=== PATIENT | male | born 1945 | race Caucasian/White ===

== ENCOUNTER 2017-08-07 14:43 | Inpatient (IN) | payer MEDICARE ==
[2017-08-07] MEDS ORDERED: MORPHINE SULFATE 2 MG/ML SYRINGE IVP STA (14:54)
[2017-08-07] MEDS ORDERED: IBUPROFEN 600 MG TAB PO STA (14:54)
[2017-08-07] MEDS ORDERED: ACETAMINOPHEN TAB 500 MG TAB PO STA (14:54)
[2017-08-07] MEDS ORDERED: IPRATROPIUM-ALBUTEROL 3 ML NEB INHALATION STA (14:54)
--- NOTE | 2017-08-07 14:57 | ED ---
General Adult HPI - General Stated complaint: Altered LOC Time Seen by Provider: 08/07/17 14:45 Source: RN notes reviewed - History of Present Illness Initial comments: This is a 72-year-old male who presents emergency Department with a recent stroke was just discharged home to the detention from [facility]. Patient was in the detention and was altered mentally also had a fever and was without his pain medication because the CLAU number was missing on the prescription. Patient was then sent to our facility per family request. It was no indication of shortness of breath or cough the patient denied any chest pain or abdominal pain patient denies any recent nausea or vomiting. There was noted indication the patient was having any nausea vomiting per EMS. There was no indication of any trauma injury. No family is currently here to give any further history. - Related Data Home Medications Medication Instructions Recorded Confirmed Acetaminophen Tab [Tylenol Tab] 650 mg PO Q6H PRN 08/07/17 08/07/17 Apixaban [Eliquis] 2.5 mg PO BID 08/07/17 08/07/17 Carvedilol [Coreg] 12.5 mg PO BID@0700,1600 08/07/17 08/07/17 Digoxin [Lanoxin] 125 mcg PO DAILY 08/07/17 08/07/17 Famotidine [Pepcid] 20 mg PO DAILY@0700 08/07/17 08/07/17 Gabapentin [Neurontin] 100 mg PO TID@0700,1300,1900 08/07/17 08/07/17 HYDROcodone/APAP 7.5-325MG [[place] 1 tab PO Q4H PRN 08/07/17 08/07/17 7.5-325] Insulin Aspart [NovoLOG See Protocol SQ ACHS 08/07/17 08/07/17 (formulary)] Simvastatin [Zocor] 40 mg PO HS 08/07/17 08/07/17 Torsemide [Demadex] 20 mg PO DAILY@0600 08/07/17 08/07/17 Allergies Allergy/AdvReac Type Severity Reaction Status Date / Time No Known Allergies Allergy Verified 08/07/17 15:40 Review of Systems ROS Statement: Those systems with pertinent positive or pertinent negative responses have been documented in the HPI. ROS Other: All systems not noted in ROS Statement are negative. General Exam - General Exam Comments Initial Comments: GENERAL: Patient is well-developed and well-nourished. Patient is nontoxic and well- hydrated and is in mild distress. ENT: Neck is soft and supple. No significant lymphadenopathy is noted. Oropharynx is clear. Moist mucous membranes. Neck has full range of motion without eliciting any pain. EYES: The sclera were anicteric and conjunctiva were pink and moist. Extraocular movements were intact and pupils were equal round and reactive to light. Eyelids were unremarkable. PULMONARY: Patient has crackles in the left base CARDIOVASCULAR: There is a regular rate and rhythm without any murmurs gallops or rubs. ABDOMEN: Soft and nontender with normal bowel sounds. No palpable organomegaly was noted. There is no palpable pulsatile mass. SKIN: Skin is clear with no lesions or rashes and otherwise unremarkable. NEUROLOGIC: Patient is alert and oriented 2. Cranial nerves II through XII are grossly intact. Motor and sensory are also intact. Normal speech, volume and content. Symmetrical smile. MUSCULOSKELETAL: Normal extremities with adequate strength and full range of motion. No lower extremity swelling or edema. No calf tenderness. LYMPHATICS: No significant lymphadenopathy is noted PSYCHIATRIC: Normal psychiatric evaluation. Normal interpersonal interactions appears functionally intact in deals appropriately with others. No signs of depression. No signs of anxiety. Course Vital Signs 08/07/17 08/07/17 08/07/17 14:45 14:50 15:33 Temperature 101.3 F H Pulse Rate 70 70 Respiratory 18 Rate Blood Pressure 101/52 O2 Sat by Pulse 88 L 94 L Oximetry 08/07/17 08/07/17 15:39 16:00 Temperature Pulse Rate 72 70 Respiratory 18 Rate Blood Pressure 101/50 O2 Sat by Pulse 92 L Oximetry Medical Decision Making - Medical Decision Making EKG is a ventricular paced rhythm at 72 bpm QRS is 150 QT interval 4:30 QTC is 470. Chest x-ray shows a left lower lobe pneumonia. I spoke with Dr. Chaudhary he agreed to admit the patient admitted the patient I started antibiotics in the emergency department and continue the antibiotics on the floor. I wrote admitting orders. - Lab Data Result diagrams: 08/07/17 15:25 08/07/17 15:00 Lab Results 08/07/17 08/07/17 08/07/17 Range/Units 15:00 15:00 15:00 WBC (3.8-10.6) k/uL RBC (4.30-5.90) m/uL Hgb (13.0-17.5) gm/dL Hct (39.0-53.0) % MCV (80.0-100.0) fL MCH (25.0-35.0) pg MCHC (31.0-37.0) g/dL RDW (11.5-15.5) % Plt Count (150-450) k/uL Neutrophils % % Lymphocytes % % Monocytes % % Eosinophils % % Basophils % % Neutrophils # (1.3-7.7) k/uL Lymphocytes # (1.0-4.8) k/uL Monocytes # (0-1.0) k/uL Eosinophils # (0-0.7) k/uL Basophils # (0-0.2) k/uL PT 12.3 H (9.0-12.0) sec INR 1.3 H (<1.2) APTT 29.6 (22.0-30.0) sec Sodium 139 (137-145) mmol/L Potassium 4.9 (3.5-5.1) mmol/L Chloride 96 L (98-107) mmol/L Carbon Dioxide 30 (22-30) mmol/L Anion Gap 13 mmol/L BUN 57 H (9-20) mg/dL Creatinine 1.90 H (0.66-1.25) mg/dL Est GFR (CKD-EPI)AfAm 39 (>60 ml/min/1.73 sqM) Est GFR (CKD-EPI)NonAf 34 (>60 ml/min/1.73 sqM) Glucose 201 H (74-99) mg/dL Plasma Lactic Acid Oscar 1.5 (0.7-2.0) mmol/L Calcium 8.5 (8.4-10.2) mg/dL Total Bilirubin 1.9 H (0.2-1.3) mg/dL AST 33 (17-59) U/L ALT 32 (21-72) U/L Alkaline Phosphatase 70 (38-126) U/L Troponin I (0.000-0.034) ng/mL Total Protein 5.9 L (6.3-8.2) g/dL Albumin 3.0 L (3.5-5.0) g/dL Urine Color Urine Appearance (Clear) Urine pH (5.0-8.0) Ur Specific [place] (1.001-1.035) Urine Protein (Negative) Urine Glucose (UA) (Negative) Urine Ketones (Negative) Urine Blood (Negative) Urine Nitrite (Negative) Urine Bilirubin (Negative) Urine Urobilinogen (<2.0) mg/dL Ur Leukocyte Esterase (Negative) Urine RBC (0-5) /hpf Urine WBC (0-5) /hpf Ur Squamous Epith Cells (0-4) /hpf Urine Bacteria (None) /hpf Hyaline Casts (0-2) /lpf Granular Casts (0) /lpf Urine Mucus (None) /hpf 08/07/17 08/07/17 08/07/17 Range/Units 15:00 15:00 15:25 WBC 14.3 H (3.8-10.6) k/uL RBC 3.57 L (4.30-5.90) m/uL Hgb 10.6 L (13.0-17.5) gm/dL Hct 32.4 L (39.0-53.0) % MCV 90.8 (80.0-100.0) fL MCH 29.8 (25.0-35.0) pg MCHC 32.8 (31.0-37.0) g/dL RDW 13.5 (11.5-15.5) % Plt Count 187 (150-450) k/uL Neutrophils % 86 % Lymphocytes % 6 % Monocytes % 6 % Eosinophils % 1 % Basophils % 0 % Neutrophils # 12.2 H (1.3-7.7) k/uL Lymphocytes # 0.8 L (1.0-4.8) k/uL Monocytes # 0.8 (0-1.0) k/uL Eosinophils # 0.1 (0-0.7) k/uL Basophils # 0.0 (0-0.2) k/uL PT (9.0-12.0) sec INR (<1.2) APTT (22.0-30.0) sec Sodium (137-145) mmol/L Potassium (3.5-5.1) mmol/L Chloride (98-107) mmol/L Carbon Dioxide (22-30) mmol/L Anion Gap mmol/L BUN (9-20) mg/dL Creatinine (0.66-1.25) mg/dL Est GFR (CKD-EPI)AfAm (>60 ml/min/1.73 sqM) Est GFR (CKD-EPI)NonAf (>60 ml/min/1.73 sqM) Glucose (74-99) mg/dL Plasma Lactic Acid Oscar (0.7-2.0) mmol/L Calcium (8.4-10.2) mg/dL Total Bilirubin (0.2-1.3) mg/dL AST (17-59) U/L ALT (21-72) U/L Alkaline Phosphatase (38-126) U/L Troponin I 0.053 H* (0.000-0.034) ng/mL Total Protein (6.3-8.2) g/dL Albumin (3.5-5.0) g/dL Urine Color Yellow Urine Appearance Cloudy (Clear) Urine pH 5.5 (5.0-8.0) Ur Specific [place] 1.018 (1.001-1.035) Urine Protein 1+ H (Negative) Urine Glucose (UA) Negative (Negative) Urine Ketones Negative (Negative) Urine Blood Small H (Negative) Urine Nitrite Negative (Negative) Urine Bilirubin Negative (Negative) Urine Urobilinogen 4.0 (<2.0) mg/dL Ur Leukocyte Esterase Negative (Negative) Urine RBC 4 (0-5) /hpf Urine WBC 1 (0-5) /hpf Ur Squamous Epith Cells <1 (0-4) /hpf Urine Bacteria Few H (None) /hpf Hyaline Casts 18 H (0-2) /lpf Granular Casts 13 (0) /lpf Urine Mucus Rare H (None) /hpf Disposition Clinical Impression: Renal insufficiency, Pneumonia Disposition: ADMITTED IP TO THIS HOSP Referrals: Chet Espinoza MD [Primary Care Provider] - 1-2 days Time of Disposition: 16:18
[2017-08-07] MEDS: SODIUM CHLORIDE 0.9% 500 ML IV SCH ×2 (15:16→15:17)
[2017-08-07 15:22] LABS: INR 1.3 (<1.2); Partial Thromboplastin Time 29.6 sec (22.0-30.0); Prothrombin Time 12.3 sec (9.0-12.0)
[2017-08-07 15:25] LABS: Calcium 8.5 mg/dL (8.4-10.2); Potassium 4.9 mmol/L (3.5-5.1); Total Bilirubin 1.9 mg/dL (0.2-1.3); Total Protein 5.9 g/dL (6.3-8.2)
[2017-08-07 15:29] LABS: Appearance,Urine Cloudy (Clear); Bacteria,Urine Few /hpf; Bilirubin,Urine Negative (Negative); Blood,Urine Small (Negative); Color,Urine Yellow; Glucose,Urine (UA) Negative (Negative); Granular Casts,Urine 13 /lpf (0); Hyaline Casts,Urine 18 /lpf (0-2); Ketones,Urine Negative (Negative); Leukocyte Esterase,Urine Negative (Negative); Mucus,Urine Rare /hpf; Nitrite,Urine Negative (Negative); PH, Urine 5.5 (5.0-8.0); Protein,Urine 1+ (Negative); RBC,Urine 4 /hpf (0-5); Specific Gravity,Urine 1.018 (1.001-1.035); Squamous Epithelial Cell,Urine <1 /hpf (0-4); WBC,Urine 1 /hpf (0-5)
[2017-08-07 15:35] LABS: Basophils % (A) 0 %; Eosinophils # (A) 0.1 k/uL (0-0.7); Eosinophils % (A) 1 %; HCT 32.4 % (39.0-53.0); HGB 10.6 gm/dL (13.0-17.5); Lymphocytes # (A) 0.8 k/uL (1.0-4.8); Lymphocytes % (A) 6 %; MCH 29.8 pg (25.0-35.0); MCHC 32.8 g/dL (31.0-37.0); MCV 90.8 fL (80.0-100.0); Mean Platelet Volume 9.2; Monocytes # (A) 0.8 k/uL (0-1.0); Monocytes % (A) 6 %; Neutrophils # (A) 12.2 k/uL (1.3-7.7); Neutrophils % (A) 86 %; Platelet Count 187 k/uL (150-450); RBC 3.57 m/uL (4.30-5.90); RDW 13.5 % (11.5-15.5); WBC 14.3 k/uL (3.8-10.6)
[2017-08-07] MEDS ORDERED: PIPERACILLIN-TAZOBACTAM 3.375 GM in DEXTROSE/WATER 1 50ML.BAG IVPB STA (16:12)
--- NOTE | 2017-08-07 16:13 | XR ---
EXAMINATION TYPE: XR chest 2V DATE OF EXAM: 08/07/2017 COMPARISON: NONE HISTORY: Fever and altered mental status. TECHNIQUE: Frontal and lateral views of the chest are obtained. FINDINGS: Loss of volume left hemithorax. There is a pacemaker partially obscuring the lateral portio n of the left lung. Pacer wires in satisfactory position. Increased density at the left lung consiste nt with infiltrate and atelectatic changes. Minimal blunting of the posterior costophrenic angles as visualized on the lateral projection suggestive of very small pleural effusions or reactions. IMPRESSION: Loss of volume in the left hemithorax with infiltrate density in the left lung. Small ple ural effusion with blunting of both posterior costophrenic angles. Borderline sized heart with a pace maker having a pacer wire is in satisfactory position.
[2017-08-07] MEDS ORDERED: LEVOFLOXACIN 750MG-D5W PMX 750 MG in DEXTROSE/WATER 1 150ML.BAG IVPB STA (16:18)
[2017-08-07] MEDS ORDERED: PNEUMONIA PROTOCOL UTILIZED 1 EACH MISC PO PRN (16:18)
[2017-08-07] MEDS ORDERED: HALOPERIDOL 1 MG TAB PO STA (18:19)
[2017-08-07] MEDS ORDERED: HALOPERIDOL 1 MG TAB PO PRN (18:23)
[2017-08-07] MEDS ORDERED: HALOPERIDOL LACTATE 5 MG/ML 1 ML VIAL IM STA (18:34)
--- NOTE | 2017-08-07 18:43 | P.HPIM ---
History of Present Illness 68-year-old was sent in from rehabilitation with complaints of fever. Patient was able to provide some of the history to me after which patient started getting agitated midway to physical exam and the patient is not cooperate to when I started during your exam. Past for the patient the patient was treated for gangrene of the right third toe patient did have an amputation that site looks clean patient denied any dysuria the one abnormality we can find his left lower lobe infiltrate but healthcare associated pneumonia patient is not comparing of any shortness of breath or cough and dysuria denied any nausea vomiting patient doesn't know why he was sent from [facility] to here. Patient had high-grade fever at the facility surgical site area where he had the amputation does not appear to be infected blood cultures were obtained patient was started on Zosyn and levofloxacin levofloxacin will be discontinued because of his agitation confusional episodes. Patient will be started on as needed Haldol for agitation. Patient tripped his IV out when I was there doesn't want to stay in the hospital. But did give me some history before all these events happened that he has heart failure patient has an AICD. I do not have an echo cardiac exam available patient's creatinine is 1.9 his creatinine about any ago is 1.2 patient is on half a dose of Eliquis because of which I believe patient does have some renal dysfunction. And still in the process of obtaining medical records from [facility] and appears to have history of atrial fibrillation on digoxin Review of Systems Except for those mentioned above rest of the review of systems unable to obtain due to his clinical condition Past Medical History Past Medical History: Heart Failure, COPD, Diabetes Mellitus, Hypertension, Renal Disease Additional Past Medical History / Comment(s): cellulitis, anemia, obesity, alcohol abusue, cardiomyopathy, generalized weakness History of Any Multi-Drug Resistant Organisms: Unobtainable Past Surgical History: Unable to Obtain Past Psychological History: No Psychological Hx Reported Smoking Status: Unknown if ever smoked Past Alcohol Use History: None Reported Past Drug Use History: None Reported Medications and Allergies Home Medications Medication Instructions Recorded Confirmed Type Acetaminophen Tab [Tylenol Tab] 650 mg PO Q6H PRN 08/07/17 08/07/17 History Apixaban [Eliquis] 2.5 mg PO BID 08/07/17 08/07/17 History Carvedilol [Coreg] 12.5 mg PO BID@0700,1600 08/07/17 08/07/17 History Digoxin [Lanoxin] 125 mcg PO DAILY 08/07/17 08/07/17 History Famotidine [Pepcid] 20 mg PO DAILY@0700 08/07/17 08/07/17 History Gabapentin [Neurontin] 100 mg PO TID@0700,1300,1900 08/07/17 08/07/17 History HYDROcodone/APAP 7.5-325MG [[place] 1 tab PO Q4H PRN 08/07/17 08/07/17 History 7.5-325] Insulin Aspart [NovoLOG See Protocol SQ ACHS 08/07/17 08/07/17 History (formulary)] Simvastatin [Zocor] 40 mg PO HS 08/07/17 08/07/17 History Torsemide [Demadex] 20 mg PO DAILY@0600 08/07/17 08/07/17 History Allergies Allergy/AdvReac Type Severity Reaction Status Date / Time No Known Allergies Allergy Verified 08/07/17 15:40 Physical Exam Vitals: Vital Signs Temp Pulse Resp BP Pulse Ox 08/07/17 17:29 70 18 108/49 95 08/07/17 16:40 97.2 F L 70 18 100/52 94 L 08/07/17 16:00 70 18 101/50 92 L 08/07/17 15:39 72 08/07/17 15:33 70 08/07/17 14:50 94 L 08/07/17 14:45 101.3 F H 70 18 101/52 88 L Intake and Output 08/07/17 08/07/17 08/07/17 06:59 14:59 22:59 Other: Voiding Method Indwelling Catheter Weight 81.647 kg PHYSICAL EXAMINATION: GENERAL: The patient is alert and oriented x2-3 initially and then he started getting agitated, not in any acute distress. Well developed, well nourished. HEENT: Pupils are round and equally reacting to light. EOMI. No scleral icterus. No conjunctival pallor. Normocephalic, atraumatic. No pharyngeal erythema. No thyromegaly. CARDIOVASCULAR: S1 and S2 present. No murmurs, rubs, or gallops. PULMONARY: Chest is clear to auscultation, no wheezing or crackles. ABDOMEN: Soft, nontender, nondistended, normoactive bowel sounds. No palpable organomegaly. MUSCULOSKELETAL: No joint swelling or deformity. EXTREMITIES: No cyanosis, clubbing, or pedal edema. NEUROLOGICAL: Unable to perform due to his clinical condition SKIN: No rashes. Results CBC & Chem 7: 08/07/17 15:25 08/07/17 15:00 Labs: Abnormal Lab Results - Last 24 Hours (Table) 08/07/17 08/07/17 08/07/17 Range/Units 15:00 15:00 15:00 WBC (3.8-10.6) k/uL RBC (4.30-5.90) m/uL Hgb (13.0-17.5) gm/dL Hct (39.0-53.0) % Neutrophils # (1.3-7.7) k/uL Lymphocytes # (1.0-4.8) k/uL PT 12.3 H (9.0-12.0) sec INR 1.3 H (<1.2) Chloride 96 L (98-107) mmol/L BUN 57 H (9-20) mg/dL Creatinine 1.90 H (0.66-1.25) mg/dL Glucose 201 H (74-99) mg/dL Total Bilirubin 1.9 H (0.2-1.3) mg/dL Troponin I 0.053 H* (0.000-0.034) ng/mL Total Protein 5.9 L (6.3-8.2) g/dL Albumin 3.0 L (3.5-5.0) g/dL Urine Protein (Negative) Urine Blood (Negative) Urine Bacteria (None) /hpf Hyaline Casts (0-2) /lpf Urine Mucus (None) /hpf 08/07/17 08/07/17 Range/Units 15:00 15:25 WBC 14.3 H (3.8-10.6) k/uL RBC 3.57 L (4.30-5.90) m/uL Hgb 10.6 L (13.0-17.5) gm/dL Hct 32.4 L (39.0-53.0) % Neutrophils # 12.2 H (1.3-7.7) k/uL Lymphocytes # 0.8 L (1.0-4.8) k/uL PT (9.0-12.0) sec INR (<1.2) Chloride (98-107) mmol/L BUN (9-20) mg/dL Creatinine (0.66-1.25) mg/dL Glucose (74-99) mg/dL Total Bilirubin (0.2-1.3) mg/dL Troponin I (0.000-0.034) ng/mL Total Protein (6.3-8.2) g/dL Albumin (3.5-5.0) g/dL Urine Protein 1+ H (Negative) Urine Blood Small H (Negative) Urine Bacteria Few H (None) /hpf Hyaline Casts 18 H (0-2) /lpf Urine Mucus Rare H (None) /hpf Assessment and Plan Plan: -Sepsis: Probably secondary to healthcare associated pneumonia patient was started on Zosyn which will be continued will not start him on any IV fluids lactic acid is 1.5 patient does have history of congestive heart failure patient does has an AICD a do not have an ejection fraction available patient is not in heart failure exacerbation at this time -Atrial fibrillation presently rate controlled patient will be resumed on beta brenna and digoxin dig levels will be obtained anticoagulation will be resumed -Possible chronic kidney disease and cannot do the staging as patient baseline creatinine is elevated unavailable -Possibility of acute renal failure will hold off on Demadex see if that improves his kidney function with close monitoring of his vitals and the cardiac status and heart failure status -Possible gastroesophageal reflux disease -Peripheral vascular disease with recent amputation the surgical site area appears to be clean -Type 2 diabetes mellitus hold off on oral hypoglycemic agents and patient will be started on sliding scale insulin -COPD with minimal exacerbation and wheezing patient was started on inhaled steroid and breathing treatments -Toxic encephalopathy from infection and can be from medications hold off on levofloxacin hold off on any benzo as well as barbiturates and anticholinergic medications.
[2017-08-07] MEDS: ALBUTEROL NEBULIZED 2.5 MG/3 ML INHALATION SCH (18:52)
[2017-08-07] MEDS: APIXABAN 2.5 MG TABLET PO SCH (22:09)
[2017-08-07] MEDS: GABAPENTIN 100 MG CAP PO SCH (22:09)
[2017-08-07] MEDS: ATORVASTATIN 20 MG TAB PO SCH (22:09)
[2017-08-08] MEDS: INSULIN ASPART 100 UNIT/ML 1 ML 10 ML VIAL SQ SCH ×5 (01:17→21:14)
[2017-08-08] MEDS: PIPERACILLIN-TAZOBACTAM 3.375 GM in DEXTROSE/WATER 1 50ML.BAG IVPB SCH ×3 (01:17→15:44)
[2017-08-08] MEDS: ACETAMINOPHEN TAB 325 MG TAB PO PRN ×2 (03:34→09:18)
[2017-08-08 06:02] LABS: Glucose,Whole Blood 126 mg/dL (75-99)
[2017-08-08] MEDS: CARVEDILOL 12.5 MG TAB PO SCH ×2 (06:47→15:43)
[2017-08-08] MEDS: FAMOTIDINE 20 MG TAB PO SCH (06:47)
[2017-08-08] MEDS: GABAPENTIN 100 MG CAP PO SCH ×3 (06:47→18:13)
[2017-08-08 07:23] LABS: HCT 32.5 % (39.0-53.0); HGB 10.6 gm/dL (13.0-17.5); MCH 29.9 pg (25.0-35.0); MCHC 32.6 g/dL (31.0-37.0); MCV 91.8 fL (80.0-100.0); Mean Platelet Volume 8.8; Platelet Count 188 k/uL (150-450); RBC 3.54 m/uL (4.30-5.90); RDW 13.8 % (11.5-15.5); WBC 12.6 k/uL (3.8-10.6)
[2017-08-08 07:46] LABS: Calcium 8.3 mg/dL (8.4-10.2); Potassium 4.3 mmol/L (3.5-5.1)
[2017-08-08] MEDS: ALBUTEROL NEBULIZED 2.5 MG/3 ML INHALATION SCH ×4 (08:19→20:54)
[2017-08-08] MEDS ORDERED: DIGOXIN 125 MCG TAB PO SCH (09:00)
[2017-08-08] MEDS: APIXABAN 2.5 MG TABLET PO SCH ×2 (09:15→20:33)
[2017-08-08 10:12] VITALS: BMI 33.0
[2017-08-08 11:59] LABS: Glucose,Whole Blood 154 mg/dL (75-99)
[2017-08-08] MEDS: HYDROcodone/APAP 5-325MG 1 EACH TAB PO PRN ×2 (12:25→20:34)
--- NOTE | 2017-08-08 12:56 | P.PN ---
Subjective 68-year-old admitted with fever and has glasses that pneumonia involving the left lower lobe of the lung. Patient is on Zosyn with significant improvement in his the respiratory status and mental status. Patient is almost alert oriented 2-3 not agitated today patient will be continued on Zosyn cultures are pending. Patient's creatinine improved to 1.5. 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 Patient is not in CHF exacerbation. Patient did levels are elevated digoxin will be discontinued. Patient's Selleck was dose may need to be changed depending on discharge GFR will decide on that. And has AICD in place. 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 Objective - Vital Signs Vital signs: Vital Signs Temp 98 F 08/08/17 08:00 Pulse 74 08/08/17 11:42 Resp 16 08/08/17 11:42 BP 140/66 08/08/17 08:00 Pulse Ox 97 08/08/17 08:20 Intake & Output 08/07/17 08/08/17 08/08/17 18:59 06:59 18:59 Intake Total 480 118 Output Total 700 Balance -220 118 Weight 111 kg 110.5 kg 110.5 kg Intake: Oral 480 118 Output: Urine 700 Other: Voiding Method Indwelling Catheter Indwelling Catheter Indwelling Catheter # Voids 2 - Exam PHYSICAL EXAMINATION: GENERAL: The patient is alert and oriented x3, not in any acute distress. Well developed, well nourished. HEENT: Pupils are round and equally reacting to light. EOMI. No scleral icterus. No conjunctival pallor. Normocephalic, atraumatic. No pharyngeal erythema. No thyromegaly. CARDIOVASCULAR: S1 and S2 present. No murmurs, rubs, or gallops. PULMONARY: Chest is clear to auscultation, no wheezing or crackles. ABDOMEN: Soft, nontender, nondistended, normoactive bowel sounds. No palpable organomegaly. MUSCULOSKELETAL: No joint swelling or deformity. EXTREMITIES: No cyanosis, clubbing, or pedal edema. He does have rheumatoid deformities doesn't have any swelling anywhere in both hands NEUROLOGICAL: Gross neurological examination did not reveal any focal deficits. SKIN: No rashes. - Labs CBC & Chem 7: 08/08/17 06:54 08/08/17 06:54 Labs: Abnormal Lab Results - Last 24 Hours (Table) 08/07/17 08/07/17 08/07/17 Range/Units 15:00 15:00 15:00 WBC (3.8-10.6) k/uL RBC (4.30-5.90) m/uL Hgb (13.0-17.5) gm/dL Hct (39.0-53.0) % Neutrophils # (1.3-7.7) k/uL Lymphocytes # (1.0-4.8) k/uL PT 12.3 H (9.0-12.0) sec INR 1.3 H (<1.2) Chloride 96 L (98-107) mmol/L BUN 57 H (9-20) mg/dL Creatinine 1.90 H (0.66-1.25) mg/dL Glucose 201 H (74-99) mg/dL POC Glucose (mg/dL) (75-99) mg/dL Calcium (8.4-10.2) mg/dL Total Bilirubin 1.9 H (0.2-1.3) mg/dL Troponin I 0.053 H* (0.000-0.034) ng/mL Total Protein 5.9 L (6.3-8.2) g/dL Albumin 3.0 L (3.5-5.0) g/dL Urine Protein (Negative) Urine Blood (Negative) Urine Bacteria (None) /hpf Hyaline Casts (0-2) /lpf Urine Mucus (None) /hpf 08/07/17 08/07/17 08/08/17 Range/Units 15:00 15:25 01:19 WBC 14.3 H (3.8-10.6) k/uL RBC 3.57 L (4.30-5.90) m/uL Hgb 10.6 L (13.0-17.5) gm/dL Hct 32.4 L (39.0-53.0) % Neutrophils # 12.2 H (1.3-7.7) k/uL Lymphocytes # 0.8 L (1.0-4.8) k/uL PT (9.0-12.0) sec INR (<1.2) Chloride (98-107) mmol/L BUN (9-20) mg/dL Creatinine (0.66-1.25) mg/dL Glucose (74-99) mg/dL POC Glucose (mg/dL) (75-99) mg/dL Calcium (8.4-10.2) mg/dL Total Bilirubin (0.2-1.3) mg/dL Troponin I 0.046 H* (0.000-0.034) ng/mL Total Protein (6.3-8.2) g/dL Albumin (3.5-5.0) g/dL Urine Protein 1+ H (Negative) Urine Blood Small H (Negative) Urine Bacteria Few H (None) /hpf Hyaline Casts 18 H (0-2) /lpf Urine Mucus Rare H (None) /hpf 08/08/17 08/08/17 08/08/17 Range/Units 05:58 06:54 06:54 WBC 12.6 H (3.8-10.6) k/uL RBC 3.54 L (4.30-5.90) m/uL Hgb 10.6 L (13.0-17.5) gm/dL Hct 32.5 L (39.0-53.0) % Neutrophils # (1.3-7.7) k/uL Lymphocytes # (1.0-4.8) k/uL PT (9.0-12.0) sec INR (<1.2) Chloride (98-107) mmol/L BUN 51 H (9-20) mg/dL Creatinine 1.56 H (0.66-1.25) mg/dL Glucose 129 H (74-99) mg/dL POC Glucose (mg/dL) 126 H (75-99) mg/dL Calcium 8.3 L (8.4-10.2) mg/dL Total Bilirubin (0.2-1.3) mg/dL Troponin I (0.000-0.034) ng/mL Total Protein (6.3-8.2) g/dL Albumin (3.5-5.0) g/dL Urine Protein (Negative) Urine Blood (Negative) Urine Bacteria (None) /hpf Hyaline Casts (0-2) /lpf Urine Mucus (None) /hpf 08/08/17 08/08/17 Range/Units 06:54 11:52 WBC (3.8-10.6) k/uL RBC (4.30-5.90) m/uL Hgb (13.0-17.5) gm/dL Hct (39.0-53.0) % Neutrophils # (1.3-7.7) k/uL Lymphocytes # (1.0-4.8) k/uL PT (9.0-12.0) sec INR (<1.2) Chloride (98-107) mmol/L BUN (9-20) mg/dL Creatinine (0.66-1.25) mg/dL Glucose (74-99) mg/dL POC Glucose (mg/dL) 154 H (75-99) mg/dL Calcium (8.4-10.2) mg/dL Total Bilirubin (0.2-1.3) mg/dL Troponin I 0.039 H* (0.000-0.034) ng/mL Total Protein (6.3-8.2) g/dL Albumin (3.5-5.0) g/dL Urine Protein (Negative) Urine Blood (Negative) Urine Bacteria (None) /hpf Hyaline Casts (0-2) /lpf Urine Mucus (None) /hpf Microbiology - Last 24 Hours (Table) 08/07/17 15:00 Urine Culture - Preliminary Urine,Voided Assessment and Plan Plan: -Sepsis: Probably secondary to healthcare associated pneumonia patient is on Zosyn which will be continued awaiting cultures. Patient's creatinine improved patient's creatinine improved. Patient is not in heart failure exacerbation we' ll obtain a BNP clinically does not have any JVD or S3. Patient will remain off diuretic therapy -Atrial fibrillation presently rate controlled patient will be resumed on beta brenna and digoxin is held because of the toxic levels -Possible chronic kidney disease and cannot do the staging as patient baseline creatinine is elevated unavailable. And patient was discharged from her prehospital his creatinine was around 2.2 but now it's actually better after holding off on the diuretic therapy, we'll can you to hold her diuretic therapy closely monitored for any heart failure -Possibility of acute renal failure will hold off on Demadex kidney function did improve. -Cardiomyopathy most probably ischemic patient has an AICD ejection fraction is not known patient is hypovolemic at this time patient is not in CHF exacerbation -Possible gastroesophageal reflux disease -Peripheral vascular disease with recent amputation the surgical site area appears to be clean -Type 2 diabetes mellitus hold off on oral hypoglycemic agents and patient will be started on sliding scale insulin -COPD with minimal exacerbation and wheezing patient was started on inhaled steroid and breathing treatments -Toxic encephalopathy improved now probably from pneumonia along with levofloxacin
--- NOTE | 2017-08-08 15:04 | XR ---
EXAMINATION TYPE: XR chest 2V DATE OF EXAM: 08/08/2017 COMPARISON: 08/07/2017 TECHNIQUE: PA and lateral views submitted. HISTORY: Pneumonia FINDINGS: The heart is enlarged and there is a cardiac device with evidence of previous rib fracture. No pneumo thorax. No obvious pleural effusion. Atherosclerotic change aorta. Pulmonary arteries prominent which could be associated with pulmonary arterial hypertension. Correlate clinically. A persistent left pe rihilar ill-defined density and there is a suspicion for an 8 mm left upper lobe pulmonary nodule. IMPRESSION: 1. Persistent left perihilar patchy infiltrate. However, there now appears to be an 8 mm left upper l obe pulmonary nodule which was partially obscured by the pacemaker on the previous exam. Recommend CT scan of the chest.
[2017-08-08 16:51] LABS: Glucose,Whole Blood 164 mg/dL (75-99)
[2017-08-08] MEDS: TAMSULOSIN 0.4 MG CAP.ER.24H PO SCH (18:12)
[2017-08-08] MEDS ORDERED: VANCOMYCIN IV PER PHARMACY 1 EACH MISC MISCELLANE PRN (18:59)
[2017-08-08] MEDS ORDERED: VANCOMYCIN 2,000 MG in SODIUM CHLORIDE 0.9% 500 ML IVPB ONE (19:30)
[2017-08-08] MEDS: ATORVASTATIN 20 MG TAB PO SCH (20:33)
[2017-08-08 20:45] LABS: Glucose,Whole Blood 148 mg/dL (75-99)
[2017-08-09] MEDS: PIPERACILLIN-TAZOBACTAM 3.375 GM in DEXTROSE/WATER 1 50ML.BAG IVPB SCH ×4 (02:53→22:58)
[2017-08-09] MEDS: HYDROcodone/APAP 5-325MG 1 EACH TAB PO PRN ×3 (02:58→22:15)
[2017-08-09 06:13] LABS: Glucose,Whole Blood 152 mg/dL (75-99)
[2017-08-09] MEDS: INSULIN ASPART 100 UNIT/ML 1 ML 10 ML VIAL SQ SCH ×4 (06:48→22:11)
[2017-08-09] MEDS: CARVEDILOL 12.5 MG TAB PO SCH ×2 (06:49→17:45)
[2017-08-09] MEDS: FAMOTIDINE 20 MG TAB PO SCH (06:50)
[2017-08-09] MEDS: GABAPENTIN 100 MG CAP PO SCH ×3 (06:50→18:08)
[2017-08-09 06:52] LABS: HCT 32.9 % (39.0-53.0); HGB 10.7 gm/dL (13.0-17.5); MCHC 32.6 g/dL (31.0-37.0); MCV 91.9 fL (80.0-100.0); Mean Platelet Volume 8.2; Platelet Count 209 k/uL (150-450); RBC 3.58 m/uL (4.30-5.90); RDW 13.6 % (11.5-15.5); WBC 12.4 k/uL (3.8-10.6)
[2017-08-09 07:04] LABS: Calcium 8.7 mg/dL (8.4-10.2); Potassium 4.7 mmol/L (3.5-5.1)
[2017-08-09] MEDS: TAMSULOSIN 0.4 MG CAP.ER.24H PO SCH (08:21)
[2017-08-09] MEDS: APIXABAN 2.5 MG TABLET PO SCH ×2 (08:21→20:14)
[2017-08-09] MEDS: ALBUTEROL NEBULIZED 2.5 MG/3 ML INHALATION SCH ×5 (08:24→19:30)
[2017-08-09 11:38] LABS: Glucose,Whole Blood 173 mg/dL (75-99)
[2017-08-09] MEDS ORDERED: VANCOMYCIN 1,750 MG in SODIUM CHLORIDE 0.9% 500 ML IVPB SCH (12:00)
[2017-08-09] MEDS: traMADol 50 MG TAB PO PRN ×2 (13:53→20:14)
--- NOTE | 2017-08-09 15:34 | XR ---
Bilateral knees HISTORY: Pain 3 views of each knee submitted on a total of 6 images Joint space loss is present in the medial compartments. Suspect there is chondrocalcinosis present. V ascular calcifications are also present. Alignment is maintained. Some hypertrophic changes present a t the medial compartments. Suprapatellar joint effusions present bilaterally. 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
[2017-08-09] MEDS ORDERED: LEVOFLOXACIN 750MG-D5W PMX 750 MG in DEXTROSE/WATER 1 150ML.BAG IVPB SCH (17:00)
[2017-08-09 17:19] LABS: Glucose,Whole Blood 199 mg/dL (75-99)
--- NOTE | 2017-08-09 17:41 | P.PN ---
Subjective 68-year-old admitted with fever and has glasses that pneumonia involving the left lower lobe of the lung. Patient is on Zosyn with significant improvement in his the respiratory status and mental status. Patient is almost alert oriented 2-3 not agitated today patient will be continued on Zosyn cultures are pending. Patient's creatinine improved to 1.5. 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 Patient is not in CHF exacerbation. Patient did levels are elevated digoxin will be discontinued. Patient's Selleck was dose may need to be changed depending on discharge GFR will decide on that. And has AICD in place. 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 August 09, 2017 Patient remains on Zosyn no more fevers. Patient's creatinine improved will continue to hold up diuretic therapy. We'll obtain a repeat echocardiogram to assist is a ejection fraction will continue to hold digoxin. Patient is complaining of bilateral knee pain secondary to osteoarthritis because of concerns by the family and patient regarding consult orthopedic surgery will obtain bilateral knee x-ray. We will use anti-inflammatory medication like tramadol as we cannot use other nonsteroidal anti-inflammatory medications for his arthritis. Patient is still confused although significant improvement in his confusion and agitation since admission. Objective - Vital Signs Vital signs: Vital Signs Temp 97.8 F 08/09/17 08:00 Pulse 72 08/09/17 11:52 Resp 18 08/09/17 11:14 BP 164/71 08/09/17 11:14 Pulse Ox 94 L 08/09/17 11:14 Intake & Output 08/08/17 08/09/17 08/09/17 18:59 06:59 18:59 Intake Total 608 300 Output Total 500 180 Balance 608 -200 -180 Weight 110.5 kg 111 kg Intake: Oral 608 300 Output: Urine 500 180 Other: Voiding Method Indwelling Catheter Indwelling Catheter Urinal # Voids 3 - Exam PHYSICAL EXAMINATION: GENERAL: The patient is alert and oriented x2-3, not in any acute distress. Well developed, well nourished. Not agitated today HEENT: Pupils are round and equally reacting to light. EOMI. No scleral icterus. No conjunctival pallor. Normocephalic, atraumatic. No pharyngeal erythema. No thyromegaly. CARDIOVASCULAR: S1 and S2 present. No murmurs, rubs, or gallops. PULMONARY: Chest is clear to auscultation, no wheezing or crackles. ABDOMEN: Soft, nontender, nondistended, normoactive bowel sounds. No palpable organomegaly. MUSCULOSKELETAL: Patient does have some swelling in bilateral knee EXTREMITIES: No cyanosis, clubbing, or pedal edema. He does have rheumatoid deformities doesn't have any swelling anywhere in both hands NEUROLOGICAL: Gross neurological examination did not reveal any focal deficits. SKIN: No rashes. - Labs CBC & Chem 7: 08/09/17 06:13 08/09/17 06:13 Labs: Abnormal Lab Results - Last 24 Hours (Table) 08/08/17 08/09/17 08/09/17 Range/Units 20:44 06:05 06:13 WBC 12.4 H (3.8-10.6) k/uL RBC 3.58 L (4.30-5.90) m/uL Hgb 10.7 L (13.0-17.5) gm/dL Hct 32.9 L (39.0-53.0) % BUN (9-20) mg/dL Glucose (74-99) mg/dL POC Glucose (mg/dL) 148 H 152 H (75-99) mg/dL 08/09/17 08/09/17 08/09/17 Range/Units 06:13 11:24 16:35 WBC (3.8-10.6) k/uL RBC (4.30-5.90) m/uL Hgb (13.0-17.5) gm/dL Hct (39.0-53.0) % BUN 32 H (9-20) mg/dL Glucose 151 H (74-99) mg/dL POC Glucose (mg/dL) 173 H 199 H (75-99) mg/dL Microbiology - Last 24 Hours (Table) 08/07/17 15:00 Blood Culture Gram Stain - Preliminary Blood Blood Culture - Preliminary Coagulase Negative Staph 08/07/17 15:00 Urine Culture - Final Urine,Voided 08/07/17 15:00 Blood Culture - Final Blood Assessment and Plan Plan: -Sepsis: Probably secondary to healthcare associated pneumonia patient is on Zosyn which will be continued blood cultures were positive with a coagulase- negative staph which is a contamination vancomycin was discontinued. Patient's creatinine improved patient's creatinine improved. Patient is not in heart failure exacerbation clinically does not have any JVD or S3. Patient will remain off diuretic therapy -Atrial fibrillation presently rate controlled patient will be resumed on beta brenna and digoxin is held because of the toxic levels -Possible chronic kidney disease patient mostly has acute renal failure secondary to diuretic therapy which is being held with improvement in creatinine -Possibility of acute renal failure will hold off on Demadex kidney function did improve. -Cardiomyopathy most probably ischemic patient has an AICD ejection fraction is not known patient is hypovolemic at this time patient is not in CHF exacerbation -Possible gastroesophageal reflux disease -Peripheral vascular disease with recent amputation the surgical site area appears to be clean -Type 2 diabetes mellitus, patient is on sliding scale insulin -COPD with minimal exacerbation and wheezing patient was started on inhaled steroid and breathing treatments -Toxic encephalopathy improved now probably from pneumonia along with levofloxacin
[2017-08-09] MEDS: ATORVASTATIN 20 MG TAB PO SCH (20:14)
[2017-08-09 21:08] LABS: Glucose,Whole Blood 197 mg/dL (75-99)
[2017-08-10] MEDS: traMADol 50 MG TAB PO PRN ×2 (02:55→12:41)
[2017-08-10 03:43] VITALS: RESP 19
[2017-08-10 06:01] LABS: Glucose,Whole Blood 164 mg/dL (75-99)
[2017-08-10 06:24] LABS: HGB 10.9 gm/dL (13.0-17.5); Hypochromasia Slight; MCH 29.6 pg (25.0-35.0); MCV 92.6 fL (80.0-100.0); Mean Platelet Volume 7.9; Platelet Count 250 k/uL (150-450); RBC 3.67 m/uL (4.30-5.90); RDW 13.6 % (11.5-15.5); WBC 12.3 k/uL (3.8-10.6)
[2017-08-10 06:36] LABS: Calcium 8.9 mg/dL (8.4-10.2); Potassium 4.7 mmol/L (3.5-5.1)
[2017-08-10] MEDS: HYDROcodone/APAP 5-325MG 1 EACH TAB PO PRN (06:43)
[2017-08-10] MEDS: INSULIN ASPART 100 UNIT/ML 1 ML 10 ML VIAL SQ SCH ×2 (06:43→12:23)
[2017-08-10] MEDS: GABAPENTIN 100 MG CAP PO SCH ×2 (06:43→12:41)
[2017-08-10] MEDS: FAMOTIDINE 20 MG TAB PO SCH (06:43)
[2017-08-10] MEDS: CARVEDILOL 12.5 MG TAB PO SCH (06:43)
--- NOTE | 2017-08-10 08:09 | XR ---
EXAMINATION TYPE: XR chest 1V LIMITED PORTABLE DATE OF EXAM: 08/10/2017 COMPARISON: Prior chest x-ray dated 08/08/2017. HISTORY: Congestive heart failure TECHNIQUE: Single frontal view of the chest is obtained. FINDINGS: There is a persistent patchy density along left mid lung field. Stable position of the pace maker and pacer wires as compared with the prior study. No evidence of pneumothorax. IMPRESSION: Stable findings are compatible with the prior study with persistent patchy density over t he right mid lung field. Stable position of the pacemaker and pacing wires.
[2017-08-10] MEDS: PIPERACILLIN-TAZOBACTAM 3.375 GM in DEXTROSE/WATER 1 50ML.BAG IVPB SCH (08:18)
[2017-08-10] MEDS: TAMSULOSIN 0.4 MG CAP.ER.24H PO SCH (08:19)
[2017-08-10] MEDS: APIXABAN 2.5 MG TABLET PO SCH (08:19)
[2017-08-10] MEDS: ALBUTEROL NEBULIZED 2.5 MG/3 ML INHALATION SCH ×2 (08:38→11:37)
--- NOTE | 2017-08-10 09:31 | P.CNOR ---
History of Present Illness - HPI Consult date: 08/10/17 History of present illness: This is a 72-year-old male who is admitted for pneumonia and renal insufficiency. Orthopedics is consulted due to bilateral knee pain. Patient states that both of his knees have hurt for a long time. Patient denies any injury or new symptoms. Patient denies any fever/chills, numbness, weakness, tingling, abdominal pain, or chest pain. Review of Systems See HPI. Past Medical History Past Medical History: Heart Failure, COPD, Diabetes Mellitus, Hypertension, Renal Disease Additional Past Medical History / Comment(s): cellulitis, anemia, obesity, alcohol abusue, cardiomyopathy, generalized weakness. bilateral carpal tunnel, gout History of Any Multi-Drug Resistant Organisms: Unobtainable Past Surgical History: Unable to Obtain Past Psychological History: No Psychological Hx Reported Smoking Status: Unknown if ever smoked Past Alcohol Use History: None Reported Past Drug Use History: None Reported - Past Family History Father History Unknown: Yes Family Medical History: Unable to Obtain Mother History Unknown: Yes Family Medical History: Unable to Obtain Medications and Allergies Home Medications Medication Instructions Recorded Confirmed Type Acetaminophen Tab [Tylenol Tab] 650 mg PO Q6H PRN 08/07/17 08/07/17 History Apixaban [Eliquis] 2.5 mg PO BID 08/07/17 08/07/17 History Carvedilol [Coreg] 12.5 mg PO BID@0700,1600 08/07/17 08/07/17 History Digoxin [Lanoxin] 125 mcg PO DAILY 08/07/17 08/07/17 History Famotidine [Pepcid] 20 mg PO DAILY@0700 08/07/17 08/07/17 History Gabapentin [Neurontin] 100 mg PO TID@0700,1300,1900 08/07/17 08/07/17 History HYDROcodone/APAP 7.5-325MG [[place] 1 tab PO Q4H PRN 08/07/17 08/07/17 History 7.5-325] Insulin Aspart [NovoLOG See Protocol SQ ACHS 08/07/17 08/07/17 History (formulary)] Simvastatin [Zocor] 40 mg PO HS 08/07/17 08/07/17 History Torsemide [Demadex] 20 mg PO DAILY@0600 08/07/17 08/07/17 History Allergies Allergy/AdvReac Type Severity Reaction Status Date / Time No Known Allergies Allergy Verified 08/07/17 15:40 Physical Examination On exam patient is alert and oriented 3 and lying in bed in no acute distress. There is tenderness to palpation over bilateral knees. There is no erythema, effusion or ecchymosis. Skin is intact. There is pain with range of motion of bilateral knees. Calves are soft and nontender bilaterally. Sensation intact bilaterally. Neurovascular status and circulatory status are intact bilaterally. Results X-rays of bilateral knees show moderate arthritic changes. No fracture or dislocation. - Labs Labs: Abnormal Lab Results - Last 24 Hours (Table) 08/09/17 08/09/17 08/09/17 Range/Units 11:24 16:35 21:07 WBC (3.8-10.6) k/uL RBC (4.30-5.90) m/uL Hgb (13.0-17.5) gm/dL Hct (39.0-53.0) % BUN (9-20) mg/dL Glucose (74-99) mg/dL POC Glucose (mg/dL) 173 H 199 H 197 H (75-99) mg/dL 08/10/17 08/10/17 08/10/17 Range/Units 05:36 05:36 05:59 WBC 12.3 H (3.8-10.6) k/uL RBC 3.67 L (4.30-5.90) m/uL Hgb 10.9 L (13.0-17.5) gm/dL Hct 34.0 L (39.0-53.0) % BUN 23 H (9-20) mg/dL Glucose 158 H (74-99) mg/dL POC Glucose (mg/dL) 164 H (75-99) mg/dL Microbiology - Last 24 Hours (Table) 08/07/17 15:00 Blood Culture Gram Stain - Final Blood Blood Culture - Final Coagulase Negative Staph H & H 08/07/17 08/08/17 08/09/17 Range/Units 15:25 06:54 06:13 Hgb 10.6 L 10.6 L 10.7 L (13.0-17.5) gm/dL Hct 32.4 L 32.5 L 32.9 L (39.0-53.0) % 08/10/17 Range/Units 05:36 Hgb 10.9 L (13.0-17.5) gm/dL Hct 34.0 L (39.0-53.0) % Coagulation 08/07/17 Range/Units 15:00 INR 1.3 H (<1.2) Result Diagrams: 08/10/17 05:36 08/10/17 05:36 Assessment and Plan (1) Primary osteoarthritis of knees, bilateral Current Visit: Yes Status: Acute Code(s): M17.0 - BILATERAL PRIMARY OSTEOARTHRITIS OF KNEE SNOMED Code(s): 806066445 (2) Pain in both knees Current Visit: Yes Status: Acute Code(s): M25.561 - PAIN IN RIGHT KNEE; M25.562 - PAIN IN LEFT KNEE SNOMED Code(s): 46268486 Plan: 1. Osteoarthritis noted on x-rays of bilateral knees. 2. Continue pain control. 3. No surgical intervention planned. Patient may follow up as an outpatient for cortisone injections once his pneumonia has resolved.
[2017-08-10 11:58] VITALS: BP 144/55; PULSE 77; TEMP 97.8
[2017-08-10 12:06] LABS: Glucose,Whole Blood 201 mg/dL (75-99)
--- NOTE | 2017-08-10 12:39 | P.DS ---
Providers Date of admission: 08/07/17 16:18 Attending physician: Samra Chaudhary Consults: 08/09/17 18:01 Consult Physician Routine Consulting Provider: Yoni Christianson Consult Reason/Comments: right knee pain Do you want consulting provider notified?: Already Contacted [facility] Course: 68-year-old admitted with fever and has glasses that pneumonia involving the left lower lobe of the lung. Patient is on Zosyn with significant improvement in his the respiratory status and mental status. Patient is almost alert oriented 2-3 not agitated today patient will be continued on Zosyn cultures are pending. Patient's creatinine improved to 1.5. His baseline creatinine is unknown I did review the medical records from the. 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 Patient is not in CHF exacerbation. Patient did levels are elevated digoxin will be discontinued. Patient's Selleck was dose may need to be changed depending on discharge GFR will decide on that. And has AICD in place. 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 August 09, 2017 Patient remains on Zosyn no more fevers. Patient's creatinine improved will continue to hold up diuretic therapy. We'll obtain a repeat echocardiogram to assist is a ejection fraction will continue to hold digoxin. Patient is complaining of bilateral knee pain secondary to osteoarthritis because of concerns by the family and patient regarding consult orthopedic surgery will obtain bilateral knee x-ray. We will use anti-inflammatory medication like tramadol as we cannot use other nonsteroidal anti-inflammatory medications for his arthritis. Patient is still confused although significant improvement in his confusion and agitation since admission. 08/10/2017 Patient does have some confusion which I believe his baseline patient is mostly appropriate the he does remember hospital course. Patient is oriented times almost close to 3. I still don't have echocardiogram available at this time. Kidney function improved with creatinine going down from 2 to 1 as of yesterday. Patient's diuretic therapy is being held the last 3 days in spite of which patient did not going to heart failure exacerbation. Patient was initially started on tramadol but because of his increased confusion compared to yesterday I'm holding off on tramadol unfortunately because of his fluctuating kidney function I cannot start him on any nonsteroidal anti- inflammatory medications. Since kidney function improves patient will need a higher dose of Eliquis, which will be increased to 5 twice a day. Since patient did not have any heart failure in spite of not being on any diuretic therapy for 3 days and then patient came in patient is in renal failure due to excessive diuretic therapy and cutting down the dose of Demadex 10 mg daily need to be reassessed as outpatient for need of increasing this. Patient's digoxin was also stopped because of the toxic levels of digoxin which was 1.8 that is probably secondary to renal failure can be reinitiated if needed. Patient was evaluated by orthopedic surgery because of concerns of his immobility and unable to participate in physical therapy because of his severe osteoarthritis of bilateral legs patient had a x-ray of the legs which showed osteoarthritis and orthopedic surgery recommending outpatient knee injection. PHYSICAL EXAMINATION: GENERAL: The patient is alert and oriented x2-3, not in any acute distress. Well developed, well nourished. Not agitated today HEENT: Pupils are round and equally reacting to light. EOMI. No scleral icterus. No conjunctival pallor. Normocephalic, atraumatic. No pharyngeal erythema. No thyromegaly. CARDIOVASCULAR: S1 and S2 present. No murmurs, rubs, or gallops. PULMONARY: Chest is clear to auscultation, no wheezing or crackles. ABDOMEN: Soft, nontender, nondistended, normoactive bowel sounds. No palpable organomegaly. MUSCULOSKELETAL: Patient does have some swelling in bilateral knee EXTREMITIES: No cyanosis, clubbing, or pedal edema. He does have rheumatoid deformities doesn't have any swelling anywhere in both hands NEUROLOGICAL: Gross neurological examination did not reveal any focal deficits. SKIN: No rashes. Assessment and Plan Plan: -Sepsis: Probably secondary to healthcare associated pneumonia patient is on Zosyn which will be continued blood cultures were positive with a coagulase- negative staph which is a contamination vancomycin was discontinued. Patient will be discharged on an week of Augmentin Patient's creatinine improved patient 's creatinine improved. Patient is not in heart failure exacerbation clinically does not have any JVD or S3. -Atrial fibrillation presently rate controlled -Possible chronic kidney disease patient mostly has acute renal failure secondary to diuretic therapy which is being held with improvement in creatinine -acute renal failure secondary to excessive diuretic therapy which improved after holding of diuretics -Cardiomyopathy most probably ischemic patient has an AICD ejection fraction is not known patient is hypovolemic at this time patient is not in CHF exacerbation -Possible gastroesophageal reflux disease -Peripheral vascular disease with recent amputation the surgical site area appears to be clean -Type 2 diabetes mellitus, patient is on sliding scale insulin -COPD with minimal exacerbation and wheezing patient was started on inhaled steroid with improvement in wheezing. -Toxic encephalopathy improved now probably from pneumonia along with levofloxacin Plan - Discharge Summary Discharge Rx Participant: No New Discharge Prescriptions: New Amoxic-Pot Clav 875-125Mg [Augmentin 875-125] 1 tab PO Q12HR #14 tablet HYDROcodone/APAP 5-325MG [[place] 5-325] 1 each PO Q6HR PRN #18 tab PRN Reason: SEVERE Pain Continue HYDROcodone/APAP 7.5-325MG [[place] 7.5-325] 1 tab PO Q4H PRN PRN Reason: Pain Acetaminophen Tab [Tylenol] 650 mg PO Q6H PRN PRN Reason: Pain Insulin Aspart [NovoLOG (formulary)] See Protocol SQ ACHS Gabapentin [Neurontin] 100 mg PO TID@0700,1300,1900 Carvedilol [Coreg] 12.5 mg PO BID@0700,1600 Simvastatin [Zocor] 40 mg PO HS Famotidine [Pepcid] 20 mg PO DAILY@0700 Changed Apixaban [Eliquis] 5 mg PO BID #0 Torsemide [Demadex] 10 mg PO DAILY@0600 #0 Discontinued Digoxin [Lanoxin] 125 mcg PO DAILY Discharge Medication List Acetaminophen Tab [Tylenol] 650 mg PO Q6H PRN 08/07/17 [History] Carvedilol [Coreg] 12.5 mg PO BID@0700,1600 08/07/17 [History] Famotidine [Pepcid] 20 mg PO DAILY@0700 08/07/17 [History] Gabapentin [Neurontin] 100 mg PO TID@0700,1300,1900 08/07/17 [History] HYDROcodone/APAP 7.5-325MG [[place] 7.5-325] 1 tab PO Q4H PRN 08/07/17 [History] Insulin Aspart [NovoLOG (formulary)] See Protocol SQ ACHS 08/07/17 [History] Simvastatin [Zocor] 40 mg PO HS 08/07/17 [History] Amoxic-Pot Clav 875-125Mg [Augmentin 875-125] 1 tab PO Q12HR #14 tablet [Rx] Apixaban [Eliquis] 5 mg PO BID #0 08/10/17 [Rx] HYDROcodone/APAP 5-325MG [[place] 5-325] 1 each PO Q6HR PRN #18 tab 08/10/17 [Rx] Torsemide [Demadex] 10 mg PO DAILY@0600 #0 08/10/17 [Rx] Follow up Appointment(s)/Referral(s): Chet Espinoza MD [Primary Care Provider] - 1-2 days Yoni Christianson DO [Doctor of Osteopathic Medicine] - As Needed Activity/Diet/Wound Care/Special Instructions: MEDILODGE Discharge Disposition: TRANSFER TO SNF/ECF
--- NOTE | 2017-08-10 16:40 | ECHOF ---
Referral Reason:chf MEASUREMENTS -------- HEIGHT: 180.3 cm WEIGHT: 110.7 kg BP: 164/71 RVIDd: 3.3 cm (< 3.3) IVSd: 1.3 cm (0.6 - 1.1) LVIDd: 3.9 cm (3.9 - 5.3) LVPWd: 1.5 cm (0.6 - 1.1) IVSs: 1.8 cm LVIDs: 2.3 cm LVPWs: 1.9 cm Ao Diam: 3.5 cm (2.0 - 3.7) AV Cusp: 2.3 cm (1.5 - 2.6) LA Diam: 4.7 cm (2.7 - 3.8) MV EXCURSION: 20.607 mm (> 18.000) MV EF SLOPE: 152 mm/s (70 - 150) EPSS: 0.3 cm MV E Ham: 1.26 m/s MV DecT: 229 ms MV A Ham: 0.47 m/s MV E/A Ratio: 2.70 RAP: 5.00 mmHg RVSP: 41.00 mmHg FINDINGS -------- Sinus rhythm with extra systolic beats. AICD This was a technically good study. The left ventricular size is normal. There is mild concentric left ventricular hypertrophy. Overa ll left ventricular systolic function is low-normal with, an EF between 50 - 55 %. The right ventricle is mildly enlarged. The left atrium is moderately dilated. The right atrium is normal in size. Aortic valve is trileaflet and is mildly thickened. Mild mitral regurgitation is present. Mild tricuspid regurgitation present. There is mild pulmonary hypertension. The right ventricular systolic pressure, as measured by Doppler, is 41.00mmHg. Pulmonic valve appears structurally normal. The aortic root, ascending aorta and aortic arch are normal. The pericardium is normal. CONCLUSIONS -------- 1. Sinus rhythm with extra systolic beats. 2. AICD 3. This was a technically good study. 4. The left ventricular size is normal. 5. There is mild concentric left ventricular hypertrophy. 6. Overall left ventricular systolic function is low-normal with, an EF between 50 - 55 %. 7. The right ventricle is mildly enlarged. 8. The left atrium is moderately dilated. 9. The right atrium is normal in size. 10. Aortic valve is trileaflet and is mildly thickened. 11. Mild mitral regurgitation is present. 12. Mild tricuspid regurgitation present. 13. There is mild pulmonary hypertension. 14. The right ventricular systolic pressure, as measured by Doppler, is 41.00mmHg. 15. Pulmonic valve appears structurally normal. 16. The aortic root, ascending aorta and aortic arch are normal. 17. The pericardium is normal. DIRECTOR [employer]: Temitope Werner RDCS
== END 2017-08-10 14:20 | DRG 871 ==
LOC: EC 14:43 → 6SEL 16:18
PROVIDERS: ADMIT Internal Medicine; ATTEND Internal Medicine
DX: A41.2 Sepsis due to unspecified staphylococcus (principal); J18.9 Pneumonia, unspecified organism; G92 Toxic encephalopathy; J44.1 Chronic obstructive pulmonary disease with (acute) exacerbation; J44.0 Chronic obstructive pulmonary disease with (acute) lower respiratory infection; N17.9 Acute kidney failure, unspecified; K21.9 Gastro-esophageal reflux disease without esophagitis; I25.5 Ischemic cardiomyopathy; E11.51 Type 2 diabetes mellitus with diabetic peripheral angiopathy without gangrene; E86.1 Hypovolemia; T50.2X5A Adverse effect of carbonic-anhydrase inhibitors, benzothiadiazides and other diuretics, initial encounter; I48.91 Unspecified atrial fibrillation; M06.9 Rheumatoid arthritis, unspecified; M17.0 Bilateral primary osteoarthritis of knee; Y95 Nosocomial condition; Z95.810 Presence of automatic (implantable) cardiac defibrillator; Z79.01 Long term (current) use of anticoagulants; Z79.899 Other long term (current) drug therapy; Z86.73 Personal history of transient ischemic attack (TIA), and cerebral infarction without residual deficits; Z89.421 Acquired absence of other right toe(s)
CPT/HCPCS: 36415; 71045; 71046; 80048; 80053; 80162; 81001; 83605; 83880; 84484; 85025; 85027; 85610; 85730; 87040; 87086; 93005; 93306; 94640; 94760; 96361; 96365; 96366; 96372; 96375; 99285

== ENCOUNTER 2017-08-25 14:59 | Inpatient (IN) | payer MEDICARE ==
[2017-08-25] MEDS ORDERED: SODIUM CHLORIDE 0.9% 1,000 ML IV STA (15:04)
[2017-08-25 15:12] LABS: Glucose,Whole Blood 159 mg/dL (75-99)
--- NOTE | 2017-08-25 15:13 | ED ---
General Adult HPI - General Stated complaint: Altered Mental Status Time Seen by Provider: 08/25/17 15:04 Source: RN notes reviewed, old records reviewed - History of Present Illness Initial comments: This is a 72-year-old male the ER for altered mental state shortness of breath hypoxia fevers not responsive. Patient's poor strain secondary to severe clinical condition history is obtained from EMS and patient's chart patient is DO NOT INTUBATE DO NOT RESUSCITATE - Related Data Home Medications Medication Instructions Recorded Confirmed Acetaminophen Tab [Tylenol] 650 mg PO Q6H PRN 08/07/17 08/25/17 Carvedilol [Coreg] 12.5 mg PO BID@0700,1600 08/07/17 08/25/17 Famotidine [Pepcid] 20 mg PO DAILY@0700 08/07/17 08/25/17 Gabapentin [Neurontin] 100 mg PO TID@0700,1300,1900 08/07/17 08/25/17 Insulin Aspart [NovoLOG See Protocol SQ ACHS 08/07/17 08/25/17 (formulary)] Simvastatin [Zocor] 40 mg PO HS 08/07/17 08/25/17 Ipratropium-Albuterol Nebulize 3 ml INHALATION RT-Q6H PRN 08/25/17 08/25/17 [Duoneb 0.5 mg-3 mg/3 ml Soln] Menthol [Biofreeze] 1 applic TOPICAL DAILY PRN 08/25/17 08/25/17 Menthol/Zinc Oxide [Calmoseptine 1 applic TOPICAL TID PRN 08/25/17 08/25/17 Ointment] Nystatin 100,000 Unit/ml Susp 5 ml PO Q6H 08/25/17 08/25/17 [Mycostatin Oral Susp] metFORMIN HCL 1,000 mg PO BID 08/25/17 08/25/17 metroNIDAZOLE [Flagyl] 500 mg PO Q8H 08/25/17 08/25/17 Previous Rx's Medication Instructions Recorded Apixaban [Eliquis] 5 mg PO BID #0 08/10/17 Lidocaine 5% Patch [Lidoderm 5% 1 patch TOPICAL DAILY #14 patch 08/10/17 Patch] Torsemide [Demadex] 10 mg PO DAILY@0600 #0 08/10/17 Allergies Allergy/AdvReac Type Severity Reaction Status Date / Time No Known Allergies Allergy Verified 08/25/17 15:45 Review of Systems ROS Statement: Those systems with pertinent positive or pertinent negative responses have been documented in the HPI. ROS Other: All systems not noted in ROS Statement are negative. Past Medical History Past Medical History: Heart Failure, COPD, Diabetes Mellitus, Hypertension, Renal Disease Additional Past Medical History / Comment(s): cellulitis, anemia, obesity, alcohol abusue, cardiomyopathy, generalized weakness. bilateral carpal tunnel, gout History of Any Multi-Drug Resistant Organisms: Unobtainable Past Surgical History: Unable to Obtain Past Psychological History: No Psychological Hx Reported Smoking Status: Unknown if ever smoked Past Alcohol Use History: None Reported Past Drug Use History: None Reported - Past Family History Father History Unknown: Yes Family Medical History: Unable to Obtain Mother History Unknown: Yes Family Medical History: Unable to Obtain General Exam Limitations: altered mental status General appearance: alert, obtunded, in distress Head exam: Present: atraumatic, normocephalic, normal inspection Eye exam: Present: normal appearance, PERRL, EOMI. Absent: scleral icterus, conjunctival injection, periorbital swelling ENT exam: Present: normal exam, mucous membranes moist Neck exam: Present: normal inspection. Absent: tenderness, meningismus, lymphadenopathy Respiratory exam: Present: normal lung sounds bilaterally. Absent: respiratory distress, wheezes, rales, rhonchi, stridor Cardiovascular Exam: Present: regular rate, normal rhythm, normal heart sounds. Absent: systolic murmur, diastolic murmur, rubs, gallop, clicks GI/Abdominal exam: Present: soft, normal bowel sounds. Absent: distended, tenderness, guarding, rebound, rigid Extremities exam: Present: normal inspection, full ROM, normal capillary refill. Absent: tenderness, pedal edema, joint swelling, calf tenderness Back exam: Present: normal inspection Neurological exam: Present: alert, oriented X3, CN II-XII intact Psychiatric exam: Present: normal affect, normal mood Skin exam: Present: warm, dry, intact, normal color. Absent: rash Course Vital Signs 08/25/17 08/25/17 08/25/17 15:02 15:38 15:51 Temperature 98.4 F 100.0 F H Pulse Rate 96 96 Respiratory 40 H 40 H 40 H Rate Blood Pressure 126/55 126/60 O2 Sat by Pulse 95 96 Oximetry - Reevaluation(s) Reevaluation #1: 08/25/17 16:29 Patient's placed on BiPAP secondary severe distress EKG Findings - EKG Comments: EKG Findings:: EKG shows A. fib rate of 88, QRS 02, QTc 498 Medical Decision Making - Medical Decision Making 72 male the ER for evaluation of severe respiratory failure, pneumonia, altered mental status patient be admitted for IV antibiotics, continue BiPAP And cardiopulmonary support - Lab Data Result diagrams: 08/25/17 15:10 08/25/17 15:10 Lab Results 08/25/17 08/25/17 08/25/17 Range/Units 15:10 15:10 15:10 WBC (3.8-10.6) k/uL RBC (4.30-5.90) m/uL Hgb (13.0-17.5) gm/dL Hct (39.0-53.0) % MCV (80.0-100.0) fL MCH (25.0-35.0) pg MCHC (31.0-37.0) g/dL RDW (11.5-15.5) % Plt Count (150-450) k/uL Neutrophils % % Lymphocytes % % Monocytes % % Eosinophils % % Basophils % % Neutrophils # (1.3-7.7) k/uL Lymphocytes # (1.0-4.8) k/uL Monocytes # (0-1.0) k/uL Eosinophils # (0-0.7) k/uL Basophils # (0-0.2) k/uL Hypochromasia Poikilocytosis PT (9.0-12.0) sec INR (<1.2) APTT (22.0-30.0) sec Sodium (137-145) mmol/L Potassium (3.5-5.1) mmol/L Chloride (98-107) mmol/L Carbon Dioxide (22-30) mmol/L Anion Gap mmol/L BUN (9-20) mg/dL Creatinine (0.66-1.25) mg/dL Est GFR (CKD-EPI)AfAm (>60 ml/min/1.73 sqM) Est GFR (CKD-EPI)NonAf (>60 ml/min/1.73 sqM) Glucose (74-99) mg/dL POC Glucose (mg/dL) 159 H (75-99) mg/dL POC Glu Wool Puller ID Adolfo Ramirez Plasma Lactic Acid Oscar 1.9 (0.7-2.0) mmol/L Calcium (8.4-10.2) mg/dL Phosphorus (2.5-4.5) mg/dL Magnesium (1.6-2.3) mg/dL Total Bilirubin (0.2-1.3) mg/dL AST (17-59) U/L ALT (21-72) U/L Alkaline Phosphatase (38-126) U/L Ammonia 12 (<30) umol/L Total Creatine Kinase 32 L (55-170) U/L CK-MB (CK-2) 0.4 (0.0-2.4) ng/mL CK-MB (CK-2) Rel Index 1.3 Troponin I 0.045 H* (0.000-0.034) ng/mL Total Protein (6.3-8.2) g/dL Albumin (3.5-5.0) g/dL TSH (0.465-4.680) mIU/L Urine Color Urine Appearance (Clear) Urine pH (5.0-8.0) Ur Specific [place] (1.001-1.035) Urine Protein (Negative) Urine Glucose (UA) (Negative) Urine Ketones (Negative) Urine Blood (Negative) Urine Nitrite (Negative) Urine Bilirubin (Negative) Urine Urobilinogen (<2.0) mg/dL Ur Leukocyte Esterase (Negative) Urine RBC (0-5) /hpf Ur Squamous Epith Cells (0-4) /hpf Hyaline Casts (0-2) /lpf 08/25/17 08/25/17 08/25/17 Range/Units 15:10 15:10 15:10 WBC 21.0 H (3.8-10.6) k/uL RBC 4.49 (4.30-5.90) m/uL Hgb 13.0 (13.0-17.5) gm/dL Hct 40.2 (39.0-53.0) % MCV 89.5 (80.0-100.0) fL MCH 28.9 (25.0-35.0) pg MCHC 32.2 (31.0-37.0) g/dL RDW 14.0 (11.5-15.5) % Plt Count 540 H D (150-450) k/uL Neutrophils % 82 % Lymphocytes % 11 % Monocytes % 5 % Eosinophils % 1 % Basophils % 1 % Neutrophils # 17.2 H (1.3-7.7) k/uL Lymphocytes # 2.2 (1.0-4.8) k/uL Monocytes # 1.1 H (0-1.0) k/uL Eosinophils # 0.2 (0-0.7) k/uL Basophils # 0.1 (0-0.2) k/uL Hypochromasia Slight Poikilocytosis Slight PT 13.0 H (9.0-12.0) sec INR 1.4 H (<1.2) APTT 25.7 (22.0-30.0) sec Sodium 140 (137-145) mmol/L Potassium 5.6 H (3.5-5.1) mmol/L Chloride 102 (98-107) mmol/L Carbon Dioxide 29 (22-30) mmol/L Anion Gap 9 mmol/L BUN 52 H (9-20) mg/dL Creatinine 1.20 (0.66-1.25) mg/dL Est GFR (CKD-EPI)AfAm 69 (>60 ml/min/1.73 sqM) Est GFR (CKD-EPI)NonAf 59 (>60 ml/min/1.73 sqM) Glucose 165 H (74-99) mg/dL POC Glucose (mg/dL) (75-99) mg/dL POC Glu Wool Puller ID Plasma Lactic Acid Oscar (0.7-2.0) mmol/L Calcium 8.8 (8.4-10.2) mg/dL Phosphorus 4.5 (2.5-4.5) mg/dL Magnesium 2.1 (1.6-2.3) mg/dL Total Bilirubin 0.4 (0.2-1.3) mg/dL AST 38 (17-59) U/L ALT 50 (21-72) U/L Alkaline Phosphatase 173 H (38-126) U/L Ammonia (<30) umol/L Total Creatine Kinase (55-170) U/L CK-MB (CK-2) (0.0-2.4) ng/mL CK-MB (CK-2) Rel Index Troponin I (0.000-0.034) ng/mL Total Protein 6.4 (6.3-8.2) g/dL Albumin 3.0 L (3.5-5.0) g/dL TSH 2.730 (0.465-4.680) mIU/L Urine Color Urine Appearance (Clear) Urine pH (5.0-8.0) Ur Specific [place] (1.001-1.035) Urine Protein (Negative) Urine Glucose (UA) (Negative) Urine Ketones (Negative) Urine Blood (Negative) Urine Nitrite (Negative) Urine Bilirubin (Negative) Urine Urobilinogen (<2.0) mg/dL Ur Leukocyte Esterase (Negative) Urine RBC (0-5) /hpf Ur Squamous Epith Cells (0-4) /hpf Hyaline Casts (0-2) /lpf 08/25/17 Range/Units 15:34 WBC (3.8-10.6) k/uL RBC (4.30-5.90) m/uL Hgb (13.0-17.5) gm/dL Hct (39.0-53.0) % MCV (80.0-100.0) fL MCH (25.0-35.0) pg MCHC (31.0-37.0) g/dL RDW (11.5-15.5) % Plt Count (150-450) k/uL Neutrophils % % Lymphocytes % % Monocytes % % Eosinophils % % Basophils % % Neutrophils # (1.3-7.7) k/uL Lymphocytes # (1.0-4.8) k/uL Monocytes # (0-1.0) k/uL Eosinophils # (0-0.7) k/uL Basophils # (0-0.2) k/uL Hypochromasia Poikilocytosis PT (9.0-12.0) sec INR (<1.2) APTT (22.0-30.0) sec Sodium (137-145) mmol/L Potassium (3.5-5.1) mmol/L Chloride (98-107) mmol/L Carbon Dioxide (22-30) mmol/L Anion Gap mmol/L BUN (9-20) mg/dL Creatinine (0.66-1.25) mg/dL Est GFR (CKD-EPI)AfAm (>60 ml/min/1.73 sqM) Est GFR (CKD-EPI)NonAf (>60 ml/min/1.73 sqM) Glucose (74-99) mg/dL POC Glucose (mg/dL) (75-99) mg/dL POC Glu Wool Puller ID Plasma Lactic Acid Oscar (0.7-2.0) mmol/L Calcium (8.4-10.2) mg/dL Phosphorus (2.5-4.5) mg/dL Magnesium (1.6-2.3) mg/dL Total Bilirubin (0.2-1.3) mg/dL AST (17-59) U/L ALT (21-72) U/L Alkaline Phosphatase (38-126) U/L Ammonia (<30) umol/L Total Creatine Kinase (55-170) U/L CK-MB (CK-2) (0.0-2.4) ng/mL CK-MB (CK-2) Rel Index Troponin I (0.000-0.034) ng/mL Total Protein (6.3-8.2) g/dL Albumin (3.5-5.0) g/dL TSH (0.465-4.680) mIU/L Urine Color Yellow Urine Appearance Clear (Clear) Urine pH 5.5 (5.0-8.0) Ur Specific [place] 1.014 (1.001-1.035) Urine Protein Negative (Negative) Urine Glucose (UA) Negative (Negative) Urine Ketones Negative (Negative) Urine Blood Small H (Negative) Urine Nitrite Negative (Negative) Urine Bilirubin Negative (Negative) Urine Urobilinogen <2.0 (<2.0) mg/dL Ur Leukocyte Esterase Negative (Negative) Urine RBC 10 H (0-5) /hpf Ur Squamous Epith Cells 1 (0-4) /hpf Hyaline Casts 1 (0-2) /lpf - Radiology Data Radiology results: report reviewed (Chest x-ray is positive for Evaluation, Pneumonia), image reviewed Critical Care Time Critical Care Time: Yes Total Critical Care Time: 31 Disposition Clinical Impression: Pneumonia, Nosocomial pneumonia, Renal insufficiency, Altered mental status Disposition: ADMITTED IP TO THIS [facility] Condition: Critical Is patient prescribed a controlled substance at d/c from ED?: No
[2017-08-25 15:37] LABS: Basophils # (A) 0.1 k/uL (0-0.2); Basophils % (A) 1 %; Eosinophils # (A) 0.2 k/uL (0-0.7); Eosinophils % (A) 1 %; HCT 40.2 % (39.0-53.0); Hypochromasia Slight; Lymphocytes # (A) 2.2 k/uL (1.0-4.8); Lymphocytes % (A) 11 %; MCH 28.9 pg (25.0-35.0); MCHC 32.2 g/dL (31.0-37.0); MCV 89.5 fL (80.0-100.0); Mean Platelet Volume 7.6; Monocytes # (A) 1.1 k/uL (0-1.0); Monocytes % (A) 5 %; Neutrophils # (A) 17.2 k/uL (1.3-7.7); Neutrophils % (A) 82 %; Poikilocytosis Slight; RBC 4.49 m/uL (4.30-5.90)
[2017-08-25 15:41] LABS: Platelet Count 540 k/uL (150-450)
[2017-08-25 15:47] LABS: INR 1.4 (<1.2); Partial Thromboplastin Time 25.7 sec (22.0-30.0)
[2017-08-25 15:50] LABS: Appearance,Urine Clear (Clear); Bilirubin,Urine Negative (Negative); Blood,Urine Small (Negative); Color,Urine Yellow; Glucose,Urine (UA) Negative (Negative); Hyaline Casts,Urine 1 /lpf (0-2); Ketones,Urine Negative (Negative); Leukocyte Esterase,Urine Negative (Negative); Nitrite,Urine Negative (Negative); PH, Urine 5.5 (5.0-8.0); Protein,Urine Negative (Negative); RBC,Urine 10 /hpf (0-5); Specific Gravity,Urine 1.014 (1.001-1.035); Squamous Epithelial Cell,Urine 1 /hpf (0-4); Urobilinogen,Urine <2.0 mg/dL (<2.0)
[2017-08-25 15:53] LABS: Lactic Acid, Venous 1.9 mmol/L (0.7-2.0)
[2017-08-25 15:55] LABS: Calcium 8.8 mg/dL (8.4-10.2); Magnesium 2.1 mg/dL (1.6-2.3); Phosphorus 4.5 mg/dL (2.5-4.5); Potassium 5.6 mmol/L (3.5-5.1); Total Bilirubin 0.4 mg/dL (0.2-1.3); Total Protein 6.4 g/dL (6.3-8.2)
[2017-08-25 16:13] LABS: Creatine Kinase MB 0.4 ng/mL (0.0-2.4); Troponin I 0.045 ng/mL (0.000-0.034)
--- NOTE | 2017-08-25 16:13 | XR ---
EXAMINATION TYPE: XR chest 1V portable DATE OF EXAM: 08/25/2017 Comparison: 08/10/2017 Clinical History: 72-year-old male difficulty in breathing, shortness of breath, pain, altered mental status Findings: Left anterior chest wall ICD generator with right atrial and right ventricular leads. Heart borderlin e enlarged. Small left effusion with left basilar opacity. Impression: Small left effusion with adjacent atelectasis and/or consolidation.
[2017-08-25] MEDS ORDERED: PIPERACILLIN-TAZOBACTAM 3.375 GM in DEXTROSE/WATER 1 50ML.BAG IVPB STA (16:17)
[2017-08-25] MEDS ORDERED: PNEUMONIA PROTOCOL UTILIZED 1 EACH MISC PO PRN (16:17)
[2017-08-25] MEDS ORDERED: LEVOFLOXACIN 750MG-D5W PMX 750 MG in DEXTROSE/WATER 1 150ML.BAG IVPB STA (16:17)
[2017-08-25] MEDS ORDERED: SODIUM CHLORIDE 0.9% 1,000 ML IV SCH (16:30)
[2017-08-25] MEDS ORDERED: METHYL SALICYLATE/MENTHOL CREAM 5 OZ TOPICAL PRN (16:34)
[2017-08-25] MEDS ORDERED: IPRATROPIUM-ALBUTEROL 3 ML NEB INHALATION PRN (17:29)
--- NOTE | 2017-08-25 17:29 | P.HPIM ---
History of Present Illness 72-year-old the female well-known to me from his previous hospital physician came in with a fever altered mental status from his baseline patient during his last hospital and patient was read treated for healthcare versus pneumonia with the Zosyn. Patient presently had fever high-grade and confusion and hypoxic patient is presently on BiPAP patient does have history of COPD. I'm unable to get much of the history from the patient because of the BiPAP and altered mental status. Patient did during his last auscultation had an echocardiogram which were normal ejection fraction patient apparently had cardiac myopathy atrial fibrillation patient was on eliquis dose of her leg was during his last hospitalization as his creatinine improved significantly. But patient is back on 2.5 mg of this medication. Patient is not in heart failure exacerbation at this time. Patient minimally elevated troponin we'll repeat 2 more sets of troponins, EKG showed nonspecific ST-T wave changes. Patient was started on Zosyn and levofloxacin which will be continued patient had a left lower lung infiltrate which was not seen during his last hospitalization. Patient has rhonchus breath sounds. Review of Systems Unable to obtain due to his clinical condition Past Medical History Past Medical History: Heart Failure, COPD, Diabetes Mellitus, Hypertension, Renal Disease Additional Past Medical History / Comment(s): cellulitis, anemia, obesity, alcohol abusue, cardiomyopathy, generalized weakness. bilateral carpal tunnel, gout History of Any Multi-Drug Resistant Organisms: Unobtainable Past Surgical History: Unable to Obtain Past Psychological History: No Psychological Hx Reported Smoking Status: Unknown if ever smoked Past Alcohol Use History: None Reported Past Drug Use History: None Reported - Past Family History Father History Unknown: Yes Family Medical History: Unable to Obtain Mother History Unknown: Yes Family Medical History: Unable to Obtain Medications and Allergies Home Medications Medication Instructions Recorded Confirmed Type Acetaminophen Tab [Tylenol] 650 mg PO Q6H PRN 08/07/17 08/25/17 History Carvedilol [Coreg] 12.5 mg PO BID@0700,1600 08/07/17 08/25/17 History Famotidine [Pepcid] 20 mg PO DAILY@0700 08/07/17 08/25/17 History Gabapentin [Neurontin] 100 mg PO TID@0700,1300,1900 08/07/17 08/25/17 History Insulin Aspart [NovoLOG See Protocol SQ ACHS 08/07/17 08/25/17 History (formulary)] Simvastatin [Zocor] 40 mg PO HS 08/07/17 08/25/17 History Apixaban [Eliquis] 5 mg PO BID #0 08/10/17 08/25/17 Rx Lidocaine 5% Patch [Lidoderm 5% 1 patch TOPICAL DAILY #14 patch 08/10/17 Rx Patch] Torsemide [Demadex] 10 mg PO DAILY@0600 #0 08/10/17 08/25/17 Rx Ipratropium-Albuterol Nebulize 3 ml INHALATION RT-Q6H PRN 08/25/17 08/25/17 History [Duoneb 0.5 mg-3 mg/3 ml Soln] Menthol [Biofreeze] 1 applic TOPICAL DAILY PRN 08/25/17 08/25/17 History Menthol/Zinc Oxide [Calmoseptine 1 applic TOPICAL TID PRN 08/25/17 08/25/17 History Ointment] Nystatin 100,000 Unit/ml Susp 5 ml PO Q6H 08/25/17 08/25/17 History [Mycostatin Oral Susp] metFORMIN HCL 1,000 mg PO BID 08/25/17 08/25/17 History metroNIDAZOLE [Flagyl] 500 mg PO Q8H 08/25/17 08/25/17 History Allergies Allergy/AdvReac Type Severity Reaction Status Date / Time No Known Allergies Allergy Verified 08/25/17 15:45 Physical Exam Vitals: Vital Signs Temp Pulse Resp BP Pulse Ox 08/25/17 17:00 86 18 124/62 99 08/25/17 16:58 98.6 F 08/25/17 16:46 89 38 H 122/59 92 L 08/25/17 15:51 100.0 F H 96 40 H 126/60 96 08/25/17 15:38 40 H 08/25/17 15:02 98.4 F 96 40 H 126/55 95 Intake and Output 08/25/17 08/25/17 08/25/17 06:59 14:59 22:59 Output Total 325 Balance -325 Output: Urine 325 Uretheral (Beyer) 325 Other: Weight 95.254 kg PHYSICAL EXAMINATION: GENERAL: Patient is alert on BiPAP unable to provide any history to me. HEENT: Pupils are round and equally reacting to light. EOMI. No scleral icterus. No conjunctival pallor. Normocephalic, atraumatic. No pharyngeal erythema. No thyromegaly. CARDIOVASCULAR: S1 and S2 present. No murmurs, rubs, or gallops. PULMONARY: Diminished air entry into bilateral lung martinez and the rhonchus breath sounds bilaterally no significant wheezing was appreciated. ABDOMEN: Soft, nontender, nondistended, normoactive bowel sounds. No palpable organomegaly. MUSCULOSKELETAL: No joint swelling or deformity. EXTREMITIES: No cyanosis, clubbing, or pedal edema. NEUROLOGICAL: Gross neurological examination did not reveal any focal deficits. SKIN: No rashes. Results CBC & Chem 7: 08/25/17 15:10 08/25/17 15:10 Labs: Abnormal Lab Results - Last 24 Hours (Table) 08/25/17 08/25/17 08/25/17 Range/Units 15:10 15:10 15:10 WBC 21.0 H (3.8-10.6) k/uL Plt Count 540 H D (150-450) k/uL Neutrophils # 17.2 H (1.3-7.7) k/uL Monocytes # 1.1 H (0-1.0) k/uL PT (9.0-12.0) sec INR (<1.2) Potassium (3.5-5.1) mmol/L BUN (9-20) mg/dL Glucose (74-99) mg/dL POC Glucose (mg/dL) 159 H (75-99) mg/dL Alkaline Phosphatase (38-126) U/L Total Creatine Kinase 32 L (55-170) U/L Troponin I 0.045 H* (0.000-0.034) ng/mL Albumin (3.5-5.0) g/dL Urine Blood (Negative) Urine RBC (0-5) /hpf 08/25/17 08/25/17 08/25/17 Range/Units 15:10 15:10 15:34 WBC (3.8-10.6) k/uL Plt Count (150-450) k/uL Neutrophils # (1.3-7.7) k/uL Monocytes # (0-1.0) k/uL PT 13.0 H (9.0-12.0) sec INR 1.4 H (<1.2) Potassium 5.6 H (3.5-5.1) mmol/L BUN 52 H (9-20) mg/dL Glucose 165 H (74-99) mg/dL POC Glucose (mg/dL) (75-99) mg/dL Alkaline Phosphatase 173 H (38-126) U/L Total Creatine Kinase (55-170) U/L Troponin I (0.000-0.034) ng/mL Albumin 3.0 L (3.5-5.0) g/dL Urine Blood Small H (Negative) Urine RBC 10 H (0-5) /hpf Assessment and Plan Plan: -Sepsis probably left lower lobe pneumonia patient is on Zosyn and pulmonary will be consulted. Because of acute hypoxic respiratory failure requiring BiPAP. -COPD: Without any significant exacerbation patient will be started on inhaled steroids along with albuterol ipratropium. -Acute hypoxic respiratory failure requiring BiPAP probably secondary to sepsis and pneumonia -History of heart failure with AICD although his previous ejection fraction is 55% will hold off on diuretic therapy and patient is as patient is receiving IV fluids which will be stopped tomorrow. -Atrial fibrillation presently rate controlled continue with the rate control medications in the anticoagulation -Altered mental status secondary to toxic encephalopathy from pneumonia -Gastroesophageal reflux disease -Professor disease -Acute renal failure secondary to excessive diuretic therapy which will be held -Possibly of chronic kidney disease and-type 2 diabetes mellitus hold off on metformin and sliding scale insulin presently -Previous history of CVA
[2017-08-25] MEDS: IPRATROPIUM-ALBUTEROL 3 ML NEB INHALATION SCH (18:50)
[2017-08-25] MEDS: SYMBICORT 160-4.5 MCG INHALER INHALATION SCH (18:50)
[2017-08-25 20:46] LABS: Glucose,Whole Blood 222 mg/dL (75-99)
[2017-08-25] MEDS: NYSTATIN 100,000 UNIT/ML SUSP 500,000 UNIT/5 ML CUP PO SCH ×2 (21:00→22:47)
[2017-08-25] MEDS: APIXABAN 5 MG TAB PO SCH (21:02)
[2017-08-25] MEDS: ATORVASTATIN 20 MG TAB PO SCH (21:02)
[2017-08-25] MEDS ORDERED: FUROSEMIDE 10 MG/ML 2 ML VIAL IV ONE (21:03)
[2017-08-25] MEDS: INSULIN ASPART 100 UNIT/ML 1 ML 10 ML VIAL SQ SCH (21:42)
[2017-08-26 03:35] LABS: Calcium 8.5 mg/dL (8.4-10.2); Potassium 5.3 mmol/L (3.5-5.1)
[2017-08-26 03:46] LABS: HCT 39.3 % (39.0-53.0); HGB 12.5 gm/dL (13.0-17.5); Hypochromasia Moderate; MCH 29.2 pg (25.0-35.0); MCHC 31.8 g/dL (31.0-37.0); MCV 91.8 fL (80.0-100.0); Mean Platelet Volume 7.6; Platelet Count 409 k/uL (150-450); Poikilocytosis Slight; RBC 4.28 m/uL (4.30-5.90); RDW 14.1 % (11.5-15.5); WBC 17.6 k/uL (3.8-10.6)
[2017-08-26 05:38] LABS: Glucose,Whole Blood 267 mg/dL (75-99)
[2017-08-26] MEDS: NYSTATIN 100,000 UNIT/ML SUSP 500,000 UNIT/5 ML CUP PO SCH ×4 (05:40→20:51)
[2017-08-26] MEDS: PIPERACILLIN-TAZOBACTAM 3.375 GM in DEXTROSE/WATER 1 50ML.BAG IVPB SCH ×4 (05:40→23:30)
[2017-08-26] MEDS: FAMOTIDINE 20 MG TAB PO SCH (06:32)
[2017-08-26] MEDS: CARVEDILOL 12.5 MG TAB PO SCH ×2 (06:32→16:26)
[2017-08-26] MEDS: INSULIN ASPART 100 UNIT/ML 1 ML 10 ML VIAL SQ SCH ×4 (06:43→21:26)
[2017-08-26] MEDS: IPRATROPIUM-ALBUTEROL 3 ML NEB INHALATION SCH ×4 (08:24→20:53)
[2017-08-26] MEDS: SYMBICORT 160-4.5 MCG INHALER INHALATION SCH (08:24)
[2017-08-26] MEDS: APIXABAN 5 MG TAB PO SCH ×2 (08:43→20:51)
[2017-08-26] MEDS: LIDOCAINE 5% PATCH TOPICAL SCH (08:43)
--- NOTE | 2017-08-26 09:12 | XR ---
EXAMINATION TYPE: XR chest 2V DATE OF EXAM: 08/26/2017 COMPARISON: Prior chest 08/25/2017 HISTORY: Pneumonia TECHNIQUE: Frontal and lateral views of the chest are obtained. FINDINGS: The heart remains enlarged. Pacemaker is stable. There are overlying cardiac leads. No pne umothorax or sizable effusion. Pulmonary vascularity and florentin are stable. IMPRESSION: There may be some improvement in aeration.
--- NOTE | 2017-08-26 09:13 | US ---
EXAMINATION TYPE: US chest DATE OF EXAM: 08/26/2017 COMPARISON: Chest x-ray same date CLINICAL HISTORY: Markings for thoracentesis by pulmonary staff. small left side effusion per xray EXAM MEASUREMENTS: Left Pleural Effusion fluid pocket: No significant fluid pocket seen Pulmonologists are able to review the images in the patient?s EMR. Scanning performed of the posterior left chest. IMPRESSIONS: No significant effusion.
[2017-08-26] MEDS ORDERED: FUROSEMIDE 10 MG/ML 4 ML VIAL IV STA (09:18)
--- NOTE | 2017-08-26 10:27 | P.CNPUL ---
History of Present Illness Consult date: 08/26/17 Requesting physician: Mavis Verduzco Reason for consult: dyspnea Chief complaint: Altered mental status, fever History of present illness: This is a 72-year-old gentleman who follows with Dr. Espinoza as his primary care physician. He has a history of diabetes mellitus, hypertension, renal disease, COPD, atrial fibrillation anticoagulated with Eliquis, CVA, heart failure, obesity, alcohol abuse, cardiomyopathy, gout. He was recently discharged here 08/10/2017 after being treated for healthcare associated pneumonia. He presented here yesterday with altered mental status and fever. White count 21.0. He has been initiated on Zosyn and Levaquin. He said acute hypoxic respiratory failure currently requiring BiPAP set at 12/6 and 80% FiO2 to maintain O2 saturations in the mid 90s. Chest x-ray revealed a small left pleural effusion with atelectasis/consolidation. Ultrasound of the chest revealed no significant pulmonary effusion that would require thoracentesis. He is seen today in consultation on the selective care unit. He remains on the BiPAP. He is arousable. If occult to communicate. He is currently afebrile. Today's chest x-ray showed improvement in aeration. When off BiPAP on 6 L is maintaining O2 saturations in the low 90s. White count 17.6. Hemoglobin 12.5. Creatinine 1.30. Urine culture pending. Review of Systems ROS unobtainable: due to mental status Past Medical History Past Medical History: Heart Failure, COPD, Diabetes Mellitus, Hypertension, Renal Disease Additional Past Medical History / Comment(s): cellulitis, anemia, obesity, alcohol abusue, cardiomyopathy, generalized weakness. bilateral carpal tunnel, gout History of Any Multi-Drug Resistant Organisms: Unobtainable Past Surgical History: Unable to Obtain Additional Past Anesthesia/Blood Transfusion Reaction / Comment(s): unable to obtain Past Psychological History: No Psychological Hx Reported Smoking Status: Unknown if ever smoked Past Alcohol Use History: None Reported Past Drug Use History: None Reported - Past Family History Father History Unknown: Yes Family Medical History: Unable to Obtain Mother History Unknown: Yes Family Medical History: Unable to Obtain Medications and Allergies Home Medications Medication Instructions Recorded Confirmed Type Acetaminophen Tab [Tylenol] 650 mg PO Q6H PRN 08/07/17 08/25/17 History Carvedilol [Coreg] 12.5 mg PO BID@0700,1600 08/07/17 08/25/17 History Famotidine [Pepcid] 20 mg PO DAILY@0700 08/07/17 08/25/17 History Gabapentin [Neurontin] 100 mg PO TID@0700,1300,1900 08/07/17 08/25/17 History Insulin Aspart [NovoLOG See Protocol SQ ACHS 08/07/17 08/25/17 History (formulary)] Simvastatin [Zocor] 40 mg PO HS 08/07/17 08/25/17 History Apixaban [Eliquis] 5 mg PO BID #0 08/10/17 08/25/17 Rx Lidocaine 5% Patch [Lidoderm 5% 1 patch TOPICAL DAILY #14 patch 08/10/17 Rx Patch] Torsemide [Demadex] 10 mg PO DAILY@0600 #0 08/10/17 08/25/17 Rx Ipratropium-Albuterol Nebulize 3 ml INHALATION RT-Q6H PRN 08/25/17 08/25/17 History [Duoneb 0.5 mg-3 mg/3 ml Soln] Menthol [Biofreeze] 1 applic TOPICAL DAILY PRN 08/25/17 08/25/17 History Menthol/Zinc Oxide [Calmoseptine 1 applic TOPICAL TID PRN 08/25/17 08/25/17 History Ointment] Nystatin 100,000 Unit/ml Susp 5 ml PO Q6H 08/25/17 08/25/17 History [Mycostatin Oral Susp] metFORMIN HCL 1,000 mg PO BID 08/25/17 08/25/17 History metroNIDAZOLE [Flagyl] 500 mg PO Q8H 08/25/17 08/25/17 History Allergies Allergy/AdvReac Type Severity Reaction Status Date / Time No Known Allergies Allergy Verified 08/25/17 15:45 Physical Exam Vitals: Vital Signs Temp Pulse Pulse Resp BP BP Pulse Ox 08/26/17 08:45 97.6 F 84 24 122/60 93 L 08/26/17 08:41 84 08/26/17 08:29 80 90 L 08/26/17 04:00 96.9 F L 95 28 H 138/65 92 L 08/26/17 00:00 97.9 F 94 18 106/63 94 L 08/25/17 19:02 93 18 08/25/17 19:01 98.9 F 86 30 H 123/58 94 L 08/25/17 18:51 101 H 18 97 08/25/17 18:01 68 18 118/55 100 08/25/17 17:00 86 18 124/62 99 08/25/17 16:58 98.6 F 08/25/17 16:46 89 38 H 122/59 92 L 08/25/17 15:51 100.0 F H 96 40 H 126/60 96 08/25/17 15:38 40 H 08/25/17 15:02 98.4 F 96 40 H 126/55 95 Intake and Output 08/25/17 08/26/17 08/26/17 22:59 06:59 14:59 Intake Total 100 Output Total 325 300 Balance -225 -300 Intake: Intake, IV Titration 100 Amount Sodium Chloride 0.9% 1, 100 000 ml @ 100 mls/hr IV . Q10H [facility] Rx#:[id number] Output: Urine 325 300 Uretheral (Beyer) 325 Other: Voiding Method Indwelling Catheter Indwelling Catheter Weight 95.254 kg 95 kg - Constitutional General appearance: mild distress, obese - EENT Eyes: EOMI, PERRLA ENT: hearing grossly normal Ears: bilateral: normal - Neck Neck: normal ROM Carotids: bilateral: upstroke normal Thyroid: bilateral: normal size - Respiratory Respiratory: bilateral: rhonchi - Cardiovascular Rhythm: irregularly irregular Heart sounds: normal: S1, S2 - Gastrointestinal General gastrointestinal: normal bowel sounds - Integumentary Integumentary: normal turgor - Neurologic Altered mental status, difficult to evaluate. - Musculoskeletal Musculoskeletal: generalized weakness - Psychiatric Altered mental status, difficult to evaluate. Results - Laboratory Findings CBC and BMP: 08/26/17 03:04 08/26/17 03:04 PT/INR, D-dimer PT 13.0 sec (9.0-12.0) H 08/25/17 15:10 INR 1.4 (<1.2) H 08/25/17 15:10 Abnormal lab findings: Abnormal Labs 08/25/17 08/25/17 08/25/17 15:10 15:10 15:10 WBC 21.0 H RBC Hgb Plt Count 540 H D Neutrophils # 17.2 H Monocytes # 1.1 H PT INR Potassium BUN Creatinine Glucose POC Glucose (mg/dL) 159 H Alkaline Phosphatase Total Creatine Kinase 32 L Troponin I 0.045 H* Albumin Urine Blood Urine RBC 08/25/17 08/25/17 08/25/17 15:10 15:10 15:34 WBC RBC Hgb Plt Count Neutrophils # Monocytes # PT 13.0 H INR 1.4 H Potassium 5.6 H BUN 52 H Creatinine Glucose 165 H POC Glucose (mg/dL) Alkaline Phosphatase 173 H Total Creatine Kinase Troponin I Albumin 3.0 L Urine Blood Small H Urine RBC 10 H 08/25/17 08/25/17 08/26/17 20:31 20:45 03:04 WBC 17.6 H RBC 4.28 L Hgb 12.5 L Plt Count Neutrophils # Monocytes # PT INR Potassium BUN Creatinine Glucose POC Glucose (mg/dL) 222 H Alkaline Phosphatase Total Creatine Kinase Troponin I 0.047 H* Albumin Urine Blood Urine RBC 08/26/17 08/26/17 03:04 05:37 WBC RBC Hgb Plt Count Neutrophils # Monocytes # PT INR Potassium 5.3 H BUN 56 H Creatinine 1.30 H Glucose 268 H POC Glucose (mg/dL) 267 H Alkaline Phosphatase Total Creatine Kinase Troponin I Albumin Urine Blood Urine RBC - Diagnostic Findings Chest x-ray: image reviewed Assessment and Plan Time with Patient: Greater than 30
[2017-08-26 10:47] LABS: ABG HCO3 30 mmol/L (21-25); ABG Oxygen Saturation 94.2 % (94-97); ABG PCO2 59 mmHg (35-45); ABG PH 7.32 (7.35-7.45); ABG PO2 66 mmHg (83-108); ABG TCO2 32 mmol/L (19-24)
[2017-08-26 11:28] LABS: Glucose,Whole Blood 235 mg/dL (75-99)
[2017-08-26] MEDS ORDERED: NITROGLYCERIN SL TABS 0.4 MG TAB SUBLINGUAL ONE (12:48)
--- NOTE | 2017-08-26 13:40 | P.PN ---
Subjective 68-year-old admitted with sepsis and the acute respiratory failure requiring BiPAP. Patient is for discharge as well as worsened today I'll obtain a chest x -ray stop IV fluids patient was given Lasix whenever 9 by nurse practitioner patient does have rhonchus breath sounds pulmonary will evaluate the patient chest ultrasound was obtained which did not show any significant pleural effusion that can be drained and the had normal ejection fraction the past patient will remain off torsemide as mentioned above patient's the received 1 dose of Lasix. I discussed with the daughter today apparently patient was having diarrhea, discussed the nursing staff patient did not have any diarrhea so far here if patient has diarrhea will obtain C. diff testing. Levofloxacin will be discontinued and Zosyn will be continued. Objective - Vital Signs Vital signs: Vital Signs Temp 97.7 F 08/26/17 12:00 Pulse 86 08/26/17 12:01 Resp 33 H 08/26/17 12:00 BP 119/59 08/26/17 12:00 Pulse Ox 96 08/26/17 12:00 Intake & Output 08/25/17 08/26/17 08/26/17 18:59 06:59 18:59 Intake Total 100 Output Total 325 300 Balance -325 -200 Weight 95.254 kg 95 kg Intake: Intake, IV Titration 100 Amount Sodium Chloride 0.9% 1, 100 000 ml @ 100 mls/hr IV . Q10H [facility] Rx#:[id number] Output: Urine 325 300 Uretheral (Beyer) 325 Other: Voiding Method Indwelling Catheter Indwelling Catheter - Exam PHYSICAL EXAMINATION: GENERAL: Patient is alert on BiPAP-more awake does look better than yesterday but not a reliable historian, able to answer my questions HEENT: Pupils are round and equally reacting to light. EOMI. No scleral icterus. No conjunctival pallor. Normocephalic, atraumatic. No pharyngeal erythema. No thyromegaly. CARDIOVASCULAR: S1 and S2 present. No murmurs, rubs, or gallops. PULMONARY: Diminished air entry into bilateral lung martinez and the rhonchus breath sounds bilaterally no significant wheezing was appreciated. ABDOMEN: Soft, nontender, nondistended, normoactive bowel sounds. No palpable organomegaly. MUSCULOSKELETAL: No joint swelling or deformity. EXTREMITIES: No cyanosis, clubbing, or pedal edema. NEUROLOGICAL: Gross neurological examination did not reveal any focal deficits. SKIN: No rashes. - Labs CBC & Chem 7: 08/26/17 03:04 08/26/17 03:04 Labs: Abnormal Lab Results - Last 24 Hours (Table) 08/25/17 08/25/17 08/25/17 Range/Units 15:10 15:10 15:10 WBC 21.0 H (3.8-10.6) k/uL RBC (4.30-5.90) m/uL Hgb (13.0-17.5) gm/dL Plt Count 540 H D (150-450) k/uL Neutrophils # 17.2 H (1.3-7.7) k/uL Monocytes # 1.1 H (0-1.0) k/uL PT (9.0-12.0) sec INR (<1.2) ABG pH (7.35-7.45) ABG pCO2 (35-45) mmHg ABG pO2 (83-108) mmHg ABG HCO3 (21-25) mmol/L ABG Total CO2 (19-24) mmol/L Potassium (3.5-5.1) mmol/L BUN (9-20) mg/dL Creatinine (0.66-1.25) mg/dL Glucose (74-99) mg/dL POC Glucose (mg/dL) 159 H (75-99) mg/dL Alkaline Phosphatase (38-126) U/L Total Creatine Kinase 32 L (55-170) U/L Troponin I 0.045 H* (0.000-0.034) ng/mL Albumin (3.5-5.0) g/dL Urine Blood (Negative) Urine RBC (0-5) /hpf 08/25/17 08/25/17 08/25/17 Range/Units 15:10 15:10 15:34 WBC (3.8-10.6) k/uL RBC (4.30-5.90) m/uL Hgb (13.0-17.5) gm/dL Plt Count (150-450) k/uL Neutrophils # (1.3-7.7) k/uL Monocytes # (0-1.0) k/uL PT 13.0 H (9.0-12.0) sec INR 1.4 H (<1.2) ABG pH (7.35-7.45) ABG pCO2 (35-45) mmHg ABG pO2 (83-108) mmHg ABG HCO3 (21-25) mmol/L ABG Total CO2 (19-24) mmol/L Potassium 5.6 H (3.5-5.1) mmol/L BUN 52 H (9-20) mg/dL Creatinine (0.66-1.25) mg/dL Glucose 165 H (74-99) mg/dL POC Glucose (mg/dL) (75-99) mg/dL Alkaline Phosphatase 173 H (38-126) U/L Total Creatine Kinase (55-170) U/L Troponin I (0.000-0.034) ng/mL Albumin 3.0 L (3.5-5.0) g/dL Urine Blood Small H (Negative) Urine RBC 10 H (0-5) /hpf 08/25/17 08/25/17 08/26/17 Range/Units 20:31 20:45 03:04 WBC 17.6 H (3.8-10.6) k/uL RBC 4.28 L (4.30-5.90) m/uL Hgb 12.5 L (13.0-17.5) gm/dL Plt Count (150-450) k/uL Neutrophils # (1.3-7.7) k/uL Monocytes # (0-1.0) k/uL PT (9.0-12.0) sec INR (<1.2) ABG pH (7.35-7.45) ABG pCO2 (35-45) mmHg ABG pO2 (83-108) mmHg ABG HCO3 (21-25) mmol/L ABG Total CO2 (19-24) mmol/L Potassium (3.5-5.1) mmol/L BUN (9-20) mg/dL Creatinine (0.66-1.25) mg/dL Glucose (74-99) mg/dL POC Glucose (mg/dL) 222 H (75-99) mg/dL Alkaline Phosphatase (38-126) U/L Total Creatine Kinase (55-170) U/L Troponin I 0.047 H* (0.000-0.034) ng/mL Albumin (3.5-5.0) g/dL Urine Blood (Negative) Urine RBC (0-5) /hpf 08/26/17 08/26/17 08/26/17 Range/Units 03:04 05:37 10:44 WBC (3.8-10.6) k/uL RBC (4.30-5.90) m/uL Hgb (13.0-17.5) gm/dL Plt Count (150-450) k/uL Neutrophils # (1.3-7.7) k/uL Monocytes # (0-1.0) k/uL PT (9.0-12.0) sec INR (<1.2) ABG pH 7.32 L (7.35-7.45) ABG pCO2 59 H (35-45) mmHg ABG pO2 66 L (83-108) mmHg ABG HCO3 30 H (21-25) mmol/L ABG Total CO2 32 H (19-24) mmol/L Potassium 5.3 H (3.5-5.1) mmol/L BUN 56 H (9-20) mg/dL Creatinine 1.30 H (0.66-1.25) mg/dL Glucose 268 H (74-99) mg/dL POC Glucose (mg/dL) 267 H (75-99) mg/dL Alkaline Phosphatase (38-126) U/L Total Creatine Kinase (55-170) U/L Troponin I (0.000-0.034) ng/mL Albumin (3.5-5.0) g/dL Urine Blood (Negative) Urine RBC (0-5) /hpf 08/26/17 Range/Units 11:27 WBC (3.8-10.6) k/uL RBC (4.30-5.90) m/uL Hgb (13.0-17.5) gm/dL Plt Count (150-450) k/uL Neutrophils # (1.3-7.7) k/uL Monocytes # (0-1.0) k/uL PT (9.0-12.0) sec INR (<1.2) ABG pH (7.35-7.45) ABG pCO2 (35-45) mmHg ABG pO2 (83-108) mmHg ABG HCO3 (21-25) mmol/L ABG Total CO2 (19-24) mmol/L Potassium (3.5-5.1) mmol/L BUN (9-20) mg/dL Creatinine (0.66-1.25) mg/dL Glucose (74-99) mg/dL POC Glucose (mg/dL) 235 H (75-99) mg/dL Alkaline Phosphatase (38-126) U/L Total Creatine Kinase (55-170) U/L Troponin I (0.000-0.034) ng/mL Albumin (3.5-5.0) g/dL Urine Blood (Negative) Urine RBC (0-5) /hpf Microbiology - Last 24 Hours (Table) 08/25/17 15:34 Urine Culture - Preliminary Urine,Catheterized Assessment and Plan Plan: -Sepsis probably left lower lobe pneumonia patient is on Zosyn and pulmonary will be consulted. Because of acute hypoxic respiratory failure requiring BiPAP. -COPD: Without any significant exacerbation patient will be started on inhaled steroids along with albuterol ipratropium. -Acute hypoxic respiratory failure requiring BiPAP probably secondary to sepsis and pneumonia along with possible pulmonary edema chest x-ray will be obtained again today. -History of heart failure with AICD although his previous ejection fraction is 55% , patient does not appear to have systolic dysfunction may have diastolic dysfunction unsure whether patient is an exacerbation today because of IV fluids and received last night -Atrial fibrillation presently rate controlled continue with the rate control medications in the anticoagulation -Altered mental status secondary to toxic encephalopathy from pneumonia -Gastroesophageal reflux disease -Professor disease -Acute renal failure secondary to excessive diuretic, which is being held -Possibly of chronic kidney disease and-type 2 diabetes mellitus hold off on metformin and sliding scale insulin presently -Previous history of CVA
--- NOTE | 2017-08-26 14:32 | XR ---
EXAMINATION TYPE: XR chest 1V DATE OF EXAM: 08/26/2017 COMPARISON: Prior chest 08/25/2017 and 08/26/2017 HISTORY: Shortness of breath TECHNIQUE: Single frontal view of the chest is obtained. FINDINGS: Heart is stable accounting for differences in technique, intracardiac defibrillator leads also overlying appropriate position. There is no evident pneumothorax. Patchy basilar density is pres ent bilaterally. There are overlying cardiac leads. IMPRESSION: Suspect some persistent basilar atelectasis versus edema, correlate to exclude pneumonia .
--- NOTE | 2017-08-26 15:14 | US ---
EXAMINATION TYPE: US venous doppler duplex LE DATE OF EXAM: 08/26/2017 2:28 PM COMPARISON: NONE CLINICAL HISTORY: Hypoxemia. SOB, leg pain SIDE PERFORMED: Bilateral TECHNIQUE: The lower extremity deep venous system is examined utilizing real time linear array sonog sebastian with graded compression, doppler sonography and color-flow sonography. VESSELS IMAGED: External Iliac Vein (EIV) Common Femoral Vein Deep Femoral Vein Greater Saphenous Vein * Femoral Vein Popliteal Vein Small Saphenous Vein * Proximal Calf Veins (* superficial vessels) Limited exam, pt unable to tolerate compressions bilateral femoral veins and groin Right Leg: Negative for DVT Left Leg: Negative for DVT Grayscale, color doppler, spectral doppler imaging performed of the deep veins of the bilateral lower extremities. There is normal flow and vascular waveforms. IMPRESSION: Slightly suboptimal study as patient could not tolerate compression views but there is n o convincing evidence for acute DVT in either lower extremity on images saved.
[2017-08-26 16:28] LABS: Glucose,Whole Blood 221 mg/dL (75-99)
[2017-08-26] MEDS ORDERED: LEVOFLOXACIN 750MG-D5W PMX 750 MG in DEXTROSE/WATER 1 150ML.BAG IVPB SCH (17:00)
[2017-08-26] MEDS: ATORVASTATIN 20 MG TAB PO SCH (20:51)
[2017-08-26] MEDS: FORMOTEROL FUMARATE 20 MCG/2 ML NEBU INHALATION SCH (20:53)
[2017-08-26] MEDS: BUDESONIDE 1 MG/2 ML NEBU INHALATION SCH (20:54)
[2017-08-26 21:21] LABS: Glucose,Whole Blood 177 mg/dL (75-99)
[2017-08-27] MEDS: NYSTATIN 100,000 UNIT/ML SUSP 500,000 UNIT/5 ML CUP PO SCH ×4 (04:25→20:47)
[2017-08-27 06:18] LABS: Glucose,Whole Blood 185 mg/dL (75-99)
[2017-08-27] MEDS: CARVEDILOL 12.5 MG TAB PO SCH ×2 (06:27→16:34)
[2017-08-27] MEDS: FAMOTIDINE 20 MG TAB PO SCH (06:27)
[2017-08-27] MEDS: INSULIN ASPART 100 UNIT/ML 1 ML 10 ML VIAL SQ SCH ×4 (06:27→20:47)
[2017-08-27] MEDS: IPRATROPIUM-ALBUTEROL 3 ML NEB INHALATION SCH ×4 (07:36→19:33)
[2017-08-27] MEDS: BUDESONIDE 1 MG/2 ML NEBU INHALATION SCH ×2 (07:36→19:33)
[2017-08-27] MEDS: FORMOTEROL FUMARATE 20 MCG/2 ML NEBU INHALATION SCH ×2 (07:36→19:32)
[2017-08-27] MEDS: PIPERACILLIN-TAZOBACTAM 3.375 GM in DEXTROSE/WATER 1 50ML.BAG IVPB SCH ×3 (08:57→23:15)
[2017-08-27] MEDS: APIXABAN 5 MG TAB PO SCH ×2 (09:00→20:47)
[2017-08-27] MEDS: LIDOCAINE 5% PATCH TOPICAL SCH ×2 (09:02→10:09)
[2017-08-27 11:33] LABS: Glucose,Whole Blood 220 mg/dL (75-99)
--- NOTE | 2017-08-27 13:37 | P.PN ---
Subjective Progress Note Date: 08/27/17 Principal diagnosis: Acute on chronic hypoxic respiratory failure secondary to COPD, congestive heart failure, pleural effusion, and left lower lobe pneumonia. This is a 72-year-old gentleman who follows with Dr. Espinoza as his primary care physician. He has a history of diabetes mellitus, hypertension, renal disease, COPD, atrial fibrillation anticoagulated with Eliquis, CVA, heart failure, obesity, alcohol abuse, cardiomyopathy, gout. He was recently discharged here 08/10/2017 after being treated for healthcare associated pneumonia. He presented here yesterday with altered mental status and fever. White count 21.0. He has been initiated on Zosyn and Levaquin. He said acute hypoxic respiratory failure currently requiring BiPAP set at 12/6 and 80% FiO2 to maintain O2 saturations in the mid 90s. Chest x-ray revealed a small left pleural effusion with atelectasis/consolidation. Ultrasound of the chest revealed no significant pulmonary effusion that would require thoracentesis. He is seen today in consultation on the selective care unit. He remains on the BiPAP. He is arousable. If occult to communicate. He is currently afebrile. Today's chest x-ray showed improvement in aeration. When off BiPAP on 6 L is maintaining O2 saturations in the low 90s. White count 17.6. Hemoglobin 12.5. Creatinine 1.30. Urine culture pending. Patient was reevaluated today on 08/27/2017, remains on BiPAP, comfortable, in no distress, however he remains on relatively high FiO2. Reviewed the chest x- ray on the ultrasound, there is definitely some consolidation in the left lower lobe, and ultrasound did not show enough fluid to consider safe thoracentesis. Hence no plans for thoracentesis, at this point I would recommend treating the patient for underlying COPD, strongly suspect left lower lobe pneumonia and consolidation, and he remains presently on Zosyn and Levaquin. Patient is not a great historian, denies any specific complaints. Objective - Vital Signs Vital signs: Vital Signs Temp 98.0 F 08/27/17 12:00 Pulse 82 08/27/17 12:00 Resp 22 08/27/17 12:00 BP 99/56 08/27/17 12:00 Pulse Ox 99 08/27/17 12:00 Intake & Output 08/26/17 08/27/1718 18:59 06:59 18:59 Intake Total 250 180 Output Total 700 800 Balance -700 -550 180 Weight 91.5 kg Intake: Intake, IV Titration 50 Amount Piperacillin-Tazobactam 3 50 .375 gm In Dextrose/Water 1 50ml.bag @ 12.5 mls/hr IVPB Q8HR [facility] Rx#: [id number] Oral 200 180 Output: Urine 700 800 Other: Voiding Method Indwelling Catheter Indwelling Catheter Indwelling Catheter - Exam - Constitutional General appearance: mild distress, obese, on BiPAP. - EENT Eyes: EOMI, PERRLA ENT: hearing grossly normal Ears: bilateral: normal - Neck Neck: normal ROM Carotids: bilateral: upstroke normal Thyroid: bilateral: normal size - Respiratory Respiratory: bilateral: rhonchi - Cardiovascular Rhythm: irregularly irregular Heart sounds: normal: S1, S2 - Gastrointestinal General gastrointestinal: normal bowel sounds - Integumentary Integumentary: normal turgor - Neurologic Altered mental status, difficult to evaluate. - Musculoskeletal Musculoskeletal: generalized weakness - Psychiatric Altered mental status, difficult to evaluate. - Labs CBC & Chem 7: 08/26/17 03:04 08/26/17 03:04 Labs: Abnormal Lab Results - Last 24 Hours (Table) 08/26/17 08/26/17 08/27/17 Range/Units 16:26 21:19 06:17 POC Glucose (mg/dL) 221 H 177 H 185 H (75-99) mg/dL 08/27/17 Range/Units 11:27 POC Glucose (mg/dL) 220 H (75-99) mg/dL Microbiology - Last 24 Hours (Table) 08/25/17 15:34 Urine Culture - Final Urine,Catheterized 08/25/17 15:10 Blood Culture - Preliminary Blood No Growth after 24 hours Assessment and Plan Assessment: Impression: 1 acute hypoxic and hypercapnic respiratory failure secondary to acute COPD exacerbation, left lower lobe pneumonia, healthcare related unless proven otherwise. 2 multiple comorbidities including chronic atrial fibrillation, acute kidney injury, most likely secondary to diuretics. Diastolic congestive heart failure , previous AICD placement, ejection fraction is 55%. Recommendation: Continue present treatment plan, continue BiPAP, continue bronchodilators, antibiotics, diuretics, will follow. Long-term Prognosis is definitely poor and guarded. Time with Patient: Less than 30
--- NOTE | 2017-08-27 16:09 | P.PN ---
Subjective 68-year-old admitted with sepsis and the acute respiratory failure requiring BiPAP. Patient is for discharge as well as worsened today I'll obtain a chest x -ray stop IV fluids patient was given Lasix whenever 9 by nurse practitioner patient does have rhonchus breath sounds pulmonary will evaluate the patient chest ultrasound was obtained which did not show any significant pleural effusion that can be drained and the had normal ejection fraction the past patient will remain off torsemide as mentioned above patient's the received 1 dose of Lasix. I discussed with the daughter today apparently patient was having diarrhea, discussed the nursing staff patient did not have any diarrhea so far here if patient has diarrhea will obtain C. diff testing. Levofloxacin will be discontinued and Zosyn will be continued. 08/28/2079 Patient has significant improvement patient is BiPAP patient is presently on 4 L of oxygen. Patient clinically does not appear to have any pulmonary edema all continue to hold off on therapy for repeat chest x-ray tomorrow morning. Constitutional: Denied any fatigue denied any fever. Cardio vascular: denied any chest pain, palpitations Gastrointestinal denied any nausea vomiting Pulmonary: Denied any shortness of breath cough Neurologic denied any new focal deficits Objective - Vital Signs Vital signs: Vital Signs Temp 96.7 F L 08/27/17 15:51 Pulse 99 08/27/17 15:51 Resp 20 08/27/17 15:51 BP 113/64 08/27/17 15:51 Pulse Ox 96 08/27/17 15:51 Intake & Output 08/26/17 08/27/17 08/27/17 18:59 06:59 18:59 Intake Total 250 230 Output Total 700 800 Balance -700 -550 230 Weight 91.5 kg Intake: Intake, IV Titration 50 50 Amount Piperacillin-Tazobactam 3 50 50 .375 gm In Dextrose/Water 1 50ml.bag @ 12.5 mls/hr IVPB Q8HR [facility] Rx#: [id number] Oral 200 180 Output: Urine 700 800 Other: Voiding Method Indwelling Catheter Indwelling Catheter Indwelling Catheter - Exam PHYSICAL EXAMINATION: GENERAL: She is alert and oriented 2-3 which is his baseline off BiPAP on 4 L of oxygen. HEENT: Pupils are round and equally reacting to light. EOMI. No scleral icterus. No conjunctival pallor. Normocephalic, atraumatic. No pharyngeal erythema. No thyromegaly. CARDIOVASCULAR: S1 and S2 present. No murmurs, rubs, or gallops. PULMONARY: Diminished air entry into bilateral lung martinez and the rhonchus breath sounds bilaterally no significant wheezing was appreciated. ABDOMEN: Soft, nontender, nondistended, normoactive bowel sounds. No palpable organomegaly. MUSCULOSKELETAL: No joint swelling or deformity. EXTREMITIES: No cyanosis, clubbing, or pedal edema. NEUROLOGICAL: Gross neurological examination did not reveal any focal deficits. SKIN: No rashes. - Labs CBC & Chem 7: 08/26/17 03:04 08/26/17 03:04 Labs: Abnormal Lab Results - Last 24 Hours (Table) 08/26/17 08/26/17 08/27/17 Range/Units 16:26 21:19 06:17 POC Glucose (mg/dL) 221 H 177 H 185 H (75-99) mg/dL 08/27/17 Range/Units 11:27 POC Glucose (mg/dL) 220 H (75-99) mg/dL Microbiology - Last 24 Hours (Table) 08/25/17 15:34 Urine Culture - Final Urine,Catheterized 08/25/17 15:10 Blood Culture - Preliminary Blood No Growth after 24 hours Assessment and Plan Plan: -Sepsis probably left lower lobe pneumonia patient is on Zosyn and pulmonary will be consulted. Because of acute hypoxic respiratory failure requiring BiPAP. Patient is being treated for healthcare associated pneumonia -COPD: Without any significant exacerbation patient will be started on inhaled steroids along with albuterol ipratropium. -Acute hypoxic respiratory failure requiring patient is off BiPAP. -History of heart failure with AICD although his previous ejection fraction is 55% , patient does not appear to have systolic dysfunction may have diastolic dysfunction unsure whether patient is an exacerbation today because of IV fluids and received last night -Atrial fibrillation presently rate controlled continue with the rate control medications in the anticoagulation -Altered mental status secondary to toxic encephalopathy from pneumonia -Gastroesophageal reflux disease -Professor disease -Acute renal failure secondary to excessive diuretic, which is being held -Possibly of chronic kidney disease and-type 2 diabetes mellitus hold off on metformin and sliding scale insulin presently -Previous history of CVA
[2017-08-27 16:16] LABS: Glucose,Whole Blood 178 mg/dL (75-99)
[2017-08-27 20:37] LABS: Glucose,Whole Blood 234 mg/dL (75-99)
[2017-08-27] MEDS: ATORVASTATIN 20 MG TAB PO SCH (20:47)
[2017-08-28] MEDS ORDERED: ZIPRASIDONE 20 MG VIAL IM ONE (01:14)
[2017-08-28 05:56] LABS: Glucose,Whole Blood 190 mg/dL (75-99)
[2017-08-28] MEDS: NYSTATIN 100,000 UNIT/ML SUSP 500,000 UNIT/5 ML CUP PO SCH ×4 (06:48→22:23)
[2017-08-28] MEDS: FAMOTIDINE 20 MG TAB PO SCH (06:49)
[2017-08-28] MEDS: INSULIN ASPART 100 UNIT/ML 1 ML 10 ML VIAL SQ SCH ×4 (06:49→21:01)
[2017-08-28] MEDS: CARVEDILOL 12.5 MG TAB PO SCH ×2 (06:49→15:02)
--- NOTE | 2017-08-28 07:53 | XR ---
EXAMINATION TYPE: XR chest 1V DATE OF EXAM: 08/28/2017 HISTORY: CHF. REFERENCE: Previous study dated 08/26/2017. FINDINGS: There is a bipolar pacemaker in place on the left. The heart is mildly enlarged. There is worsening left-sided airspace disease. The right lung is clear . Platelike atelectasis in the right lung has cleared. Pleural spaces appear clear. Pulmonary vascula ture is normal. IMPRESSION: 1. CARDIOMEGALY. 2. WORSENING LEFT-SIDED AIRSPACE DISEASE.
[2017-08-28] MEDS: LIDOCAINE 5% PATCH TOPICAL SCH (08:24)
[2017-08-28] MEDS: PIPERACILLIN-TAZOBACTAM 3.375 GM in DEXTROSE/WATER 1 50ML.BAG IVPB SCH ×3 (08:26→23:11)
[2017-08-28] MEDS: APIXABAN 5 MG TAB PO SCH ×2 (08:26→20:14)
[2017-08-28] MEDS: FORMOTEROL FUMARATE 20 MCG/2 ML NEBU INHALATION SCH ×2 (09:26→19:50)
[2017-08-28] MEDS: BUDESONIDE 1 MG/2 ML NEBU INHALATION SCH ×2 (09:26→19:50)
[2017-08-28] MEDS: IPRATROPIUM-ALBUTEROL 3 ML NEB INHALATION SCH ×4 (09:26→19:50)
[2017-08-28 10:12] LABS: HCT 34.7 % (39.0-53.0); HGB 11.2 gm/dL (13.0-17.5); Hypochromasia Slight; MCH 28.5 pg (25.0-35.0); MCHC 32.3 g/dL (31.0-37.0); MCV 88.4 fL (80.0-100.0); Mean Platelet Volume 7.7; Platelet Count 288 k/uL (150-450); RBC 3.92 m/uL (4.30-5.90); RDW 14.4 % (11.5-15.5); WBC 12.6 k/uL (3.8-10.6)
[2017-08-28 10:34] LABS: Anion Gap 5 mmol/L; Blood Urea Nitrogen 32 mg/dL (9-20); Calcium 8.4 mg/dL (8.4-10.2); Carbon Dioxide 30 mmol/L (22-30); Chloride 104 mmol/L (98-107); Glucose 209 mg/dL (74-99); Potassium 4.1 mmol/L (3.5-5.1); Sodium 139 mmol/L (137-145)
[2017-08-28 11:52] LABS: Glucose,Whole Blood 213 mg/dL (75-99)
--- NOTE | 2017-08-28 12:11 | P.PN ---
Subjective Progress Note Date: 08/28/17 Principal diagnosis: Acute on chronic hypoxic respiratory failure secondary to COPD, congestive heart failure, pleural effusion, and left lower lobe pneumonia. This is a 72-year-old gentleman who follows with Dr. Espinoza as his primary care physician. He has a history of diabetes mellitus, hypertension, renal disease, COPD, atrial fibrillation anticoagulated with Eliquis, CVA, heart failure, obesity, alcohol abuse, cardiomyopathy, gout. He was recently discharged here 08/10/2017 after being treated for healthcare associated pneumonia. He presented here yesterday with altered mental status and fever. White count 21.0. He has been initiated on Zosyn and Levaquin. He said acute hypoxic respiratory failure currently requiring BiPAP set at 12/6 and 80% FiO2 to maintain O2 saturations in the mid 90s. Chest x-ray revealed a small left pleural effusion with atelectasis/consolidation. Ultrasound of the chest revealed no significant pulmonary effusion that would require thoracentesis. He is seen today in consultation on the selective care unit. He remains on the BiPAP. He is arousable. If occult to communicate. He is currently afebrile. Today's chest x-ray showed improvement in aeration. When off BiPAP on 6 L is maintaining O2 saturations in the low 90s. White count 17.6. Hemoglobin 12.5. Creatinine 1.30. Urine culture pending. Patient was reevaluated today on 08/27/2017, remains on BiPAP, comfortable, in no distress, however he remains on relatively high FiO2. Reviewed the chest x- ray on the ultrasound, there is definitely some consolidation in the left lower lobe, and ultrasound did not show enough fluid to consider safe thoracentesis. Hence no plans for thoracentesis, at this point I would recommend treating the patient for underlying COPD, strongly suspect left lower lobe pneumonia and consolidation, and he remains presently on Zosyn and Levaquin. Patient is not a great historian, denies any specific complaints Reevaluated today on 08/28/2017, patient is now on 3 L nasal cannula,. Comfortable, his O2 saturation is 95%. He is off BiPAP, and a chest x-ray continues to show some suspicion for left lower lobe pneumonia. Not much different although it was read by the radiologist as worsening. I feel it about the same. WBC count is 12.6 hemoglobin is 11.2 and basic metabolic profile is relatively normal. Clinically the patient is feeling better compared to how he felt since admission. Objective - Vital Signs Vital signs: Vital Signs Temp 96.0 F L 08/28/17 11:33 Pulse 85 08/28/17 11:33 Resp 18 08/28/17 11:33 BP 130/68 08/28/17 11:33 Pulse Ox 95 08/28/17 11:33 Intake & Output 08/27/17 08/28/17 08/28/17 18:59 06:59 18:59 Intake Total 410 180 Output Total 600 500 Balance -190 -500 180 Weight 91.5 kg 105.5 kg Intake: Intake, IV Titration 50 Amount Piperacillin-Tazobactam 3 50 .375 gm In Dextrose/Water 1 50ml.bag @ 12.5 mls/hr IVPB Q8HR [facility] Rx#: [id number] Oral 360 180 Output: Urine 600 500 Other: Voiding Method Indwelling Catheter Indwelling Catheter Indwelling Catheter # Bowel Movements 1 - Exam - Constitutional General appearance: Revealed a 72-year-old white male in no distress. - EENT Eyes: EOMI, PERRLA ENT: hearing grossly normal Ears: bilateral: normal - Neck Neck: normal ROM Carotids: bilateral: upstroke normal Thyroid: bilateral: normal size - Respiratory Respiratory: Diminished breath sounds at the left base, no crackles, no rhonchi and no wheezes. Symmetrical chest expansion, no chest wall tenderness. - Cardiovascular Rhythm: irregularly irregular Heart sounds: normal: S1, S2 - Gastrointestinal General gastrointestinal: Soft nontender no megaly no rebound no guarding. Positive bowel sounds. - Integumentary Integumentary: normal turgor - Neurologic Altered mental status, difficult to evaluate. - Musculoskeletal Musculoskeletal: generalized weakness - Psychiatric Altered mental status, difficult to evaluate. - Labs CBC & Chem 7: 08/28/17 09:46 08/28/17 09:46 Labs: Abnormal Lab Results - Last 24 Hours (Table) 08/27/17 08/27/17 08/28/17 Range/Units 16:13 20:36 05:54 WBC (3.8-10.6) k/uL RBC (4.30-5.90) m/uL Hgb (13.0-17.5) gm/dL Hct (39.0-53.0) % BUN (9-20) mg/dL Glucose (74-99) mg/dL POC Glucose (mg/dL) 178 H 234 H 190 H (75-99) mg/dL 08/28/17 08/28/17 08/28/17 Range/Units 09:46 09:46 11:41 WBC 12.6 H (3.8-10.6) k/uL RBC 3.92 L (4.30-5.90) m/uL Hgb 11.2 L (13.0-17.5) gm/dL Hct 34.7 L (39.0-53.0) % BUN 32 H (9-20) mg/dL Glucose 209 H (74-99) mg/dL POC Glucose (mg/dL) 213 H (75-99) mg/dL Microbiology - Last 24 Hours (Table) 08/25/17 15:10 Blood Culture - Preliminary Blood No Growth after 48 hours Assessment and Plan Assessment: Impression: 1 acute hypoxic and hypercapnic respiratory failure secondary to acute COPD exacerbation, left lower lobe pneumonia, healthcare related unless proven otherwise. 2 multiple comorbidities including chronic atrial fibrillation, acute kidney injury, most likely secondary to diuretics. Diastolic congestive heart failure , previous AICD placement, ejection fraction is 55%. Recommendation: Continue present treatment plan, continue BiPAP, only as needed. Continue O2 at few liters nasal cannula continue bronchodilators, antibiotics, diuretics, will follow. Long-term Prognosis is definitely poor and guarded. Time with Patient: Less than 30
--- NOTE | 2017-08-28 14:57 | P.PN ---
Subjective 68-year-old admitted with sepsis and the acute respiratory failure requiring BiPAP. Patient is for discharge as well as worsened today I'll obtain a chest x -ray stop IV fluids patient was given Lasix whenever 9 by nurse practitioner patient does have rhonchus breath sounds pulmonary will evaluate the patient chest ultrasound was obtained which did not show any significant pleural effusion that can be drained and the had normal ejection fraction the past patient will remain off torsemide as mentioned above patient's the received 1 dose of Lasix. I discussed with the daughter today apparently patient was having diarrhea, discussed the nursing staff patient did not have any diarrhea so far here if patient has diarrhea will obtain C. diff testing. Levofloxacin will be discontinued and Zosyn will be continued. 08/28/2079 Patient has significant improvement patient is BiPAP patient is presently on 4 L of oxygen. Patient clinically does not appear to have any pulmonary edema all continue to hold off on therapy for repeat chest x-ray tomorrow morning. 08/28/2017 Patient is doing well in the morning was agitated quite a bit last night was given a dose of Geodon. Patient will be started on Haldol as needed for the agitation episodes which more often happens during nighttime due to Constitutional: Denied any fatigue denied any fever. Cardio vascular: denied any chest pain, palpitations Gastrointestinal denied any nausea vomiting Pulmonary: Denied any shortness of breath cough Neurologic denied any new focal deficits Objective - Vital Signs Vital signs: Vital Signs Temp 96.0 F L 08/28/17 11:33 Pulse 79 08/28/17 12:44 Resp 18 08/28/17 11:33 BP 130/68 08/28/17 11:33 Pulse Ox 95 08/28/17 11:33 Intake & Output 08/27/17 08/28/17 08/28/17 18:59 06:59 18:59 Intake Total 410 180 Output Total 600 500 Balance -190 -500 180 Weight 91.5 kg 105.5 kg Intake: Intake, IV Titration 50 Amount Piperacillin-Tazobactam 3 50 .375 gm In Dextrose/Water 1 50ml.bag @ 12.5 mls/hr IVPB Q8HR [facility] Rx#: [id number] Oral 360 180 Output: Urine 600 500 Other: Voiding Method Indwelling Catheter Indwelling Catheter Indwelling Catheter # Bowel Movements 1 - Exam PHYSICAL EXAMINATION: GENERAL: She is alert and oriented 2-3 which is his baseline off BiPAP on 4 L of oxygen. HEENT: Pupils are round and equally reacting to light. EOMI. No scleral icterus. No conjunctival pallor. Normocephalic, atraumatic. No pharyngeal erythema. No thyromegaly. CARDIOVASCULAR: S1 and S2 present. No murmurs, rubs, or gallops. PULMONARY: Diminished air entry into bilateral lung martinez and the rhonchus breath sounds bilaterally no significant wheezing was appreciated. ABDOMEN: Soft, nontender, nondistended, normoactive bowel sounds. No palpable organomegaly. MUSCULOSKELETAL: No joint swelling or deformity. EXTREMITIES: No cyanosis, clubbing, or pedal edema. NEUROLOGICAL: Gross neurological examination did not reveal any focal deficits. SKIN: No rashes. - Labs CBC & Chem 7: 08/28/17 09:46 08/28/17 09:46 Labs: Abnormal Lab Results - Last 24 Hours (Table) 08/27/17 08/27/17 08/28/17 Range/Units 16:13 20:36 05:54 WBC (3.8-10.6) k/uL RBC (4.30-5.90) m/uL Hgb (13.0-17.5) gm/dL Hct (39.0-53.0) % BUN (9-20) mg/dL Glucose (74-99) mg/dL POC Glucose (mg/dL) 178 H 234 H 190 H (75-99) mg/dL 08/28/17 08/28/17 08/28/17 Range/Units 09:46 09:46 11:41 WBC 12.6 H (3.8-10.6) k/uL RBC 3.92 L (4.30-5.90) m/uL Hgb 11.2 L (13.0-17.5) gm/dL Hct 34.7 L (39.0-53.0) % BUN 32 H (9-20) mg/dL Glucose 209 H (74-99) mg/dL POC Glucose (mg/dL) 213 H (75-99) mg/dL Microbiology - Last 24 Hours (Table) 08/25/17 15:10 Blood Culture - Preliminary Blood No Growth after 48 hours Assessment and Plan Plan: -Sepsis probably left lower lobe pneumonia patient is on Zosyn and pulmonary will be consulted. Because of acute hypoxic respiratory failure requiring BiPAP. Patient is being treated for healthcare associated pneumonia -COPD: Without any significant exacerbation patient will be started on inhaled steroids along with albuterol ipratropium. -Acute hypoxic respiratory failure requiring patient is off BiPAP. -History of heart failure with AICD although his previous ejection fraction is 55% , patient does not appear to have systolic dysfunction may have diastolic dysfunction unsure whether patient is an exacerbation today because of IV fluids and received last night -Atrial fibrillation presently rate controlled continue with the rate control medications in the anticoagulation -Altered mental status secondary to toxic encephalopathy from pneumonia -Gastroesophageal reflux disease -Professor disease -Acute renal failure secondary to excessive diuretic,, improved with holding diuretic therapy. Chest x-ray did not show any increased pulmonary edema did show increased infiltrate in the left lower lung martinez -Possibly of chronic kidney disease and-type 2 diabetes mellitus hold off on metformin and sliding scale insulin presently -Previous history of CVA
[2017-08-28 16:12] LABS: Glucose,Whole Blood 174 mg/dL (75-99)
[2017-08-28] MEDS: ATORVASTATIN 20 MG TAB PO SCH (20:14)
[2017-08-28 20:55] LABS: Glucose,Whole Blood 178 mg/dL (75-99)
[2017-08-28] MEDS: HALOPERIDOL 1 MG TAB PO PRN (22:32)
[2017-08-29] MEDS: HALOPERIDOL 1 MG TAB PO PRN (05:25)
[2017-08-29] MEDS: FAMOTIDINE 20 MG TAB PO SCH (05:58)
[2017-08-29] MEDS: NYSTATIN 100,000 UNIT/ML SUSP 500,000 UNIT/5 ML CUP PO SCH ×4 (05:58→22:51)
[2017-08-29] MEDS: CARVEDILOL 12.5 MG TAB PO SCH ×2 (05:58→15:54)
[2017-08-29 06:14] LABS: Glucose,Whole Blood 191 mg/dL (75-99)
[2017-08-29] MEDS: INSULIN ASPART 100 UNIT/ML 1 ML 10 ML VIAL SQ SCH ×4 (06:25→20:39)
[2017-08-29] MEDS: FORMOTEROL FUMARATE 20 MCG/2 ML NEBU INHALATION SCH ×2 (07:10→20:50)
[2017-08-29] MEDS: BUDESONIDE 1 MG/2 ML NEBU INHALATION SCH ×2 (07:10→20:50)
[2017-08-29] MEDS: IPRATROPIUM-ALBUTEROL 3 ML NEB INHALATION SCH ×4 (07:10→20:50)
[2017-08-29] MEDS: PIPERACILLIN-TAZOBACTAM 3.375 GM in DEXTROSE/WATER 1 50ML.BAG IVPB SCH ×3 (09:10→22:52)
[2017-08-29] MEDS: APIXABAN 5 MG TAB PO SCH ×2 (09:10→20:31)
[2017-08-29] MEDS: LIDOCAINE 5% PATCH TOPICAL SCH (09:11)
[2017-08-29 11:30] LABS: Glucose,Whole Blood 229 mg/dL (75-99)
[2017-08-29] MEDS: ACETAMINOPHEN TAB 325 MG TAB PO PRN ×2 (12:03→21:42)
--- NOTE | 2017-08-29 12:34 | P.PN ---
Subjective Progress Note Date: 08/29/17 Principal diagnosis: Acute on chronic hypoxic respiratory failure secondary to COPD, congestive heart failure, pleural effusion and left lower lobe pneumonia This is a 72-year-old gentleman who follows with Dr. Espinoza as his primary care physician. He has a history of diabetes mellitus, hypertension, renal disease, COPD, atrial fibrillation anticoagulated with Eliquis, CVA, heart failure, obesity, alcohol abuse, cardiomyopathy, gout. He was recently discharged here 08/10/2017 after being treated for healthcare associated pneumonia. He presented here yesterday with altered mental status and fever. White count 21.0. He has been initiated on Zosyn and Levaquin. He said acute hypoxic respiratory failure currently requiring BiPAP set at 12/6 and 80% FiO2 to maintain O2 saturations in the mid 90s. Chest x-ray revealed a small left pleural effusion with atelectasis/consolidation. Ultrasound of the chest revealed no significant pulmonary effusion that would require thoracentesis. He is seen today in consultation on the selective care unit. He remains on the BiPAP. He is arousable. If occult to communicate. He is currently afebrile. Today's chest x-ray showed improvement in aeration. When off BiPAP on 6 L is maintaining O2 saturations in the low 90s. White count 17.6. Hemoglobin 12.5. Creatinine 1.30. Urine culture pending. Patient was reevaluated today on 08/27/2017, remains on BiPAP, comfortable, in no distress, however he remains on relatively high FiO2. Reviewed the chest x- ray on the ultrasound, there is definitely some consolidation in the left lower lobe, and ultrasound did not show enough fluid to consider safe thoracentesis. Hence no plans for thoracentesis, at this point I would recommend treating the patient for underlying COPD, strongly suspect left lower lobe pneumonia and consolidation, and he remains presently on Zosyn and Levaquin. Patient is not a great historian, denies any specific complaints Reevaluated today on 08/28/2017, patient is now on 3 L nasal cannula,. Comfortable, his O2 saturation is 95%. He is off BiPAP, and a chest x-ray continues to show some suspicion for left lower lobe pneumonia. Not much different although it was read by the radiologist as worsening. I feel it about the same. WBC count is 12.6 hemoglobin is 11.2 and basic metabolic profile is relatively normal. Clinically the patient is feeling better compared to how he felt since admission. On 08/29/2017 patient seen in follow-up on selective care unit. Denies any acute distress, he is resting in bed, currently on 4 L per nasal cannula, his pulse ox is 96%, he is afebrile, urine and blood cultures remain negative, yesterday his chest x-ray was reviewed, showed worsening left-sided airspace disease. Ultrasound of the chest did not show any significant effusion. [place] any fever or chills, hemodynamically stable, did not require BiPAP support last night. No new Labs today. Remains on broad-spectrum antibiotics, form of Zosyn , nebulized bronchodilators and clinically the patient is improving. Objective - Vital Signs Vital signs: Vital Signs Temp 97.1 F L 08/29/17 11:20 Pulse 84 08/29/17 11:20 Resp 18 08/29/17 11:20 BP 119/66 08/29/17 11:20 Pulse Ox 96 08/29/17 11:20 Intake & Output 08/28/17 08/29/17 08/29/17 18:59 06:59 18:59 Intake Total 360 290 Output Total 900 300 Balance -540 -300 290 Weight 91 kg Intake: Intake, IV Titration 50 Amount Piperacillin-Tazobactam 3 50 .375 gm In Dextrose/Water 1 50ml.bag @ 12.5 mls/hr IVPB Q8HR [facility] Rx#: [id number] Oral 360 240 Output: Urine 900 300 Other: Voiding Method Indwelling Catheter Indwelling Catheter Indwelling Catheter # Bowel Movements 1 1 - Exam - Constitutional General appearance: Revealed a 72-year-old white male in no distress. - EENT Eyes: EOMI, PERRLA ENT: hearing grossly normal Ears: bilateral: normal - Neck Neck: normal ROM Carotids: bilateral: upstroke normal Thyroid: bilateral: normal size - Respiratory Respiratory: Diminished breath sounds at the left base, no crackles, no rhonchi and no wheezes. Symmetrical chest expansion, no chest wall tenderness. - Cardiovascular Rhythm: irregularly irregular Heart sounds: normal: S1, S2 - Gastrointestinal General gastrointestinal: Soft nontender no megaly no rebound no guarding. Positive bowel sounds. - Integumentary Integumentary: normal turgor - Neurologic Altered mental status, difficult to evaluate. - Musculoskeletal Musculoskeletal: generalized weakness - Psychiatric Altered mental status, difficult to evaluate. - Labs CBC & Chem 7: 08/28/17 09:46 08/28/17 09:46 Labs: Abnormal Lab Results - Last 24 Hours (Table) 08/28/17 08/28/17 08/29/17 Range/Units 16:10 20:53 06:12 POC Glucose (mg/dL) 174 H 178 H 191 H (75-99) mg/dL 08/29/17 Range/Units 11:19 POC Glucose (mg/dL) 229 H (75-99) mg/dL Microbiology - Last 24 Hours (Table) 08/25/17 15:10 Blood Culture - Preliminary Blood No Growth after 72 hours Assessment and Plan Plan: Impression: 1 acute hypoxic and hypercapnic respiratory failure secondary to acute COPD exacerbation, left lower lobe pneumonia, healthcare related unless proven otherwise. 2 multiple comorbidities including chronic atrial fibrillation, acute kidney injury, most likely secondary to diuretics. Diastolic congestive heart failure , previous AICD placement, ejection fraction is 55%. Recommendation: Continue with current antibiotic coverage, patient is afebrile, no chills, no worsening dyspnea. Yesterday his chest x-ray showed worsening of the left mid lung airspace disease consistent with pneumonia, but clinically patient remains stable, and continues to improve. Did not require BiPAP support last night, wean FiO2. Continue with nebulized bronchodilators. Continue oral diuretics, and oral anticoagulation for his history of chronic atrial fibrillation. Cultures remain negative. I performed a history & physical examination of the patient and discussed their management with my nurse practitioner, Kathleen Davis. I reviewed the nurse practitioner's note and agree with the documented findings and plan of care. Lung sounds are positive for crackles at the left lower base. The findings and the impression was discussed with the patient. I attest to the documentation by the nurse practitioner. Time with Patient: Less than 30
--- NOTE | 2017-08-29 14:19 | P.PN ---
Subjective 68-year-old admitted with sepsis and the acute respiratory failure requiring BiPAP. Patient is for discharge as well as worsened today I'll obtain a chest x -ray stop IV fluids patient was given Lasix whenever 9 by nurse practitioner patient does have rhonchus breath sounds pulmonary will evaluate the patient chest ultrasound was obtained which did not show any significant pleural effusion that can be drained and the had normal ejection fraction the past patient will remain off torsemide as mentioned above patient's the received 1 dose of Lasix. I discussed with the daughter today apparently patient was having diarrhea, discussed the nursing staff patient did not have any diarrhea so far here if patient has diarrhea will obtain C. diff testing. Levofloxacin will be discontinued and Zosyn will be continued. 08/28/2079 Patient has significant improvement patient is BiPAP patient is presently on 4 L of oxygen. Patient clinically does not appear to have any pulmonary edema all continue to hold off on therapy for repeat chest x-ray tomorrow morning. 08/28/2017 Patient is doing well in the morning was agitated quite a bit last night was given a dose of Geodon. Patient will be started on Haldol as needed for the agitation episodes which more often happens during nighttime due to sundowners 08/29/2017 Patient is clinically doing well. Respiratory status significant improved will cut down the arms and didn't require BiPAP. Will transfer out of [facility] to care. Constitutional: Denied any fatigue denied any fever. Cardio vascular: denied any chest pain, palpitations Gastrointestinal denied any nausea vomiting Pulmonary: Denied any shortness of breath cough Neurologic denied any new focal deficits Objective - Vital Signs Vital signs: Vital Signs Temp 97.1 F L 08/29/17 11:20 Pulse 84 08/29/17 11:20 Resp 18 08/29/17 11:20 BP 119/66 08/29/17 11:20 Pulse Ox 96 08/29/17 11:20 Intake & Output 08/28/17 08/29/17 08/29/17 18:59 06:59 18:59 Intake Total 360 410 Output Total 900 300 Balance -540 -300 410 Weight 91 kg Intake: Intake, IV Titration 50 Amount Piperacillin-Tazobactam 3 50 .375 gm In Dextrose/Water 1 50ml.bag @ 12.5 mls/hr IVPB Q8HR [facility] Rx#: [id number] Oral 360 360 Output: Urine 900 300 Other: Voiding Method Indwelling Catheter Indwelling Catheter Indwelling Catheter # Bowel Movements 1 1 - Exam PHYSICAL EXAMINATION: GENERAL: She is alert and oriented 2-3 which is his baseline HEENT: Pupils are round and equally reacting to light. EOMI. No scleral icterus. No conjunctival pallor. Normocephalic, atraumatic. No pharyngeal erythema. No thyromegaly. CARDIOVASCULAR: S1 and S2 present. No murmurs, rubs, or gallops. PULMONARY: Diminished air entry into bilateral lung martinez and the rhonchus breath sounds bilaterally no significant wheezing was appreciated. ABDOMEN: Soft, nontender, nondistended, normoactive bowel sounds. No palpable organomegaly. MUSCULOSKELETAL: No joint swelling or deformity. EXTREMITIES: No cyanosis, clubbing, or pedal edema. NEUROLOGICAL: Gross neurological examination did not reveal any focal deficits. SKIN: No rashes. - Labs CBC & Chem 7: 08/28/17 09:46 08/28/17 09:46 Labs: Abnormal Lab Results - Last 24 Hours (Table) 08/28/17 08/28/17 08/29/17 Range/Units 16:10 20:53 06:12 POC Glucose (mg/dL) 174 H 178 H 191 H (75-99) mg/dL 08/29/17 Range/Units 11:19 POC Glucose (mg/dL) 229 H (75-99) mg/dL Microbiology - Last 24 Hours (Table) 08/25/17 15:10 Blood Culture - Preliminary Blood No Growth after 72 hours Assessment and Plan Plan: -Sepsis probably left lower lobe pneumonia patient is on Zosyn, significant improvement in respiratory status appreciate pulmonary recommendations -COPD: Without any significant exacerbation patient will be started on inhaled steroids along with albuterol ipratropium. -Acute hypoxic respiratory failure requiring patient is off BiPAP. -History of heart failure with AICD although his previous ejection fraction is 55% , patient has chronic diastolic dysfunction without any acute exacerbation patient is not receiving any diuretic therapy will get a chest x-ray tomorrow morning -Atrial fibrillation presently rate controlled continue with the rate control medications in the anticoagulation -Altered mental status secondary to toxic encephalopathy from pneumonia -Gastroesophageal reflux disease -Professor disease -Acute renal failure secondary to excessive diuretic,, improved with holding diuretic therapy. -Possibly of chronic kidney disease and-type 2 diabetes mellitus hold off on metformin and sliding scale insulin presently -Previous history of CVA
[2017-08-29 16:37] LABS: Glucose,Whole Blood 255 mg/dL (75-99)
[2017-08-29] MEDS: ATORVASTATIN 20 MG TAB PO SCH (20:31)
[2017-08-29 20:40] LABS: Glucose,Whole Blood 279 mg/dL (75-99)
[2017-08-30 05:51] LABS: Glucose,Whole Blood 173 mg/dL (75-99)
[2017-08-30] MEDS: NYSTATIN 100,000 UNIT/ML SUSP 500,000 UNIT/5 ML CUP PO SCH ×4 (06:09→22:10)
[2017-08-30] MEDS: FAMOTIDINE 20 MG TAB PO SCH (06:26)
[2017-08-30] MEDS: INSULIN ASPART 100 UNIT/ML 1 ML 10 ML VIAL SQ SCH ×4 (06:26→20:37)
[2017-08-30] MEDS: CARVEDILOL 12.5 MG TAB PO SCH ×2 (06:27→15:39)
[2017-08-30] MEDS: ACETAMINOPHEN TAB 325 MG TAB PO PRN (08:05)
[2017-08-30] MEDS: PIPERACILLIN-TAZOBACTAM 3.375 GM in DEXTROSE/WATER 1 50ML.BAG IVPB SCH ×3 (08:05→23:00)
[2017-08-30] MEDS: APIXABAN 5 MG TAB PO SCH ×2 (08:06→20:14)
[2017-08-30] MEDS: LIDOCAINE 5% PATCH TOPICAL SCH (08:06)
[2017-08-30] MEDS: IPRATROPIUM-ALBUTEROL 3 ML NEB INHALATION SCH ×4 (08:55→20:27)
[2017-08-30] MEDS: FORMOTEROL FUMARATE 20 MCG/2 ML NEBU INHALATION SCH ×2 (08:55→20:30)
[2017-08-30] MEDS: BUDESONIDE 1 MG/2 ML NEBU INHALATION SCH ×2 (08:56→20:27)
[2017-08-30 10:55] LABS: ABG Base Excess 8.9 mmol/L; ABG HCO3 33 mmol/L (21-25); ABG Oxygen Saturation 93.2 % (94-97); ABG PCO2 49 mmHg (35-45); ABG PH 7.44 (7.35-7.45); ABG PO2 62 mmHg (83-108); ABG TCO2 35 mmol/L (19-24)
--- NOTE | 2017-08-30 11:23 | XR ---
EXAMINATION TYPE: XR chest 1V portable DATE OF EXAM: 08/30/2017 COMPARISON: 08/28/2017 HISTORY: pneumonia L side TECHNIQUE: Single frontal view of the chest is obtained. FINDINGS: Cardiac device is seen there is mild cardiomegaly. There is a masslike density in the left perihilar region measuring 3.2 cm. Surrounding areas of subsegmental consolidation improved. Underly ing COPD noted. IMPRESSION: 1. Improving left perihilar infiltrate. However, there is a more masslike area of density seen in the left perihilar region. CT scan of the chest recommended..
--- NOTE | 2017-08-30 11:23 | P.PN ---
Subjective Progress Note Date: 08/30/17 Principal diagnosis: Acute on chronic hypoxic respiratory failure secondary to COPD, congestive heart failure, pleural effusion and left lower lobe pneumonia This is a 72-year-old gentleman who follows with Dr. Espinoza as his primary care physician. He has a history of diabetes mellitus, hypertension, renal disease, COPD, atrial fibrillation anticoagulated with Eliquis, CVA, heart failure, obesity, alcohol abuse, cardiomyopathy, gout. He was recently discharged here 08/10/2017 after being treated for healthcare associated pneumonia. He presented here yesterday with altered mental status and fever. White count 21.0. He has been initiated on Zosyn and Levaquin. He said acute hypoxic respiratory failure currently requiring BiPAP set at 12/6 and 80% FiO2 to maintain O2 saturations in the mid 90s. Chest x-ray revealed a small left pleural effusion with atelectasis/consolidation. Ultrasound of the chest revealed no significant pulmonary effusion that would require thoracentesis. He is seen today in consultation on the selective care unit. He remains on the BiPAP. He is arousable. If occult to communicate. He is currently afebrile. Today's chest x-ray showed improvement in aeration. When off BiPAP on 6 L is maintaining O2 saturations in the low 90s. White count 17.6. Hemoglobin 12.5. Creatinine 1.30. Urine culture pending. Patient was reevaluated today on 08/27/2017, remains on BiPAP, comfortable, in no distress, however he remains on relatively high FiO2. Reviewed the chest x- ray on the ultrasound, there is definitely some consolidation in the left lower lobe, and ultrasound did not show enough fluid to consider safe thoracentesis. Hence no plans for thoracentesis, at this point I would recommend treating the patient for underlying COPD, strongly suspect left lower lobe pneumonia and consolidation, and he remains presently on Zosyn and Levaquin. Patient is not a great historian, denies any specific complaints Reevaluated today on 08/28/2017, patient is now on 3 L nasal cannula,. Comfortable, his O2 saturation is 95%. He is off BiPAP, and a chest x-ray continues to show some suspicion for left lower lobe pneumonia. Not much different although it was read by the radiologist as worsening. I feel it about the same. WBC count is 12.6 hemoglobin is 11.2 and basic metabolic profile is relatively normal. Clinically the patient is feeling better compared to how he felt since admission. On 08/29/2017 patient seen in follow-up on selective care unit. Denies any acute distress, he is resting in bed, currently on 4 L per nasal cannula, his pulse ox is 96%, he is afebrile, urine and blood cultures remain negative, yesterday his chest x-ray was reviewed, showed worsening left-sided airspace disease. Ultrasound of the chest did not show any significant effusion. [place] any fever or chills, hemodynamically stable, did not require BiPAP support last night. No new Labs today. Remains on broad-spectrum antibiotics, form of Zosyn , nebulized bronchodilators and clinically the patient is improving. On 08/30/2017 patient seen in follow-up on selective care unit. He is resting in bed, but appears a bit more confused and lethargic compared to yesterday's exam. She does arouse and wound and respond, but his verbal responses seem to be slow. For that reason we obtained a stat blood gas, patient is on 2 L per nasal cannula, and his blood gases showed pO2 of 62, pCO2 48.9, and pH of 7.44, and this was a satisfactory blood gas. Stat chest x-ray was done was reviewed by Dr. Dr. Marrufo and shows improvement in the appearance of the left lung infiltrate. No febrile episodes, patient is hemodynamically stable. Urine and blood cultures remain negative to date. Patient remains on empiric antibiotics , nebulized bronchodilators. On oral anticoagulation is chronic A. fib, and his heart rate is under control. Objective - Vital Signs Vital signs: Vital Signs Temp 96.8 F L 08/30/17 08:00 Pulse 88 08/30/17 09:13 Resp 18 08/30/17 08:00 BP 120/72 08/30/17 07:54 Pulse Ox 95 08/30/17 08:58 Intake & Output 08/29/17 08/30/17 08/30/17 18:59 06:59 18:59 Intake Total 590 100 240 Output Total 250 425 1 Balance 340 -325 239 Weight 69 kg Intake: Intake, IV Titration 50 50 Amount Piperacillin-Tazobactam 3 50 50 .375 gm In Dextrose/Water 1 50ml.bag @ 12.5 mls/hr IVPB Q8HR [facility] Rx#: [id number] Oral 540 50 240 Output: Urine 250 425 Stool 1 Other: Voiding Method Indwelling Catheter Indwelling Catheter Indwelling Catheter # Voids 1 - Exam - Constitutional General appearance: Revealed a 72-year-old white male in no distress. Seems a little more confused, on today's exam - EENT Eyes: EOMI, PERRLA ENT: hearing grossly normal Ears: bilateral: normal - Neck Neck: normal ROM Carotids: bilateral: upstroke normal Thyroid: bilateral: normal size - Respiratory Respiratory: Diminished breath sounds at the left base, no crackles, no rhonchi and no wheezes. Symmetrical chest expansion, no chest wall tenderness. - Cardiovascular Rhythm: irregularly irregular Heart sounds: normal: S1, S2 - Gastrointestinal General gastrointestinal: Soft nontender no megaly no rebound no guarding. Positive bowel sounds. - Integumentary Integumentary: normal turgor - Neurologic Altered mental status, difficult to evaluate. - Musculoskeletal Musculoskeletal: generalized weakness - Psychiatric Altered mental status, difficult to evaluate. - Labs CBC & Chem 7: 08/28/17 09:46 08/28/17 09:46 Labs: Abnormal Lab Results - Last 24 Hours (Table) 08/29/17 08/29/17 08/29/17 Range/Units 11:19 16:33 20:37 ABG pCO2 (35-45) mmHg ABG pO2 (83-108) mmHg ABG HCO3 (21-25) mmol/L ABG Total CO2 (19-24) mmol/L ABG O2 Saturation (94-97) % POC Glucose (mg/dL) 229 H 255 H 279 H (75-99) mg/dL 08/30/17 08/30/17 Range/Units 05:50 10:46 ABG pCO2 49 H (35-45) mmHg ABG pO2 62 L (83-108) mmHg ABG HCO3 33 H (21-25) mmol/L ABG Total CO2 35 H (19-24) mmol/L ABG O2 Saturation 93.2 L (94-97) % POC Glucose (mg/dL) 173 H (75-99) mg/dL Microbiology - Last 24 Hours (Table) 08/25/17 15:10 Blood Culture - Preliminary Blood No Growth after 96 hours Assessment and Plan Plan: Impression: 1 acute hypoxic and hypercapnic respiratory failure secondary to acute COPD exacerbation, left lower lobe pneumonia, healthcare related unless proven otherwise. 2 multiple comorbidities including chronic atrial fibrillation, acute kidney injury, most likely secondary to diuretics. Diastolic congestive heart failure , previous AICD placement, ejection fraction is 55%. Recommendation: Stat blood gas was obtained and reviewed, satisfactory. Chest x-ray shows improvement in the past that the left lung infiltrate. Patient has generalized weakness, a bit more confused on today's exam, use BiPAP as needed. Otherwise remains stable, continue with current medical treatment, continue current antibiotic coverage, maintain aspiration precautions. I performed a history & physical examination of the patient and discussed their management with my nurse practitioner, Kathleen Davis. I reviewed the nurse practitioner's note and agree with the documented findings and plan of care. Lung sounds are positive for crackles at the left lower base. The findings and the impression was discussed with the patient. I attest to the documentation by the nurse practitioner. Time with Patient: Less than 30
[2017-08-30 11:47] LABS: Glucose,Whole Blood 215 mg/dL (75-99)
--- NOTE | 2017-08-30 12:27 | P.PN ---
Subjective 68-year-old admitted with sepsis and the acute respiratory failure requiring BiPAP. Patient is for discharge as well as worsened today I'll obtain a chest x -ray stop IV fluids patient was given Lasix whenever 9 by nurse practitioner patient does have rhonchus breath sounds pulmonary will evaluate the patient chest ultrasound was obtained which did not show any significant pleural effusion that can be drained and the had normal ejection fraction the past patient will remain off torsemide as mentioned above patient's the received 1 dose of Lasix. I discussed with the daughter today apparently patient was having diarrhea, discussed the nursing staff patient did not have any diarrhea so far here if patient has diarrhea will obtain C. diff testing. Levofloxacin will be discontinued and Zosyn will be continued. 08/28/2079 Patient has significant improvement patient is BiPAP patient is presently on 4 L of oxygen. Patient clinically does not appear to have any pulmonary edema all continue to hold off on therapy for repeat chest x-ray tomorrow morning. 08/28/2017 Patient is doing well in the morning was agitated quite a bit last night was given a dose of Geodon. Patient will be started on Haldol as needed for the agitation episodes which more often happens during nighttime due to owners 08/29/2017 Patient is clinically doing well. Respiratory status significant improved will cut down the arms and didn't require BiPAP. Will transfer out of [facility] to care. 08/30/2017 Patient is more awake less agitation but still quite weak. Patient will be transferred out of [facility] to care Constitutional: Denied any fatigue denied any fever. Cardio vascular: denied any chest pain, palpitations Gastrointestinal denied any nausea vomiting Pulmonary: Denied any shortness of breath cough Neurologic denied any new focal deficits Objective - Vital Signs Vital signs: Vital Signs Temp 97.0 F L 08/30/17 12:00 Pulse 101 H 08/30/17 12:00 Resp 18 08/30/17 12:00 BP 139/79 08/30/17 12:00 Pulse Ox 94 L 08/30/17 12:00 Intake & Output 08/29/17 08/30/17 08/30/17 18:59 06:59 18:59 Intake Total 590 100 240 Output Total 250 425 1 Balance 340 -325 239 Weight 69 kg Intake: Intake, IV Titration 50 50 Amount Piperacillin-Tazobactam 3 50 50 .375 gm In Dextrose/Water 1 50ml.bag @ 12.5 mls/hr IVPB Q8HR [facility] Rx#: [id number] Oral 540 50 240 Output: Urine 250 425 Stool 1 Other: Voiding Method Indwelling Catheter Indwelling Catheter Indwelling Catheter # Voids 1 - Exam PHYSICAL EXAMINATION: GENERAL: She is alert and oriented 2-3 which is his baseline HEENT: Pupils are round and equally reacting to light. EOMI. No scleral icterus. No conjunctival pallor. Normocephalic, atraumatic. No pharyngeal erythema. No thyromegaly. CARDIOVASCULAR: S1 and S2 present. No murmurs, rubs, or gallops. PULMONARY: Diminished air entry into bilateral lung martinez and the rhonchus breath sounds bilaterally no significant wheezing was appreciated. ABDOMEN: Soft, nontender, nondistended, normoactive bowel sounds. No palpable organomegaly. MUSCULOSKELETAL: No joint swelling or deformity. EXTREMITIES: No cyanosis, clubbing, or pedal edema. NEUROLOGICAL: Gross neurological examination did not reveal any focal deficits. SKIN: No rashes. - Labs CBC & Chem 7: 08/28/17 09:46 08/28/17 09:46 Labs: Abnormal Lab Results - Last 24 Hours (Table) 08/29/17 08/29/17 08/30/17 Range/Units 16:33 20:37 05:50 ABG pCO2 (35-45) mmHg ABG pO2 (83-108) mmHg ABG HCO3 (21-25) mmol/L ABG Total CO2 (19-24) mmol/L ABG O2 Saturation (94-97) % POC Glucose (mg/dL) 255 H 279 H 173 H (75-99) mg/dL 08/30/17 08/30/17 Range/Units 10:46 11:23 ABG pCO2 49 H (35-45) mmHg ABG pO2 62 L (83-108) mmHg ABG HCO3 33 H (21-25) mmol/L ABG Total CO2 35 H (19-24) mmol/L ABG O2 Saturation 93.2 L (94-97) % POC Glucose (mg/dL) 215 H (75-99) mg/dL Microbiology - Last 24 Hours (Table) 08/25/17 15:10 Blood Culture - Preliminary Blood No Growth after 96 hours Assessment and Plan Plan: -Sepsis probably left lower lobe pneumonia patient is on Zosyn, significant improvement in respiratory status, improved infiltrate on the chest x-ray, pulmonary swallowing that patient -COPD: Without any significant exacerbation patient will be started on inhaled steroids along with albuterol ipratropium. -Acute hypoxic respiratory failure requiring patient is off BiPAP. -History of heart failure with AICD although his previous ejection fraction is 55% , patient has chronic diastolic dysfunction without any acute exacerbation patient is not receiving any diuretic therapy chest x-ray is not showing any heart failure at this time -Atrial fibrillation presently rate controlled continue with the rate control medications in the anticoagulation -Altered mental status secondary to toxic encephalopathy from pneumonia -Gastroesophageal reflux disease -Professor disease -Acute renal failure secondary to excessive diuretic,, improved with holding diuretic therapy. -Possibly of chronic kidney disease and-type 2 diabetes mellitus hold off on metformin and sliding scale insulin presently -Previous history of CVA
[2017-08-30 13:32] VITALS: BMI 20.6
[2017-08-30 16:33] LABS: Glucose,Whole Blood 225 mg/dL (75-99)
[2017-08-30] MEDS: ATORVASTATIN 20 MG TAB PO SCH (20:14)
[2017-08-30 20:42] LABS: Glucose,Whole Blood 230 mg/dL (75-99)
[2017-08-31] MEDS: NYSTATIN 100,000 UNIT/ML SUSP 500,000 UNIT/5 ML CUP PO SCH ×3 (05:46→16:05)
[2017-08-31 07:11] LABS: Glucose,Whole Blood 188 mg/dL (75-99)
[2017-08-31] MEDS: LIDOCAINE 5% PATCH TOPICAL SCH (08:02)
[2017-08-31] MEDS: FAMOTIDINE 20 MG TAB PO SCH (08:02)
[2017-08-31] MEDS: CARVEDILOL 12.5 MG TAB PO SCH ×2 (08:02→16:05)
[2017-08-31] MEDS: APIXABAN 5 MG TAB PO SCH (08:02)
[2017-08-31] MEDS: INSULIN ASPART 100 UNIT/ML 1 ML 10 ML VIAL SQ SCH ×2 (08:03→12:11)
[2017-08-31] MEDS: FORMOTEROL FUMARATE 20 MCG/2 ML NEBU INHALATION SCH (08:34)
[2017-08-31] MEDS: BUDESONIDE 1 MG/2 ML NEBU INHALATION SCH (08:34)
[2017-08-31] MEDS: IPRATROPIUM-ALBUTEROL 3 ML NEB INHALATION SCH ×3 (08:34→15:58)
[2017-08-31] MEDS: PIPERACILLIN-TAZOBACTAM 3.375 GM in DEXTROSE/WATER 1 50ML.BAG IVPB SCH ×2 (08:34→16:27)
--- NOTE | 2017-08-31 10:19 | P.PN ---
Subjective Progress Note Date: 08/31/17 Principal diagnosis: Pneumonia Progress note dated 08/31/2017 72-year-old male with a history of acute hypoxemic hypercapnic respiratory failure secondary to COPD left lower lobe pneumonia. The patient's doing about the same today. The primary hospital doctor is going to order a computed tomography scan of the brain to evaluate his mental status which is not been great. The patient will likely be discharged to a residential. In addition, he has a history of chronic atrial fibrillation acute kidney injury congestive heart failure which is diastolic in nature previous AICD and a ejection fraction of 55%. In my opinion, from the pulmonary standpoint, the patient could be discharged. Objective - Vital Signs Vital signs: Vital Signs Temp 97.6 F 08/31/17 05:21 Pulse 80 08/31/17 05:21 Resp 18 08/31/17 05:21 BP 123/70 08/31/17 05:21 Pulse Ox 93 L 08/31/17 08:33 Intake & Output 08/30/17 08/31/17 08/31/17 18:59 06:59 18:59 Intake Total 600 120 Output Total 251 200 Balance 349 -80 Weight 69 kg Intake: Oral 600 120 Output: Urine 250 200 Stool 1 Other: Voiding Method Indwelling Catheter Indwelling Catheter # Voids 0 - Exam No acute distress, blunted affect, does arouse, appears about the same as he did yesterday. HEENT examination is grossly unremarkable. Mucous membranes are moist. No oral lesions. Neck supple. Full range of motion. No adenopathy thyromegaly or neck vein distention. Cardiovascular examination reveals regular rhythm rate. S1-S2 normal. No S3 or S4. No discernible murmur noted. Lungs reveal mostly clear breath sounds. There is a few scattered rhonchi. He really doesn't take deep breaths. No crackles. Breath sounds equal bilaterally. Abdomen soft bowel sounds are heard. No masses or tenderness. Extremities are intact. No cyanosis clubbing or edema. Skin is without rash or lesion. Neurologic examination is brief but nonfocal. - Labs CBC & Chem 7: 08/28/17 09:46 08/28/17 09:46 Labs: Abnormal Lab Results - Last 24 Hours (Table) 08/30/17 08/30/17 08/30/17 Range/Units 10:46 11:23 16:21 ABG pCO2 49 H (35-45) mmHg ABG pO2 62 L (83-108) mmHg ABG HCO3 33 H (21-25) mmol/L ABG Total CO2 35 H (19-24) mmol/L ABG O2 Saturation 93.2 L (94-97) % POC Glucose (mg/dL) 215 H 225 H (75-99) mg/dL 08/30/17 08/31/17 Range/Units 20:30 07:08 ABG pCO2 (35-45) mmHg ABG pO2 (83-108) mmHg ABG HCO3 (21-25) mmol/L ABG Total CO2 (19-24) mmol/L ABG O2 Saturation (94-97) % POC Glucose (mg/dL) 230 H 188 H (75-99) mg/dL Microbiology - Last 24 Hours (Table) 08/25/17 15:10 Blood Culture - Preliminary Blood No Growth after 120 hours Assessment and Plan Assessment: Assessment Acute hypoxemic and hypercapnic respiratory failure secondary to COPD exacerbation and left lower lobe pneumonia History of chronic atrial fibrillation History of chronic diastolic heart failure Acute kidney injury Status post AICD placement Mental status changes Plan: Plan dated 08/31/2017 The patient will get a CAT scan ordered by the hospitalist. If that is okay, the patient will likely be discharged to the residential. From the respiratory standpoint the patient is doing well. No additional recommendations are made. Labs x-rays a medications are reviewed. Chest x-ray that showed improving left perihilar infiltrate. No new laboratory data to report. Microbiology is negative. Medications are reviewed. We will change his Pulmicort and formoterol to Symbicort. Time with Patient: Less than 30
--- NOTE | 2017-08-31 10:59 | P.DS ---
Providers Date of admission: 08/25/17 16:17 Attending physician: Mavis Verduzco Consults: 08/25/17 16:33 Consult Physician Routine Consulting Provider: Duane Briggs Consult Reason/Comments: Possible Pneumonia Do you want consulting provider notified?: Yes Primary care physician: Chet Espinoza [facility] Course: 68-year-old admitted with sepsis and the acute respiratory failure requiring BiPAP. Patient is for discharge as well as worsened today I'll obtain a chest x -ray stop IV fluids patient was given Lasix whenever 9 by nurse practitioner patient does have rhonchus breath sounds pulmonary will evaluate the patient chest ultrasound was obtained which did not show any significant pleural effusion that can be drained and the had normal ejection fraction the past patient will remain off torsemide as mentioned above patient's the received 1 dose of Lasix. I discussed with the daughter today apparently patient was having diarrhea, discussed the nursing staff patient did not have any diarrhea so far here if patient has diarrhea will obtain C. diff testing. Levofloxacin will be discontinued and Zosyn will be continued. 08/28/2079 Patient has significant improvement patient is BiPAP patient is presently on 4 L of oxygen. Patient clinically does not appear to have any pulmonary edema all continue to hold off on therapy for repeat chest x-ray tomorrow morning. 08/28/2017 Patient is doing well in the morning was agitated quite a bit last night was given a dose of Geodon. Patient will be started on Haldol as needed for the agitation episodes which more often happens during nighttime due to ers 08/29/2017 Patient is clinically doing well. Respiratory status significant improved will cut down the arms and didn't require BiPAP. Will transfer out of [facility] to care. 08/30/2017 Patient is more awake less agitation but still quite weak. Patient will be transferred out of [facility] to care 08/31/2017 patient has increased confusion compared to yesterday most probably due to hospitalization but will rule out any intracranial hemorrhage with a CAT scan of the head if that is negative patient will be discharged back to subacute rehabilitation patient prognosis is extremely poor because of his previous strokes atrial fibrillation age and severe osteoarthritis. Because of the poor functionality from his musculoskeletal problems along with cardiac issues should highly consider comfort care. Patient the was cleared for discharge from pulmonary perspective patient did not require any diuretic therapy here in the hospital in spite of which patient didn't go into heart failure patient may have diastolic dysfunction since has poor by mouth intake patient did not require any Lasix or any other diuretic therapy diuretic that will be discontinued as of now can be resumed if needed as an outpatient patient will be discharged to subacute rehabilitation. PHYSICAL EXAMINATION: GENERAL: She is alert and oriented 2 which is his baseline HEENT: Pupils are round and equally reacting to light. EOMI. No scleral icterus. No conjunctival pallor. Normocephalic, atraumatic. No pharyngeal erythema. No thyromegaly. CARDIOVASCULAR: S1 and S2 present. No murmurs, rubs, or gallops. PULMONARY: Diminished air entry into bilateral lung martinez and the rhonchus breath sounds bilaterally no significant wheezing was appreciated. ABDOMEN: Soft, nontender, nondistended, normoactive bowel sounds. No palpable organomegaly. MUSCULOSKELETAL: No joint swelling or deformity. EXTREMITIES: No cyanosis, clubbing, or pedal edema. NEUROLOGICAL: Gross neurological examination did not reveal any focal deficits. SKIN: No rashes. Assessment and Plan Plan: -Sepsis probably left lower lobe pneumonia patient is on Zosyn, significant improvement in respiratory status, patient does not appear to have any swallow problems patient does have healthcare associated pneumonia so far all the cultures are negative COPD: Had minimal exacerbation did not require any systemic steroids patient will be on inhaled steroids and inhalational treatments -Acute hypoxic respiratory failure requiring patient is off BiPAP. Patient is presently on 2 L of oxygen -History of heart failure with AICD although his previous ejection fraction is 55% , patient has chronic diastolic dysfunction without any acute exacerbation patient is not receiving any diuretic therapy chest x-ray is not showing any heart failure at this time -Atrial fibrillation presently rate controlled continue with the rate control medications in the anticoagulation -Altered mental status secondary to toxic encephalopathy from pneumonia -Gastroesophageal reflux disease -Acute renal failure secondary to excessive diuretic,, improved with holding diuretic therapy. -Possibly of chronic kidney disease and-type 2 diabetes mellitus hold off on metformin and sliding scale insulin presently -Previous history of CVA Patient Condition at Discharge: Critical Plan - Discharge Summary New Discharge Prescriptions: New Amoxic-Pot Clav 875-125Mg [Augmentin 875-125] 1 tab PO Q12HR #10 tablet Budesonide-Formot 160-4.5 Mcg [Symbicort 160-4.5 Mcg Inhaler] 2 puff INHALATION RT-BID puff Continue Acetaminophen Tab [Tylenol] 650 mg PO Q6H PRN PRN Reason: Pain Insulin Aspart [NovoLOG (formulary)] See Protocol SQ ACHS Gabapentin [Neurontin] 100 mg PO TID@0700,1300,1900 Carvedilol [Coreg] 12.5 mg PO BID@0700,1600 Simvastatin [Zocor] 40 mg PO HS Famotidine [Pepcid] 20 mg PO DAILY@0700 Apixaban [Eliquis] 5 mg PO BID #0 Lidocaine 5% Patch [Lidoderm 5% Patch] 1 patch TOPICAL DAILY #14 patch Nystatin 100,000 Unit/ml Susp [Mycostatin Oral Susp] 5 ml PO Q6H Ipratropium-Albuterol Nebulize [Duoneb 0.5 mg-3 mg/3 ml Soln] 3 ml INHALATION RT-Q6H PRN PRN Reason: Shortness Of Breath metFORMIN HCL 1,000 mg PO BID Menthol/Zinc Oxide [Calmoseptine Ointment] 1 applic TOPICAL TID PRN PRN Reason: Skin Irritation Menthol [Biofreeze] 1 applic TOPICAL DAILY PRN PRN Reason: Pain Discontinued Torsemide [Demadex] 10 mg PO DAILY@0600 #0 metroNIDAZOLE [Flagyl] 500 mg PO Q8H Discharge Medication List Acetaminophen Tab [Tylenol] 650 mg PO Q6H PRN 08/07/17 [History] Carvedilol [Coreg] 12.5 mg PO BID@0700,1600 08/07/17 [History] Famotidine [Pepcid] 20 mg PO DAILY@0700 08/07/17 [History] Gabapentin [Neurontin] 100 mg PO TID@0700,1300,1900 08/07/17 [History] Insulin Aspart [NovoLOG (formulary)] See Protocol SQ ACHS 08/07/17 [History] Simvastatin [Zocor] 40 mg PO HS 08/07/17 [History] Apixaban [Eliquis] 5 mg PO BID #0 08/10/17 [Rx] Lidocaine 5% Patch [Lidoderm 5% Patch] 1 patch TOPICAL DAILY #14 patch 08/10/17 [Rx] Ipratropium-Albuterol Nebulize [Duoneb 0.5 mg-3 mg/3 ml Soln] 3 ml INHALATION RT -Q6H PRN 08/25/17 [History] Menthol [Biofreeze] 1 applic TOPICAL DAILY PRN 08/25/17 [History] Menthol/Zinc Oxide [Calmoseptine Ointment] 1 applic TOPICAL TID PRN 08/25/17 [ History] Nystatin 100,000 Unit/ml Susp [Mycostatin Oral Susp] 5 ml PO Q6H 08/25/17 [ History] metFORMIN HCL 1,000 mg PO BID 08/25/17 [History] Amoxic-Pot Clav 875-125Mg [Augmentin 875-125] 1 tab PO Q12HR #10 tablet [Rx] Budesonide-Formot 160-4.5 Mcg [Symbicort 160-4.5 Mcg Inhaler] 2 puff INHALATION RT-BID puff 08/31/17 [Rx] Follow up Appointment(s)/Referral(s): Chet Espinoza MD [Primary Care Provider] - As Needed Dc Santizo MD [STAFF PHYSICIAN] - 09/23/17 1:30 pm Patient Instructions/Handouts: Pleural Effusion (DC), Sepsis (GEN), Pneumonia ( DC) Activity/Diet/Wound Care/Special Instructions: Sommer Cortes on D/C Discharge Disposition: TRANSFER TO SNF/F
[2017-08-31] MEDS: ACETAMINOPHEN TAB 325 MG TAB PO PRN (11:12)
[2017-08-31 11:49] LABS: Glucose,Whole Blood 272 mg/dL (75-99)
--- NOTE | 2017-08-31 12:27 | CT ---
EXAMINATION TYPE: CT brain wo con DATE OF EXAM: 08/31/2017 COMPARISON: None HISTORY: Confusion CT DLP: 978.2 mGycm Automated exposure control for dose reduction was used. FINDINGS: Mild to moderate generalized degenerative change. Changes of chronic sinusitis noted. No midline shift. No mass effect. Intracranial atherosclerotic changes are seen. Area of low attenuation involving the left occipital parietal junction. IMPRESSION: NO ACUTE HEMORRHAGE OR MASS EFFECT. THERE IS DEGENERATIVE AND NONSPECIFIC WHITE MATTER CHANGES MOST T YPICAL OF REMOTE MICROVASCULAR ISCHEMIA. AREA OF LOW ATTENUATION INVOLVING THE LEFT OCCIPITAL PARIETA L JUNCTION IS INDETERMINATE BUT LIKELY CHRONIC IN AGE AND SHOULD BE CORRELATED CLINICALLY. CORRELATE WITH MRI IF THERE IS CONCERN FOR ACUTE ISCHEMIA.
[2017-08-31 15:20] VITALS: BP 130/70; PULSE 81; RESP 16; TEMP 98
[2017-08-31] MEDS ORDERED: SYMBICORT 160-4.5 MCG INHALER INHALATION SCH (20:00)
== END 2017-08-31 16:45 | DRG 871 ==
LOC: EC 14:59 → 6SEL 16:17 → 5MS5E 08-30 21:11
PROVIDERS: ADMIT Hospitalist; ATTEND Hospitalist
PROC: 5A09557 Assistance with Respiratory Ventilation, Greater than 96 Consecutive Hours, Continuous Positive Airway Pressure (ICD-10-PCS; principal; 2017-08-25)
DX: A41.9 Sepsis, unspecified organism (principal); J96.21 Acute and chronic respiratory failure with hypoxia; J18.9 Pneumonia, unspecified organism; J96.22 Acute and chronic respiratory failure with hypercapnia; G92 Toxic encephalopathy; N17.9 Acute kidney failure, unspecified; I42.9 Cardiomyopathy, unspecified; J44.0 Chronic obstructive pulmonary disease with (acute) lower respiratory infection; J44.1 Chronic obstructive pulmonary disease with (acute) exacerbation; I50.32 Chronic diastolic (congestive) heart failure; J98.11 Atelectasis; I13.0 Hypertensive heart and chronic kidney disease with heart failure and stage 1 through stage 4 chronic kidney disease, or unspecified chronic kidney disease; Z66 Do not resuscitate; I11.0 Hypertensive heart disease with heart failure; E11.22 Type 2 diabetes mellitus with diabetic chronic kidney disease; I48.2 Chronic atrial fibrillation; D64.9 Anemia, unspecified; K21.9 Gastro-esophageal reflux disease without esophagitis; N18.9 Chronic kidney disease, unspecified; Y95 Nosocomial condition; T50.2X5A Adverse effect of carbonic-anhydrase inhibitors, benzothiadiazides and other diuretics, initial encounter; R77.9 Abnormality of plasma protein, unspecified; F10.10 Alcohol abuse, uncomplicated; Z79.01 Long term (current) use of anticoagulants; Z79.4 Long term (current) use of insulin; Z79.899 Other long term (current) drug therapy; Z86.73 Personal history of transient ischemic attack (TIA), and cerebral infarction without residual deficits; Z95.810 Presence of automatic (implantable) cardiac defibrillator; Z87.39 Personal history of other diseases of the musculoskeletal system and connective tissue
CPT/HCPCS: 36415; 36600; 51702; 70450; 71045; 71046; 76604; 80048; 80053; 81001; 82140; 82550; 82553; 82805; 83605; 83735; 84100; 84443; 84484; 85025; 85027; 85610; 85730; 87040; 87086; 87324; 93005; 93970; 94640; 94660; 94760; 96365; 96367; 99291

== ENCOUNTER 2017-09-18 18:29 | Inpatient (IN) | payer MEDICARE ==
[2017-09-18 19:45] LABS: Anisocytosis Slight; Basophils % (A) 0 %; Eosinophils # (A) 0.1 k/uL (0-0.7); Eosinophils % (A) 1 %; HGB 11.5 gm/dL (13.0-17.5); Lymphocytes # (A) 0.7 k/uL (1.0-4.8); Lymphocytes % (A) 5 %; MCH 28.9 pg (25.0-35.0); MCHC 32.7 g/dL (31.0-37.0); MCV 88.4 fL (80.0-100.0); Monocytes # (A) 0.8 k/uL (0-1.0); Monocytes % (A) 6 %; Neutrophils # (A) 11.2 k/uL (1.3-7.7); Neutrophils % (A) 87 %; Platelet Count 189 k/uL (150-450); RBC 3.96 m/uL (4.30-5.90); RDW 16.8 % (11.5-15.5)
[2017-09-18 19:48] LABS: Appearance,Urine Clear (Clear); Bacteria,Urine Rare /hpf; Bilirubin,Urine Negative (Negative); Blood,Urine Moderate (Negative); Color,Urine Yellow; Glucose,Urine (UA) Negative (Negative); Ketones,Urine Negative (Negative); Leukocyte Esterase,Urine Negative (Negative); Nitrite,Urine Negative (Negative); PH, Urine 5.5 (5.0-8.0); Protein,Urine 1+ (Negative); RBC,Urine 24 /hpf (0-5); Specific Gravity,Urine 1.015 (1.001-1.035); Squamous Epithelial Cell,Urine <1 /hpf (0-4); WBC,Urine 1 /hpf (0-5)
[2017-09-18 19:55] LABS: ALT 24 U/L (21-72); AST 23 U/L (17-59); Albumin 2.6 g/dL (3.5-5.0); Alkaline Phosphatase 89 U/L (38-126); Anion Gap 9 mmol/L; Blood Urea Nitrogen 21 mg/dL (9-20); Calcium 7.9 mg/dL (8.4-10.2); Carbon Dioxide 27 mmol/L (22-30); Chloride 96 mmol/L (98-107); Glucose 122 mg/dL (74-99); Lipase 31 U/L (23-300); Magnesium 1.2 mg/dL (1.6-2.3); Potassium 5.2 mmol/L (3.5-5.1); Sodium 132 mmol/L (137-145); Total Bilirubin 1.9 mg/dL (0.2-1.3); Total Protein 5.2 g/dL (6.3-8.2)
[2017-09-18 19:56] LABS: INR 1.4 (<1.2)
--- NOTE | 2017-09-18 20:09 | XR ---
EXAMINATION TYPE: XR chest 1V DATE OF EXAM: 09/18/2017 COMPARISON: 08/30/2017 HISTORY: Chest pain TECHNIQUE: Single frontal view of the chest is obtained. FINDINGS: Supine imaging in combination with portable exam and patient rotation likely accounting fo r the mediastinal enlargement in comparison to the prior. Very mild interstitial prominence and inter stitial pulmonary edema are seen with a single lead dual lead left-sided cardiac device and mild card iomegaly suggesting minimal congestive heart failure. Calcified left midlung granuloma is also noted. Osseous structures are intact. IMPRESSION: Findings suggesting mild decompensating congestive heart failure. Mediastinal prominence is likely attributable to portable nature of the exam, patient rotation, and supine exam.
--- NOTE | 2017-09-18 20:11 | XR ---
EXAMINATION TYPE: XR shoulder complete LT DATE OF EXAM: 09/18/2017 CLINICAL HISTORY: Left shoulder pain with no known injury. Limited range of motion due to pain TECHNIQUE: Three views of the left shoulder are obtained. COMPARISON: None. FINDINGS: There is focal soft tissue bulging over the acromioclavicular joint. Moderate acromioclavi cular arthropathy is seen as small marginal osteophytes, joint space narrowing and capsular hypertrop hy. There is no evidence of acute fracture or dislocation of the left shoulder. Left-sided dual lead cardiac device is noted. The visualized ribs are intact and unremarkable. IMPRESSION: There is no acute fracture or dislocation in the left shoulder. Focal soft tissue swelli ng is seen of the acromioclavicular joint in addition to moderate acromioclavicular arthropathy.
--- NOTE | 2017-09-18 20:12 | ED ---
General Adult HPI - General Chief complaint: Recheck/Abnormal Lab/Rx Stated complaint: not eating Source: EMS Mode of arrival: EMS Limitations: altered mental status - History of Present Illness Initial comments: Dictation was produced using [employer] dictation software. please excuse any grammatical, word or spelling errors. Chief Complaint: 72-year-old male past medical history of dementia, COPD, heart failure presents via EMS from [facility] for left shoulder pain and inability eat. History of Present Illness: Patient is a poor historian. History obtained from nursing staff at [facility]. The report that patient has been refusing to eat or take medications secondary to inadequate pain management. Nursing staff states that patient is complaining of right knee pain and left shoulder pain. Patient does have a history of this. Nursing staff states that patient wasn't going to take his medications or eat if he didn't have his pain control. No history of trauma. The ROS documented in this emergency department record has been reviewed and confirmed by me. Those systems with pertinent positive or negative responses have been documented in the HPI. All other systems are other negative and/or noncontributory. - Related Data Home Medications Medication Instructions Recorded Confirmed Acetaminophen Tab [Tylenol] 650 mg PO Q6H PRN 08/07/17 08/25/17 Carvedilol [Coreg] 12.5 mg PO BID@0700,1600 08/07/17 08/25/17 Famotidine [Pepcid] 20 mg PO DAILY@0700 08/07/17 08/25/17 Gabapentin [Neurontin] 100 mg PO TID@0700,1300,1900 08/07/17 08/25/17 Insulin Aspart [NovoLOG See Protocol SQ ACHS 08/07/17 08/25/17 (formulary)] Simvastatin [Zocor] 40 mg PO HS 08/07/17 08/25/17 Ipratropium-Albuterol Nebulize 3 ml INHALATION RT-Q6H PRN 08/25/17 08/25/17 [Duoneb 0.5 mg-3 mg/3 ml Soln] Menthol [Biofreeze] 1 applic TOPICAL DAILY PRN 08/25/17 08/25/17 Menthol/Zinc Oxide [Calmoseptine 1 applic TOPICAL TID PRN 08/25/17 08/25/17 Ointment] Nystatin 100,000 Unit/ml Susp 5 ml PO Q6H 08/25/17 08/25/17 [Mycostatin Oral Susp] metFORMIN HCL 1,000 mg PO BID 08/25/17 08/25/17 Previous Rx's Medication Instructions Recorded Apixaban [Eliquis] 5 mg PO BID #0 08/10/17 Lidocaine 5% Patch [Lidoderm 5% 1 patch TOPICAL DAILY #14 patch 08/10/17 Patch] Amoxic-Pot Clav 875-125Mg 1 tab PO Q12HR #10 tablet 08/31/17 [Augmentin 875-125] Budesonide-Formot 160-4.5 Mcg 2 puff INHALATION RT-BID puff 08/31/17 [Symbicort 160-4.5 Mcg Inhaler] Allergies Allergy/AdvReac Type Severity Reaction Status Date / Time No Known Allergies Allergy Verified 09/18/17 18:32 Review of Systems ROS Statement: Those systems with pertinent positive or pertinent negative responses have been documented in the HPI. ROS Other: All systems not noted in ROS Statement are negative. Past Medical History Past Medical History: Heart Failure, COPD, Diabetes Mellitus, Hypertension, Renal Disease Additional Past Medical History / Comment(s): cellulitis, anemia, obesity, alcohol abusue, cardiomyopathy, generalized weakness. bilateral carpal tunnel, gout History of Any Multi-Drug Resistant Organisms: None Reported Past Surgical History: Unable to Obtain Additional Past Anesthesia/Blood Transfusion Reaction / Comment(s): unable to obtain Past Psychological History: No Psychological Hx Reported Smoking Status: Unknown if ever smoked Past Alcohol Use History: None Reported Past Drug Use History: None Reported - Past Family History Father History Unknown: Yes Family Medical History: Unable to Obtain Mother History Unknown: Yes Family Medical History: Unable to Obtain General Exam - General Exam Comments Initial Comments: PHYSICAL EXAM: General Impression: Alert and oriented 2 and 3, not in acute distress HEENT: Normocephalic atraumatic, extra-ocular movements intact, pupils equal and reactive to light bilaterally, mucous membranes moist. Cardiovascular: Heart regular rate and rhythm, S1&S2 audible, no murmurs, rubs or gallops Chest: Lungs clear to auscultation bilaterally, no rhonchi, no wheeze, no rales Abdomen: Bowel sounds present, abdomen soft, non-tender, non-distended, no organomegaly Musculoskeletal: Pulses present and equal in all extremities, no peripheral edema, tenderness to palpation of the entire left shoulder, inability antalgic to abduct the left upper extremity at the shoulder Motor: Moves IS GROSSLY Neurological: CN II-XII grossly intact, no focal motor or sensory deficits noted Limitations: altered mental status Course Vital Signs 09/18/17 18:32 Temperature 97.0 F L Pulse Rate 85 Respiratory 18 Rate Blood Pressure 114/55 O2 Sat by Pulse 93 L Oximetry Medical Decision Making - Medical Decision Making ED course: 72-year-old male presents with left shoulder pain. All signs upon arrival shows temperature 97.0, oxygen 93 on 2 L, respiratory signs within normal limits. Clinical presentation suspicious for delirium given that patient is agitated and using medications. Patient is likely sent here because concierge wanted to rule out organic disease.Laboratory evaluation obtained. Patient is leukocytosis of 13.0. Patient doesn't have baseline leukocytosis. Hemoglobin 11.5 at around baseline. Coag panel is unremarkable. Bolick panel shows sodium 132, potassium 5.2, magnesium 1.2, bilirubin anemia of 1.9. Urinalysis is negative for urinary tract infection. Chest x-ray obtained showing findings of heart failure. Shoulder x-ray shows acromioclavicular arthropathy. Patient appears slightly secondary to before meals arthropathy. There is also findings of fluid overload and electronic derangement. Given age and comorbidities and poor history that patient admitted. Blood cultures and urine culture sent. Patient is poor historian however At this point patient is not showing any signs of infection. However given the patient is high risk we will give patient broad spectrum antibiotics. Patient be admitted to hospital for electronic derangement, delirium and leukocytosis of unknown etiology. EKG Interpretation: A 12 lead EKG was obtained. It was interpreted by myself and attending physician. There is a P wave before every QRS complex. Rate is 89. Rhythm is H or fibrillation, QRS 92, QTc 447. QT is not prolonged. No ST segment depression or elevation. This EKG was compared to a previous EKG that was obtained on 08/26 and showed no significant change. Overall, this EKG is unremarkable - Lab Data Result diagrams: 09/18/17 19:30 09/18/17 19:30 Lab Results 08/12/18 08/12/18 08/12/18 Range/Units 19:30 19:30 19:30 WBC 13.0 H (3.8-10.6) k/uL RBC 3.96 L (4.30-5.90) m/uL Hgb 11.5 L (13.0-17.5) gm/dL Hct 35.0 L (39.0-53.0) % MCV 88.4 (80.0-100.0) fL MCH 28.9 (25.0-35.0) pg MCHC 32.7 (31.0-37.0) g/dL RDW 16.8 H (11.5-15.5) % Plt Count 189 (150-450) k/uL Neutrophils % 87 % Lymphocytes % 5 % Monocytes % 6 % Eosinophils % 1 % Basophils % 0 % Neutrophils # 11.2 H (1.3-7.7) k/uL Lymphocytes # 0.7 L (1.0-4.8) k/uL Monocytes # 0.8 (0-1.0) k/uL Eosinophils # 0.1 (0-0.7) k/uL Basophils # 0.0 (0-0.2) k/uL Anisocytosis Slight PT 13.0 H (9.0-12.0) sec INR 1.4 H (<1.2) Sodium 132 L (137-145) mmol/L Potassium 5.2 H (3.5-5.1) mmol/L Chloride 96 L (98-107) mmol/L Carbon Dioxide 27 (22-30) mmol/L Anion Gap 9 mmol/L BUN 21 H (9-20) mg/dL Creatinine 0.80 (0.66-1.25) mg/dL Est GFR (CKD-EPI)AfAm >90 (>60 ml/min/1.73 sqM) Est GFR (CKD-EPI)NonAf 88 (>60 ml/min/1.73 sqM) Glucose 122 H (74-99) mg/dL Calcium 7.9 L (8.4-10.2) mg/dL Magnesium 1.2 L (1.6-2.3) mg/dL Total Bilirubin 1.9 H (0.2-1.3) mg/dL AST 23 (17-59) U/L ALT 24 (21-72) U/L Alkaline Phosphatase 89 (38-126) U/L Troponin I (0.000-0.034) ng/mL Total Protein 5.2 L (6.3-8.2) g/dL Albumin 2.6 L (3.5-5.0) g/dL Lipase 31 (23-300) U/L Urine Color Urine Appearance (Clear) Urine pH (5.0-8.0) Ur Specific Price (1.001-1.035) Urine Protein (Negative) Urine Glucose (UA) (Negative) Urine Ketones (Negative) Urine Blood (Negative) Urine Nitrite (Negative) Urine Bilirubin (Negative) Urine Urobilinogen (<2.0) mg/dL Ur Leukocyte Esterase (Negative) Urine RBC (0-5) /hpf Urine WBC (0-5) /hpf Ur Squamous Epith Cells (0-4) /hpf Urine Bacteria (None) /hpf 09/18/17 09/18/17 Range/Units 19:30 19:30 WBC (3.8-10.6) k/uL RBC (4.30-5.90) m/uL Hgb (13.0-17.5) gm/dL Hct (39.0-53.0) % MCV (80.0-100.0) fL MCH (25.0-35.0) pg MCHC (31.0-37.0) g/dL RDW (11.5-15.5) % Plt Count (150-450) k/uL Neutrophils % % Lymphocytes % % Monocytes % % Eosinophils % % Basophils % % Neutrophils # (1.3-7.7) k/uL Lymphocytes # (1.0-4.8) k/uL Monocytes # (0-1.0) k/uL Eosinophils # (0-0.7) k/uL Basophils # (0-0.2) k/uL Anisocytosis PT (9.0-12.0) sec INR (<1.2) Sodium (137-145) mmol/L Potassium (3.5-5.1) mmol/L Chloride (98-107) mmol/L Carbon Dioxide (22-30) mmol/L Anion Gap mmol/L BUN (9-20) mg/dL Creatinine (0.66-1.25) mg/dL Est GFR (CKD-EPI)AfAm (>60 ml/min/1.73 sqM) Est GFR (CKD-EPI)NonAf (>60 ml/min/1.73 sqM) Glucose (74-99) mg/dL Calcium (8.4-10.2) mg/dL Magnesium (1.6-2.3) mg/dL Total Bilirubin (0.2-1.3) mg/dL AST (17-59) U/L ALT (21-72) U/L Alkaline Phosphatase (38-126) U/L Troponin I <0.012 (0.000-0.034) ng/mL Total Protein (6.3-8.2) g/dL Albumin (3.5-5.0) g/dL Lipase (23-300) U/L Urine Color Yellow Urine Appearance Clear (Clear) Urine pH 5.5 (5.0-8.0) Ur Specific Price 1.015 (1.001-1.035) Urine Protein 1+ H (Negative) Urine Glucose (UA) Negative (Negative) Urine Ketones Negative (Negative) Urine Blood Moderate H (Negative) Urine Nitrite Negative (Negative) Urine Bilirubin Negative (Negative) Urine Urobilinogen 4.0 (<2.0) mg/dL Ur Leukocyte Esterase Negative (Negative) Urine RBC 24 H (0-5) /hpf Urine WBC 1 (0-5) /hpf Ur Squamous Epith Cells <1 (0-4) /hpf Urine Bacteria Rare H (None) /hpf Disposition Clinical Impression: Delirium, Hypomagnesemia Disposition: ADMITTED IP TO THIS HOSP Condition: Fair Referrals: Rafat Jenkins DO [Primary Care Provider] - 1-2 days Time of Disposition: 20:59
[2017-09-18] MEDS ORDERED: VANCOMYCIN 2,000 MG in SODIUM CHLORIDE 0.9% 500 ML IVPB STA (20:55)
[2017-09-18] MEDS ORDERED: CEFEPIME 2 GM in SODIUM CHLORIDE 0.9% 50 ML IVPB STA (20:55)
[2017-09-18] MEDS ORDERED: NALOXONE 0.4 MG/ML 1 ML VIAL IV PRN (20:59)
[2017-09-18] MEDS ORDERED: AZITHROMYCIN 500 MG in DEXTROSE 5% IN WATER 250 ML IVPB STA ×2 (21:17)
[2017-09-18] MEDS: MAGNESIUM SULFATE-D5W PMX 1 GM in DEXTROSE/WATER 1 100ML.BAG IVPB SCH ×2 (21:46→22:53)
[2017-09-18] MEDS: NYSTATIN 100,000 UNIT/ML SUSP 500,000 UNIT/5 ML CUP PO SCH (23:00)
[2017-09-19] MEDS ORDERED: IPRATROPIUM-ALBUTEROL 3 ML NEB INHALATION PRN (01:10)
[2017-09-19] MEDS ORDERED: IPRATROPIUM-ALBUTEROL 3 ML NEB INHALATION SCH (02:00)
[2017-09-19] MEDS: HYDROcodone/APAP 5-325MG 1 EACH TAB PO PRN ×3 (04:00→21:09)
--- NOTE | 2017-09-19 04:02 | HP ---
HISTORY AND PHYSICAL DATE OF SERVICE: 09/18/2017 CHIEF COMPLAINT: Change in mental status as well as diminished p.o. intake and electrolytes imbalance. HISTORY OF PRESENT ILLNESS: This 72-year-old gentleman with a past medical history of multiple medical problems including CHF, COPD, diabetes, hypertension, hyperlipidemia was recently admitted with left lower lobe pneumonia as well as sepsis. Subsequently patient is at the [facility]. The patient has noted diminished p.o. intake and refusing to take medications and also patient taken to taken to [facility] and admitted for further evaluation and treatment. There is no history of fever, rigors. No history of headache, loss of consciousness or seizures. Patient also complaining of left shoulder pain and right knee pain. PAST MEDICAL: CHF, COPD, diabetes, hypertension, history of cellulitis, anemia. MEDICATIONS: Prior to admission include: 1. Metformin 1000 mg b.i.d. 2. Zocor 40 mg q.h.s. 3. Nystatin 5 mL q.6h. 4. Menthol 1 application topically b.i.d. 5. Biofreeze daily p.r.n. 6. Lidoderm patch 5% daily. 7. DuoNeb 3 mL q.6 p.r.n. 8. NovoLog a.c. and q.h.s. 9. Neurontin 100 mg p.o. t.i.d. 10.Pepcid 20 mg p.o. daily. 11.Coreg 12.5 mg b.i.d. 12.Symbicort 160/4.5 two puffs b.i.d. 13.Eliquis 5 mg p.o. b.i.d. 14.Augmentin 870 mg 1 p.o. b.i.d. 15.Tylenol 650 q.6h p.r.n. ALLERGIES: None. FAMILY HISTORY: Unable to obtain. SOCIAL HISTORY: No history of smoking. Occasional alcohol intake previously. REVIEW OF SYSTEMS: ENT: Diminished hearing and vision. CARDIOVASCULAR: No angina or palpitations. RESPIRATION: As mentioned earlier. GI: No nausea or vomiting. : No dysuria or retention. NERVOUS SYSTEM: As mentioned earlier. ALLERGY/IMMUNOLOGY: As mentioned earlier. MUSCULOSKELETAL: As mentioned earlier. HEMATOLOGY/ONCOLOGY: No history of anemia. ENDOCRINE: Diabetes. CONSTITUTIONAL: As mentioned earlier. DERMATOLOGY: Negative. RHEUMATOLOGY: Negative. PSYCHIATRY: As mentioned earlier. PHYSICAL EXAMINATION: GENERAL: The patient is alert and oriented times three. VITAL SIGNS: Pulse 99, blood pressure 104/55, respirations 17, temperature 97.2, pulse ox 94% on 2 L. HEENT is conjunctivae normal. Oral mucosa moist. NECK is no jugular venous distention. No carotid bruit. No lymph node enlargement. CARDIOVASCULAR SYSTEM: S1, S2 muffled. RESPIRATION: Breath sounds diminished in the bases. A few scattered rhonchi and crackles. ABDOMEN: Soft, nontender. No mass palpable. LEGS: No edema and no swelling. NERVOUS SYSTEM: Higher functions as mentioned earlier. Moves all four limbs. Mild diffuse weakness. LYMPHATICS: No lymph nodes palpable in the neck, axillae or groin. SKIN: No ulcer, rashes or bleeding. LABS: WBC 13.3, hemoglobin 7.5, INR is 1.4. Sodium 130, potassium 5.2. ASSESSMENT: 1. Dehydration, acute imbalance because of diminished p.o. intake. 2. Hypomagnesemia. 3. Hyperkalemia. 4. Hyponatremia. 5. Increased WBC. 6. Anemia. 7. History of recent pneumonia and sepsis. 8. Chronic obstructive pulmonary disease. 9. Congestive heart failure. 10.Diabetes. 11.Hypertension. 12.Degenerative joint disease. 13.Cardiomyopathy. 14.Bilateral carpal tunnel syndrome. 15.History of atrial fibrillation, history of congestive heart failure with chronic diastolic dysfunction. 16.Degenerative joint disease. RECOMMENDATION AND DISCUSSION: In this 72-year-old gentleman who presented with multiple complex medical issues, we will monitor the patient closely, continue the current medications, continue symptomatic treatment. The patient is complaining of shoulder pain and knee pain as mentioned earlier. I would recommend orthopedic evaluation at this time. Otherwise, also offer symptomatic treatment of the pain. The chest x-ray showed cardiomegaly, but otherwise mild decompensated CHF is a possibility. I would recommend continue the conservative line of management. Continue to monitor and closely monitor. Dr. Briggs will be consulted to continue followup and as well as Cardiology. Guarded prognosis. Magnesium was supplemented. Guarded prognosis because of multiple complex medical issues. Further recommendations to follow. MMODL / IJN: [id number] /
[2017-09-19 05:05] LABS: Glucose,Whole Blood 149 mg/dL (75-99)
[2017-09-19] MEDS: NYSTATIN 100,000 UNIT/ML SUSP 500,000 UNIT/5 ML CUP PO SCH ×4 (05:22→21:11)
[2017-09-19 06:58] LABS: Glucose,Whole Blood 158 mg/dL (75-99)
[2017-09-19] MEDS: IPRATROPIUM-ALBUTEROL 3 ML NEB INHALATION SCH ×4 (07:08→19:14)
[2017-09-19] MEDS: SYMBICORT 160-4.5 MCG INHALER INHALATION SCH ×2 (07:09→19:14)
[2017-09-19] MEDS: CARVEDILOL 12.5 MG TAB PO SCH ×2 (07:46→17:17)
[2017-09-19] MEDS: FAMOTIDINE 20 MG TAB PO SCH (07:49)
[2017-09-19] MEDS: APIXABAN 5 MG TAB PO SCH ×2 (07:49→21:10)
[2017-09-19] MEDS: GABAPENTIN 100 MG CAP PO SCH ×3 (07:49→21:10)
[2017-09-19] MEDS: AMOXIC-POT CLAV 875-125MG 1 EACH TAB PO SCH ×2 (07:49→21:10)
[2017-09-19] MEDS: ACETAMINOPHEN TAB 325 MG TAB PO PRN (07:50)
[2017-09-19] MEDS: INSULIN ASPART 100 UNIT/ML 1 ML 10 ML VIAL SQ SCH ×3 (07:51→17:40)
[2017-09-19] MEDS: LIDOCAINE 5% PATCH TOPICAL SCH (08:06)
--- NOTE | 2017-09-19 10:24 | XR ---
EXAMINATION TYPE: XR wrist complete LT DATE OF EXAM: 09/19/2017 COMPARISON: NONE HISTORY: Pain TECHNIQUE: Four views submitted. FINDINGS: The osseous structures are intact. There is no acute fracture or dislocation. Diffuse osteopenia not ed. Vascular calcifications are seen. Arthropathy of the first carpal metacarpal joint and radiocarpa l joint noted. Chronic appearing deformity at the base of the second metacarpal. IMPRESSION: 1. No definite acute fracture or dislocation if symptoms persist, follow-up study in 7 to 10 days wo uld be suggested. 2. Diffuse osteopenia and arthropathy. If symptoms persist consider MRI.
[2017-09-19] MEDS ORDERED: MORPHINE SULFATE 2 MG/ML SYRINGE IVP PRN (10:58)
[2017-09-19 11:00] LABS: Glucose,Whole Blood 164 mg/dL (75-99)
[2017-09-19] MEDS ORDERED: MAGNESIUM HYDROXIDE 2,400 MG/10 ML CUP PO PRN (12:31)
[2017-09-19] MEDS ORDERED: METHYL SALICYLATE/MENTHOL CREAM 5 OZ TOPICAL PRN (12:31)
--- NOTE | 2017-09-19 12:38 | US ---
EXAMINATION TYPE: US extremity nonvasc mass LT DATE OF EXAM: 09/19/2017 COMPARISON: NONE CLINICAL HISTORY: left shoulder swelling and pain. Pt. Has large palpable area measuring around 10 cm at the the acromioclavicular joint. No obvious mas s could be seen by ultrasound. Patient very sensitive here and technologist had to not use any pressure at this area. IMPRESSION: No obvious mass seen by ultrasound. Given there is an area of palpable abnormality would recommend CT scan for further evaluation given the limitation of ultrasound
--- NOTE | 2017-09-19 13:36 | PN ---
PROGRESS NOTE DATE OF SERVICE: 09/19/2017 This 72-year-old gentleman who was admitted with dehydration, diminished p.o. intake, also complained of generalized aches and pains. Also the patient is mildly confused. Patient is being closely monitored at this time. The patient also has multiple electrolyte imbalance. PAST MEDICAL HISTORY: Reviewed. REVIEW OF SYSTEMS: CARDIOVASCULAR SYSTEM: No angina. RESPIRATORY SYSTEM: As mentioned earlier. GI: No nausea or diarrhea. : No dysuria. NERVOUS SYSTEM: No numbness. MEDICATIONS: Current medications are reviewed and include: 1. Tylenol 650 q.6 p.r.n. 2. Thompson 5 mg. 3. DuoNeb q.i.d. and p.r.n. 4. Augmentin 875 mg p.o. b.i.d. 5. Eliquis 5 mg b.i.d. 6. Lipitor. 7. Symbicort 160/4.5 two puffs b.i.d. 8. Coreg 12.5 mg b.i.d. 9. Pepcid. 10.Neurontin. 11.Narcan. PHYSICAL EXAM: Patient is alert and oriented x3. The pulse is 83, blood pressure 100/61, respiration 17, temperature 97.2, pulse ox 97% on 2 L HEENT: Conjunctivae normal. Oral mucosa moist. Neck is no jugular venous distention. No carotid bruit. No lymph node enlargement. CARDIOVASCULAR: S1 and S2 muffled. RESPIRATORY: Breath sounds diminished at the bases. Bilateral scattered rhonchi and crackles. ABDOMEN: Soft, nontender. LEGS: No edema, no swelling. NERVOUS SYSTEM: Diffusely weak. LABS: Labs are at this time show WBC 13, hemoglobin 11.5. INR is 1.4. UA noted. ASSESSMENT: 1. Dehydration, acute electrolyte imbalance because of diminished p.o. intake. 2. Hypomagnesemia. 3. Hyperkalemia. 4. Increased WBC. 5. Hyponatremia. 6. Acute on chronic pain syndrome. 7. Anemia. 8. Possible degenerative joint disease. 9. History of recent pneumonia, sepsis. 10.Chronic obstructive pulmonary disease. 11.History of congestive heart failure. 12.Diabetes mellitus type 2. 13.Hypertension. 14.Degenerative joint disease. 15.History of cardiomyopathy. 16.History of bilateral carpal tunnel syndrome. 17.History of atrial fibrillation. 18.History of congestive heart failure with chronic diastolic dysfunction. RECOMMENDATIONS AND DISCUSSION: Recommend to continue current medications, continue with monitoring and symptomatic treatment. Otherwise at this time I would recommend continue symptomatic treatment. We will hold the empiric antibiotics at this time and continue to monitor. I will recommend ultrasound. Chest x-ray was reviewed. I would recommend a Sed rate and ESR also and CRP also. Orthopedic evaluation has been sought. PT, OT evaluation and symptomatic treatment. The prognosis guarded because of multiple complex medical issues and further recommendations to follow. MMODL / IJN: [id number] /
--- NOTE | 2017-09-19 14:00 | P.CNOR ---
History of Present Illness - [facility] Consult date: 09/19/17 Requesting physician: Leland Thao Consult reason: joint pain History of present illness: Patient is a 72-year-old male seen at bedside this morning in consultation for left shoulder pain. He states that he has had left shoulder pain for a few weeks. He does not recall an injury or trauma to the shoulder. He states he has pain with range of motion of the left arm and shoulder. He also states he has pain at the left wrist and hand which has been chronic including numbness and tingling. He states that has been present for approximately 4 years. He has a reported history of dementiaalong with heart failure. He has a pacemaker in place.. He is currently denying fever or chills.He resides in an extended care facility. Review of Systems All systems: negative Constitutional: Denies chills, Denies fever Eyes: denies blurred vision, denies pain Ears, nose, mouth and throat: Denies headache, Denies sore throat Cardiovascular: Denies chest pain, Denies shortness of breath Respiratory: Denies cough Gastrointestinal: Denies abdominal pain, Denies diarrhea, Denies nausea, Denies vomiting Musculoskeletal: Denies myalgias Integumentary: Denies pruritus, Denies rash Neurological: Denies numbness, Denies weakness Psychiatric: Denies anxiety, Denies depression Endocrine: Denies fatigue, Denies weight change Past Medical History Past Medical History: Heart Failure, COPD, Diabetes Mellitus, Hypertension, Renal Disease Additional Past Medical History / Comment(s): cellulitis, anemia, obesity, alcohol abusue, cardiomyopathy, generalized weakness. bilateral carpal tunnel, gout History of Any Multi-Drug Resistant Organisms: None Reported Past Surgical History: Unable to Obtain Additional Past Anesthesia/Blood Transfusion Reaction / Comm: unable to obtain Past Psychological History: No Psychological Hx Reported Additional Psychological History / Comment(s): pt confused and has no family with him at this time. Smoking Status: Unknown if ever smoked Past Alcohol Use History: None Reported Past Drug Use History: None Reported - Past Family History Father History Unknown: Yes Family Medical History: Unable to Obtain Mother History Unknown: Yes Family Medical History: Unable to Obtain Medications and Allergies Home Medications Medication Instructions Recorded Confirmed Type Carvedilol [Coreg] 12.5 mg PO BID@0700,1600 08/07/17 09/19/17 History Gabapentin [Neurontin] 100 mg PO TID@0700,1300,1900 08/07/17 09/19/17 History Simvastatin [Zocor] 40 mg PO HS 08/07/17 09/19/17 History Ipratropium-Albuterol Nebulize 3 ml INHALATION RT-Q6H PRN 08/25/17 09/19/17 History [Duoneb 0.5 mg-3 mg/3 ml Soln] Menthol [Biofreeze] 1 applic TOPICAL DAILY PRN 08/25/17 09/19/17 History Nystatin 100,000 Unit/ml Susp 5 ml PO Q6H 08/25/17 09/19/17 History [Mycostatin Oral Susp] metFORMIN HCL 1,000 mg PO BID 08/25/17 09/19/17 History Acetaminophen Tab [Tylenol Tab] 650 mg PO Q6H PRN 09/19/17 09/19/17 History Amino Acids/Protein Hydrolys 30 ml PO BID 09/19/17 09/19/17 History [Pro-Stat Supplement] Apixaban [Eliquis] 5 mg PO BID 09/19/17 09/19/17 History Fluticasone/Vilanterol [Breo 1 puff INHALATION RT-DAILY@0800 09/19/17 09/19/17 History Ellipta 200-25 Mcg INH] Ipratropium-Albuterol Nebulize 3 ml INHALATION TID@0500,1300,2100 09/19/1709/19 History [Duoneb 0.5 mg-3 mg/3 ml Soln] Lidocaine [Lidoderm 5% Patch] 1 patch TRANSDERM BID 09/19/17 09/19/17 History Magnesium Hydroxide [Milk of 2,400 mg PO DAILY PRN 09/19/17 09/19/17 History Magnesia] Melatonin 5 mg PO HS 09/19/17 09/19/17 History Multivitamin [Men's Multi-Vitamin] 1 tab PO DAILY@0800 09/19/17 09/19/17 History traMADol HCL [Ultram] 50 mg PO Q8HR PRN 09/19/17 09/19/17 History Allergies Allergy/AdvReac Type Severity Reaction Status Date / Time No Known Allergies Allergy Verified 09/19/17 09:25 Physical Examination Inspection of the left shoulder shows no erythema or ecchymoses. There is no deformity. There is superficial edema about the area of the acromioclavicular joint and left anterior shoulder. he is tender in this area. It is not hot to touch. There is no fluctuance. he has pain in the left anterior shoulder with minimal range of motion. Motor appears to be grossly intact throughout the left upper extremity as well as sensation. 2+ radial pulse is present and less than 2 second capillary refill is present. there is tenderness at the left wrist as well as pain with range of motion. There is no deformity, swelling or ecchymosis at this area as well. Results x-rays of the left shoulder were reviewed and show acromial clavicular joint arthropathy/arthritis. There is arthritis of the glenohumeral joint. There is no fracture or dislocation. There is no lesions. - Labs Labs: Abnormal Lab Results - Last 24 Hours (Table) 09/18/17 09/18/17 09/18/17 Range/Units 19:30 19:30 19:30 WBC 13.0 H (3.8-10.6) k/uL RBC 3.96 L (4.30-5.90) m/uL Hgb 11.5 L (13.0-17.5) gm/dL Hct 35.0 L (39.0-53.0) % RDW 16.8 H (11.5-15.5) % Neutrophils # 11.2 H (1.3-7.7) k/uL Lymphocytes # 0.7 L (1.0-4.8) k/uL PT 13.0 H (9.0-12.0) sec INR 1.4 H (<1.2) Sodium 132 L (137-145) mmol/L Potassium 5.2 H (3.5-5.1) mmol/L Chloride 96 L (98-107) mmol/L BUN 21 H (9-20) mg/dL Glucose 122 H (74-99) mg/dL POC Glucose (mg/dL) (75-99) mg/dL Calcium 7.9 L (8.4-10.2) mg/dL Magnesium 1.2 L (1.6-2.3) mg/dL Total Bilirubin 1.9 H (0.2-1.3) mg/dL Total Protein 5.2 L (6.3-8.2) g/dL Albumin 2.6 L (3.5-5.0) g/dL Urine Protein (Negative) Urine Blood (Negative) Urine RBC (0-5) /hpf Urine Bacteria (None) /hpf 09/18/17 09/19/17 09/19/17 Range/Units 19:30 05:03 06:53 WBC (3.8-10.6) k/uL RBC (4.30-5.90) m/uL Hgb (13.0-17.5) gm/dL Hct (39.0-53.0) % RDW (11.5-15.5) % Neutrophils # (1.3-7.7) k/uL Lymphocytes # (1.0-4.8) k/uL PT (9.0-12.0) sec INR (<1.2) Sodium (137-145) mmol/L Potassium (3.5-5.1) mmol/L Chloride (98-107) mmol/L BUN (9-20) mg/dL Glucose (74-99) mg/dL POC Glucose (mg/dL) 149 H 158 H (75-99) mg/dL Calcium (8.4-10.2) mg/dL Magnesium (1.6-2.3) mg/dL Total Bilirubin (0.2-1.3) mg/dL Total Protein (6.3-8.2) g/dL Albumin (3.5-5.0) g/dL Urine Protein 1+ H (Negative) Urine Blood Moderate H (Negative) Urine RBC 24 H (0-5) /hpf Urine Bacteria Rare H (None) /hpf 09/19/17 Range/Units 10:58 WBC (3.8-10.6) k/uL RBC (4.30-5.90) m/uL Hgb (13.0-17.5) gm/dL Hct (39.0-53.0) % RDW (11.5-15.5) % Neutrophils # (1.3-7.7) k/uL Lymphocytes # (1.0-4.8) k/uL PT (9.0-12.0) sec INR (<1.2) Sodium (137-145) mmol/L Potassium (3.5-5.1) mmol/L Chloride (98-107) mmol/L BUN (9-20) mg/dL Glucose (74-99) mg/dL POC Glucose (mg/dL) 164 H (75-99) mg/dL Calcium (8.4-10.2) mg/dL Magnesium (1.6-2.3) mg/dL Total Bilirubin (0.2-1.3) mg/dL Total Protein (6.3-8.2) g/dL Albumin (3.5-5.0) g/dL Urine Protein (Negative) Urine Blood (Negative) Urine RBC (0-5) /hpf Urine Bacteria (None) /hpf Microbiology - Last 24 Hours (Table) 09/18/17 19:30 Urine Culture - Preliminary Urine,Catheterized H & H 09/18/17 Range/Units 19:30 Hgb 11.5 L (13.0-17.5) gm/dL Hct 35.0 L (39.0-53.0) % Coagulation 09/18/17 Range/Units 19:30 INR 1.4 H (<1.2) Result Diagrams: 09/18/17 19:30 09/18/17 19:30 - Diagnostic results Shoulder x-ray: report reviewed, image reviewed Assessment and Plan (1) Left shoulder pain Narrative/Plan: An ultrasound of the left shoulder was ordered and shown to be nonconclusive. CT scan without contrast of the left shoulder has been ordered. Based on its findings we will make further recommendations. Continue pain management and physical therapy in the interim. Current Visit: Yes Status: Acute Priority: Medium Code(s): M25.512 - PAIN IN LEFT SHOULDER SNOMED Code(s): 16198327 Time with Patient: Less than 30
--- NOTE | 2017-09-19 15:11 | CT ---
EXAMINATION TYPE: CT shoulder LT wo con DATE OF EXAM: 09/19/2017 COMPARISON: None HISTORY: Left shoulder pain CT DLP: 560.[address] of the left shoulder with reconstruction imaging. TECHNIQUE: Unenhanced CT of the left shoulder was performed with bone and soft tissue window settings submitted in the axial coronal and sagittal planes. At a separate workstation 3-D TR imaging was ob tained. FINDINGS: I do not see evidence for fracture or dislocation. Moderate AC joint arthropathy. No eviden ce for subacromial impingement at this time. No bony destructive lesions seen. Glenohumeral joint is intact. There is a lobulated left perihilar mass measuring at least 4.8 x 2.0 cm suspicious for neoplasm. Ded icated CT of the chest is advised for further evaluation. Calcified left hilar lymph nodes. There is evidence of left axillary adenopathy. MRI is much more sensitive and specific to rotator cuff patholo gy. IMPRESSION: 1. No evidence for fracture, dislocation or osseous lesion. 2. Left perihilar mass felt to reflect malignancy until proven otherwise. Dedicated CT of the chest i s advised. Left hilar adenopathy difficult to exclude. Left axillary adenopathy noted.
[2017-09-19] MEDS ORDERED: VANCOMYCIN IV PER PHARMACY 1 EACH MISC MISCELLANE PRN (15:25)
[2017-09-19] MEDS: traMADol 50 MG TAB PO PRN (15:45)
[2017-09-19 15:58] LABS: Anion Gap 8 mmol/L; Blood Urea Nitrogen 23 mg/dL (9-20); Calcium 7.8 mg/dL (8.4-10.2); Carbon Dioxide 27 mmol/L (22-30); Chloride 98 mmol/L (98-107); Glucose 128 mg/dL (74-99); Potassium 4.7 mmol/L (3.5-5.1); Sodium 133 mmol/L (137-145)
[2017-09-19] MEDS ORDERED: RX INFO: IV CONTRAST WAS GIVEN 1 EACH MISC MISCELLANE PRN (17:16)
[2017-09-19 17:17] LABS: Glucose,Whole Blood 161 mg/dL (75-99)
[2017-09-19] MEDS: VANCOMYCIN 1,750 MG in SODIUM CHLORIDE 0.9% 500 ML IVPB SCH (17:40)
--- NOTE | 2017-09-19 19:26 | CT ---
EXAMINATION TYPE: CT chest w con DATE OF EXAM: 09/19/2017 COMPARISON: None HISTORY: Follow up for lung mass CT DLP: 573.4 mGycm Automated exposure control for dose reduction was used. CONTRAST: CT scan of the chest is performed with IV Contrast, patient injected with 100 mL of Isovue 300. FINDINGS: There is a 3.5 x 1 cm nodular infiltrate in the posterior segment of the left upper lobe. Thoracic ao rta is atheromatous. There is tortuosity of the great vessels. There are calcified left bronchial lym ph nodes. Thoracic aorta is intact. There is no pericardial effusion. Heart is probably enlarged. The re is no pleural effusion. There is spurring in the thoracic spine. As the attending aorta measures 3 .6 cm. There is minimal pleural thickening at the posterior lung bases. There is mild thickening of t he right major fissure. There is mild bullous emphysema in the left upper lobe and at right lung apex. IMPRESSION: Mild pleural scarring. Nodular infiltrate in the left upper lobe posteriorly. Calcified granulomata at the left pulmonary hilum. Findings in the left lung are likely related to inflammatory disease. No mediastinal mass.
[2017-09-19 19:55] LABS: Glucose,Whole Blood 134 mg/dL (75-99)
[2017-09-19] MEDS ORDERED: NON-FORMULARY DRUG (Amino Acids/Protein Hydrolys [Pro-Stat Supplement] 30 ML) PO SCH (21:00)
[2017-09-19] MEDS: MELATONIN 5 MG TABLET PO SCH (21:11)
[2017-09-19] MEDS: ATORVASTATIN 20 MG TAB PO SCH (21:11)
[2017-09-20 02:11] LABS: Glucose,Whole Blood 170 mg/dL (75-99)
[2017-09-20] MEDS: NYSTATIN 100,000 UNIT/ML SUSP 500,000 UNIT/5 ML CUP PO SCH ×4 (03:10→23:41)
[2017-09-20] MEDS: ACETAMINOPHEN TAB 325 MG TAB PO PRN (03:10)
[2017-09-20] MEDS: traMADol 50 MG TAB PO PRN (03:22)
[2017-09-20] MEDS: VANCOMYCIN 1,750 MG in SODIUM CHLORIDE 0.9% 500 ML IVPB SCH ×2 (05:26→17:07)
[2017-09-20] MEDS: SYMBICORT 160-4.5 MCG INHALER INHALATION SCH ×2 (07:01→19:54)
[2017-09-20] MEDS: IPRATROPIUM-ALBUTEROL 3 ML NEB INHALATION SCH ×3 (07:01→19:54)
[2017-09-20 07:02] LABS: Glucose,Whole Blood 133 mg/dL (75-99)
[2017-09-20 07:42] LABS: Anisocytosis Slight; Basophils % (A) 0 %; Eosinophils # (A) 0.1 k/uL (0-0.7); Eosinophils % (A) 1 %; HCT 33.2 % (39.0-53.0); HGB 10.3 gm/dL (13.0-17.5); Hypochromasia Moderate; Lymphocytes # (A) 0.7 k/uL (1.0-4.8); Lymphocytes % (A) 7 %; MCH 28.3 pg (25.0-35.0); MCHC 30.9 g/dL (31.0-37.0); MCV 91.5 fL (80.0-100.0); Mean Platelet Volume 7.7; Monocytes # (A) 0.7 k/uL (0-1.0); Monocytes % (A) 7 %; Neutrophils # (A) 8.9 k/uL (1.3-7.7); Neutrophils % (A) 84 %; Platelet Count 212 k/uL (150-450); Poikilocytosis Slight; RBC 3.63 m/uL (4.30-5.90); RDW 16.6 % (11.5-15.5); WBC 10.7 k/uL (3.8-10.6)
[2017-09-20 07:58] LABS: Anion Gap 8 mmol/L; Blood Urea Nitrogen 21 mg/dL (9-20); Carbon Dioxide 28 mmol/L (22-30); Chloride 100 mmol/L (98-107); Glucose 132 mg/dL (74-99); Magnesium 1.8 mg/dL (1.6-2.3); Potassium 4.8 mmol/L (3.5-5.1); Sodium 136 mmol/L (137-145)
[2017-09-20] MEDS: AMOXIC-POT CLAV 875-125MG 1 EACH TAB PO SCH (07:59)
[2017-09-20] MEDS: LIDOCAINE 5% PATCH TOPICAL SCH ×2 (07:59→08:04)
[2017-09-20] MEDS: CARVEDILOL 12.5 MG TAB PO SCH ×2 (07:59→17:08)
[2017-09-20] MEDS: MULTIVITAMINS, THERA 1 EACH TAB PO SCH (07:59)
[2017-09-20] MEDS: APIXABAN 5 MG TAB PO SCH ×2 (07:59→23:38)
[2017-09-20] MEDS: FAMOTIDINE 20 MG TAB PO SCH (08:00)
[2017-09-20] MEDS: INSULIN ASPART 100 UNIT/ML 1 ML 10 ML VIAL SQ SCH ×3 (08:00→18:10)
[2017-09-20] MEDS: GABAPENTIN 100 MG CAP PO SCH ×3 (08:00→23:39)
[2017-09-20] MEDS ORDERED: NON-FORMULARY DRUG (Fluticasone/Vilanterol [Breo Ellipta 200-25 Mcg Inh] 1 PUFF) INHALATION SCH (08:00)
[2017-09-20] MEDS: HYDROcodone/APAP 5-325MG 1 EACH TAB PO PRN ×2 (08:06→23:41)
[2017-09-20 11:56] LABS: Glucose,Whole Blood 157 mg/dL (75-99)
[2017-09-20] MEDS: methylPREDNISolone 4 MG TAB TAPER PO SCH (12:38)
--- NOTE | 2017-09-20 13:53 | P.PN ---
Subjective Progress Note Date: 09/20/17 Principal diagnosis: Left shoulder pain Patient is being followed for left shoulder pain where x-rays, ultrasound and CT of the left shoulder have been obtained. There is no evidence of fractures or lesions. There is no signs of infection. He has osteoarthritis and general degenerative joint disease of the left acromioclavicular joint and glenohumeral joint. He continues to have left shoulder pain with movement and is developed a frozen shoulder. He also has complaints of chronic bilateral knee pain. He denies any new complaints today. Objective - Vital Signs Vital signs: Vital Signs Temp 98.2 F 09/20/17 05:00 Pulse 74 09/20/17 07:14 Resp 17 09/20/17 05:00 BP 128/56 09/20/17 05:00 Pulse Ox 97 09/20/17 05:00 Intake & Output 09/19/17 09/20/17 09/20/17 18:59 06:59 18:59 Intake Total 900 Balance 900 Weight 101.5 kg Intake: Intake, IV Titration 500 Amount Vancomycin 1,750 mg In 500 Sodium Chloride 0.9% 500 ml @ 167 mls/hr IVPB Q12H [facility] Rx#:[id number] Oral 400 Other: Voiding Method Urinal Urinal Urinal Incontinent Incontinent Incontinent # Voids 1 # Bowel Movements 0 - Exam inspection of the left shoulder is unchanged. There is no erythema or ecchymoses. He has pain with minimal range of motion of the left shoulder. Sensation is intact throughout the left upper extremity. Motor is grossly intact with left upper extremity. 2+ radial pulse and less than 2 second capillary refill is present. His pain was minimal pressure or palpation to both knees. There is no erythema or ecchymosis at the knees. He has mild effusions. There is joint line tenderness bilaterally. Patellar tracking is normal. There is no deformity. His pain was minimal range of motion of the knees. The joints are not hot to touch. Calves are soft and nontender. 2+ dp pedis pulses and less than 2 second capillary refill is present. - Constitutional General appearance: Present: no acute distress - Psychiatric Psychiatric: Present: A&O x's 3, appropriate affect, intact judgment & insight - Labs CBC & Chem 7: 09/20/17 07:25 09/20/17 07:25 Labs: Abnormal Lab Results - Last 24 Hours (Table) 09/18/17 09/19/17 09/19/17 Range/Units 19:30 14:44 14:44 WBC (3.8-10.6) k/uL RBC (4.30-5.90) m/uL Hgb (13.0-17.5) gm/dL Hct (39.0-53.0) % MCHC (31.0-37.0) g/dL RDW (11.5-15.5) % Neutrophils # (1.3-7.7) k/uL Lymphocytes # (1.0-4.8) k/uL ESR 86 H (0-15) mm/hr Sodium 133 L (137-145) mmol/L BUN 23 H (9-20) mg/dL Glucose 128 H (74-99) mg/dL POC Glucose (mg/dL) (75-99) mg/dL Calcium 7.8 L (8.4-10.2) mg/dL C-Reactive Protein 333.0 H (<10.0) mg/L 09/19/17 09/19/17 09/20/17 Range/Units 17:10 19:54 02:10 WBC (3.8-10.6) k/uL RBC (4.30-5.90) m/uL Hgb (13.0-17.5) gm/dL Hct (39.0-53.0) % MCHC (31.0-37.0) g/dL RDW (11.5-15.5) % Neutrophils # (1.3-7.7) k/uL Lymphocytes # (1.0-4.8) k/uL ESR (0-15) mm/hr Sodium (137-145) mmol/L BUN (9-20) mg/dL Glucose (74-99) mg/dL POC Glucose (mg/dL) 161 H 134 H 170 H (75-99) mg/dL Calcium (8.4-10.2) mg/dL C-Reactive Protein (<10.0) mg/L 09/20/17 09/20/17 09/20/17 Range/Units 07:01 07:25 07:25 WBC 10.7 H (3.8-10.6) k/uL RBC 3.63 L (4.30-5.90) m/uL Hgb 10.3 L (13.0-17.5) gm/dL Hct 33.2 L (39.0-53.0) % MCHC 30.9 L (31.0-37.0) g/dL RDW 16.6 H (11.5-15.5) % Neutrophils # 8.9 H (1.3-7.7) k/uL Lymphocytes # 0.7 L (1.0-4.8) k/uL ESR (0-15) mm/hr Sodium 136 L (137-145) mmol/L BUN 21 H (9-20) mg/dL Glucose 132 H (74-99) mg/dL POC Glucose (mg/dL) 133 H (75-99) mg/dL Calcium 8.0 L (8.4-10.2) mg/dL C-Reactive Protein (<10.0) mg/L 09/20/17 Range/Units 11:54 WBC (3.8-10.6) k/uL RBC (4.30-5.90) m/uL Hgb (13.0-17.5) gm/dL Hct (39.0-53.0) % MCHC (31.0-37.0) g/dL RDW (11.5-15.5) % Neutrophils # (1.3-7.7) k/uL Lymphocytes # (1.0-4.8) k/uL ESR (0-15) mm/hr Sodium (137-145) mmol/L BUN (9-20) mg/dL Glucose (74-99) mg/dL POC Glucose (mg/dL) 157 H (75-99) mg/dL Calcium (8.4-10.2) mg/dL C-Reactive Protein (<10.0) mg/L Microbiology - Last 24 Hours (Table) 09/18/17 19:30 Blood Culture - Final Blood 09/18/17 15:18 Blood Culture Gram Stain - Preliminary Blood Blood Culture - Preliminary Group D Enterococcus 09/18/17 19:30 Urine Culture - Final Urine,Catheterized Assessment and Plan (1) Left shoulder pain Narrative/Plan: He has at least a partially frozen left shoulder with osteoarthritis and degenerative joint disease. Recommend a short course of corticosteroids along with physical therapy and pain management. We'll obtain x-rays of bilateral knees and make further recommendations as appropriate. Current Visit: Yes Status: Acute Priority: Medium Code(s): M25.512 - PAIN IN LEFT SHOULDER SNOMED Code(s): 99772164 Time with Patient: Less than 30
--- NOTE | 2017-09-20 15:08 | XR ---
EXAMINATION TYPE: XR knee complete bilateral DATE OF EXAM: 09/20/2017 COMPARISON: NONE HISTORY: bilateral knee pain TECHNIQUE: Four views are submitted. FINDINGS: There is narrowing of the joint space along the medial compartment and patellofemoral joint bilateral ly. Vascular calcifications noted. There is small suprapatellar joint effusion bilaterally. Osseous s tructures are intact. No acute fracture seen. IMPRESSION: 1. No acute fracture or dislocation. 2. Osteoarthritis with small suprapatellar bursal fluid collections.
--- NOTE | 2017-09-20 15:09 | PN ---
PROGRESS NOTE DATE OF SERVICE: 09/20/2017 This is a 72-year-old gentleman admitted with dehydration, diminished p.o. intake. Also complains of generalized aches and pains and tiredness, also. The patient had a group D enterococcus grown from the culture. The white count is elevated at 10.7 and the patient also had a shoulder CAT scan showed no evidence of fracture. Left perihilar mass was noted. A CT scan of the chest was also repeated after the chest showed nodular infiltrate was noted in the left lung. PAST MEDICAL HISTORY: Reviewed. REVIEW OF SYSTEM: CARDIOVASCULAR SYSTEM: No angina or palpitations. RESPIRATORY: As mentioned earlier. GI: No nausea. : No dysuria. NERVOUS SYSTEM: No numbness or weakness. CURRENT MEDICATIONS REVIEWED/INCLUDE: 1. Tylenol 650 q.6 p.r.n. 2. Fernley 5 mg q.h.s. 3. DuoNeb q.i.d. and p.r.n. 4. Eliquis 5 mg p.o. b.i.d. 5. Lipitor. 6. Symbicort 160/4.5 two puffs b.i.d. 7. Coreg 12.5 mg b.i.d. 8. Pepcid 20 mg daily. 9. Neurontin 100 mg t.i.d. 10.NovoLog scale. 11.Dilaudid. 12.Melatonin. 13.Milk of magnesia. 15.Morphine. 16.Narcan. 17.Mycostatin. 18.Ultram. 19.Vancomycin. PHYSICAL EXAM: Patient is alert, oriented x3. Pulse 78, blood pressure is 128/50, respiration 17, temperature 98.4, pulse ox 97% on 2 L. HEENT: Conjunctivae normal, oral mucosal moist. Neck is no jugular venous distention. No lymph node enlargement. CARDIOVASCULAR SYSTEMS:" S1, S2, muffled. RESPIRATORY: Breath sounds diminished at the bases, a few scattered rhonchi. No crackles. ABDOMEN: Soft, nontender. No mass palpable/ LEGS:: No edema, no swelling. NERVOUS SYSTEM: Higher functions as mentioned earlier. Moves all 4 limbs. No focal motor or sensory deficits. . LAB STUDIES: WBC is 10.2, hemoglobin os 10.3 sodium 136. ASSESSMENT: 1. Dehydration, acute elected imbalance because of diminished p.o. intake, present on admission. 2. Group B Enterococcus sepsis, possibly. 3. Left upper lobe nodular lesion, rule out malignancy. 4. Hypomagnesemia,. 5. Hypokalemia. 6. Increased WBC. 7. Hyponatremia. 8. Acute on chronic pain syndrome. 9. Anemia. 10.Left shoulder pain. 11.Possible degenerative joint disease. 12.History of recent pneumonia, sepsis, chronic obstructive pulmonary disease. 13.History of congestive heart failure. 14.Diabetes mellitus type 2. 15.Hypertension. 16.History of cardiomyopathy. 17.Bilateral carpal tunnel syndrome. 18.Atrial fibrillation, history of congestive heart failure with chronic diastolic dysfunction. RECOMMENDATION: Recommend to continue current management and symptomatic treatment, otherwise, the patient is on broad-spectrum IV antibiotics. At this time, I would recommend Infectious Disease and Pulmonary consultations for further evaluation. Otherwise, continue with the Medrol Dosepak recommended by Orthopedic Surgery. Otherwise, continue with Eliquis. Continue the rest of the medications. The prognosis guarded. The p.o. intake appears to be improving at this time. Continue the symptomatic treatment for the pain. Discussed with the patient at length and further recommendations to follow. Repeat cultures also have been ordered. MMODL / IJN: [id number] / FELIPE
[2017-09-20 16:44] LABS: Glucose,Whole Blood 195 mg/dL (75-99)
[2017-09-20] MEDS ORDERED: IOPAMIDOL-300 CONTRAST 30 ML VIAL (ORAL USE) PO PRN (16:56)
[2017-09-20] MEDS: COLCHICINE 0.6 MG EACH PO SCH ×2 (17:07→23:39)
[2017-09-20 17:10] LABS: Uric Acid 7.4 mg/dL (3.5-8.5)
[2017-09-20 17:43] LABS: C Reactive Protein 318.4 mg/L (<10.0)
--- NOTE | 2017-09-20 19:38 | CT ---
EXAMINATION TYPE: CT abdomen pelvis w con DATE OF EXAM: 09/20/2017 COMPARISON: None HISTORY: Abdominal pain, constipation and bacteremia. CT DLP: 1891 mGycm Automated exposure control for dose reduction was used. TECHNIQUE: Helical acquisition of images was performed from the lung bases through the pelvis. CONTRAST: Performed with Oral Contrast and with IV Contrast, patient injected with 100 mL of Isovue 300. FINDINGS: There is linear density at the posterior lower lung bases consistent with scarring and subsegmental a telectasis. Heart is enlarged. Liver shows no focal defect. Spleen appears normal. There is no pancreatic mass. There is 5 mm calcif ied splenic granuloma. Pancreas appears normal. Bile ducts are not dilated. There is no adrenal mass. Kidneys show satisfactory contrast opacification. There is a 1 cm calculus in the lower pole left kidney. There is no hydronephrosis. Abdominal aorta is atheromatous. There is no retroperitoneal adenopathy. There is no ascites. Bladder distends smoothly with contrast. There ar e diverticula in the colon. Appendix appears normal. There is no evidence of pelvic mass. There is lo w-density 4 mm calcification in the posterior right kidney. There is 3 mm calculus anterior right kid christy. There is no sign of free air. There is no evidence of hernia. There is no free air. IMPRESSION: ATHEROSCLEROTIC VASCULAR DISEASE. NORMAL APPENDIX. NONOBSTRUCTING RENAL CALCULI. MILD COLONIC DIVERTI CULOSIS WITHOUT DIVERTICULITIS. FIBROTIC CHANGES AT THE LUNG BASES.
[2017-09-20 20:36] LABS: Glucose,Whole Blood 198 mg/dL (75-99)
--- NOTE | 2017-09-20 20:43 | CONS ---
CONSULTATION DATE OF SERVICE: 09/20/2017 REASON FOR CONSULTATION: Bacteremia. HISTORY OF PRESENT ILLNESS: The patient is a 72-year-old male who presented to the ER at [facility] on 09/18/2017 with the chief complaints of generalized body aches; has been complaining of pain into the bilateral knee areas and to the left shoulder. Pain is mostly a sharp, dull aching pain, almost 7 to 8 out of 10, and no radiation, worse with movement of the joints. No history of any trauma or any swelling or redness to these joints. With these symptoms, the patient was evaluated by the ER physician. On arrival in the ER the patient was afebrile. He did have a low-grade fever of 100 today, though. The patient had an elevated white count of 13,000 on admission. His kidney function was normal. Urine showed moderate blood and 24 RBCs but no bacteriuria. The patient did have a chest x-ray with findings suggestive of mild decompensating congestive heart failure and mediastinal prominence. Shoulder x-rays showed no acute fracture or dislocation; some focal soft tissue swelling. He did have a CT of the chest which showed mild pleural scarring, nodular infiltrate in the left upper lobe posteriorly, calcified granulomata at the left pulmonary hilum. The patient did have blood cultures drawn in the ER which are now showing group D Enterococcus. Urine culture has been negative. Infectious Disease was consulted for further recommendations regarding antibiotic therapy. Patient is complaining of not having any bowel movement for almost 4-5 days now. The patient is also complaining of some vague lower abdominal pain, mostly on the left side, with intensity of about 5 to 6 out of 10 and no radiation. REVIEW OF SYSTEMS: CONSTITUTIONAL: Positive for weakness and low-grade fever. EYES: No complaint. ENT: No complaint. RESPIRATORY: No complaint. CARDIOVASCULAR: No complaint. GENITOURINARY: No complaint. GASTROINTESTINAL: As per HPI. MUSCULOSKELETAL: As per HPI. INTEGUMENTARY: No complaint. PSYCHOLOGICAL: No complaint. ENDOCRINE: No complaint. NEUROLOGICAL: No complaint. PAST MEDICAL HISTORY: 1. Diabetes mellitus. 2. Hypertension. 3. Renal insufficiency. 4. COPD. 5. Heart failure. 6. Anemia. 7. Cellulitis. 8. Alcohol abuse. 9. Bilateral carpal tunnel surgery. 10.Gout. PAST SURGICAL HISTORY: Bilateral carpal tunnel surgery. SOCIAL HISTORY: No clear history of smoking, drinking or drug use. FAMILY HISTORY: No pertinent findings noticed. ALLERGIES: NO KNOWN DRUG ALLERGIES. CURRENT MEDICATIONS: 1. Tylenol. 2. [place]. 3. DuoNeb. 4. Eliquis. 5. Lipitor. 6. Symbicort. 7. Coreg. 8. Colchicine. 9. Pepcid. 10.Neurontin. 11.NovoLog. 12.Lidoderm patch. 13.Melatonin. 14.Medrol Dosepak. 15.Vancomycin, Pharmacy to dose; currently 1750 q.12. PHYSICAL EXAMINATION: Blood pressure 146/68 with a pulse of 81, temperature 96.9. He is 92% on room air. General description is an elderly male lying in bed in no distress. No tachypnea or accessory muscle of respiration use. HEENT examination shows pallor. No scleral icterus. Oral mucosa membrane is dry. No pharyngeal erythema or thrush. NECK: Trachea is central. No thyromegaly. LUNGS: Unlabored breathing. Clear to auscultation anteriorly. No wheeze or crackle. HEART: S1, S2. Regular rate and rhythm. No murmur. ABDOMEN: Soft. Minimal tenderness in the left quadrant area. No guarding or rigidity. EXTREMITIES: No edema of feet. SKIN EXAMINATION: No rash or mass palpable. MUSCULOSKELETAL SYSTEM: No swelling or redness was noticed of the bilateral knee area. NEUROLOGICAL: Patient is awake, alert, oriented x3. Mood and affect normal. LABS: Hemoglobin is 10.8, white count 10.7. Admission white count was 13,000. BUN of 21, creatinine 0.80. UA did show some hematuria but no evidence of any pyuria or infection. Blood culture with enterococcus. DIAGNOSTIC IMPRESSION AND PLAN: Patient with enterococcal bacteremia, which is usually either of recurrent or genitourinary origin. The patient's UA is negative. The patient has been complaining of constipation and some abdominal pain, more likely the source of this bacteremia. However, the patient will need to have monitoring of his repeat blood cultures to make sure there is no evidence of any persistent bacteremia that may be suggestive of endovascular source. PLAN: 1. Blood culture will be repeated. 2. We will obtain a CT of abdomen and pelvis with oral and IV contrast. 3. Vancomycin, Pharmacy to dose, target of 15, while watching his kidney function closely. 4. Will follow up on clinical condition as well as cultures to further adjust medication if needed. Thank you for this consultation. We will follow this patient along with you. MMODL / IJN: [id number] /
[2017-09-20] MEDS: ATORVASTATIN 20 MG TAB PO SCH (23:38)
[2017-09-20] MEDS: MELATONIN 5 MG TABLET PO SCH (23:40)
[2017-09-21] MEDS: NYSTATIN 100,000 UNIT/ML SUSP 500,000 UNIT/5 ML CUP PO SCH ×4 (04:36→21:24)
[2017-09-21] MEDS: VANCOMYCIN 1,750 MG in SODIUM CHLORIDE 0.9% 500 ML IVPB SCH (05:54)
[2017-09-21 07:00] LABS: Glucose,Whole Blood 238 mg/dL (75-99)
[2017-09-21] MEDS: INSULIN ASPART 100 UNIT/ML 1 ML 10 ML VIAL SQ SCH ×4 (07:32→22:02)
[2017-09-21] MEDS: MULTIVITAMINS, THERA 1 EACH TAB PO SCH (07:38)
[2017-09-21] MEDS: GABAPENTIN 100 MG CAP PO SCH ×3 (07:38→21:23)
[2017-09-21] MEDS: COLCHICINE 0.6 MG EACH PO SCH ×2 (07:38→21:24)
[2017-09-21] MEDS: CARVEDILOL 12.5 MG TAB PO SCH ×2 (07:38→17:09)
[2017-09-21] MEDS: FAMOTIDINE 20 MG TAB PO SCH (07:39)
[2017-09-21 07:47] LABS: Anisocytosis Slight; Basophils % (A) 0 %; Eosinophils % (A) 0 %; HCT 33.5 % (39.0-53.0); HGB 10.6 gm/dL (13.0-17.5); Hypochromasia Slight; Lymphocytes # (A) 0.6 k/uL (1.0-4.8); Lymphocytes % (A) 7 %; MCH 28.5 pg (25.0-35.0); MCHC 31.6 g/dL (31.0-37.0); MCV 90.1 fL (80.0-100.0); Mean Platelet Volume 7.8; Monocytes # (A) 0.5 k/uL (0-1.0); Monocytes % (A) 6 %; Neutrophils # (A) 7.2 k/uL (1.3-7.7); Neutrophils % (A) 86 %; Platelet Count 241 k/uL (150-450); RBC 3.71 m/uL (4.30-5.90); RDW 16.4 % (11.5-15.5); WBC 8.3 k/uL (3.8-10.6)
[2017-09-21 07:49] LABS: Anion Gap 8 mmol/L; Blood Urea Nitrogen 21 mg/dL (9-20); Calcium 8.3 mg/dL (8.4-10.2); Carbon Dioxide 27 mmol/L (22-30); Chloride 101 mmol/L (98-107); Glucose 218 mg/dL (74-99); Magnesium 1.9 mg/dL (1.6-2.3); Potassium 4.9 mmol/L (3.5-5.1); Sodium 136 mmol/L (137-145)
[2017-09-21] MEDS: LIDOCAINE 5% PATCH TOPICAL SCH (07:49)
[2017-09-21] MEDS: methylPREDNISolone 4 MG TAB TAPER PO SCH (07:53)
[2017-09-21] MEDS: APIXABAN 5 MG TAB PO SCH ×2 (07:56→22:03)
[2017-09-21] MEDS: SYMBICORT 160-4.5 MCG INHALER INHALATION SCH ×2 (08:29→19:25)
[2017-09-21] MEDS: IPRATROPIUM-ALBUTEROL 3 ML NEB INHALATION SCH ×3 (08:29→19:25)
--- NOTE | 2017-09-21 10:08 | P.PN ---
Subjective Progress Note Date: 09/21/17 Principal diagnosis: Left shoulder pain Patient is being followed for left shoulder pain where x-rays, ultrasound and CT of the left shoulder have been obtained. There is no evidence of fractures or lesions. There is no signs of infection. He has osteoarthritis and general degenerative joint disease of the left acromioclavicular joint and glenohumeral joint. He also complains of bilateral knee pain where xrays show OA/DJD as well. A short course of corticosteroids have been initiated. He continues to have left shoulder pain with movement but appears to be improved some today. He denies any new complaints today. He denies fever, chills, chest pain, calf pain or shortness of breath. Objective - Vital Signs Vital signs: Vital Signs Temp 98 F 09/21/17 05:00 Pulse 91 09/21/17 05:00 Resp 16 09/21/17 05:00 BP 151/81 09/21/17 05:00 Pulse Ox 93 L 09/21/17 05:00 Intake & Output 09/20/17 09/21/17 09/21/17 18:59 06:59 18:59 Intake Total 700 Output Total 300 50 Balance -300 700 -50 Weight 97.5 kg Intake: Oral 700 Output: Urine 300 50 Other: Voiding Method Urinal Urinal Incontinent Diaper Incontinent # Voids 2 2 1 # Bowel Movements 1 - Exam Inspection of the left shoulder is unchanged. There is no erythema or ecchymoses. He has pain with range of motion of the left shoulder but is improved today. Sensation is intact throughout the left upper extremity. Motor is grossly intact with left upper extremity. 2+ radial pulse and less than 2 second capillary refill is present. The pain at his knees is improved today with mild joint tenderness. There is no erythema or ecchymosis at the knees. He has mild effusions. Patellar tracking is normal. There is no deformity. He has full extension and pain at 90 degree flexion. The joints are not hot to touch. Calves are soft and nontender. 2+ dp pulses and less than 2 second capillary refill is present. - Constitutional General appearance: Present: no acute distress - Labs CBC & Chem 7: 09/21/17 07:17 09/21/17 07:17 Labs: Abnormal Lab Results - Last 24 Hours (Table) 0809/20/17 09/20/17 Range/Units 07:25 07:25 11:54 RBC (4.30-5.90) m/uL Hgb (13.0-17.5) gm/dL Hct (39.0-53.0) % RDW (11.5-15.5) % Lymphocytes # (1.0-4.8) k/uL ESR 78 H (0-15) mm/hr Sodium (137-145) mmol/L BUN (9-20) mg/dL Glucose (74-99) mg/dL POC Glucose (mg/dL) 157 H (75-99) mg/dL Calcium (8.4-10.2) mg/dL C-Reactive Protein 318.4 H (<10.0) mg/L 09/20/17 09/20/17 09/21/17 Range/Units 16:39 20:34 06:59 RBC (4.30-5.90) m/uL Hgb (13.0-17.5) gm/dL Hct (39.0-53.0) % RDW (11.5-15.5) % Lymphocytes # (1.0-4.8) k/uL ESR (0-15) mm/hr Sodium (137-145) mmol/L BUN (9-20) mg/dL Glucose (74-99) mg/dL POC Glucose (mg/dL) 195 H 198 H 238 H (75-99) mg/dL Calcium (8.4-10.2) mg/dL C-Reactive Protein (<10.0) mg/L 09/21/17 09/21/17 Range/Units 07:17 07:17 RBC 3.71 L (4.30-5.90) m/uL Hgb 10.6 L (13.0-17.5) gm/dL Hct 33.5 L (39.0-53.0) % RDW 16.4 H (11.5-15.5) % Lymphocytes # 0.6 L (1.0-4.8) k/uL ESR (0-15) mm/hr Sodium 136 L (137-145) mmol/L BUN 21 H (9-20) mg/dL Glucose 218 H (74-99) mg/dL POC Glucose (mg/dL) (75-99) mg/dL Calcium 8.3 L (8.4-10.2) mg/dL C-Reactive Protein (<10.0) mg/L Microbiology - Last 24 Hours (Table) 09/18/17 19:30 Blood Culture - Final Blood 09/18/17 15:18 Blood Culture Gram Stain - Preliminary Blood Blood Culture - Preliminary Group D Enterococcus - Imaging and Cardiology Xrays of knees show no fractures. There is tricompartmental DJD Assessment and Plan (1) Left shoulder pain Narrative/Plan: Continue short course of corticosteroids along with physical therapy and pain management. I have also requested knee sleeves for his Knee DJD. He may follow up as outpatient and we will sign off for now. We will be happy to revist if requested. Current Visit: Yes Status: Acute Priority: Medium Code(s): M25.512 - PAIN IN LEFT SHOULDER SNOMED Code(s): 32448745 Time with Patient: Less than 30
--- NOTE | 2017-09-21 10:38 | P.CNPUL ---
History of Present Illness Consult date: 09/21/17 Requesting physician: Jaswinder Aquino Reason for consult: abnormal CXR/CT Chief complaint: Nodular infiltrates in the left upper lobe History of present illness: Mr. Cote is a 72-year-old patient of Dr. Jenkins, who presented to the emergency department per EMS on 09/18/2017 for evaluation of severe pain in his right knee and left shoulder. Patient is currently residing at the [facility] and the staff reports patient was refusing to eat or taking medications secondary to inadequate pain management. X-ray of the left shoulder showed no acute fracture or dislocation, and some focal soft tissue swelling of the echo mild clavicular joint and moderate acromioclavicular arthropathy. Right knee x-ray showed no acute fracture or dislocation, osteoarthritis with small suprapatellar bursal fluid collections. Patient was recently hospitalized for left lower lobe pneumonia with sepsis, diastolic congestive heart failure, he was treated with Zosyn and Levaquin, clinically improved, and was discharged in stable condition on 08/31/2017. Chest x-ray showed mediastinal prominence. Chest CT was obtained and showed nodule infiltrate in the left upper lobe, pleural scarring. These changes are most likely related to postinfectious or inflammatory changes. Clinically patient denies any dyspnea, no chest pain, no chest congestion, no fever, no chills. His initial blood work showed WBC of 13.0, hemoglobin of 11.5, INR 1.4, sodium is 132, potassium is 5.2, chloride is 96, BUN is 21, creatinine 0.80. Troponin was negative 1, CRP was 333, urinalysis showed moderate blood, rare bacteria. His been afebrile since admission, he is currently on 2 L per nasal cannula with pulse ox of 92%, no chills, hemodynamically stable. We are consulted in regards to left upper lobe nodular infiltrate which is likely post infectious or inflammatory in nature. Review of Systems All systems: negative Constitutional: Denies chills, Denies fever Eyes: denies blurred vision, denies pain Ears, nose, mouth and throat: Denies headache, Denies sore throat Cardiovascular: Denies chest pain, Denies shortness of breath Respiratory: Denies cough Gastrointestinal: Denies abdominal pain, Denies diarrhea, Denies nausea, Denies vomiting Musculoskeletal: Denies myalgias Musculoskeletal: right: knee pain, left: shoulder pain Integumentary: Denies pruritus, Denies rash Neurological: Denies numbness, Denies weakness Psychiatric: Denies anxiety, Denies depression Endocrine: Denies fatigue, Denies weight change Past Medical History Past Medical History: Heart Failure, COPD, Diabetes Mellitus, Hypertension, Renal Disease Additional Past Medical History / Comment(s): cellulitis, anemia, obesity, alcohol abusue, cardiomyopathy, generalized weakness. bilateral carpal tunnel, gout History of Any Multi-Drug Resistant Organisms: None Reported Past Surgical History: Unable to Obtain Additional Past Anesthesia/Blood Transfusion Reaction / Comment(s): unable to obtain Past Psychological History: No Psychological Hx Reported Additional Psychological History / Comment(s): pt confused and has no family with him at this time. Smoking Status: Unknown if ever smoked Past Alcohol Use History: None Reported Past Drug Use History: None Reported - Past Family History Father History Unknown: Yes Family Medical History: Unable to Obtain Mother History Unknown: Yes Family Medical History: Unable to Obtain Medications and Allergies Home Medications Medication Instructions Recorded Confirmed Type Carvedilol [Coreg] 12.5 mg PO BID@0700,1600 08/07/17 09/19/17 History Gabapentin [Neurontin] 100 mg PO TID@0700,1300,1900 08/07/17 09/19/17 History Simvastatin [Zocor] 40 mg PO HS 08/07/17 09/19/17 History Ipratropium-Albuterol Nebulize 3 ml INHALATION RT-Q6H PRN 08/25/17 09/19/17 History [Duoneb 0.5 mg-3 mg/3 ml Soln] Menthol [Biofreeze] 1 applic TOPICAL DAILY PRN 08/25/17 09/19/17 History Nystatin 100,000 Unit/ml Susp 5 ml PO Q6H 08/25/17 09/19/17 History [Mycostatin Oral Susp] metFORMIN HCL 1,000 mg PO BID 08/25/17 09/19/17 History Acetaminophen Tab [Tylenol Tab] 650 mg PO Q6H PRN 09/19/17 09/19/17 History Amino Acids/Protein Hydrolys 30 ml PO BID 09/19/17 09/19/17 History [Pro-Stat Supplement] Apixaban [Eliquis] 5 mg PO BID 09/19/17 09/19/17 History Fluticasone/Vilanterol [Breo 1 puff INHALATION RT-DAILY@0800 09/19/17 09/19/17 History Ellipta 200-25 Mcg INH] Ipratropium-Albuterol Nebulize 3 ml INHALATION TID@0500,1300,2100 09/19/1709/19 History [Duoneb 0.5 mg-3 mg/3 ml Soln] Lidocaine [Lidoderm 5% Patch] 1 patch TRANSDERM BID 09/19/17 09/19/17 History Magnesium Hydroxide [Milk of 2,400 mg PO DAILY PRN 09/19/17 09/19/17 History Magnesia] Melatonin 5 mg PO HS 09/19/17 09/19/17 History Multivitamin [Men's Multi-Vitamin] 1 tab PO DAILY@0800 09/19/17 09/19/17 History traMADol HCL [Ultram] 50 mg PO Q8HR PRN 09/19/17 09/19/17 History Allergies Allergy/AdvReac Type Severity Reaction Status Date / Time No Known Allergies Allergy Verified 09/19/17 09:25 Physical Exam Vitals: Vital Signs Temp Pulse Resp BP Pulse Ox 09/21/17 05:00 98 F 91 16 151/81 93 L 09/20/17 23:00 98 F 101 H 16 144/72 96 09/20/17 15:07 96.9 F L 81 16 146/68 92 L Intake and Output 09/20/17 09/21/17 09/21/17 22:59 06:59 14:59 Intake Total 400 300 Output Total 300 50 Balance 100 300 -50 Intake: Oral 400 300 Output: Urine 300 50 Other: Voiding Method Urinal Diaper Incontinent # Voids 1 2 1 # Bowel Movements 1 Weight 97.5 kg GENERAL EXAM: Alert, awake, 72-year-old white male, comfortable in no apparent distress. Somewhat of a poor historian HEAD: Normocephalic/atraumatic. EYES: Normal reaction of pupils, equal size. Conjunctiva pink, sclera white. NOSE: Clear with pink turbinates. THROAT: No erythema or exudates. NECK: No masses, no JVD, no thyroid enlargement, no adenopathy. CHEST: No chest wall deformity. Symmetrical expansion. LUNGS: Equal air entry with no crackles, wheeze, rhonchi or dullness. CVS: Regular rate and rhythm, normal S1 and S2, no gallops, no murmurs, no rubs ABDOMEN: Soft, nontender. No hepatosplenomegaly, normal bowel sounds, no guarding or rigidity. EXTREMITIES: No clubbing, no edema, no cyanosis, 2+ pulses and upper and lower extremities. MUSCULOSKELETAL: Muscle strength and tone normal. SPINE: No scoliosis or deformity SKIN: No rashes CENTRAL NERVOUS SYSTEM: Alert and oriented -3. No focal deficits, tone is normal in all 4 extremities. PSYCHIATRIC: Alert and oriented -3. Appropriate affect. Intact judgment and insight. Results - Laboratory Findings CBC and BMP: 09/21/17 07:17 09/21/17 07:17 PT/INR, D-dimer PT 13.0 sec (9.0-12.0) H 09/18/17 19:30 INR 1.4 (<1.2) H 09/18/17 19:30 Abnormal lab findings: Abnormal Labs 09/18/17 09/18/17 09/18/17 19:30 19:30 19:30 WBC 13.0 H RBC 3.96 L Hgb 11.5 L Hct 35.0 L MCHC RDW 16.8 H Neutrophils # 11.2 H Lymphocytes # 0.7 L ESR PT 13.0 H INR 1.4 H Sodium 132 L Potassium 5.2 H Chloride 96 L BUN 21 H Glucose 122 H POC Glucose (mg/dL) Calcium 7.9 L Magnesium 1.2 L Total Bilirubin 1.9 H C-Reactive Protein Total Protein 5.2 L Albumin 2.6 L Urine Protein Urine Blood Urine RBC Urine Bacteria 09/18/17 09/18/17 09/19/17 19:30 19:30 05:03 WBC RBC Hgb Hct MCHC RDW Neutrophils # Lymphocytes # ESR PT INR Sodium Potassium Chloride BUN Glucose POC Glucose (mg/dL) 149 H Calcium Magnesium Total Bilirubin C-Reactive Protein 333.0 H Total Protein Albumin Urine Protein 1+ H Urine Blood Moderate H Urine RBC 24 H Urine Bacteria Rare H 09/19/17 09/19/17 09/19/17 06:53 10:58 14:44 WBC RBC Hgb Hct MCHC RDW Neutrophils # Lymphocytes # ESR 86 H PT INR Sodium Potassium Chloride BUN Glucose POC Glucose (mg/dL) 158 H 164 H Calcium Magnesium Total Bilirubin C-Reactive Protein Total Protein Albumin Urine Protein Urine Blood Urine RBC Urine Bacteria 09/19/17 09/19/17 09/19/17 14:44 17:10 19:54 WBC RBC Hgb Hct MCHC RDW Neutrophils # Lymphocytes # ESR PT INR Sodium 133 L Potassium Chloride BUN 23 H Glucose 128 H POC Glucose (mg/dL) 161 H 134 H Calcium 7.8 L Magnesium Total Bilirubin C-Reactive Protein Total Protein Albumin Urine Protein Urine Blood Urine RBC Urine Bacteria 09/20/17 09/20/17 09/20/17 02:10 07:01 07:25 WBC 10.7 H RBC 3.63 L Hgb 10.3 L Hct 33.2 L MCHC 30.9 L RDW 16.6 H Neutrophils # 8.9 H Lymphocytes # 0.7 L ESR PT INR Sodium Potassium Chloride BUN Glucose POC Glucose (mg/dL) 170 H 133 H Calcium Magnesium Total Bilirubin C-Reactive Protein Total Protein Albumin Urine Protein Urine Blood Urine RBC Urine Bacteria 09/20/17 09/20/17 09/20/17 07:25 07:25 07:25 WBC RBC Hgb Hct MCHC RDW Neutrophils # Lymphocytes # ESR 78 H PT INR Sodium 136 L Potassium Chloride BUN 21 H Glucose 132 H POC Glucose (mg/dL) Calcium 8.0 L Magnesium Total Bilirubin C-Reactive Protein 318.4 H Total Protein Albumin Urine Protein Urine Blood Urine RBC Urine Bacteria 09/20/17 09/20/17 09/20/17 11:54 16:39 20:34 WBC RBC Hgb Hct MCHC RDW Neutrophils # Lymphocytes # ESR PT INR Sodium Potassium Chloride BUN Glucose POC Glucose (mg/dL) 157 H 195 H 198 H Calcium Magnesium Total Bilirubin C-Reactive Protein Total Protein Albumin Urine Protein Urine Blood Urine RBC Urine Bacteria 09/21/17 09/21/17 09/21/17 06:59 07:17 07:17 WBC RBC 3.71 L Hgb 10.6 L Hct 33.5 L MCHC RDW 16.4 H Neutrophils # Lymphocytes # 0.6 L ESR PT INR Sodium 136 L Potassium Chloride BUN 21 H Glucose 218 H POC Glucose (mg/dL) 238 H Calcium 8.3 L Magnesium Total Bilirubin C-Reactive Protein Total Protein Albumin Urine Protein Urine Blood Urine RBC Urine Bacteria - Diagnostic Findings Chest x-ray: report reviewed, image reviewed CT scan - chest: report reviewed, image reviewed Additional studies: Wrist x-ray, knee x-ray, abdomen/pelvis CT results reviewed Assessment and Plan Plan: Assessment: #1. Left upper lung nodular infiltrate, likely postinfectious or inflammatory in nature. #2. Recent hospitalization for left lung pneumonia, and sepsis, and acute diastolic congestive heart failure #3. Left shoulder pain and right knee pain, orthopedic surgeries following #4. History of chronic atrial fibrillation #5. History of COPD, currently stable #6. History of congestive heart failure with chronic diastolic dysfunction #7. Degenerative joint disease Plan: CT chest, chest x-ray , patient has been examined and interviewed. Currently has no active pulmonary complaints, he is afebrile, no shortness of breath, no fever, no chills, no chest congestion. Left upper lung nodular infiltrate likely postinfectious or inflammatory in nature, will be followed up on outpatient basis, patient is to be seen by Dr. Santizo on an outpatient basis. We will see the patient on as-needed basis. Thank you for this consultation. I performed a history & physical examination of the patient and discussed their management with my nurse practitioner, Kathleen Davis. I reviewed the nurse practitioner's note and agree with the documented findings and plan of care. Lung sounds are clear. The findings and the impression was discussed with the patient. I attest to the documentation by the nurse practitioner. Time with Patient: Greater than 30
[2017-09-21 11:56] LABS: Glucose,Whole Blood 252 mg/dL (75-99)
--- NOTE | 2017-09-21 14:18 | ECHOF ---
Referral Reason:sepsis MEASUREMENTS -------- HEIGHT: 182.9 cm WEIGHT: 101.2 kg BP: 146/68 RVIDd: 2.8 cm (< 3.3) IVSd: 1.3 cm (0.6 - 1.1) LVIDd: 4.9 cm (3.9 - 5.3) LVPWd: 1.3 cm (0.6 - 1.1) IVSs: 1.7 cm LVIDs: 3.6 cm LVPWs: 1.6 cm LA Diam: 4.4 cm (2.7 - 3.8) LAESV Index (A-L): 32.05 ml/m Ao Diam: 3.8 cm (2.0 - 3.7) AV Cusp: 2.4 cm (1.5 - 2.6) EPSS: 0.7 cm RAP: 5.00 mmHg RVSP: 35.02 mmHg MV EF SLOPE: 146.66 mm/s (70 - 150) MV EXCURSION: 2.45 cm (> 18.000) FINDINGS -------- Atrial fibrillation. This was a technically good study. The left ventricular size is normal. There is mild concentric left ventricular hypertrophy. Overa ll left ventricular systolic function is mild-moderately impaired with, an EF between 40 - 45 %. The right ventricle is normal in size. LA is midly dilated 29-33ml/m2. The right atrium is normal in size. There is mild aortic valve sclerosis. There is trace mitral regurgitation. Mild tricuspid regurgitation present. There is mild pulmonary hypertension. The right ventricular systolic pressure, as measured by Doppler, is 35.02mmHg. Trace/mild (physiologic) pulmonic regurgitation. The aortic root is dilated measuring 3.8cm. Normal inferior vena cava with normal inspiratory collapse consistent with estimated right atrial pre ssure of 5 mmHg. The inferior vena cava is mildly dilated. There is no pericardial effusion. CONCLUSIONS -------- 1. Atrial fibrillation. 2. This was a technically good study. 3. The left ventricular size is normal. 4. There is mild concentric left ventricular hypertrophy. 5. Overall left ventricular systolic function is mild-moderately impaired with, an EF between 40 - 45 %. 6. The right ventricle is normal in size. 7. LA is midly dilated 29-33ml/m2. 8. The right atrium is normal in size. 9. There is mild aortic valve sclerosis. 10. There is trace mitral regurgitation. 11. Mild tricuspid regurgitation present. 12. There is mild pulmonary hypertension. 13. The right ventricular systolic pressure, as measured by Doppler, is 35.02mmHg. 14. Trace/mild (physiologic) pulmonic regurgitation. 15. The aortic root is dilated measuring 3.8cm. 16. Normal inferior vena cava with normal inspiratory collapse consistent with estimated right atrial pressure of 5 mmHg. 17. The inferior vena cava is mildly dilated. 18. There is no pericardial effusion. CHIEF INVESTIGATOR: JACQUELYN Zaman
[2017-09-21] MEDS ORDERED: VANCOMYCIN TROUGH DUE 1 EACH MISC MISCELLANE ONE (16:00)
[2017-09-21 16:52] LABS: Glucose,Whole Blood 365 mg/dL (75-99)
[2017-09-21] MEDS: AMPICILLIN-SULBACTAM 3 GM in SODIUM CHLORIDE 0.9% 100 ML IVPB SCH ×2 (17:13→23:54)
--- NOTE | 2017-09-21 18:29 | PN ---
PROGRESS NOTE DATE OF SERVICE: 09/21/2017. REASON FOR FOLLOWUP: VRE bacteremia. INTERVAL HISTORY: The patient is currently afebrile. He is breathing comfortably. Denies significant chest pain. No abdominal pain. He is complaining of constipation, did not have any bowel movement. No nausea, vomiting and no urinary symptoms. EXAMINATION: Blood pressure 137/73 with a pulse of 75, temperature 97.5. He is 96% on room air. General description is an elderly male lying in bed in no distress. RESPIRATORY SYSTEM: Unlabored breathing. Clear to auscultation anteriorly. HEART: S1, S2. Regular rate and rhythm. ABDOMEN: Soft. No tenderness. No guarding, rigidity. EXTREMITIES: No edema of feet. LABS: Hemoglobin 10.6, white count 8.3. BUN of 21, creatinine 0.65. Blood culture finalized with VRE. Repeat blood culture so far negative. DIAGNOSTIC IMPRESSION AND PLAN: Patient with vancomycin-resistant Enterococcus bacteremia. His urine culture is negative. CT abdomen and pelvis did show some diverticulosis, but no diverticulitis. Antibiotic will be adjusted to Unasyn 3 g every 6 hours as the organism is sensitive to penicillin. Blood culture has been repeated. Will follow them to determine his discharge antibiotics. Continue with supportive care. MMODL / IJN: [id number] /
[2017-09-21] MEDS ORDERED: methylPREDNISolone 4 MG TAB TAPER PO SCH (18:52)
--- NOTE | 2017-09-21 18:58 | PN ---
PROGRESS NOTE DATE OF SERVICE: 09/21/2017 This 72-year-old gentleman admitted with dehydration, electrolyte abnormalities, also generalized weakness and tiredness. Patient also had group B enterococcus sepsis. The patient also had generalized aches and pains. Abdomen-pelvis CAT scan was done yesterday which showed atherosclerotic vascular disease and fibrotic change in the lung bases. A 2D echo with a Doppler was also repeated today which showed ejection fraction of 40%-45%. The patient is also followed by multiple consultants, including infectious disease Dr. Vila as well as Dr. Thao from orthopedic surgery. Unasyn has been initiated at this time. Dr. Marrufo is following the patient from the pulmonary standpoint of view for a left upper lung nodule which he thinks most likely is possible infectious inflammatory. The patient also had left shoulder and right knee pain. Orthopedic Surgery is following the patient closely. The repeat cultures are negative so far. The patient is on broad-spectrum IV antibiotics. As mentioned earlier, the patient is on short course IV steroids, also. The patient also receiving colchicine for gout. PAST MEDICAL HISTORY: Reviewed. REVIEW OF SYSTEMS: CARDIOVASCULAR: No angina. RESPIRATORY: As mentioned earlier. GI: As mentioned earlier. : As mentioned earlier. NERVOUS: No numbness or weakness. CURRENT MEDICATIONS ARE: 1. [place] 5 mg every 6 hours p.r.n. 2. DuoNeb q.i.d. and p.r.n. 3. Unasyn 3 g IV every 6 hours. 4. Eliquis 5 mg p.o. b.i.d. 5. Lipitor. 6. Symbicort 160/4.5 two puffs b.i.d. 7. Coreg 12.5 mg b.i.d. 8. Colcrys 0.6 mg p.o. b.i.d. 9. Pepcid 20 mg p.o. daily. 10.Neurontin 100 mg t.i.d. 11.NovoLog scale. 12.Lidoderm patch. 13.Melatonin. 14.Multivitamins. 15.Medrol Dosepak. 16.Morphine sulfate. 17.Narcan. 18.Ultram. PHYSICAL EXAM: Patient is alert, oriented x3. Pulse 91, blood pressure 151/82, respirations 16, temperature 98 degrees, pulse ox 98% on room air. HEENT: Conjunctivae normal. Oral mucosa moist. NECK: No jugular venous distention. No carotid bruits. No lymph node enlargement. CARDIOVASCULAR: S1, S2 muffled. RESPIRATORY: Breath sounds diminished in the bases. A few rhonchi. No crackles. ABDOMEN: Soft, nontender. LEGS: No edema. NERVOUS SYSTEM: Diffusely weak. LABS: WBC 8.3, hemoglobin 10.6. Sodium 136. ASSESSMENT: 1. Dehydration, acute, electrolytes balance because of diminished p.o. intake, present on admission. 2. Group B Enterococcus sepsis. 3. Left upper lobe noted lesion, possibly inflammatory infectious per Pulmonary. 4. Hypomagnesemia. 5. Hypokalemia. 6. Left shoulder pain and right knee pain. 7. Increased WBC. 8. Possible acute gout. 9. Hyponatremia. 10.Acute on chronic pain syndrome. 11.Anemia. 12.Degenerative joint disease. 13.History of recent pneumonia, sepsis, chronic obstructive pulmonary disease. 14.History of congestive heart failure. 15.Diabetes mellitus type 2. 16.Hypertension. 17.History of cardiomyopathy. 18.Bilateral carpal tunnel syndrome. 19.Atrial fibrillation. 20.History of congestive heart failure with chronic diastolic dysfunction. RECOMMENDATIONS AND DISCUSSION: Recommend to continue current medications. Continue with monitoring and symptomatic treatment. At this time, I will continue the pain medication, continue with the colchicine, monitor labs closely. Also recommend broad-spectrum IV antibiotics. As mentioned earlier, the repeat cultures are negative so far. Urine culture is also negative. CT scan of the abdomen recommended by Dr. Vila is reviewed. Otherwise, continue the rest of medication. PT/OT evaluation. Prognosis extremely guarded because of the multiple complex medical issues as listed above. Further recommendations to follow. MMODL / IJN: [id number] /
[2017-09-21 20:35] LABS: Glucose,Whole Blood 263 mg/dL (75-99)
[2017-09-21] MEDS: traMADol 50 MG TAB PO PRN (21:23)
[2017-09-21] MEDS: MELATONIN 5 MG TABLET PO SCH (21:23)
[2017-09-21] MEDS: ATORVASTATIN 20 MG TAB PO SCH (21:23)
[2017-09-22] MEDS: NYSTATIN 100,000 UNIT/ML SUSP 500,000 UNIT/5 ML CUP PO SCH ×4 (04:53→20:17)
[2017-09-22] MEDS: AMPICILLIN-SULBACTAM 3 GM in SODIUM CHLORIDE 0.9% 100 ML IVPB SCH ×4 (05:48→23:54)
[2017-09-22 06:19] VITALS: TEMP 97.6
[2017-09-22 06:58] LABS: Glucose,Whole Blood 178 mg/dL (75-99)
[2017-09-22 07:27] LABS: Anisocytosis Slight; Basophils % (A) 0 %; Eosinophils % (A) 0 %; HCT 34.5 % (39.0-53.0); Hypochromasia Moderate; Lymphocytes # (A) 0.9 k/uL (1.0-4.8); Lymphocytes % (A) 10 %; MCH 28.8 pg (25.0-35.0); MCHC 31.8 g/dL (31.0-37.0); MCV 90.6 fL (80.0-100.0); Mean Platelet Volume 7.9; Monocytes # (A) 0.5 k/uL (0-1.0); Monocytes % (A) 6 %; Neutrophils % (A) 82 %; Platelet Count 299 k/uL (150-450); RBC 3.81 m/uL (4.30-5.90); RDW 16.1 % (11.5-15.5); WBC 8.5 k/uL (3.8-10.6)
[2017-09-22 07:42] LABS: Anion Gap 6 mmol/L; Blood Urea Nitrogen 19 mg/dL (9-20); Calcium 8.1 mg/dL (8.4-10.2); Carbon Dioxide 32 mmol/L (22-30); Chloride 101 mmol/L (98-107); Glucose 194 mg/dL (74-99); Magnesium 1.8 mg/dL (1.6-2.3); Potassium 4.9 mmol/L (3.5-5.1); Sodium 139 mmol/L (137-145)
[2017-09-22] MEDS: INSULIN ASPART 100 UNIT/ML 1 ML 10 ML VIAL SQ SCH ×4 (07:55→20:17)
[2017-09-22] MEDS: COLCHICINE 0.6 MG EACH PO SCH ×2 (08:35→20:18)
[2017-09-22] MEDS: FAMOTIDINE 20 MG TAB PO SCH (08:35)
[2017-09-22] MEDS: CARVEDILOL 12.5 MG TAB PO SCH ×2 (08:35→17:43)
[2017-09-22] MEDS: methylPREDNISolone 4 MG TAB TAPER PO SCH (08:36)
[2017-09-22] MEDS: MULTIVITAMINS, THERA 1 EACH TAB PO SCH (08:36)
[2017-09-22] MEDS: APIXABAN 5 MG TAB PO SCH ×2 (08:36→20:18)
[2017-09-22] MEDS: LIDOCAINE 5% PATCH TOPICAL SCH (08:37)
[2017-09-22] MEDS: GABAPENTIN 100 MG CAP PO SCH ×3 (08:38→20:18)
[2017-09-22] MEDS: IPRATROPIUM-ALBUTEROL 3 ML NEB INHALATION SCH ×3 (08:53→20:58)
[2017-09-22] MEDS: SYMBICORT 160-4.5 MCG INHALER INHALATION SCH ×2 (08:53→20:58)
[2017-09-22 09:48] VITALS: BMI 30.9
[2017-09-22] MEDS: traMADol 50 MG TAB PO PRN ×2 (10:03→16:04)
[2017-09-22 11:02] LABS: Glucose,Whole Blood 189 mg/dL (75-99)
--- NOTE | 2017-09-22 15:06 | PN ---
PROGRESS NOTE DATE OF SERVICE: 09/22/2017 REASON FOR FOLLOWUP: VRE bacteremia. INTERVAL HISTORY: The patient is currently afebrile. He is breathing comfortably. Denies having any chest pain or any cough. No abdominal pain. He did have a bowel movement. No nausea, no vomiting. PHYSICAL EXAMINATION: Blood pressure 133/76, pulse of 86, temperature 97.6, he is 97% on 2 L nasal cannula. General description is an elderly male, lying in bed in no distress. RESPIRATORY SYSTEM: Unlabored breathing, clear to auscultation anteriorly. HEART: S1, S2. Regular rate and rhythm. ABDOMEN: Soft, no tenderness. LABS: Hemoglobin is 11, white count of 8.5. BUN of 19, creatinine 0.69. Blood culture repeat has been negative so far. DIAGNOSTIC IMPRESSION AND PLAN: Patient with VRE bacteremia, source possible abdominal with significant GI symptoms. Urine has been negative and blood culture negative very quickly would make it to be less likely and a vascular source may get a midline. I will continue with IV Unasyn 3 g q.6 for 10 days with close outpatient followup. MMODL / IJN: [id number] /
[2017-09-22 17:19] LABS: Glucose,Whole Blood 312 mg/dL (75-99)
--- NOTE | 2017-09-22 18:54 | PN ---
PROGRESS NOTE DATE OF SERVICE: 09/22/2017 This 73-year-old gentleman who was admitted after dehydration, also had group D enterococcus sepsis. The organism was found to be VRE with Enterococcus faecalis. Patient started on Unasyn. PICC line is being explored. No chest pain. No palpitations. No fever. EXAM: Alert and oriented x3. Pulse is 81, blood pressure 130/74, respirations 16, temperature 97.6, pulse ox 97% on 2L. HEENT: Conjunctivae normal. CARDIOVASCULAR: S1, S2 muffled. RESPIRATORY: Breath sounds diminished in the bases. No rhonchi. No crackles. ABDOMEN: Soft, nontender. No mass palpable. LEGS: No edema. No swelling. NERVOUS SYSTEM: Higher functions as mentioned earlier. Moves all 4 limbs. LYMPHATICS: No lymph nodes palpable in neck or axillae. SKIN: No ulcer, rash or bleeding. LABS: WBC 8.5, hemoglobin is 11. Sodium 139, potassium 4.9. ASSESSMENT: 1. Dehydration, acute electrolyte imbalance because of diminished p.o. intake, present on admission. 2. Vancomycin-resistant Enterococcus with Enterococcus faecalis sepsis. 3. Left upper lobe nodular lesion, possibly inflammatory or infectious per Pulmonary. 4. Hypomagnesemia. 5. Hypokalemia. 6. Left shoulder pain and right knee pain, possible degenerative joint disease. 7. Increased WBC. 8. Possible acute gout. 9. Hyponatremia. 10.Acute on chronic pain syndrome. 11.Anemia. 12.Degenerative joint disease. 13.History of recent pneumonia, sepsis, chronic obstructive pulmonary disease. 14.History of congestive heart failure. 15.Diabetes mellitus type 2. 16.Hypertension. 17.History of cardiomyopathy. 18.Bilateral carpal tunnel syndrome. 19.Atrial fibrillation. 20.History of congestive heart failure with chronic diastolic dysfunction. RECOMMENDATIONS AND DISCUSSION: Recommend to continue current medical management, continue with symptomatic treatment. Continue with broad-Spectrum IV antibiotics. Follow closely with Infectious Disease. Continue with colchicine and steroids for the gout. PT/OT evaluation, increase ambulation. Possible ECF rehab. Guarded prognosis. Further recommendations to follow. MMODL / IJN: [id number] /
[2017-09-22 20:10] LABS: Glucose,Whole Blood 336 mg/dL (75-99)
[2017-09-22] MEDS: ATORVASTATIN 20 MG TAB PO SCH (20:18)
[2017-09-22] MEDS: MELATONIN 5 MG TABLET PO SCH (20:18)
[2017-09-22 21:38] VITALS: RESP 18
[2017-09-23] MEDS: NYSTATIN 100,000 UNIT/ML SUSP 500,000 UNIT/5 ML CUP PO SCH ×3 (03:09→15:05)
[2017-09-23] MEDS: traMADol 50 MG TAB PO PRN ×2 (03:34→15:05)
[2017-09-23] MEDS: AMPICILLIN-SULBACTAM 3 GM in SODIUM CHLORIDE 0.9% 100 ML IVPB SCH ×2 (05:31→11:37)
[2017-09-23 06:21] VITALS: BP 139/72; PULSE 79
[2017-09-23 07:02] LABS: Glucose,Whole Blood 132 mg/dL (75-99)
[2017-09-23] MEDS: IPRATROPIUM-ALBUTEROL 3 ML NEB INHALATION SCH ×2 (07:14→13:26)
[2017-09-23] MEDS: SYMBICORT 160-4.5 MCG INHALER INHALATION SCH (07:14)
[2017-09-23] MEDS: methylPREDNISolone 4 MG TAB TAPER PO SCH (07:17)
[2017-09-23] MEDS: MULTIVITAMINS, THERA 1 EACH TAB PO SCH (07:18)
[2017-09-23] MEDS: FAMOTIDINE 20 MG TAB PO SCH (07:18)
[2017-09-23] MEDS: APIXABAN 5 MG TAB PO SCH (07:18)
[2017-09-23] MEDS: CARVEDILOL 12.5 MG TAB PO SCH (07:19)
[2017-09-23] MEDS: LIDOCAINE 5% PATCH TOPICAL SCH (07:19)
[2017-09-23] MEDS: COLCHICINE 0.6 MG EACH PO SCH (07:19)
[2017-09-23] MEDS: GABAPENTIN 100 MG CAP PO SCH ×2 (07:19→15:05)
[2017-09-23] MEDS: INSULIN ASPART 100 UNIT/ML 1 ML 10 ML VIAL SQ SCH ×2 (07:20→11:36)
[2017-09-23 08:06] LABS: Anion Gap 5 mmol/L; Blood Urea Nitrogen 20 mg/dL (9-20); Calcium 8.2 mg/dL (8.4-10.2); Carbon Dioxide 33 mmol/L (22-30); Chloride 99 mmol/L (98-107); Glucose 129 mg/dL (74-99); Magnesium 1.5 mg/dL (1.6-2.3); Potassium 4.8 mmol/L (3.5-5.1); Sodium 137 mmol/L (137-145)
[2017-09-23 08:14] LABS: Anisocytosis Slight; Basophils % (A) 0 %; Eosinophils # (A) 0.1 k/uL (0-0.7); Eosinophils % (A) 2 %; HCT 34.9 % (39.0-53.0); HGB 11.2 gm/dL (13.0-17.5); Hypochromasia Slight; Lymphocytes # (A) 1.2 k/uL (1.0-4.8); Lymphocytes % (A) 14 %; MCH 28.6 pg (25.0-35.0); MCV 89.2 fL (80.0-100.0); Mean Platelet Volume 7.7; Monocytes # (A) 0.6 k/uL (0-1.0); Monocytes % (A) 7 %; Neutrophils # (A) 6.6 k/uL (1.3-7.7); Neutrophils % (A) 76 %; Platelet Count 299 k/uL (150-450); Poikilocytosis Slight; RBC 3.92 m/uL (4.30-5.90); RDW 16.2 % (11.5-15.5); WBC 8.6 k/uL (3.8-10.6)
[2017-09-23 11:25] LABS: Glucose,Whole Blood 167 mg/dL (75-99)
[2017-09-23] MEDS ORDERED: Magnesium Replacement Protocol 1 EACH MISC MISCELLANE PRN (13:14)
--- NOTE | 2017-09-23 13:19 | P.DS ---
Providers Date of admission: 09/18/17 20:59 Expected date of discharge: 09/23/17 Attending physician: MD Dr. Dax Alarcon Consults: 09/20/17 11:02 Consult Physician Routine Consulting Provider: Crescencio Vila Consult Reason/Comments: sepsis Do you want consulting provider notified?: Yes 09/20/17 14:01 Consult Physician Routine Consulting Provider: Del Marrufo Consult Reason/Comments: abnormal ct chest Do you want consulting provider notified?: Yes Primary care physician: Ishmael Levi Hospital Course: Final Diagnoses: 1. Dehydration, acute electrolyte imbalance secondary to diminished oral intake , present on admission 2. VRE with Enterococcus faecalis sepsis 3. Left upper lobe nodular lesion, possibly inflammatory or infectious per pulmonary 4. Hypomagnesemia 5. Hypokalemia, resolved 6. Left shoulder pain, right knee pain, possibly degenerative joint disease 7. Possible acute gout 8. Acute on chronic pain syndrome Hospital course: This is a 73-year-old gentleman admitted with dehydration,VRE with Enterococcus faecalis sepsis. Evaluated by orthopedics, pulmonary, infectious disease. Maintained on IV antibiotics, electrolyte supplemented, received gentle IV fluid hydration. Midline catheter placed. Significant clinical improvement. Patient has been cleared by all consults for discharge. Patient is being discharged to [facility] subacute rehab in a stable condition with guarded prognosis. Exam: Gen: Alert and oriented 3, no acute distress. CV: S1, S2 muffled.LUNGS: Bilateral bases diminished, no rhonchi, no crackles. ABD: Soft, nontender, positive bowel sounds. NEURO: Higher functions as mentioned earlier, moves all 4 extremities. Microbiology 09/20/17 11:22 Blood Blood Culture - Preliminary No Growth after 48 hours 09/18/17 15:18 Blood Blood Culture Gram Stain - Final 09/18/17 15:18 Blood Blood Culture - Final Enterococcus faecalis VRE 09/18/17 19:30 Blood Blood Culture - Final 09/18/17 19:30 Urine,Catheterized Urine Culture - Final The impression and plan of care has been dictated as directed. : I performed a history and examination of this patient, discussed the same with the dictator. I agree with the dictator's note ,documented as a scribe. Any additional findings or plans will be noted. Time taken: 35 minutes Patient Condition at Discharge: Stable Plan - Discharge Summary New Discharge Prescriptions: New Famotidine [Pepcid] 20 mg PO DAILY@0700 tab Ampicillin-Sulbactam [Unasyn] 3 gm IVPB Q6HR #40 vial methylPREDNISolone Dose Pack [Medrol Dose Pack] 4 mg PO DIRECTED #21 package Furosemide [Lasix] 20 mg PO DAILY #7 tab Colchicine [Colcrys] 0.6 mg PO DIRECTED #33 tablet Continue Gabapentin [Neurontin] 100 mg PO TID@0700,1300,1900 Carvedilol [Coreg] 12.5 mg PO BID@0700,1600 Simvastatin [Zocor] 40 mg PO HS Nystatin 100,000 Unit/ml Susp [Mycostatin Oral Susp] 5 ml PO Q6H metFORMIN HCL 1,000 mg PO BID Menthol [Biofreeze] 1 applic TOPICAL DAILY PRN PRN Reason: Pain Fluticasone/Vilanterol [Breo Ellipta 200-25 Mcg INH] 1 puff INHALATION RT- DAILY@0800 Amino Acids/Protein Hydrolys [Pro-Stat Supplement] 30 ml PO BID Multivitamin [Men's Multi-Vitamin] 1 tab PO DAILY@0800 Melatonin 5 mg PO HS Acetaminophen Tab [Tylenol] 650 mg PO Q6H PRN PRN Reason: Mild Pain Or Fever > 100.5 Ipratropium-Albuterol Nebulize [Duoneb 0.5 mg-3 mg/3 ml Soln] 3 ml INHALATION TID@0500,1300,2100 Apixaban [Eliquis] 5 mg PO BID Lidocaine [Lidoderm 5% Patch] 1 patch TRANSDERM BID Magnesium Hydroxide [Milk of Magnesia] 2,400 mg PO DAILY PRN PRN Reason: Constipation traMADol HCL [Ultram] 50 mg PO Q8HR PRN #12 tablet PRN Reason: Moderate Pain Changed Ipratropium-Albuterol Nebulize [Duoneb 0.5 mg-3 mg/3 ml Soln] 3 ml INHALATION Q4H PRN #0 PRN Reason: Shortness Of Breath Discharge Medication List Carvedilol [Coreg] 12.5 mg PO BID@0700,1600 08/07/17 [History] Gabapentin [Neurontin] 100 mg PO TID@0700,1300,1900 08/07/17 [History] Simvastatin [Zocor] 40 mg PO HS 08/07/17 [History] Menthol [Biofreeze] 1 applic TOPICAL DAILY PRN 08/25/17 [History] Nystatin 100,000 Unit/ml Susp [Mycostatin Oral Susp] 5 ml PO Q6H 08/25/17 [ History] metFORMIN HCL 1,000 mg PO BID 08/25/17 [History] Acetaminophen Tab [Tylenol] 650 mg PO Q6H PRN 09/19/17 [History] Amino Acids/Protein Hydrolys [Pro-Stat Supplement] 30 ml PO BID 09/19/17 [ History] Apixaban [Eliquis] 5 mg PO BID 09/19/17 [History] Fluticasone/Vilanterol [Breo Ellipta 200-25 Mcg INH] 1 puff INHALATION RT-DAILY@ 0800 09/19/17 [History] Ipratropium-Albuterol Nebulize [Duoneb 0.5 mg-3 mg/3 ml Soln] 3 ml INHALATION TID@0500,1300,2100 09/19/17 [History] Lidocaine [Lidoderm 5% Patch] 1 patch TRANSDERM BID 09/19/17 [History] Magnesium Hydroxide [Milk of Magnesia] 2,400 mg PO DAILY PRN 09/19/17 [History] Melatonin 5 mg PO HS 09/19/17 [History] Multivitamin [Men's Multi-Vitamin] 1 tab PO DAILY@0800 09/19/17 [History] Ampicillin-Sulbactam [Unasyn] 3 gm IVPB Q6HR #40 vial 09/23/17 [Rx] Colchicine [Colcrys] 0.6 mg PO DIRECTED #33 tablet 09/23/17 [Rx] Famotidine [Pepcid] 20 mg PO DAILY@0700 tab 09/23/17 [Rx] Furosemide [Lasix] 20 mg PO DAILY #7 tab 09/23/17 [Rx] Ipratropium-Albuterol Nebulize [Duoneb 0.5 mg-3 mg/3 ml Soln] 3 ml INHALATION Q4H PRN #0 09/23/17 [Rx] methylPREDNISolone Dose Pack [Medrol Dose Pack] 4 mg PO DIRECTED #21 package 09/23/17 [Rx] traMADol HCL [Ultram] 50 mg PO Q8HR PRN #12 tablet 09/23/17 [Rx] Follow up Appointment(s)/Referral(s): Dc Santizo MD [STAFF PHYSICIAN] - 1 Week Rafat Jenkins DO [STAFF PHYSICIAN] - 3 Days Crescencio Vila MD [STAFF PHYSICIAN] - 1 Week Leland Thao MD [Medical Doctor] - 1 Week Ambulatory/Diagnostic Orders: Complete Blood Count w/diff [LAB.AMB] Time Frame: 3 Days, Location: None Selected Activity/Diet/Wound Care/Special Instructions: PT for shoulder and knees PICC Pending WBAT F/U with Dr. Thao in office Discharge Disposition: TRANSFER TO SNF/ECF
--- NOTE | 2017-09-23 13:25 | PN ---
PROGRESS NOTE DATE OF SERVICE: 09/23/2017 REASON FOR FOLLOWUP: VRE bacteremia source possible abdominal. INTERVAL HISTORY: The patient is currently afebrile. He is breathing comfortably. Denies having any chest pain or any cough. No abdominal pain. No nausea, vomiting, or any diarrhea. PHYSICAL EXAMINATION: On examination, blood pressure 139/72 with a pulse of 79, temperature 97.6. He is 94% on 2 L nasal cannula. General description is an elderly male lying in bed in no distress. RESPIRATORY SYSTEM: Unlabored breathing, clear to auscultation anteriorly. HEART: S1, S2. Regular rate and rhythm. ABDOMEN: Soft, no tenderness. LABS: Hemoglobin 11.2, white count 8.6, BUN of 20, creatinine 0.65. Blood culture repeat 09/20 has been negative. DIAGNOSTIC IMPRESSION AND PLAN: Patient with VRE bacteremia source possible abdominal in view of his abdominal symptoms, no evidence of any abdominal abscess. The patient's VRE is sensitive to penicillin. The patient currently on Unasyn with repeat blood culture has been negative. He will continue with Unasyn to finish a 10-day course of therapy with close outpatient followup. Continue supportive care. MMODL / IJN: [id number] /
== END 2017-09-23 16:07 | DRG 872 ==
LOC: EC 18:29 → 5MS5E 20:59
PROVIDERS: ADMIT Internal Medicine; ATTEND Internal Medicine
PROC: 05HD33Z Insertion of Infusion Device into Right Cephalic Vein, Percutaneous Approach (ICD-10-PCS; principal; 2017-09-22 13:45)
PROC: B54MZZA Ultrasonography of Right Upper Extremity Veins, Guidance (ICD-10-PCS; 2017-09-22 13:45)
DX: A41.81 Sepsis due to Enterococcus (principal); E87.1 Hypo-osmolality and hyponatremia; I42.9 Cardiomyopathy, unspecified; I50.32 Chronic diastolic (congestive) heart failure; D64.9 Anemia, unspecified; E11.9 Type 2 diabetes mellitus without complications; E78.5 Hyperlipidemia, unspecified; E83.42 Hypomagnesemia; E86.0 Dehydration; E87.5 Hyperkalemia; F03.90 Unspecified dementia, unspecified severity, without behavioral disturbance, psychotic disturbance, mood disturbance, and anxiety; G89.4 Chronic pain syndrome; I11.0 Hypertensive heart disease with heart failure; I48.2 Chronic atrial fibrillation; J44.9 Chronic obstructive pulmonary disease, unspecified; J98.4 Other disorders of lung; K57.90 Diverticulosis of intestine, part unspecified, without perforation or abscess without bleeding; K59.00 Constipation, unspecified; M10.9 Gout, unspecified; M17.10 Unilateral primary osteoarthritis, unspecified knee; M19.012 Primary osteoarthritis, left shoulder; M75.00 Adhesive capsulitis of unspecified shoulder; Z79.01 Long term (current) use of anticoagulants; Z79.51 Long term (current) use of inhaled steroids; Z79.84 Long term (current) use of oral hypoglycemic drugs; Z79.899 Other long term (current) drug therapy; Z87.01 Personal history of pneumonia (recurrent); Z95.0 Presence of cardiac pacemaker
CPT/HCPCS: 36415; 36569; 71045; 71260; 74177; 76937; 80048; 80053; 81001; 83690; 83735; 84484; 84550; 85025; 85610; 85652; 86140; 87040; 87077; 87086; 87186; 93005; 93306; 94640; 94760; 99285

== ENCOUNTER 2018-06-06 18:50 | Inpatient (IN) | payer MEDICARE ==
[2018-06-06] MEDS ORDERED: DILTIAZEM DRIP BOLUS FROM BAG 1 MG SOLN IV ONE (19:14)
[2018-06-06] MEDS ORDERED: ONDANSETRON 4 MG/2 ML VIAL IVP STA (19:18)
--- NOTE | 2018-06-06 19:20 | ED ---
General Adult HPI - General Source: patient Mode of arrival: EMS Limitations: no limitations <Evie Carranza - Last Filed: 06/07/18 01:39> <Yassine Burgos - Last Filed: 06/07/18 08:00> - General Chief complaint: Chest Pain Stated complaint: weakness, dehydration Time Seen by Provider: 06/06/18 19:04 - History of Present Illness Initial comments: 73-year-old male patient is brought to the emergency department today for evaluation of weakness after reportedly experiencing vomiting and diarrhea over the last couple of days. Upon arrival patient does report shortness of breath and right-sided chest pain. Patient is a poor historian and is unable to elaborate how long symptoms have been present. He is unsure of his past medical history however chart review reveals he does have history of congestive heart failure, Diabetes, hypertension, history of alcohol abuse, and chronic atrial fibrillation. Patient is brought in by EMS, given 500 mL fluid bolus. Patient denies any recent rash, fever, chills, abdominal pain, back pain, numbness, tingling, dizziness, hematuria, dysuria, urinary urgency, urinary frequency, headache, visual changes, or any other complaints. (Evie Carranza) - Related Data Home Medications Medication Instructions Recorded Confirmed Simvastatin [Zocor] 40 mg PO HS 08/07/17 06/06/18 Menthol [Biofreeze] 1 applic TOPICAL DAILY PRN 08/25/17 06/06/18 metFORMIN HCL 1,000 mg PO BID 08/25/17 06/06/18 Acetaminophen Tab [Tylenol] 650 mg PO Q6H PRN 09/19/17 06/06/18 Apixaban [Eliquis] 5 mg PO BID 09/19/17 06/06/18 Melatonin 5 mg PO HS 09/19/17 06/06/18 Albuterol Inhaler [Ventolin Hfa 2 puff INHALATION RT-Q6H PRN 06/06/18 06/06/18 Inhaler] Amoxic-Pot Clav 875-125Mg 1 tab PO Q12HR 06/06/18 06/06/18 [Augmentin 875-125] Carvedilol [Coreg] 6.25 mg PO BID 06/06/18 06/06/18 Colchicine [Colcrys] 0.6 mg PO DAILY PRN 06/06/18 06/06/18 Torsemide [Demadex] 20 mg PO DAILY 06/06/18 06/06/18 Previous Rx's Medication Instructions Recorded Famotidine [Pepcid] 20 mg PO DAILY@0700 tab 09/23/17 traMADol HCL [Ultram] 50 mg PO Q8HR PRN #12 tablet 09/23/17 Allergies Allergy/AdvReac Type Severity Reaction Status Date / Time No Known Allergies Allergy Verified 06/06/18 20:11 Review of Systems ROS Other: All systems not noted in ROS Statement are negative. <Evie Carranza - Last Filed: 06/07/18 01:39> ROS Other: All systems not noted in ROS Statement are negative. <Yassine Burgos - Last Filed: 06/07/18 08:00> ROS Statement: Those systems with pertinent positive or pertinent negative responses have been documented in the HPI. Past Medical History Past Medical History: Atrial Fibrillation, Heart Failure, COPD, Diabetes Mellitus, Hypertension, Renal Disease Additional Past Medical History / Comment(s): cellulitis, anemia, obesity, alcohol abusue, cardiomyopathy, generalized weakness. bilateral carpal tunnel, gout History of Any Multi-Drug Resistant Organisms: VRE Date of last positivie culture/infection: 09/18/17 MDRO Source:: Blood Past Surgical History: Unable to Obtain Additional Past Anesthesia/Blood Transfusion Reaction / Comment(s): unable to obtain Past Psychological History: No Psychological Hx Reported Smoking Status: Unknown if ever smoked Past Alcohol Use History: None Reported Past Drug Use History: None Reported - Past Family History Father History Unknown: Yes Family Medical History: Unable to Obtain Mother History Unknown: Yes Family Medical History: Unable to Obtain <Evie Carranza - Last Filed: 06/07/18 01:39> General Exam Limitations: no limitations General appearance: alert, in no apparent distress, other (Physical well- developed, well-nourished elderly male patient in no acute distress. Vital signs upon presentation are temperature 97.0F, pulse 103, respirations 22, blood pressure 98/71, pulse ox 86% on room air.) Eye exam: Present: normal appearance, PERRL, EOMI. Absent: scleral icterus, conjunctival injection, periorbital swelling ENT exam: Present: normal exam, normal oropharynx, mucous membranes moist Respiratory exam: Present: accessory muscle use (Abdominal x-ray muscle use), decreased breath sounds, other (Tachypnea). Absent: normal lung sounds bilaterally, respiratory distress, wheezes, rales, rhonchi, stridor Cardiovascular Exam: Present: tachycardia, irregular rhythm, normal heart sounds. Absent: systolic murmur, diastolic murmur, rubs, gallop, clicks GI/Abdominal exam: Present: soft, normal bowel sounds. Absent: distended, tenderness, guarding, rebound, rigid Neurological exam: Present: alert, CN II-XII intact. Absent: oriented X3 (Oriented 2) Psychiatric exam: Present: normal affect, normal mood Skin exam: Present: warm, dry, intact, normal color. Absent: rash <BantleEvie M - Last Filed: 06/07/18 01:39> Course Vital Signs 06/06/18 06/06/18 06/06/18 18:58 18:59 19:00 Temperature 97.0 F L Pulse Rate 103 H 128 H Respiratory 14 22 19 Rate Blood Pressure 98/71 98/71 O2 Sat by Pulse 78 L 86 L Oximetry 06/06/18 06/06/18 06/06/18 19:10 19:30 19:40 Temperature Pulse Rate 114 H 109 H 103 H Respiratory 20 19 17 Rate Blood Pressure 103/64 102/58 119/65 O2 Sat by Pulse Oximetry 06/06/18 06/06/18 06/06/18 19:50 20:00 20:10 Temperature Pulse Rate 101 H 101 H 95 Respiratory 19 18 18 Rate Blood Pressure 111/61 111/61 113/65 O2 Sat by Pulse 100 91 L Oximetry 06/06/18 06/06/18 06/06/18 20:21 20:30 20:40 Temperature Pulse Rate 99 106 H Respiratory 18 18 Rate Blood Pressure 113/65 113/65 121/64 O2 Sat by Pulse 92 L 88 L Oximetry 06/06/18 06/06/18 06/06/18 20:50 21:00 21:10 Temperature Pulse Rate 110 H 111 H 106 H Respiratory 17 18 18 Rate Blood Pressure 120/60 120/60 127/71 O2 Sat by Pulse 92 L 93 L 94 L Oximetry 06/06/18 06/06/18 06/06/18 21:20 21:30 21:40 Temperature Pulse Rate 104 H 105 H Respiratory 12 22 Rate Blood Pressure 135/69 135/69 125/71 O2 Sat by Pulse 93 L 91 L Oximetry 06/06/18 06/06/18 06/06/18 21:45 21:50 22:00 Temperature Pulse Rate 105 H Respiratory 14 Rate Blood Pressure 129/76 129/76 O2 Sat by Pulse 90 L Oximetry 06/06/18 06/06/18 06/06/18 22:10 22:30 22:39 Temperature Pulse Rate 105 H 109 H 100 Respiratory 14 14 14 Rate Blood Pressure 88/53 91/55 92/62 O2 Sat by Pulse 100 99 99 Oximetry 06/06/18 06/06/18 06/07/18 23:00 23:30 00:00 Temperature Pulse Rate 105 H 95 92 Respiratory 18 16 16 Rate Blood Pressure 95/63 96/51 99/70 O2 Sat by Pulse 99 99 100 Oximetry 06/07/18 06/07/18 06/07/18 00:30 00:45 01:00 Temperature Pulse Rate 98 94 95 Respiratory 22 20 22 Rate Blood Pressure 120/72 113/78 113/78 O2 Sat by Pulse 100 100 98 Oximetry 06/07/18 06/07/18 06/07/18 01:30 02:00 02:21 Temperature Pulse Rate 87 93 Respiratory 15 20 Rate Blood Pressure 105/54 94/59 101/77 O2 Sat by Pulse 95 99 Oximetry EKG Findings - EKG Comments: EKG Findings:: EKG obtained at 1908 shows A. fib with RVR with a ventricular rate of 110, QRS duration 96, QT 384, QTC 519. No evidence of ST elevation or depression. <Evie Carranza M - Last Filed: 06/07/18 01:39> Procedures - Central Line Placement Right Femoral Consent Obtained: emergent situation Patient Placed on Monitor/Pulse Ox: Yes MD Prep: mask, gown, gloves Central Line Prep: Povidone-Iodine 1% Local Anesthesia Used: Lidocaine 1% Amount of Anesthesia Used (mls): 3 Central Line Lumen Inserted: triple Bloods Obtained for Lab: Yes Central Line Position: good blood return, all ports aspirated, flushed, capped, sutured in place with 3-0 nylon Dressing Applied: Tegaderm Patient Tolerated Procedure: well, no complications Complications: none - Intubation Sedative: Versed Paralytic: Succinylcholine Laryngoscope: Barclay Size: 4 ET Tube Size: 8 ET Tube Uncuffed: No Tube Secured Depth (cm): 26 Tube Secured Location: lips Tube Placement Confirmation: visualized tube passing through cords, equal breath sounds bilaterally, no breath sounds over epigastrium, confirmation by capnometry Patient Tolerated Procedure: well Intubation Complications: none <Yassine Burgos - Last Filed: 06/07/18 08:00> - Intubation Additional Comments: Please note that after checking the post intubation x-ray and finding the position of the tube, the tube was withdrawn 2 cm. (Yassine Burgos) Medical Decision Making - Lab Data Result diagrams: 06/06/18 19:15 06/06/18 19:15 <Evie Carranza - Last Filed: 06/07/18 01:39> - Lab Data Result diagrams: 06/07/18 06:00 06/07/18 06:00 <Yassine Burgos - Last Filed: 06/07/18 08:00> - Medical Decision Making 73-year-old male patient was brought in for evaluation of weakness, nausea, and vomiting. Upon arrival patient is short of breath, exhibits atrial fibrillation with RVR, he was alert and responding to questions appropriately. Physical examination did reveal diminished lung sounds with accessory muscle use and tachypnea. Abdomen soft and non-tender. Patient was placed on nasal cannula, oxygen saturations did improve somewhat. Labs reveal elevated WBC count at 18.8, Lactic acid 3.2, BUN 71, Creatinine 6.99, Potassium 5.7. BNP 7230. Chest xray did reveal a cristhian out left saige-thorax. Did discuss patient case with my attending Dr. Burgos, we did add Chest CT without contrast allowing for renal function. Patient did have bowel movement which appeared dark, occult positive. Hgb 11.7 at this time. While in the department patient's status did deteriorate, he became unresponsive, with agonal, snoring respirations. Patient was intubated at that time. ABG drawn. Vent settings adjusted. My attending did discuss the case with the on-call physician assistant surgery. Patient will be transferred to the ICU. Antibiotics were started. Fluid resuscitation initiated. We will consult nephrology and oncology. (Evei Carranza) I saw this patient in conjunction with the physician front end assistant. I performed independent history and physical exam. Agree with case management. Case discussed with both the admitting physician and the physician assistant surgery, treatment recommendations are incorporated. I did personally intubate the patient as well as place the central line. (Yassine Burgos) - Lab Data Lab Results 06/06/18 06/06/18 06/06/18 Range/Units 19:15 19:15 19:15 WBC 18.8 H (3.8-10.6) k/uL RBC 4.10 L (4.30-5.90) m/uL Hgb 11.7 L (13.0-17.5) gm/dL Hct 37.2 L (39.0-53.0) % MCV 90.7 (80.0-100.0) fL MCH 28.6 (25.0-35.0) pg MCHC 31.5 (31.0-37.0) g/dL RDW 16.4 H (11.5-15.5) % Plt Count 365 (150-450) k/uL Neutrophils % 85 % Lymphocytes % 7 % Monocytes % 6 % Eosinophils % 1 % Basophils % 0 % Neutrophils # 16.0 H (1.3-7.7) k/uL Lymphocytes # 1.3 (1.0-4.8) k/uL Monocytes # 1.1 H (0-1.0) k/uL Eosinophils # 0.1 (0-0.7) k/uL Basophils # 0.0 (0-0.2) k/uL Hypochromasia Moderate Poikilocytosis Slight Anisocytosis Slight PT (9.0-12.0) sec INR (<1.2) APTT (22.0-30.0) sec Sample Site ABG pH (7.35-7.45) ABG pCO2 (35-45) mmHg ABG pO2 (83-108) mmHg ABG HCO3 (21-25) mmol/L ABG Total CO2 (19-24) mmol/L ABG O2 Saturation (94-97) % ABG Base Excess mmol/L Avtar Test FiO2 % Sodium 137 (137-145) mmol/L Potassium 5.7 H (3.5-5.1) mmol/L Chloride 100 (98-107) mmol/L Carbon Dioxide 14 L (22-30) mmol/L Anion Gap 23 mmol/L BUN 71 H (9-20) mg/dL Creatinine 6.99 H (0.66-1.25) mg/dL Est GFR (CKD-EPI)AfAm 8 (>60 ml/min/1.73 sqM) Est GFR (CKD-EPI)NonAf 7 (>60 ml/min/1.73 sqM) Glucose 162 H (74-99) mg/dL Lactic Ac Sepsis Rflx Plasma Lactic Acid Oscar (0.7-2.0) mmol/L Calcium 8.8 (8.4-10.2) mg/dL Magnesium 1.9 (1.6-2.3) mg/dL Total Bilirubin 1.2 (0.2-1.3) mg/dL AST 16 L (17-59) U/L ALT 14 L (21-72) U/L Alkaline Phosphatase 52 (38-126) U/L Troponin I (0.000-0.034) ng/mL NT-Pro-B Natriuret Pep 7230 pg/mL Total Protein 6.7 (6.3-8.2) g/dL Albumin 3.7 (3.5-5.0) g/dL Stool Occult Blood (Negative) 06/06/18 06/06/18 06/06/18 Range/Units 19:15 19:15 19:15 WBC (3.8-10.6) k/uL RBC (4.30-5.90) m/uL Hgb (13.0-17.5) gm/dL Hct (39.0-53.0) % MCV (80.0-100.0) fL MCH (25.0-35.0) pg MCHC (31.0-37.0) g/dL RDW (11.5-15.5) % Plt Count (150-450) k/uL Neutrophils % % Lymphocytes % % Monocytes % % Eosinophils % % Basophils % % Neutrophils # (1.3-7.7) k/uL Lymphocytes # (1.0-4.8) k/uL Monocytes # (0-1.0) k/uL Eosinophils # (0-0.7) k/uL Basophils # (0-0.2) k/uL Hypochromasia Poikilocytosis Anisocytosis PT 11.6 (9.0-12.0) sec INR 1.1 (<1.2) APTT 28.7 (22.0-30.0) sec Sample Site ABG pH (7.35-7.45) ABG pCO2 (35-45) mmHg ABG pO2 (83-108) mmHg ABG HCO3 (21-25) mmol/L ABG Total CO2 (19-24) mmol/L ABG O2 Saturation (94-97) % ABG Base Excess mmol/L Avtar Test FiO2 % Sodium (137-145) mmol/L Potassium (3.5-5.1) mmol/L Chloride (98-107) mmol/L Carbon Dioxide (22-30) mmol/L Anion Gap mmol/L BUN (9-20) mg/dL Creatinine (0.66-1.25) mg/dL Est GFR (CKD-EPI)AfAm (>60 ml/min/1.73 sqM) Est GFR (CKD-EPI)NonAf (>60 ml/min/1.73 sqM) Glucose (74-99) mg/dL Lactic Ac Sepsis Rflx Plasma Lactic Acid Oscar 3.2 H* (0.7-2.0) mmol/L Calcium (8.4-10.2) mg/dL Magnesium (1.6-2.3) mg/dL Total Bilirubin (0.2-1.3) mg/dL AST (17-59) U/L ALT (21-72) U/L Alkaline Phosphatase (38-126) U/L Troponin I <0.012 (0.000-0.034) ng/mL NT-Pro-B Natriuret Pep pg/mL Total Protein (6.3-8.2) g/dL Albumin (3.5-5.0) g/dL Stool Occult Blood (Negative) 06/06/18 06/06/18 06/06/18 Range/Units 20:13 22:30 22:42 WBC (3.8-10.6) k/uL RBC (4.30-5.90) m/uL Hgb (13.0-17.5) gm/dL Hct (39.0-53.0) % MCV (80.0-100.0) fL MCH (25.0-35.0) pg MCHC (31.0-37.0) g/dL RDW (11.5-15.5) % Plt Count (150-450) k/uL Neutrophils % % Lymphocytes % % Monocytes % % Eosinophils % % Basophils % % Neutrophils # (1.3-7.7) k/uL Lymphocytes # (1.0-4.8) k/uL Monocytes # (0-1.0) k/uL Eosinophils # (0-0.7) k/uL Basophils # (0-0.2) k/uL Hypochromasia Poikilocytosis Anisocytosis PT (9.0-12.0) sec INR (<1.2) APTT (22.0-30.0) sec Sample Site Right Brachial ABG pH 7.04 L* (7.35-7.45) ABG pCO2 63 H (35-45) mmHg ABG pO2 61 L (83-108) mmHg ABG HCO3 17 L (21-25) mmol/L ABG Total CO2 19 (19-24) mmol/L ABG O2 Saturation 87.2 L (94-97) % ABG Base Excess -13.9 mmol/L Avtar Test Yes FiO2 100 % Sodium (137-145) mmol/L Potassium (3.5-5.1) mmol/L Chloride (98-107) mmol/L Carbon Dioxide (22-30) mmol/L Anion Gap mmol/L BUN (9-20) mg/dL Creatinine (0.66-1.25) mg/dL Est GFR (CKD-EPI)AfAm (>60 ml/min/1.73 sqM) Est GFR (CKD-EPI)NonAf (>60 ml/min/1.73 sqM) Glucose (74-99) mg/dL Lactic Ac Sepsis Rflx Y Plasma Lactic Acid Oscar (0.7-2.0) mmol/L Calcium (8.4-10.2) mg/dL Magnesium (1.6-2.3) mg/dL Total Bilirubin (0.2-1.3) mg/dL AST (17-59) U/L ALT (21-72) U/L Alkaline Phosphatase (38-126) U/L Troponin I (0.000-0.034) ng/mL NT-Pro-B Natriuret Pep pg/mL Total Protein (6.3-8.2) g/dL Albumin (3.5-5.0) g/dL Stool Occult Blood Positive (Negative) 06/07/18 Range/Units 00:30 WBC (3.8-10.6) k/uL RBC (4.30-5.90) m/uL Hgb (13.0-17.5) gm/dL Hct (39.0-53.0) % MCV (80.0-100.0) fL MCH (25.0-35.0) pg MCHC (31.0-37.0) g/dL RDW (11.5-15.5) % Plt Count (150-450) k/uL Neutrophils % % Lymphocytes % % Monocytes % % Eosinophils % % Basophils % % Neutrophils # (1.3-7.7) k/uL Lymphocytes # (1.0-4.8) k/uL Monocytes # (0-1.0) k/uL Eosinophils # (0-0.7) k/uL Basophils # (0-0.2) k/uL Hypochromasia Poikilocytosis Anisocytosis PT (9.0-12.0) sec INR (<1.2) APTT (22.0-30.0) sec Sample Site ABG pH (7.35-7.45) ABG pCO2 (35-45) mmHg ABG pO2 (83-108) mmHg ABG HCO3 (21-25) mmol/L ABG Total CO2 (19-24) mmol/L ABG O2 Saturation (94-97) % ABG Base Excess mmol/L Avtar Test FiO2 % Sodium (137-145) mmol/L Potassium (3.5-5.1) mmol/L Chloride (98-107) mmol/L Carbon Dioxide (22-30) mmol/L Anion Gap mmol/L BUN (9-20) mg/dL Creatinine (0.66-1.25) mg/dL Est GFR (CKD-EPI)AfAm (>60 ml/min/1.73 sqM) Est GFR (CKD-EPI)NonAf (>60 ml/min/1.73 sqM) Glucose (74-99) mg/dL Lactic Ac Sepsis Rflx Plasma Lactic Acid Oscar 1.9 (0.7-2.0) mmol/L Calcium (8.4-10.2) mg/dL Magnesium (1.6-2.3) mg/dL Total Bilirubin (0.2-1.3) mg/dL AST (17-59) U/L ALT (21-72) U/L Alkaline Phosphatase (38-126) U/L Troponin I (0.000-0.034) ng/mL NT-Pro-B Natriuret Pep pg/mL Total Protein (6.3-8.2) g/dL Albumin (3.5-5.0) g/dL Stool Occult Blood (Negative) Critical Care Time Critical Care Time: Yes Total Critical Care Time: 60 <Evie Carranza - Last Filed: 06/07/18 01:39> Disposition Decision to Admit Reason: Admit from EC Decision Date: 06/07/18 Decision Time: 01:11 <Evie Carranza - Last Filed: 06/07/18 01:39> <Yassine Burgos - Last Filed: 06/07/18 08:00> Clinical Impression: Acute and chronic respiratory failure with hypoxia, Afib, Pleural effusion, left, Sepsis, Acute on chronic renal failure Disposition: ADMITTED IP TO THIS HOSP Condition: Critical
[2018-06-06] MEDS ORDERED: DILTIAZEM 125 MG in SODIUM CHLORIDE 0.9% 100 ML IV SCH (19:30)
[2018-06-06 19:42] LABS: Anisocytosis Slight; Basophils % (A) 0 %; Eosinophils # (A) 0.1 k/uL (0-0.7); Eosinophils % (A) 1 %; HCT 37.2 % (39.0-53.0); HGB 11.7 gm/dL (13.0-17.5); Hypochromasia Moderate; Lymphocytes # (A) 1.3 k/uL (1.0-4.8); Lymphocytes % (A) 7 %; MCH 28.6 pg (25.0-35.0); MCHC 31.5 g/dL (31.0-37.0); MCV 90.7 fL (80.0-100.0); Mean Platelet Volume 7.6; Monocytes # (A) 1.1 k/uL (0-1.0); Monocytes % (A) 6 %; Neutrophils % (A) 85 %; Platelet Count 365 k/uL (150-450); Poikilocytosis Slight; RDW 16.4 % (11.5-15.5); WBC 18.8 k/uL (3.8-10.6)
[2018-06-06 19:48] LABS: INR 1.1 (<1.2); Partial Thromboplastin Time 28.7 sec (22.0-30.0); Prothrombin Time 11.6 sec (9.0-12.0)
[2018-06-06 20:26] LABS: Albumin 3.7 g/dL (3.5-5.0); Calcium 8.8 mg/dL (8.4-10.2); Magnesium 1.9 mg/dL (1.6-2.3); Potassium 5.7 mmol/L (3.5-5.1); Total Bilirubin 1.2 mg/dL (0.2-1.3); Total Protein 6.7 g/dL (6.3-8.2)
--- NOTE | 2018-06-06 21:23 | XR ---
EXAMINATION: XR chest 2V DATE AND TIME: 06/06/2018 8:25 PM CLINICAL INDICATION: PHH; Chest Pain TECHNIQUE: Departmental protocol COMPARISON: 09/18/2017 radiograph FINDINGS: Cardiac pacemaker and EKG leads. At least moderate enlargement of the cardiac silhouette is redemonstrated with tortuosity of the thor acic aorta. New since the prior study is a near complete white out of the left hemithorax, consistent with pleura l effusion and atelectasis throughout the left lung parenchyma. On the right, the upper and mid and lower lung parenchyma appears to be inflated and clear as seen. Bones and soft tissues are unremarkable. IMPRESSION: Left hemithorax white-out.
[2018-06-06] MEDS ORDERED: SUCCINYLCHOLINE CHLORIDE VIAL 200 MG/10 ML VIAL IV STA (21:54)
[2018-06-06] MEDS ORDERED: MIDAZOLAM 1 MG/ML 5 ML VIAL IV STA (21:54)
--- NOTE | 2018-06-06 22:07 | CT ---
EXAMINATION TYPE: CT chest wo con DATE OF EXAM: 06/06/2018 COMPARISON: 09/19/2017 HISTORY: weakness, chest pain, SOB CT DLP: 602.4 mGycm. Automated Exposure Control for Dose Reduction was Utilized. TECHNIQUE: CT scan of the thorax is performed without IV contrast. FINDINGS: LEFT HEMITHORAX: There is a complex moderate left pleural effusion circumferential to the lung parenc hyma. The left lung parenchyma is nearly entirely underinflated. The only inflated lung is high in ap ex. There is prominent prevascular space adenopathy and there is subcarinal, right paratracheal and s uperior mediastinal adenopathy. CARDIAC EXAMINATION: Mild cardiomegaly, and without pericardial effusion. Prominent coronary calcific ations. RIGHT HEMITHORAX: The right lung is well-expanded. There may be a minimal element of interstitial pha se pulmonary edema, but there is no atelectasis or candidate for pneumonia. The right pleural space i s negative. SKELETAL STRUCTURES: No focal skeletal lesions. IMPRESSION: LEFT WHITE-OUT: SUSPECT NEOPLASTIC PROCESS.
[2018-06-06] MEDS ORDERED: AZITHROMYCIN 500 MG in SODIUM CHLORIDE 0.9% 250 ML IVPB STA (22:42)
[2018-06-06 22:46] LABS: ABG Base Excess -13.9 mmol/L; ABG HCO3 17 mmol/L (21-25); ABG Oxygen Saturation 87.2 % (94-97); ABG PCO2 63 mmHg (35-45); ABG PO2 61 mmHg (83-108); ABG TCO2 19 mmol/L (19-24)
[2018-06-06 22:48] LABS: ABG PH 7.04 (7.35-7.45)
--- NOTE | 2018-06-06 23:01 | XR ---
EXAM: XR Chest, 1 View CLINICAL HISTORY: ITS.REASON XR Reason: Pain TECHNIQUE: Frontal view of the chest. COMPARISON: Chest radiography 09/18/17. CT chest 09/19/17. FINDINGS: Lungs: Opacified left hemithorax consisting of large pleural effusion and compressive atelectasis. Still some aerated left upper lobe noted. Subsegmental atelectasis at the right base. Cardiac silhouette size is not well evaluated as majority of the left portion to include the mediastinum and florentin are obscured. Pleural space: See above. Heart: Unremarkable. No cardiomegaly. Mediastinum: Unremarkable. Bones/joints: Unremarkable. Tubes, lines and devices: Transesophageal catheter tip is off the examination. Endotracheal tube in place with tip located 9 mm above the aditya. IMPRESSION: New opacification of the majority of the left hemithorax concerning for presence of at least a large pleural effusion and adjacent compressive atelectasis. Chest CT may be useful for further evaluation. <MYCVCSECTION> [employer] 06/06/18 23:17 Verify Receipt Verified receipt with LOUISA Santiago; Given to Dr. Espinal
[2018-06-06] MEDS ORDERED: LORazepam 2 MG/ML INJ IV STA (23:32)
[2018-06-06] MEDS: SODIUM CHLORIDE 0.9% 1,000 ML IV ONE (23:39)
[2018-06-06] MEDS ORDERED: PIPERACILLIN-TAZOBACTAM 3.375 GM in SODIUM CHLORIDE 0.9% 100 ML IVPB STA (23:47)
[2018-06-06] MEDS ORDERED: VANCOMYCIN IV PER PHARMACY 1 EACH MISC MISCELLANE PRN (23:48)
[2018-06-07] MEDS: SODIUM CHLORIDE 0.9% 1,000 ML IV ONE ×2 (00:16→00:40)
[2018-06-07] MEDS: PROPOFOL 1,000 MG in EMPTY BAG 1 BAG IV SCH ×4 (00:30→13:37)
[2018-06-07] MEDS ORDERED: VANCOMYCIN 1,500 MG in SODIUM CHLORIDE 0.9% 250 ML IVPB ONE ×2 (01:00→04:00)
[2018-06-07] MEDS ORDERED: NALOXONE 0.4 MG/ML 1 ML VIAL IV PRN (01:02)
[2018-06-07] MEDS ORDERED: ACETAMINOPHEN SUPPOSITORY 650 MG SUPP RECTAL PRN (01:02)
[2018-06-07] MEDS ORDERED: SODIUM CHLORIDE 0.9% 2,000 ML IV ONE (01:14)
[2018-06-07] MEDS ORDERED: SODIUM CHLORIDE 0.9% 1,000 ML IV SCH (01:15)
[2018-06-07 02:28] LABS: Glucose,Whole Blood 165 mg/dL (75-99)
[2018-06-07] MEDS ORDERED: NOREPINEPHRINE 4 MG in SODIUM CHLORIDE 0.9% 250 ML IV ONE (03:00)
[2018-06-07] MEDS ORDERED: NOREPINEPHRINE 8 MG in SODIUM CHLORIDE 0.9% 250 ML IV SCH (03:45)
[2018-06-07 04:14] LABS: ABG Base Excess -19.3 mmol/L; ABG HCO3 11 mmol/L (21-25); ABG Oxygen Saturation 98.7 % (94-97); ABG PCO2 37 mmHg (35-45); ABG PO2 155 mmHg (83-108); ABG TCO2 12 mmol/L (19-24)
[2018-06-07 04:54] LABS: ABG PH 7.08 (7.35-7.45)
[2018-06-07] MEDS: DEXTROSE 5% IN WATER 1,000 ML with SODIUM BICARB (1 MEQ/ML) 150 ML IV SCH ×3 (05:15→20:09)
[2018-06-07 06:47] LABS: Anisocytosis Slight; Basophils % (A) 0 %; Eosinophils # (A) 0.1 k/uL (0-0.7); Eosinophils % (A) 1 %; HCT 36.1 % (39.0-53.0); HGB 11.2 gm/dL (13.0-17.5); Hypochromasia Marked; Lymphocytes # (A) 0.7 k/uL (1.0-4.8); Lymphocytes % (A) 5 %; MCH 28.4 pg (25.0-35.0); MCHC 30.9 g/dL (31.0-37.0); MCV 91.8 fL (80.0-100.0); Mean Platelet Volume 8.4; Monocytes # (A) 0.3 k/uL (0-1.0); Monocytes % (A) 2 %; Neutrophils # (A) 14.6 k/uL (1.3-7.7); Neutrophils % (A) 92 %; Platelet Count 324 k/uL (150-450); Poikilocytosis Slight; RBC 3.93 m/uL (4.30-5.90); RDW 16.7 % (11.5-15.5); WBC 15.8 k/uL (3.8-10.6)
[2018-06-07 07:07] LABS: Calcium 7.4 mg/dL (8.4-10.2); Magnesium 1.7 mg/dL (1.6-2.3); Potassium 5.6 mmol/L (3.5-5.1)
[2018-06-07 07:11] LABS: Phosphorus 9.5 mg/dL (2.5-4.5)
--- NOTE | 2018-06-07 08:51 | XR ---
EXAMINATION TYPE: XR chest 1V DATE OF EXAM: 06/07/2018 COMPARISON: 06/06/2018 HISTORY: Pain TECHNIQUE: Single frontal view of the chest is obtained. FINDINGS: ET and NG tube are noted. Cardiac device seen and there is complete opacification left hem ithorax. Small right pleural effusion with subsegmental changes are noted there is an interstitial pa ttern. Apical pleural thickening noted. Heart size stable. IMPRESSION: 1. Persistent complete opacification of the left hemithorax may represent a combination of pleural fl uid and consolidation. Underlying mass or endobronchial lesion, mucous plug in the differential diagn osis.
[2018-06-07 09:54] LABS: ABG Base Excess -15.4 mmol/L; ABG HCO3 13 mmol/L (21-25); ABG Oxygen Saturation 98.3 % (94-97); ABG PCO2 37 mmHg (35-45); ABG PO2 120 mmHg (83-108); ABG TCO2 14 mmol/L (19-24)
[2018-06-07] MEDS: NOREPINEPHRINE 8 MG in SODIUM CHLORIDE 0.9% 250 ML IV SCH ×2 (10:00→17:48)
[2018-06-07] MEDS ORDERED: CISATRACURIUM 2 MG/ML 5 ML VIAL IV ONE (10:25)
[2018-06-07] MEDS ORDERED: LIDOCAINE 1% INJ 10MG/ML (20 ML MDV) SQ ONE ×2 (10:39→10:44)
[2018-06-07] MEDS: CHLORHEXIDINE GLUCONATE 15 ML CUP MUCOUS MEM SCH ×2 (10:45→20:10)
[2018-06-07] MEDS: HEPARIN SODIUM,PORCINE 5,000 UNIT/ML 1 ML VIAL SQ SCH ×2 (10:49→16:52)
[2018-06-07] MEDS: PANTOPRAZOLE 40 MG/10 ML VIAL IV SCH (10:49)
--- NOTE | 2018-06-07 10:52 | P.HPIM ---
History of Present Illness 73-year-old male was brought to the emergency room with complaints of vomiting and diarrhea and shortness of breath. On x-ray left lung completely cristhian out. Patient waited rest for a failure was intubated in the emergency room and brought to the intensive care unit patient will consult with Dr. Brigitte Su and Dr. Walker. Patient does have a history of chronic renal failure and sees Dr. Salomon in [place]. Patient is heart failure and pacemaker sees Dr. Ornelas in [place]. Left ventricular function was 45%, patient also has cardiomyopathy. Patient is in chronic persistent atrial fibrillation. Patient also is diabetic Review of Systems ROS unobtainable: due to endotracheal tube Past Medical History Past Medical History: Atrial Fibrillation, Heart Failure, COPD, Diabetes Mellitus, Hypertension, Renal Disease Additional Past Medical History / Comment(s): cellulitis, anemia, obesity, alcohol abusue, cardiomyopathy, generalized weakness. bilateral carpal tunnel, gout History of Any Multi-Drug Resistant Organisms: VRE Date of last positivie culture/infection: 09/18/17 MDRO Source:: Blood Past Surgical History: Unable to Obtain Additional Past Anesthesia/Blood Transfusion Reaction / Comment(s): unable to obtain Past Psychological History: No Psychological Hx Reported Smoking Status: Unknown if ever smoked Past Alcohol Use History: None Reported Past Drug Use History: None Reported - Past Family History Father History Unknown: Yes Family Medical History: Unable to Obtain Mother History Unknown: Yes Family Medical History: Unable to Obtain Medications and Allergies Home Medications Medication Instructions Recorded Confirmed Type Simvastatin [Zocor] 40 mg PO HS 08/07/17 06/06/18 History Menthol [Biofreeze] 1 applic TOPICAL DAILY PRN 08/25/17 06/06/18 History metFORMIN HCL 1,000 mg PO BID 08/25/17 06/06/18 History Acetaminophen Tab [Tylenol] 650 mg PO Q6H PRN 09/19/17 06/06/18 History Apixaban [Eliquis] 5 mg PO BID 09/19/17 06/06/18 History Melatonin 5 mg PO HS 09/19/17 06/06/18 History Famotidine [Pepcid] 20 mg PO DAILY@0700 tab 09/23/17 06/06/18 Rx traMADol HCL [Ultram] 50 mg PO Q8HR PRN #12 tablet 09/23/17 06/06/18 Rx Albuterol Inhaler [Ventolin Hfa 2 puff INHALATION RT-Q6H PRN 06/06/18 06/06/18 History Inhaler] Amoxic-Pot Clav 875-125Mg 1 tab PO Q12HR 06/06/18 06/06/18 History [Augmentin 875-125] Carvedilol [Coreg] 6.25 mg PO BID 06/06/18 06/06/18 History Colchicine [Colcrys] 0.6 mg PO DAILY PRN 06/06/18 06/06/18 History Torsemide [Demadex] 20 mg PO DAILY 06/06/18 06/06/18 History Allergies Allergy/AdvReac Type Severity Reaction Status Date / Time No Known Allergies Allergy Verified 06/06/18 20:11 Physical Exam Vitals: Vital Signs Temp Pulse Resp BP Pulse Ox 06/07/18 09:00 123 H 22 99/51 97 06/07/18 08:30 98.6 F 115 H 22 94/66 96 06/07/18 08:00 125 H 22 107/55 97 06/07/18 07:30 129 H 22 103/55 97 06/07/18 07:00 116 H 22 105/61 97 06/07/18 06:30 117 H 22 101/53 98 06/07/18 06:00 118 H 22 96/56 97 06/07/18 05:30 110 H 22 107/71 97 06/07/18 05:00 105 H 22 87/52 97 06/07/18 04:30 109 H 22 87/54 96 06/07/18 04:00 94.0 F L 82 22 91/50 06/07/18 03:30 89 22 93/54 06/07/18 03:00 75 22 65/43 06/07/18 02:30 96 11 L 98/70 06/07/18 02:21 93 20 101/77 99 06/07/18 02:00 94/59 06/07/18 01:30 87 15 105/54 95 06/07/18 01:00 95 22 113/78 98 06/07/18 00:45 94 20 113/78 100 06/07/18 00:30 98 22 120/72 100 06/07/18 00:00 92 16 99/70 100 06/06/18 23:30 95 16 96/51 99 06/06/18 23:00 105 H 18 95/63 99 06/06/18 22:39 100 14 92/62 99 06/06/18 22:30 109 H 14 91/55 99 06/06/18 22:10 105 H 14 88/53 100 06/06/18 22:00 129/76 06/06/18 21:50 129/76 06/06/18 21:45 105 H 14 90 L 06/06/18 21:40 105 H 22 125/71 91 L 06/06/18 21:30 135/69 06/06/18 21:20 104 H 12 135/69 93 L 06/06/18 21:10 106 H 18 127/71 94 L 06/06/18 21:00 111 H 18 120/60 93 L 06/06/18 20:50 110 H 17 120/60 92 L 06/06/18 20:40 106 H 18 121/64 88 L 06/06/18 20:30 99 18 113/65 92 L 06/06/18 20:21 113/65 06/06/18 20:10 95 18 113/65 91 L 06/06/18 20:00 101 H 18 111/61 100 06/06/18 19:50 101 H 19 111/61 06/06/18 19:40 103 H 17 119/65 06/06/18 19:30 109 H 19 102/58 06/06/18 19:10 114 H 20 103/64 06/06/18 19:00 128 H 19 98/71 06/06/18 18:59 97.0 F L 103 H 22 98/71 86 L 06/06/18 18:58 14 78 L Intake and Output 06/06/18 06/07/18 06/07/18 22:59 06:59 14:59 Intake Total 825.942 480 Output Total 55 5 Balance 770.942 475 Intake: IV 770 480 0.9 220 30 Bicarb 300 450 Vancomycin 1,500 mg In 250 Sodium Chloride 0.9% 250 ml @ 125 mls/hr IVPB ONCE ONE Rx#:[id number] Intake, IV Titration 55.942 Amount Propofol 1,000 mg In 55.942 Empty Bag 1 bag @ Titrate IV .Q0M [facility] Rx#: [id number] Output: Urine 55 5 Other: Voiding Method Indwelling Catheter Weight 83 kg - Constitutional General appearance: obese, severe distress - EENT Ears: bilateral: normal - Respiratory Respiratory: left: diminished - Cardiovascular Rhythm: irregularly irregular - Integumentary Integumentary: normal - Musculoskeletal Musculoskeletal: generalized weakness - Psychiatric Patient intubated and sedated Results CBC & Chem 7: 06/07/18 06:00 06/07/18 06:00 Labs: Abnormal Lab Results - Last 24 Hours (Table) 06/06/18 06/06/18 06/06/18 Range/Units 19:15 19:15 19:15 WBC 18.8 H (3.8-10.6) k/uL RBC 4.10 L (4.30-5.90) m/uL Hgb 11.7 L (13.0-17.5) gm/dL Hct 37.2 L (39.0-53.0) % MCHC (31.0-37.0) g/dL RDW 16.4 H (11.5-15.5) % Neutrophils # 16.0 H (1.3-7.7) k/uL Lymphocytes # (1.0-4.8) k/uL Monocytes # 1.1 H (0-1.0) k/uL ABG pH (7.35-7.45) ABG pCO2 (35-45) mmHg ABG pO2 (83-108) mmHg ABG HCO3 (21-25) mmol/L ABG Total CO2 (19-24) mmol/L ABG O2 Saturation (94-97) % Potassium 5.7 H (3.5-5.1) mmol/L Carbon Dioxide 14 L (22-30) mmol/L BUN 71 H (9-20) mg/dL Creatinine 6.99 H (0.66-1.25) mg/dL Glucose 162 H (74-99) mg/dL POC Glucose (mg/dL) (75-99) mg/dL Plasma Lactic Acid Oscar 3.2 H* (0.7-2.0) mmol/L Calcium (8.4-10.2) mg/dL Phosphorus (2.5-4.5) mg/dL AST 16 L (17-59) U/L ALT 14 L (21-72) U/L 06/06/18 06/07/18 06/07/18 Range/Units 22:42 02:17 04:10 WBC (3.8-10.6) k/uL RBC (4.30-5.90) m/uL Hgb (13.0-17.5) gm/dL Hct (39.0-53.0) % MCHC (31.0-37.0) g/dL RDW (11.5-15.5) % Neutrophils # (1.3-7.7) k/uL Lymphocytes # (1.0-4.8) k/uL Monocytes # (0-1.0) k/uL ABG pH 7.04 L* 7.08 L* (7.35-7.45) ABG pCO2 63 H (35-45) mmHg ABG pO2 61 L 155 H (83-108) mmHg ABG HCO3 17 L 11 L (21-25) mmol/L ABG Total CO2 12 L (19-24) mmol/L ABG O2 Saturation 87.2 L 98.7 H (94-97) % Potassium (3.5-5.1) mmol/L Carbon Dioxide (22-30) mmol/L BUN (9-20) mg/dL Creatinine (0.66-1.25) mg/dL Glucose (74-99) mg/dL POC Glucose (mg/dL) 165 H (75-99) mg/dL Plasma Lactic Acid Oscar (0.7-2.0) mmol/L Calcium (8.4-10.2) mg/dL Phosphorus (2.5-4.5) mg/dL AST (17-59) U/L ALT (21-72) U/L 06/07/18 06/07/18 06/07/18 Range/Units 06:00 06:00 09:48 WBC 15.8 H (3.8-10.6) k/uL RBC 3.93 L (4.30-5.90) m/uL Hgb 11.2 L (13.0-17.5) gm/dL Hct 36.1 L (39.0-53.0) % MCHC 30.9 L (31.0-37.0) g/dL RDW 16.7 H (11.5-15.5) % Neutrophils # 14.6 H (1.3-7.7) k/uL Lymphocytes # 0.7 L (1.0-4.8) k/uL Monocytes # (0-1.0) k/uL ABG pH 7.16 L* (7.35-7.45) ABG pCO2 (35-45) mmHg ABG pO2 120 H (83-108) mmHg ABG HCO3 13 L (21-25) mmol/L ABG Total CO2 14 L (19-24) mmol/L ABG O2 Saturation 98.3 H (94-97) % Potassium 5.6 H (3.5-5.1) mmol/L Carbon Dioxide 11 L (22-30) mmol/L BUN 67 H (9-20) mg/dL Creatinine 6.88 H (0.66-1.25) mg/dL Glucose 202 H (74-99) mg/dL POC Glucose (mg/dL) (75-99) mg/dL Plasma Lactic Acid Oscar (0.7-2.0) mmol/L Calcium 7.4 L (8.4-10.2) mg/dL Phosphorus 9.5 H* (2.5-4.5) mg/dL AST (17-59) U/L ALT (21-72) U/L Microbiology - Last 24 Hours (Table) 06/06/18 23:59 Sputum Culture - Preliminary Sputum Chest x-ray: report reviewed CT scan - chest: report reviewed (EKG atrial flutter with RVR) Assessment and Plan Plan: Assessment Acute on chronic Crestor he failure with hypoxia intubated Metabolic acidosis Left pleural effusion Sepsis Acute on chronic renal failure end-stage GFR 7 History of congestive heart failure left ventricular dysfunction with EF of 45% Cardiomyopathy with pacemaker Diabetes type 2 Hypertension Positive occult blood Plan Cracking Still Operator Dr. Briggs attending to patient. During bronchoscopy at bedside Consultation with Dr. Su and Dr. Dhillon Patient intubated and on Levophed Condition critical
--- NOTE | 2018-06-07 11:00 | US ---
EXAMINATION TYPE: US chest DATE OF EXAM: 06/07/2018 COMPARISON: NONE CLINICAL HISTORY: left pleural effusion. Left pleural effusion TECHNIQUE: Targeted ultrasound of the posterior lower left hemithorax EXAM MEASUREMENTS: Technical limitations, ICU patient, unable to sit up on his own Left Pleural Effusion pocket size: 4.0 cm Left skin surface to fluid distance: 3.1 cm Left side marked for possible thoracentesis outside the dept. Pulmonologists are able to review the images in the patient?s EMR. IMPRESSIONS: Left pleural effusion
--- NOTE | 2018-06-07 11:01 | US ---
EXAMINATION TYPE: US kidneys/renal and bladder DATE OF EXAM: 06/07/2018 COMPARISON: NONE CLINICAL HISTORY: oliguria. ICU patient with Oliguria EXAM MEASUREMENTS: Right Kidney: 11.2 x 5.2 x 5.6 cm Left Kidney: 11.3 x 6.5 x 4.6 cm Technical limitations, ICU patient Right Kidney: no evidence of hydronephrosis or nephrolithiasis Left Kidney: probable stone lower pole = 1.0cm no hydronephrosis. Bladder: Beyer Catheter . Therefore assessment of the bladder is nondiagnostic. IMPRESSION: Limited exam performed in the NICU demonstrates nonobstructing left renal calculus.
[2018-06-07] MEDS ORDERED: SODIUM CHLORIDE 0.9% 1,000 ML IV ONE ×2 (11:02→11:18)
--- NOTE | 2018-06-07 11:17 | P.CNPUL ---
History of Present Illness Consult date: 06/07/18 Reason for consult: dyspnea History of present illness: 73-year-old male patient with known history of COPD, left lower lobe mass, CHF with an ejection fraction of 40-45%, chronic atrial fibrillation, previous AICD placement, previous history of hospitalizations secondary to sepsis, in addition to history of diabetes mellitus and hypertension, comes into the hospital because of diminished appetite, generalized weakness, vomiting and diarrhea over the past few days. Upon arrival the patient also was complaining of shortness of breath. He was a poor historian. He was seen in the burst department. He was started in IV fluids and subsequently he became unresponsive and went into respiratory failure. The patient was intubated and placed on mechanical ventilator in the emergency department. Note that his blood work was completely abnormal. He initially was found to be in acute kidney injury and the patient's potassium level was at 5.7 with a BUN of 71 and a creatinine of 6.99. The patient's chest x-ray shows complete opacification of the left lung. Based on that, a CAT scan of the chest was done that showed a complex left-sided pleural effusion circumferential around the left lung. At the same time the left lung parenchyma was underinflated and was hence consistent with underlying mass in addition to atelectasis. The only inflated area of the lung was in the left apex. There was evidence of lymphadenopathy within the mediastinum including subcarinal and paratracheal and superior mediastinal area. The left mainstem bronchus was completely occluded. Right mainstem bronchus was open. Trachea was slightly shifted to the right due to mass effect. As such, a neoplastic process was considered. On today's evaluation, the patient is in the intensive care unit intubated on a mechanical ventilator. The patient is an assist-control mode rate of 22 with a tidal volume of 450 FiO2 of 70% with a PEEP of 5. The morning blood gases showed a pH of 7.16 with a pCO2 of 37 and pO2 120. The patient is sedated with propofol and the patient is calm and comfortable 40 mics of propofol infusion. He is in atrial fibrillation the rate is somewhere between 100 and 120. The patient is on Prevacid and the patient is currently on levo fed and 0.1 g per KG per minute for hemodynamic support. Antibiotic coverage was started and the patient is currently on a combination of Zosyn and vancomycin. Lactic acid level of the time of admission was 3.2 and is currently down to 1.9. In the [facility] the patient was given a total of 47 IV fluids and currently the patient on a maintenance fluid of the saline today to 100 mL an hour. Based on all this, I contacted the family. I had a lengthy discussion with the daughter the bedside. Her name is Kristin and she seems to be very much involved in the patient's care. I discussed with her the findings. Following that I suggested that we proceed with a bronchoscopy. Bronchoscopy was done and the ICU and I found the left mainstem bronchus being circumferentially involved with endobronchial tumor causing 90% narrowing of the lumen dimension. There is endobronchial tumor reaching all the way up to the left mainstem orifice, very closely approaching the main aditya. Distally, the tumor is extending in the left mainstem bronchus and going circumferentially and extending to the secondary aditya between the left upper lobe and left lower lobe. I was able to identify the left upper lobe and left lower lobe bronchi, however, there was endobronchial tumor going circumferentially in that area involving the aditya. I would say there was considerable amount of narrowing in the left upper and left lower lobe bronchi causing approximately more daily 60-70% narrowing in the lumen diameter. In the bronchial biopsies were obtained. Bronchoscope was removed. Review of Systems ROS unobtainable: due to endotracheal tube Past Medical History Past Medical History: Atrial Fibrillation, Heart Failure, COPD, Diabetes Mellitus, Hypertension, Renal Disease Additional Past Medical History / Comment(s): History of lung mass, chronic anemia, history of enterococcal sepsis, history of alcohol abuse, gout, carpal tunnel disease, chronic atrial fibrillation, history of AICD placement. History of Any Multi-Drug Resistant Organisms: VRE Date of last positivie culture/infection: 09/18/17 MDRO Source:: Blood Past Surgical History: Unable to Obtain Additional Past Anesthesia/Blood Transfusion Reaction / Comment(s): unable to obtain Past Psychological History: No Psychological Hx Reported Smoking Status: Unknown if ever smoked Past Alcohol Use History: None Reported Past Drug Use History: None Reported - Past Family History Father History Unknown: Yes Family Medical History: Unable to Obtain Mother History Unknown: Yes Family Medical History: Unable to Obtain Medications and Allergies Home Medications Medication Instructions Recorded Confirmed Type Simvastatin [Zocor] 40 mg PO HS 08/07/17 06/06/18 History Menthol [Biofreeze] 1 applic TOPICAL DAILY PRN 08/25/17 06/06/18 History metFORMIN HCL 1,000 mg PO BID 08/25/17 06/06/18 History Acetaminophen Tab [Tylenol] 650 mg PO Q6H PRN 09/19/17 06/06/18 History Apixaban [Eliquis] 5 mg PO BID 09/19/17 06/06/18 History Melatonin 5 mg PO HS 09/19/17 06/06/18 History Famotidine [Pepcid] 20 mg PO DAILY@0700 tab 09/23/17 06/06/18 Rx traMADol HCL [Ultram] 50 mg PO Q8HR PRN #12 tablet 09/23/17 06/06/18 Rx Albuterol Inhaler [Ventolin Hfa 2 puff INHALATION RT-Q6H PRN 06/06/18 06/06/18 History Inhaler] Amoxic-Pot Clav 875-125Mg 1 tab PO Q12HR 06/06/18 06/06/18 History [Augmentin 875-125] Carvedilol [Coreg] 6.25 mg PO BID 06/06/18 06/06/18 History Colchicine [Colcrys] 0.6 mg PO DAILY PRN 06/06/18 06/06/18 History Torsemide [Demadex] 20 mg PO DAILY 06/06/18 06/06/18 History Allergies Allergy/AdvReac Type Severity Reaction Status Date / Time No Known Allergies Allergy Verified 06/06/18 20:11 Physical Exam Vitals: Vital Signs Temp Pulse Resp BP Pulse Ox 06/07/18 11:00 122 H 22 98 06/07/18 10:30 117 H 22 99 06/07/18 10:00 125 H 22 113/69 98 06/07/18 09:30 109 H 22 97/56 98 06/07/18 09:00 123 H 22 99/51 97 06/07/18 08:30 98.6 F 115 H 22 94/66 96 06/07/18 08:00 125 H 22 107/55 97 06/07/18 07:30 129 H 22 103/55 97 06/07/18 07:00 116 H 22 105/61 97 06/07/18 06:30 117 H 22 101/53 98 06/07/18 06:00 118 H 22 96/56 97 06/07/18 05:30 110 H 22 107/71 97 06/07/18 05:00 105 H 22 87/52 97 06/07/18 04:30 109 H 22 87/54 96 06/07/18 04:00 94.0 F L 82 22 91/50 06/07/18 03:30 89 22 93/54 06/07/18 03:00 75 22 65/43 06/07/18 02:30 96 11 L 98/70 06/07/18 02:21 93 20 101/77 99 06/07/18 02:00 94/59 06/07/18 01:30 87 15 105/54 95 06/07/18 01:00 95 22 113/78 98 06/07/18 00:45 94 20 113/78 100 06/07/18 00:30 98 22 120/72 100 06/07/18 00:00 92 16 99/70 100 06/06/18 23:30 95 16 96/51 99 06/06/18 23:00 105 H 18 95/63 99 06/06/18 22:39 100 14 92/62 99 06/06/18 22:30 109 H 14 91/55 99 06/06/18 22:10 105 H 14 88/53 100 06/06/18 22:00 129/76 06/06/18 21:50 129/76 06/06/18 21:45 105 H 14 90 L 06/06/18 21:40 105 H 22 125/71 91 L 06/06/18 21:30 135/69 06/06/18 21:20 104 H 12 135/69 93 L 06/06/18 21:10 106 H 18 127/71 94 L 06/06/18 21:00 111 H 18 120/60 93 L 06/06/18 20:50 110 H 17 120/60 92 L 06/06/18 20:40 106 H 18 121/64 88 L 06/06/18 20:30 99 18 113/65 92 L 06/06/18 20:21 113/65 06/06/18 20:10 95 18 113/65 91 L 06/06/18 20:00 101 H 18 111/61 100 06/06/18 19:50 101 H 19 111/61 06/06/18 19:40 103 H 17 119/65 06/06/18 19:30 109 H 19 102/58 06/06/18 19:10 114 H 20 103/64 06/06/18 19:00 128 H 19 98/71 06/06/18 18:59 97.0 F L 103 H 22 98/71 86 L 06/06/18 18:58 14 78 L Intake and Output 06/06/18 06/07/18 06/07/18 22:59 06:59 14:59 Intake Total 825.942 904.489 Output Total 55 11 Balance 770.942 893.489 Intake: IV 770 800 0.9 220 50 Bicarb 300 750 Vancomycin 1,500 mg In 250 Sodium Chloride 0.9% 250 ml @ 125 mls/hr IVPB ONCE ONE Rx#:[id number] Intake, IV Titration 55.942 104.489 Amount Norepinephrine 8 mg In 22.485 Sodium Chloride 0.9% 250 ml @ 0.05 MCG/KG/MIN 8.03 mls/hr IV .Q24H JUDY Rx#: [id number] Propofol 1,000 mg In 55.942 82.004 Empty Bag 1 bag @ Titrate IV .Q0M JUDY Rx#: [id number] Output: Urine 55 11 Other: Voiding Method Indwelling Catheter Weight 83 kg ABP, PAP, CO, CI - Last 8 Hours Arterial Blood Pressure 90/52 Arterial Blood Pressure 89/53 Arterial Blood Pressure 86/61 Gen. appearance the patient is sedated, comfortable, not in acute respiratory distress and synchronous with the mechanical ventilator. Head exam was generally normal. There was no scleral icterus or corneal arcus. Mucous membranes were moist. Neck was supple and without jugular venous distension, thyromegaly, or carotid bruits. Carotids were easily palpable bilaterally. There was no adenopathy. Lungs sounds are markedly diminished on the left compared to the right. The breast on the right are within normal limits. Cardiac exam revealed the PMI to be normally situated and sized. The rhythm was regular and no extrasystoles were noted during several minutes of auscultation. The first and second heart sounds were normal and physiologic splitting of the second heart sound was noted. There were no murmurs, rubs, clicks, or gallops. Abdominal exam revealed normal bowel sounds. The abdomen was soft, non-tender, and without masses, organomegaly, or appreciable enlargement of the abdominal a gennaro. Examination of the extremities revealed easily palpable radial, femoral and pedal pulses. There was no cyanosis, clubbing or edema. Examination of the skin revealed no evidence of significant rashes, suspicious appearing nevi or other concerning lesions. Neurologic the patient is sedated and is calm and comfortable. Results - Laboratory Findings CBC and BMP: 06/07/18 06:00 06/07/18 06:00 ABG ABG pH 7.16 (7.35-7.45) L* 06/07/18 09:48 ABG pCO2 37 mmHg (35-45) 06/07/18 09:48 ABG pO2 120 mmHg (83-108) H 06/07/18 09:48 ABG O2 Saturation 98.3 % (94-97) H 06/07/18 09:48 PT/INR, D-dimer PT 11.6 sec (9.0-12.0) 06/06/18 19:15 INR 1.1 (<1.2) 06/06/18 19:15 Abnormal lab findings: Abnormal Labs 06/06/18 06/06/18 06/06/18 19:15 19:15 19:15 WBC 18.8 H RBC 4.10 L Hgb 11.7 L Hct 37.2 L MCHC RDW 16.4 H Neutrophils # 16.0 H Lymphocytes # Monocytes # 1.1 H ABG pH ABG pCO2 ABG pO2 ABG HCO3 ABG Total CO2 ABG O2 Saturation Potassium 5.7 H Carbon Dioxide 14 L BUN 71 H Creatinine 6.99 H Glucose 162 H POC Glucose (mg/dL) Plasma Lactic Acid Oscar 3.2 H* Calcium Phosphorus AST 16 L ALT 14 L 06/06/18 06/07/18 06/07/18 22:42 02:17 04:10 WBC RBC Hgb Hct MCHC RDW Neutrophils # Lymphocytes # Monocytes # ABG pH 7.04 L* 7.08 L* ABG pCO2 63 H ABG pO2 61 L 155 H ABG HCO3 17 L 11 L ABG Total CO2 12 L ABG O2 Saturation 87.2 L 98.7 H Potassium Carbon Dioxide BUN Creatinine Glucose POC Glucose (mg/dL) 165 H Plasma Lactic Acid Oscar Calcium Phosphorus AST ALT 06/07/18 06/07/18 06/07/18 06:00 06:00 09:48 WBC 15.8 H RBC 3.93 L Hgb 11.2 L Hct 36.1 L MCHC 30.9 L RDW 16.7 H Neutrophils # 14.6 H Lymphocytes # 0.7 L Monocytes # ABG pH 7.16 L* ABG pCO2 ABG pO2 120 H ABG HCO3 13 L ABG Total CO2 14 L ABG O2 Saturation 98.3 H Potassium 5.6 H Carbon Dioxide 11 L BUN 67 H Creatinine 6.88 H Glucose 202 H POC Glucose (mg/dL) Plasma Lactic Acid Oscar Calcium 7.4 L Phosphorus 9.5 H* AST ALT - Diagnostic Findings Chest x-ray: image reviewed CT scan - chest: image reviewed Assessment and Plan Plan: 1 acute hypoxic respiratory failure with complete/near complete collapse of the left lung secondary to 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 Endobronchial biopsies were obtained and there is a very high suspicion of an underlying lung cancer. 2 acute respiratory failure requiring intubation mechanical ventilation. 3 suspected left lung pneumonia, which could be potentially postobstructive in nature 4 shock, post resuscitation with more than 4 L of IV fluids and currently is on a combination of fluids and pressors. Consider hypovolemic/septic shock and the patient is currently being covered with a combination of Zosyn and vancomycin 5 chronic atrial fibrillation 6 CHF with an ejection fraction of 40-45% 7 COPD 8 acute kidney injury and the patient is oliguric at this point in time. Rule out underlying ATN secondary to above 9 acute leukocytosis secondary to above 10 metabolic acidosis a combination of anion and non-anion gap metabolic acidosis 11 diabetes mellitus 12 hypertension 13 gout 14 recent hospitalization for a enterococcal septicemia 15 left lower lobe mass identified initially on a CAT scan of the chest was done in September 2017 Plan Condition is extremely critical. The patient carries a very high mortality. Unfortunately the the flexible bronchoscopy that was done at the bedside showed extensive tumor burden was in significant narrowing of the left mainstem bronchus in addition to secondary aditya involvement between the left upper lobe and left lobe bronchus with evidence of tumor invading these airways in addition. Please refer to my detailed bronchoscopy report regarding these findings. Endobronchial biopsies of obtained and final atelectatic diagnosis still pending for now. Meanwhile, the patient has collapsed left lung, left- sided pleural effusion and he remains intubated on a mechanical ventilator. Obviously he would not extubate with these abnormalities and findings. One option that was offered to the family was considering an endobronchial stent insertion in the left mainstem bronchus which may restore some previous in the left mainstem. Also insertion of a chest tube on the left was entertained with the family and both of these procedures may achieve some degree of airway patency in the left lung and offfer some degree of left lung reexpansion. I told the daughter that if these procedures were done, the chances of left lung expansion is still quite low knowing that the tumors or the invading the left upper and left lobe bronchus causing significant airway compromise. In fact I gave her a less than 10% chance of adequate left lung reexpansion that may help us with potential weaning and extubation. The daughter was agreeable to proceed with these procedures with understanding that achieving a successful left lung reexpansion is quite low. For now, we're going to assisted the patient with IV fluids. Continue pressors. Continue combination of Zosyn and vancomycin. Introduced bicarb drip. We will take this patient operating room for endobronchial stent insertion and subsequent chest tube insertion on the left at a later stage once felt his condition is more stable. We'll continue to follow. Condition is extremely critical. The patient carries a very high mortality. Case was discussed with the rest of the consultants. Time with Patient: Greater than 30
[2018-06-07 11:18] LABS: Amorphous Sediment,Urine Moderate /hpf; Appearance,Urine Cloudy (Clear); Bilirubin,Urine Negative (Negative); Blood,Urine Moderate (Negative); Color,Urine Yellow; Glucose,Urine (UA) Trace (Negative); Ketones,Urine 1+ (Negative); Leukocyte Esterase,Urine Trace (Negative); Nitrite,Urine Negative (Negative); PH, Urine 5.5 (5.0-8.0); Protein,Urine 2+ (Negative); RBC,Urine 30 /hpf (0-5); Specific Gravity,Urine 1.033 (1.001-1.035); Squamous Epithelial Cell,Urine 1 /hpf (0-4)
--- NOTE | 2018-06-07 11:27 | P.PCN ---
Date of Procedure: 06/07/18 Preoperative Diagnosis: Left lung collapse, respiratory failure requiring intubation mechanical ventilation. 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 Endobronchial tumor extending to the secondary aditya the left upper lobe bronchus and left lower lobe bronchus in addition to infiltrating these airways causing more than 60 percent narrowing of lumen eating in the left upper and left lower lobe bronchi. Procedure(s) Performed: Flexible bronchoscopy, endobronchial biopsy of a left mainstem tumor, bronchoalveolar lavage Anesthesia: ALLANA Surgeon: Duane Briggs Estimated Blood Loss (ml): 0 Pathology: other Condition: critical Disposition: ICU Operative Findings: This procedure was done in the intensive care unit. The patient came in to the ICU with acute respiratory failure and the patient was not intubated on a mechanical ventilator. The patient was sedated with propofol. The patient was placed on 100% FiO2. The patient was given a dose of Nimbex 10 mg IV push. Following that, the flexible bronchoscope was advanced through the oral tracheal tube and the procedure was completed as the patient was being adequately oxygenated and ventilated. The bronchoscope was advanced through the oral tracheal tube into his advanced down to the lower trachea. The tip of the orotracheal tube was seen around 3 cm above the aditya. The main aditya was sharp in the midline. The right mainstem bronchus was patent and the bronchoscope was then moved to the right upper lobe bronchus rhonchus inter medius and then to the right middle lobe bronchus and the right lower lobe bronchus and all of the airways were patent within normal limits. Following that, the bronchoscope was moved to the left mainstem bronchus. Immediately, a large fragment of endobronchial tumor was seen occupying the medial and anterior wall of the left mainstem bronchus and as the bronchoscope was being advanced the tumor was seen to grow circumferentially around the left mainstem bronchus causing significant narrowing of the airway dropping the lumen caliber by around 90%. Noted proximally, the endobronchial tumor was approaching but not reaching the main aditya. The tumor was very irregular, friable, vascular, and causing significant surface irregularity and narrowing of the left mainstem bronchus in addition to endobronchial narrowing and some degree of extrinsic compression. As the airway inspection was completed, the secondary aditya the left upper and left lower lobe bronchus was identified. The aditya was involved with endobronchial tumor that was very swollen irregular and distorted. I was able to identify the left upper lobe bronchus orifice and the left lower lobe bronchus orifice and the lumen of these airways was also compromised by endobronchial tumor causing more than 60% narrowing of his normal dimension. At this point, the bronchoscope was moved again to the left mainstem bronchus and endobronchial biopsies of the left mainstem tumor was obtained on the direct visualization. Multiple polyps were obtained without any significant bleeding. Following that, a bronchioloalveolar lavage of the left mainstem was done with a total of 80 mL of fluid was infused and 25 mL of fluid was aspirated without any major difficulties. At this point, measurements were obtained and consideration for an endobronchial stent insertion. The segment extending from the secondary aditya to the proximal portion of the right mainstem bronchus was measured to be around 5 cm. The patient is being considered for endobronchial stent insertion after having a discussion with the family and daughter. At this point time, I terminated the procedure and I removed the bronchoscope. The patient is still intubated on a mechanical ventilator and sedated. Hemodynamically, the patient is still being resuscitated with IV fluids and the pressors are being titrated and being adjusted to maintain a mean atrial pressure above 65. Condition is critical. We'll continue to follow.
--- NOTE | 2018-06-07 11:53 | P.NPCON ---
History of Present Illness - Reason for Consult acute renal failure - History of Present Illness Reason for consultation: Acute kidney injury History of present illness: Patient is a 73-year-old male seen in renal consultation for acute kidney injury. Patient's baseline creatinine is near 1 and was elevated at 6.99 on admission. His 6.88 as of this morning. Patient presented to the hospital with generalized weakness along with vomiting and diarrhea. Patient was hypotensive and has received 4 L of normal saline so far. He's receiving an additional 2 L today. He was noted to be quite acidotic with bicarb level of 11 this morning. He is currently maintained on sodium bicarbonate drip at 1 50 mL an hour. Patient is oliguric. Potassium level slightly on the higher side at 5.6. He is currently intubated and sedated. He underwent a bronchoscopy this morning which revealed a mass. He is currently on 29 mics of Levophed. Renal ultrasound revealed normal sized kidneys without any evidence of hydronephrosis. Phosphorus level is 9.5. Lactic acid level has improved with IV hydration. He was taking torsemide at home. He also has history of diabetes mellitus and was on metformin as outpatient. Vital signs: Blood pressure lower. Currently on vasopressors. General: The patient appeared well nourished and normally developed. Intubated. HEENT: Head exam is unremarkable. Neck is without jugular venous distension. LUNGS: Breath sounds decreased. Scattered rhonchi. HEART: Rate and Rhythm are regular. First and second heart sounds normal. No murmurs, rubs or gallops. ABDOMEN: Bowel sounds present. EXTREMITITES: No clubbing, cyanosis, or edema. Past Medical History Past Medical History: Atrial Fibrillation, Heart Failure, COPD, Diabetes M ellitus, Hypertension, Renal Disease Additional Past Medical History / Comment(s): History of lung mass, chronic anemia, history of enterococcal sepsis, history of alcohol abuse, gout, carpal tunnel disease, chronic atrial fibrillation, history of AICD placement. History of Any Multi-Drug Resistant Organisms: VRE Date of last positivie culture/infection: 09/18/17 MDRO Source:: Blood Past Surgical History: Unable to Obtain Additional Past Anesthesia/Blood Transfusion Reaction / Comment(s): unable to obtain Past Psychological History: No Psychological Hx Reported Smoking Status: Unknown if ever smoked Past Alcohol Use History: None Reported Past Drug Use History: None Reported - Past Family History Father History Unknown: Yes Family Medical History: Unable to Obtain Mother History Unknown: Yes Family Medical History: Unable to Obtain Medications and Allergies Home Medications Medication Instructions Recorded Confirmed Type Simvastatin [Zocor] 40 mg PO HS 08/07/17 06/06/18 History Menthol [Biofreeze] 1 applic TOPICAL DAILY PRN 08/25/17 06/06/18 History metFORMIN HCL 1,000 mg PO BID 08/25/17 06/06/18 History Acetaminophen Tab [Tylenol] 650 mg PO Q6H PRN 09/19/17 06/06/18 History Apixaban [Eliquis] 5 mg PO BID 09/19/17 06/06/18 History Melatonin 5 mg PO HS 09/19/17 06/06/18 History Famotidine [Pepcid] 20 mg PO DAILY@0700 tab 09/23/17 06/06/18 Rx traMADol HCL [Ultram] 50 mg PO Q8HR PRN #12 tablet 09/23/17 06/06/18 Rx Albuterol Inhaler [Ventolin Hfa 2 puff INHALATION RT-Q6H PRN 06/06/18 06/06/18 History Inhaler] Amoxic-Pot Clav 875-125Mg 1 tab PO Q12HR 06/06/18 06/06/18 History [Augmentin 875-125] Carvedilol [Coreg] 6.25 mg PO BID 06/06/18 06/06/18 History Colchicine [Colcrys] 0.6 mg PO DAILY PRN 06/06/18 06/06/18 History Torsemide [Demadex] 20 mg PO DAILY 06/06/18 06/06/18 History Allergies Allergy/AdvReac Type Severity Reaction Status Date / Time No Known Allergies Allergy Verified 06/06/18 20:11 Physical Exam Vitals: Vital Signs Temp Pulse Resp BP Pulse Ox 06/07/18 11:00 122 H 22 98 06/07/18 10:30 117 H 22 99 06/07/18 10:00 125 H 22 113/69 98 06/07/18 09:30 109 H 22 97/56 98 06/07/18 09:00 123 H 22 99/51 97 06/07/18 08:30 98.6 F 115 H 22 94/66 96 06/07/18 08:00 125 H 22 107/55 97 06/07/18 07:30 129 H 22 103/55 97 06/07/18 07:00 116 H 22 105/61 97 06/07/18 06:30 117 H 22 101/53 98 06/07/18 06:00 118 H 22 96/56 97 06/07/18 05:30 110 H 22 107/71 97 06/07/18 05:00 105 H 22 87/52 97 06/07/18 04:30 109 H 22 87/54 96 06/07/18 04:00 94.0 F L 82 22 91/50 06/07/18 03:30 89 22 93/54 06/07/18 03:00 75 22 65/43 06/07/18 02:30 96 11 L 98/70 06/07/18 02:21 93 20 101/77 99 06/07/18 02:00 94/59 06/07/18 01:30 87 15 105/54 95 06/07/18 01:00 95 22 113/78 98 06/07/18 00:45 94 20 113/78 100 06/07/18 00:30 98 22 120/72 100 06/07/18 00:00 92 16 99/70 100 06/06/18 23:30 95 16 96/51 99 06/06/18 23:00 105 H 18 95/63 99 06/06/18 22:39 100 14 92/62 99 06/06/18 22:30 109 H 14 91/55 99 06/06/18 22:10 105 H 14 88/53 100 06/06/18 22:00 129/76 06/06/18 21:50 129/76 06/06/18 21:45 105 H 14 90 L 06/06/18 21:40 105 H 22 125/71 91 L 06/06/18 21:30 135/69 06/06/18 21:20 104 H 12 135/69 93 L 06/06/18 21:10 106 H 18 127/71 94 L 06/06/18 21:00 111 H 18 120/60 93 L 06/06/18 20:50 110 H 17 120/60 92 L 06/06/18 20:40 106 H 18 121/64 88 L 06/06/18 20:30 99 18 113/65 92 L 06/06/18 20:21 113/65 06/06/18 20:10 95 18 113/65 91 L 06/06/18 20:00 101 H 18 111/61 100 06/06/18 19:50 101 H 19 111/61 06/06/18 19:40 103 H 17 119/65 06/06/18 19:30 109 H 19 102/58 06/06/18 19:10 114 H 20 103/64 06/06/18 19:00 128 H 19 98/71 06/06/18 18:59 97.0 F L 103 H 22 98/71 86 L 06/06/18 18:58 14 78 L Intake and Output 06/06/18 06/07/18 06/07/18 22:59 06:59 14:59 Intake Total 825.942 904.489 Output Total 55 11 Balance 770.942 893.489 Intake: IV 770 800 0.9 220 50 Bicarb 300 750 Vancomycin 1,500 mg In 250 Sodium Chloride 0.9% 250 ml @ 125 mls/hr IVPB ONCE ONE Rx#:[id number] Intake, IV Titration 55.942 104.489 Amount Norepinephrine 8 mg In 22.485 Sodium Chloride 0.9% 250 ml @ 0.05 MCG/KG/MIN 8.03 mls/hr IV .Q24H [facility] Rx#: [id number] Propofol 1,000 mg In 55.942 82.004 Empty Bag 1 bag @ Titrate IV .Q0M [facility] Rx#: [id number] Output: Urine 55 11 Other: Voiding Method Indwelling Catheter Weight 83 kg ABP, PAP, CO, CI - Last 8 Hours Arterial Blood Pressure 90/52 Arterial Blood Pressure 89/53 Arterial Blood Pressure 86/61 Results - Lab Results Most recent lab results ABG pH 7.16 (7.35-7.45) L* 06/07/18 09:48 ABG pCO2 37 mmHg (35-45) 06/07/18 09:48 ABG pO2 120 mmHg (83-108) H 06/07/18 09:48 ABG HCO3 13 mmol/L (21-25) L 06/07/18 09:48 ABG O2 Saturation 98.3 % (94-97) H 06/07/18 09:48 Calcium 7.4 mg/dL (8.4-10.2) L 06/07/18 06:00 Phosphorus 9.5 mg/dL (2.5-4.5) H* 06/07/18 06:00 Magnesium 1.7 mg/dL (1.6-2.3) 06/07/18 06:00 06/07/18 06:00 06/07/18 06:00 Assessment and Plan Plan: Assessment: 1. Oliguric acute kidney injury secondary to ATN secondary to hypotension. Creatinine 6.99 on admission and is 6.88 today. No evidence of hydronephrosis noted on renal ultrasound. Baseline creatinine near 1. 2. Metabolic acidosis secondary to acute kidney injury and lactic acidosis. Patient was also on metformin outpatient which can cause lactic acidosis especially in the setting of impaired renal function. 3. Hyperkalemia secondary to acute kidney injury and metabolic acidosis. 4. Diabetes mellitus. 5. Acute mixed hypercapnic and hypoxic respiratory failure. Currently intubated. 6. 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 Status post bronchoscopy this morning. 7. Hyperphosphatemia secondary to acute kidney injury. 8. Hypotension maintained on Levophed. ?Hypovolemic versus septic shock. Plan: Maintain sodium bicarbonate drip to be run at 150 mL an hour. Patient to receive another 2 L of normal saline today. Continue to monitor renal function and urine output. If no improvement in the next 24-48 hours, I will initiate renal replacement therapy. Repeat potassium level this evening. Avoid nephrotoxins. Monitor vancomycin levels. Dose to be adjusted for renal function. Follow-up cultures. Check cortisol level in the morning. Thank you for the consultation. I will continue to follow the patient with you during his hospital stay.
[2018-06-07] MEDS ORDERED: DEXTROSE 5% IN WATER 100 ML with AMIODARONE 150 MG IV ONE (12:00)
[2018-06-07 12:29] LABS: ABG Base Excess -13.8 mmol/L; ABG HCO3 15 mmol/L (21-25); ABG Oxygen Saturation 95.5 % (94-97); ABG PCO2 43 mmHg (35-45); ABG PO2 83 mmHg (83-108); ABG TCO2 16 mmol/L (19-24)
[2018-06-07] MEDS ORDERED: AMIODARONE 360 MG in DEXTROSE 5% IN WATER 200 ML IV ONE ×2 (12:30)
[2018-06-07] MEDS ORDERED: INSULIN ASPART (NovoLOG) 100 UNIT/ML VIAL SQ SCH (12:30)
[2018-06-07] MEDS: PIPERACILLIN-TAZOBACTAM 3.375 GM in SODIUM CHLORIDE 0.9% 100 ML IVPB SCH (12:43)
[2018-06-07] MEDS: INSULIN ASPART (NovoLOG) 100 UNIT/ML VIAL SQ SCH ×3 (13:37→20:09)
[2018-06-07 13:40] LABS: Glucose,Whole Blood 249 mg/dL (75-99)
[2018-06-07 16:39] LABS: Appearance,BF Bloody; Color,BF Red; Nucleated Cells, Body Fluid 1600 /uL; RBC, Body Fluid 69450 /uL
[2018-06-07 16:41] LABS: Mononuclear WBC,Body Fluid 4 %; Polynuclear WBC,Body Fluid 96 %; Total Cells Counted,Body Fluid 100
[2018-06-07 17:38] LABS: Glucose,Whole Blood 243 mg/dL (75-99)
[2018-06-07 17:52] LABS: Calcium 7.1 mg/dL (8.4-10.2); Potassium 4.9 mmol/L (3.5-5.1)
[2018-06-07] MEDS: AMIODARONE 300 MG in DEXTROSE 5% IN WATER 250 ML IV SCH ×2 (18:47)
[2018-06-07 20:20] LABS: Glucose,Whole Blood 238 mg/dL (75-99)
--- NOTE | 2018-06-07 22:00 | P.CONS ---
History of Present Illness - Reason for Consult Consult date: 06/07/18 Mediastinal adenopathy, L lung collapse - History of Present Illness The pt is a 73 yr old WM, with multiple medical problems. The pt had presented with c/o nausea and vomitting with multiple episodes over the past 2 days, causing progressive weakness. In the ER he developed progressive SOB, and obtundation, leading to intubation. Imaging ( CT chest and CXR) showed a white out of the left lung field, with a left pleural effusion. Prevascular, superior mediastinal, rt hilar and subcarinal adenopathy was noted. he was transferred to the ICU, and consult placed for further evaluation and recommendations. The pt was intiubated, and thus history was obtained from his daughter, and the EMR. There is no prior h/o malignancy. The pt was admitted in 09/24 for VRE bacteremia. At that time Ct chest had shown a GERARDO density, noted to be possibly inflammatory. Granulomatous nodes were noted in the L hilum. Per the d/c summary , pt was to f/u with Pulmonary, but did not do so. He was in an ECF for 2 mths, and did complete 6 wks of IV antibiotics. CT AP that admission had not shown any evidence of malignancy Review of Systems Obtained from EMR and pt's daughter Constitutional: Reports fatigue, Reports poor appetite, Reports weakness Eyes: denies blurred vision, denies pain Ears: deny: decreased hearing, ear discharge, earache, tinnitus Ears, nose, mouth and throat: Denies headache, Denies sore throat Cardiovascular: Reports rapid heart beat, Reports shortness of breath Respiratory: Reports congestion, Reports dyspnea Gastrointestinal: Reports nausea, Reports vomiting Genitourinary: Reports as per HPI Musculoskeletal: Reports muscle weakness Integumentary: Denies pruritus, Denies rash Neurological: Reports change in mentation, Reports weakness Psychiatric: Denies anxiety, Denies depression Endocrine: Reports fatigue, Reports palpitations Hematologic/Lymphatic: Reports as per HPI, Reports lymphadenopathy Past Medical History Past Medical History: Atrial Fibrillation, Heart Failure, COPD, CVA/TIA, Diabetes Mellitus, GERD/Reflux, Hypertension, Renal Disease Additional Past Medical History / Comment(s): Cardiomyopathy, multiple pneumonias, respiratory failure, sepsis, NIDDM type II, neuropathy bilateral feet, chronic kidney disease, anemia, CVA 2018 with no residual, gout in multiple joints, bilateral carpal tunnel syndrome, chronic pain syndrome, RA in bilateral hands, past alcohol abuse-has not drank in one year, hypomagnesemia, hypokalemia History of Any Multi-Drug Resistant Organisms: VRE Year Discovered:: 09/18/17 MDRO Source:: Blood Past Surgical History: AICD, Heart Catheterization, Orthopedic Surgery Additional Past Surgical History / Comment(s): 06/07/18 flexible bronchoscopy/endobronchoscop with bx left mainstem tumor/lavage, AICD in [place], ampuration L foot toe. Past Anesthesia/Blood Transfusion Reactions: No Reported Reaction Additional Past Anesthesia/Blood Transfusion Reaction / Comm: unable to obtain Type of Cardiac Device: AICD Device Placement Date:: Smoking Status: Former smoker - Past Family History Father History Unknown: Yes Family Medical History: Unable to Obtain Mother History Unknown: Yes Family Medical History: Dementia Medications and Allergies Home Medications Medication Instructions Recorded Confirmed Type Simvastatin [Zocor] 40 mg PO HS 08/07/17 06/06/18 History Menthol [Biofreeze] 1 applic TOPICAL DAILY PRN 08/25/17 06/06/18 History metFORMIN HCL 1,000 mg PO BID 08/25/17 06/06/18 History Acetaminophen Tab [Tylenol] 650 mg PO Q6H PRN 09/19/17 06/06/18 History Apixaban [Eliquis] 5 mg PO BID 09/19/17 06/06/18 History Melatonin 5 mg PO HS 09/19/17 06/06/18 History Famotidine [Pepcid] 20 mg PO DAILY@0700 tab 09/23/17 06/06/18 Rx traMADol HCL [Ultram] 50 mg PO Q8HR PRN #12 tablet 09/23/17 06/06/18 Rx Albuterol Inhaler [Ventolin Hfa 2 puff INHALATION RT-Q6H PRN 06/06/18 06/06/18 History Inhaler] Amoxic-Pot Clav 875-125Mg 1 tab PO Q12HR 06/06/18 06/06/18 History [Augmentin 875-125] Carvedilol [Coreg] 6.25 mg PO BID 06/06/18 06/06/18 History Colchicine [Colcrys] 0.6 mg PO DAILY PRN 06/06/18 06/06/18 History Torsemide [Demadex] 20 mg PO DAILY 06/06/18 06/06/18 History Allergies Allergy/AdvReac Type Severity Reaction Status Date / Time No Known Allergies Allergy Verified 06/06/18 20:11 Physical Exam Vitals: Vital Signs Temp Pulse Resp BP Pulse Ox 06/07/18 19:00 92 22 96 06/07/18 18:45 87 22 96 06/07/18 18:30 85 22 96 06/07/18 18:15 90 22 96 06/07/18 18:00 85 22 96 06/07/18 17:45 90 22 97 06/07/18 17:30 87 22 98 06/07/18 17:15 95 22 97 06/07/18 17:00 104 H 22 95 06/07/18 16:45 90 21 88/50 95 06/07/18 16:30 92 22 88/50 06/07/18 16:15 77 22 88/50 93 L 06/07/18 16:00 98.9 F 92 22 94 L 06/07/18 15:45 85 22 94 L 06/07/18 15:30 97 22 92 L 06/07/18 15:15 104 H 22 93 L 06/07/18 15:00 108 H 22 93 L 06/07/18 14:45 96 22 92 L 06/07/18 14:30 95 22 92 L 06/07/18 14:15 85 22 93 L 06/07/18 14:00 104 H 22 93 L 06/07/18 13:45 110 H 22 94 L 06/07/18 13:30 107 H 18 96 06/07/18 13:15 105 H 22 96 06/07/18 13:00 134 H 22 97 06/07/18 12:45 137 H 22 137/65 97 06/07/18 12:30 123 H 22 94 L 06/07/18 12:15 133 H 22 97 06/07/18 12:00 98.2 F 130 H 22 100 06/07/18 11:45 144 H 22 100 06/07/18 11:30 126 H 22 99 06/07/18 11:15 122 H 22 98 06/07/18 11:00 122 H 22 98 06/07/18 10:30 117 H 22 99 06/07/18 10:00 125 H 22 113/69 98 06/07/18 09:30 109 H 22 97/56 98 06/07/18 09:00 123 H 22 99/51 97 06/07/18 08:30 98.6 F 115 H 22 94/66 96 06/07/18 08:00 125 H 22 107/55 97 06/07/18 07:30 129 H 22 103/55 97 06/07/18 07:00 116 H 22 105/61 97 06/07/18 06:30 117 H 22 101/53 98 06/07/18 06:00 118 H 22 96/56 97 06/07/18 05:30 110 H 22 107/71 97 06/07/18 05:00 105 H 22 87/52 97 06/07/18 04:30 109 H 22 87/54 96 06/07/18 04:00 94.0 F L 82 22 91/50 06/07/18 03:30 89 22 93/54 06/07/18 03:00 75 22 65/43 06/07/18 02:30 96 11 L 98/70 06/07/18 02:21 93 20 101/77 99 06/07/18 02:00 94/59 06/07/18 01:30 87 15 105/54 95 06/07/18 01:00 95 22 113/78 98 06/07/18 00:45 94 20 113/78 100 06/07/18 00:30 98 22 120/72 100 06/07/18 00:00 92 16 99/70 100 06/06/18 23:30 95 16 96/51 99 06/06/18 23:00 105 H 18 95/63 99 06/06/18 22:39 100 14 92/62 99 06/06/18 22:30 109 H 14 91/55 99 06/06/18 22:10 105 H 14 88/53 100 06/06/18 22:00 129/76 06/06/18 21:50 129/76 06/06/18 21:45 105 H 14 90 L 06/06/18 21:40 105 H 22 125/71 91 L 06/06/18 21:30 135/69 06/06/18 21:20 104 H 12 135/69 93 L 06/06/18 21:10 106 H 18 127/71 94 L 06/06/18 21:00 111 H 18 120/60 93 L Intake and Output 06/07/18 06/07/18 06/07/18 06:59 14:59 22:59 Intake Total 194.447 0880.700 989.006 Output Total 55 26 31 Balance 878.273 5188.700 958.006 Intake: IV 770 3455 825 0.9 220 80 50 Amio bolus 100 Bicarb 300 1200 750 Piperacillin-Tazobactam 3 75 25 .375 gm In Sodium Chloride 0.9% 100 ml @ 25 mls/hr IVPB Q12H [facility] Rx# :[id number] Sodium Chloride 0.9% 1, 2000 000 ml @ 999 mls/hr IV . Q1H1M [facility] Rx#:[id number] Vancomycin 1,500 mg In 250 Sodium Chloride 0.9% 250 ml @ 125 mls/hr IVPB ONCE ONE Rx#:[id number] Intake, IV Titration 55.942 350.700 164.006 Amount Norepinephrine 8 mg In 210.928 84.119 Sodium Chloride 0.9% 250 ml @ 0.05 MCG/KG/MIN 8.03 mls/hr IV .Q24H [facility] Rx#: [id number] Propofol 1,000 mg In 55.942 139.772 79.887 Empty Bag 1 bag @ Titrate IV .Q0M [facility] Rx#: [id number] Output: Urine 55 26 31 Other: Voiding Method Indwelling Catheter Indwelling Catheter Indwelling Catheter ABP, PAP, CO, CI - Last 8 Hours Arterial Blood Pressure 115/52 Arterial Blood Pressure 122/54 Arterial Blood Pressure 123/55 Arterial Blood Pressure 120/56 Arterial Blood Pressure 115/51 Arterial Blood Pressure 119/53 Arterial Blood Pressure 125/54 Arterial Blood Pressure 111/57 Arterial Blood Pressure 116/56 Arterial Blood Pressure 129/58 Arterial Blood Pressure 111/56 Arterial Blood Pressure 54/34 Arterial Blood Pressure 90/45 Arterial Blood Pressure 107/51 Arterial Blood Pressure 110/53 Arterial Blood Pressure 102/52 Arterial Blood Pressure 110/55 Arterial Blood Pressure 113/53 Arterial Blood Pressure 114/53 Arterial Blood Pressure 112/54 Arterial Blood Pressure 113/54 Arterial Blood Pressure 107/50 Arterial Blood Pressure 117/53 Arterial Blood Pressure 119/51 Arterial Blood Pressure 113/55 - Constitutional Intubated General appearance: no acute distress - EENT Eyes: PERRLA ENT: other (ET tube in situ) - Neck Neck: no lymphadenopathy Thyroid: bilateral: normal size - Respiratory Respiratory: left: diminished (Essentially no air entry) - Cardiovascular Rhythm: regular Heart sounds: normal: S1, S2 - Gastrointestinal General gastrointestinal: normal bowel sounds, soft - Integumentary Integumentary: normal - Neurologic Reflexes symmetric - Musculoskeletal Musculoskeletal: generalized weakness - Psychiatric INtubated Results CBC & Chem 7: 06/07/18 06:00 06/07/18 17:41 Labs: Abnormal Lab Results - Last 24 Hours (Table) 06/06/18 06/07/18 06/07/18 Range/Units 22:42 02:17 04:10 WBC (3.8-10.6) k/uL RBC (4.30-5.90) m/uL Hgb (13.0-17.5) gm/dL Hct (39.0-53.0) % MCHC (31.0-37.0) g/dL RDW (11.5-15.5) % Neutrophils # (1.3-7.7) k/uL Lymphocytes # (1.0-4.8) k/uL ABG pH 7.04 L* 7.08 L* (7.35-7.45) ABG pCO2 63 H (35-45) mmHg ABG pO2 61 L 155 H (83-108) mmHg ABG HCO3 17 L 11 L (21-25) mmol/L ABG Total CO2 12 L (19-24) mmol/L ABG O2 Saturation 87.2 L 98.7 H (94-97) % Sodium (137-145) mmol/L Potassium (3.5-5.1) mmol/L Carbon Dioxide (22-30) mmol/L BUN (9-20) mg/dL Creatinine (0.66-1.25) mg/dL Glucose (74-99) mg/dL POC Glucose (mg/dL) 165 H (75-99) mg/dL Calcium (8.4-10.2) mg/dL Phosphorus (2.5-4.5) mg/dL Urine Protein (Negative) Urine Glucose (UA) (Negative) Urine Ketones (Negative) Urine Blood (Negative) Ur Leukocyte Esterase (Negative) Urine RBC (0-5) /hpf Amorphous Sediment (None) /hpf 06/07/18 06/07/18 06/07/18 Range/Units 06:00 06:00 08:50 WBC 15.8 H (3.8-10.6) k/uL RBC 3.93 L (4.30-5.90) m/uL Hgb 11.2 L (13.0-17.5) gm/dL Hct 36.1 L (39.0-53.0) % MCHC 30.9 L (31.0-37.0) g/dL RDW 16.7 H (11.5-15.5) % Neutrophils # 14.6 H (1.3-7.7) k/uL Lymphocytes # 0.7 L (1.0-4.8) k/uL ABG pH (7.35-7.45) ABG pCO2 (35-45) mmHg ABG pO2 (83-108) mmHg ABG HCO3 (21-25) mmol/L ABG Total CO2 (19-24) mmol/L ABG O2 Saturation (94-97) % Sodium (137-145) mmol/L Potassium 5.6 H (3.5-5.1) mmol/L Carbon Dioxide 11 L (22-30) mmol/L BUN 67 H (9-20) mg/dL Creatinine 6.88 H (0.66-1.25) mg/dL Glucose 202 H (74-99) mg/dL POC Glucose (mg/dL) (75-99) mg/dL Calcium 7.4 L (8.4-10.2) mg/dL Phosphorus 9.5 H* (2.5-4.5) mg/dL Urine Protein 2+ H (Negative) Urine Glucose (UA) Trace H (Negative) Urine Ketones 1+ H (Negative) Urine Blood Moderate H (Negative) Ur Leukocyte Esterase Trace H (Negative) Urine RBC 30 H (0-5) /hpf Amorphous Sediment Moderate H (None) /hpf 06/07/18 06/07/18 06/07/18 Range/Units 09:48 12:26 13:24 WBC (3.8-10.6) k/uL RBC (4.30-5.90) m/uL Hgb (13.0-17.5) gm/dL Hct (39.0-53.0) % MCHC (31.0-37.0) g/dL RDW (11.5-15.5) % Neutrophils # (1.3-7.7) k/uL Lymphocytes # (1.0-4.8) k/uL ABG pH 7.16 L* 7.15 L* (7.35-7.45) ABG pCO2 (35-45) mmHg ABG pO2 120 H (83-108) mmHg ABG HCO3 13 L 15 L (21-25) mmol/L ABG Total CO2 14 L 16 L (19-24) mmol/L ABG O2 Saturation 98.3 H (94-97) % Sodium (137-145) mmol/L Potassium (3.5-5.1) mmol/L Carbon Dioxide (22-30) mmol/L BUN (9-20) mg/dL Creatinine (0.66-1.25) mg/dL Glucose (74-99) mg/dL POC Glucose (mg/dL) 249 H (75-99) mg/dL Calcium (8.4-10.2) mg/dL Phosphorus (2.5-4.5) mg/dL Urine Protein (Negative) Urine Glucose (UA) (Negative) Urine Ketones (Negative) Urine Blood (Negative) Ur Leukocyte Esterase (Negative) Urine RBC (0-5) /hpf Amorphous Sediment (None) /hpf 06/07/18 06/07/18 06/07/18 Range/Units 17:25 17:41 20:08 WBC (3.8-10.6) k/uL RBC (4.30-5.90) m/uL Hgb (13.0-17.5) gm/dL Hct (39.0-53.0) % MCHC (31.0-37.0) g/dL RDW (11.5-15.5) % Neutrophils # (1.3-7.7) k/uL Lymphocytes # (1.0-4.8) k/uL ABG pH (7.35-7.45) ABG pCO2 (35-45) mmHg ABG pO2 (83-108) mmHg ABG HCO3 (21-25) mmol/L ABG Total CO2 (19-24) mmol/L ABG O2 Saturation (94-97) % Sodium 136 L (137-145) mmol/L Potassium (3.5-5.1) mmol/L Carbon Dioxide 16 L (22-30) mmol/L BUN 66 H (9-20) mg/dL Creatinine 6.37 H (0.66-1.25) mg/dL Glucose 234 H (74-99) mg/dL POC Glucose (mg/dL) 243 H 238 H (75-99) mg/dL Calcium 7.1 L (8.4-10.2) mg/dL Phosphorus (2.5-4.5) mg/dL Urine Protein (Negative) Urine Glucose (UA) (Negative) Urine Ketones (Negative) Urine Blood (Negative) Ur Leukocyte Esterase (Negative) Urine RBC (0-5) /hpf Amorphous Sediment (None) /hpf Microbiology - Last 24 Hours (Table) 06/06/18 23:59 Gram Stain - Preliminary Sputum Sputum Culture - Preliminary Chest x-ray: report reviewed CT scan - abdomen: report reviewed CT scan - chest: report reviewed, image reviewed CT scan - pelvis: report reviewed Assessment and Plan (1) Acute and chronic respiratory failure with hypoxia Narrative/Plan: This is due to marked loss of volume of the left lung. This is a new finding vs 09/24. There is a moderate L pleural effusion. However on review of the CT scan there does appear to be an abrupt cut off of the left main stem bronchus. Thus an obstructing mass is strongly suspected, as the major component. - Case d/w with pulmonary. The pt should have a bronchoscopy to assess for obstruction, and obtain a biopsy at the same time. This is being planned by Pulmonary already. Drainage of the effusion is also being considered. However this will likely not have significant therapeutic benefit if there is major central obstruction. ( If positive , however , it will provide staging info, confirming stage IV) - D/W daughter that at this time a lung malignancy is the major differential. Await tissue diagnosis. I will ordere additional staging studies once pt is more stable. For now contrast cannot be utilised anyway due to his MAMADOU - Defer to [facility], and admitting service for ongoing acute management Current Visit: Yes Status: Acute Code(s): J96.21 - ACUTE AND CHRONIC RESPIRATORY FAILURE WITH HYPOXIA SNOMED Code(s): 67712403 (2) Acute on chronic renal failure Narrative/Plan: Likely due to pre renal component. On IV hydration. Defer to Nephrology for management Current Visit: Yes Status: Acute Code(s): N17.9 - ACUTE KIDNEY FAILURE, UNSPECIFIED; N18.9 - CHRONIC KIDNEY DISEASE, UNSPECIFIED SNOMED Code(s): 918770015 Plan: Defer to the admitting service and other consultants for management of his multiple other medical problems
--- NOTE | 2018-06-07 23:55 | PCN ---
PROCEDURE NOTE PROCEDURE: Arterial line insertion. PREOPERATIVE DIAGNOSIS: Acute respiratory failure/lung cancer. POSTOPERATIVE DIAGNOSIS: Acute respiratory failure/lung cancer. ARTERIAL LINE PLACEMENT: Indications: Hemodynamic monitoring. A time-out was completed verifying correct patient, procedure, site, positioning, and implant(s) or special equipment if applicable. Avtar's test was performed to ensure adequate perfusion. The patient's left wrist was prepped and draped in sterile fashion. 1% Lidocaine was used to anesthetize the area. An 18G Arrow arterial line was introduced into the radial artery. The catheter was threaded over the guide wire and the needle was removed with appropriate pulsatile blood return. Blood loss was minimal. The catheter was then sutured in place to the skin and a sterile dressing applied. Perfusion to the extremity distal to the point of catheter insertion was checked and found to be adequate. The patient tolerated the procedure well and there were no bedside complications or bleeding. MMODL / IJN: [id number] /
[2018-06-08] MEDS: HEPARIN SODIUM,PORCINE 5,000 UNIT/ML 1 ML VIAL SQ SCH ×3 (00:31→15:42)
[2018-06-08] MEDS: PIPERACILLIN-TAZOBACTAM 3.375 GM in SODIUM CHLORIDE 0.9% 100 ML IVPB SCH ×2 (00:31→12:02)
[2018-06-08] MEDS: INSULIN ASPART (NovoLOG) 100 UNIT/ML VIAL SQ SCH ×6 (00:32→20:50)
[2018-06-08 00:46] LABS: Glucose,Whole Blood 226 mg/dL (75-99)
[2018-06-08] MEDS: AMIODARONE 300 MG in DEXTROSE 5% IN WATER 250 ML IV SCH ×2 (04:50)
[2018-06-08] MEDS: DEXTROSE 5% IN WATER 1,000 ML with SODIUM BICARB (1 MEQ/ML) 150 ML IV SCH (04:59)
[2018-06-08] MEDS: NOREPINEPHRINE 8 MG in SODIUM CHLORIDE 0.9% 250 ML IV SCH ×3 (05:00→17:45)
[2018-06-08 05:10] LABS: Glucose,Whole Blood 144 mg/dL (75-99)
[2018-06-08 05:17] LABS: Anisocytosis Slight; Basophils % (A) 0 %; Eosinophils # (A) 0.2 k/uL (0-0.7); Eosinophils % (A) 1 %; HCT 30.4 % (39.0-53.0); HGB 10.1 gm/dL (13.0-17.5); Lymphocytes # (A) 1.3 k/uL (1.0-4.8); Lymphocytes % (A) 9 %; MCH 28.4 pg (25.0-35.0); MCHC 33.3 g/dL (31.0-37.0); Mean Platelet Volume 8.4; Monocytes # (A) 1.2 k/uL (0-1.0); Monocytes % (A) 8 %; Neutrophils # (A) 11.5 k/uL (1.3-7.7); Neutrophils % (A) 79 %; Platelet Count 297 k/uL (150-450); Poikilocytosis Slight; RBC 3.56 m/uL (4.30-5.90); RDW 16.6 % (11.5-15.5); WBC 14.4 k/uL (3.8-10.6)
[2018-06-08 05:22] LABS: ABG Base Excess -2.9 mmol/L; ABG HCO3 22 mmol/L (21-25); ABG PCO2 36 mmHg (35-45); ABG PO2 91 mmHg (83-108); ABG TCO2 23 mmol/L (19-24)
[2018-06-08 05:28] LABS: MCV 85.3 fL (80.0-100.0)
[2018-06-08 05:29] LABS: INR 1.1 (<1.2); Prothrombin Time 11.2 sec (9.0-12.0)
[2018-06-08 05:51] LABS: Albumin 2.3 g/dL (3.5-5.0); Calcium 7.1 mg/dL (8.4-10.2); Magnesium 1.4 mg/dL (1.6-2.3); Phosphorus 5.5 mg/dL (2.5-4.5); Potassium 4.1 mmol/L (3.5-5.1); Total Bilirubin 0.9 mg/dL (0.2-1.3); Total Protein 4.7 g/dL (6.3-8.2)
[2018-06-08] MEDS ORDERED: VANCOMYCIN 1,500 MG in SODIUM CHLORIDE 0.9% 250 ML IVPB ONE (06:00)
--- NOTE | 2018-06-08 07:51 | XR ---
EXAMINATION TYPE: XR chest 1V portable DATE OF EXAM: 06/08/2018 COMPARISON: Prior chest x-ray 06/07/2018 HISTORY: Intubated TECHNIQUE: Single frontal view of the chest is obtained. FINDINGS: Endotracheal tube, gastric tube are overlying appropriate positions. Opacification left he mithorax, pacemaker is stable. Heart may be enlarged. Patchy basilar density noted on the right with obscured right hemidiaphragm. IMPRESSION: Findings are similar to prior exam. There is likely basilar atelectasis on the right, th ere is a large left pleural effusion and associated atelectasis, follow-up recommended.
[2018-06-08 08:33] LABS: Glucose,Whole Blood 147 mg/dL (75-99)
[2018-06-08] MEDS: PANTOPRAZOLE 40 MG/10 ML VIAL IV SCH (08:37)
[2018-06-08] MEDS: CHLORHEXIDINE GLUCONATE 15 ML CUP MUCOUS MEM SCH ×2 (08:37→20:51)
[2018-06-08 08:50] LABS: ABG PH 7.16 (7.35-7.45)
[2018-06-08 08:51] LABS: ABG PH 7.15 (7.35-7.45)
[2018-06-08] MEDS ORDERED: SODIUM CHLORIDE 0.9% 1,000 ML IV ONE (11:03)
[2018-06-08] MEDS: SODIUM CHLORIDE 0.9% 1,000 ML IV SCH ×2 (11:42→17:04)
--- NOTE | 2018-06-08 11:53 | P.PN ---
Subjective Patient continues to be intubated on ventilatory support. Patient continues in atrial fibrillation. Patient on Levophed. Patient post bedside bronchoscopy mass noted. Patient has had consult with pulmonology oncology and nephrology. Awaiting pathology from bronchoscopy Objective - Vital Signs Vital signs: Vital Signs Temp 98.4 F 06/08/18 08:00 Pulse 100 06/08/18 10:00 Resp 22 06/08/18 10:00 BP 108/74 06/08/18 08:15 Pulse Ox 98 06/08/18 10:00 Intake & Output 06/07/18 06/08/18 06/08/18 18:59 06:59 18:59 Intake Total 4627.425 2498.234 1271.965 Output Total 52 124 92 Balance 4575.425 2374.234 1179.965 Weight 106.3 kg 106.3 kg Intake: IV 4120 2020 1140 0.9 120 120 40 Amio bolus 100 Bicarb 1800 1800 600 Piperacillin-Tazobactam 3 100 100 .375 gm In Sodium Chloride 0.9% 100 ml @ 25 mls/hr IVPB Q12H [facility] Rx# :[id number] Sodium Chloride 0.9% 1, 2000 000 ml @ 999 mls/hr IV . Q1H1M [facility] Rx#:[id number] Vancomycin 1,500 mg In 250 Sodium Chloride 0.9% 250 ml @ 125 mls/hr IVPB ONCE [facility] Rx#:[id number] Vancomycin 1,500 mg In 250 Sodium Chloride 0.9% 250 ml @ 125 mls/hr IVPB ONCE ONE Rx#:[id number] Intake, IV Titration 507.425 478.234 131.965 Amount Amiodarone 300 mg In 250 Dextrose 5% in Water 250 ml @ 0.5 MG/MIN 25 mls/hr IV .Q10H [facility] Rx#: [id number] Norepinephrine 8 mg In 287.766 228.234 131.965 Sodium Chloride 0.9% 250 ml @ 0.05 MCG/KG/MIN 8.03 mls/hr IV .Q24H [facility] Rx#: [id number] Propofol 1,000 mg In 219.659 Empty Bag 1 bag @ Titrate IV .Q0M [facility] Rx#: [id number] Output: Urine 52 124 92 Other: Voiding Method Indwelling Catheter Indwelling Catheter Indwelling Catheter ABP, PAP, CO, CI - Last Documented Arterial Blood Pressure 116/58 - Constitutional General appearance: Present: obese - EENT Ears: bilateral: normal - Respiratory Respiratory: left: diminished - Cardiovascular Rhythm: irregularly irregular - Gastrointestinal General gastrointestinal: Present: soft - Integumentary Integumentary: Present: normal - Psychiatric Psychiatric Comment(s): Patient sedated and on ventilator - Labs CBC & Chem 7: 06/08/18 05:00 06/08/18 05:00 Labs: Abnormal Lab Results - Last 24 Hours (Table) 06/07/18 06/07/18 06/07/18 Range/Units 09:48 12:26 13:24 WBC (3.8-10.6) k/uL RBC (4.30-5.90) m/uL Hgb (13.0-17.5) gm/dL Hct (39.0-53.0) % RDW (11.5-15.5) % Neutrophils # (1.3-7.7) k/uL Monocytes # (0-1.0) k/uL ABG pH 7.16 L* 7.15 L* (7.35-7.45) ABG HCO3 15 L (21-25) mmol/L ABG Total CO2 16 L (19-24) mmol/L ABG O2 Saturation (94-97) % Sodium (137-145) mmol/L Carbon Dioxide (22-30) mmol/L BUN (9-20) mg/dL Creatinine (0.66-1.25) mg/dL Glucose (74-99) mg/dL POC Glucose (mg/dL) 249 H (75-99) mg/dL Calcium (8.4-10.2) mg/dL Phosphorus (2.5-4.5) mg/dL Magnesium (1.6-2.3) mg/dL AST (17-59) U/L ALT (21-72) U/L Total Protein (6.3-8.2) g/dL Albumin (3.5-5.0) g/dL 06/07/18 06/07/18 06/07/18 Range/Units 17:25 17:41 20:08 WBC (3.8-10.6) k/uL RBC (4.30-5.90) m/uL Hgb (13.0-17.5) gm/dL Hct (39.0-53.0) % RDW (11.5-15.5) % Neutrophils # (1.3-7.7) k/uL Monocytes # (0-1.0) k/uL ABG pH (7.35-7.45) ABG HCO3 (21-25) mmol/L ABG Total CO2 (19-24) mmol/L ABG O2 Saturation (94-97) % Sodium 136 L (137-145) mmol/L Carbon Dioxide 16 L (22-30) mmol/L BUN 66 H (9-20) mg/dL Creatinine 6.37 H (0.66-1.25) mg/dL Glucose 234 H (74-99) mg/dL POC Glucose (mg/dL) 243 H 238 H (75-99) mg/dL Calcium 7.1 L (8.4-10.2) mg/dL Phosphorus (2.5-4.5) mg/dL Magnesium (1.6-2.3) mg/dL AST (17-59) U/L ALT (21-72) U/L Total Protein (6.3-8.2) g/dL Albumin (3.5-5.0) g/dL 06/08/18 06/08/18 06/08/18 Range/Units 00:33 04:59 05:00 WBC 14.4 H (3.8-10.6) k/uL RBC 3.56 L (4.30-5.90) m/uL Hgb 10.1 L (13.0-17.5) gm/dL Hct 30.4 L (39.0-53.0) % RDW 16.6 H (11.5-15.5) % Neutrophils # 11.5 H (1.3-7.7) k/uL Monocytes # 1.2 H (0-1.0) k/uL ABG pH (7.35-7.45) ABG HCO3 (21-25) mmol/L ABG Total CO2 (19-24) mmol/L ABG O2 Saturation (94-97) % Sodium (137-145) mmol/L Carbon Dioxide (22-30) mmol/L BUN (9-20) mg/dL Creatinine (0.66-1.25) mg/dL Glucose (74-99) mg/dL POC Glucose (mg/dL) 226 H 144 H (75-99) mg/dL Calcium (8.4-10.2) mg/dL Phosphorus (2.5-4.5) mg/dL Magnesium (1.6-2.3) mg/dL AST (17-59) U/L ALT (21-72) U/L Total Protein (6.3-8.2) g/dL Albumin (3.5-5.0) g/dL 06/08/18 06/08/18 06/08/18 Range/Units 05:00 05:17 08:20 WBC (3.8-10.6) k/uL RBC (4.30-5.90) m/uL Hgb (13.0-17.5) gm/dL Hct (39.0-53.0) % RDW (11.5-15.5) % Neutrophils # (1.3-7.7) k/uL Monocytes # (0-1.0) k/uL ABG pH (7.35-7.45) ABG HCO3 (21-25) mmol/L ABG Total CO2 (19-24) mmol/L ABG O2 Saturation 98.0 H (94-97) % Sodium 135 L (137-145) mmol/L Carbon Dioxide 19 L (22-30) mmol/L BUN 67 H (9-20) mg/dL Creatinine 6.26 H (0.66-1.25) mg/dL Glucose 140 H (74-99) mg/dL POC Glucose (mg/dL) 147 H (75-99) mg/dL Calcium 7.1 L (8.4-10.2) mg/dL Phosphorus 5.5 H (2.5-4.5) mg/dL Magnesium 1.4 L (1.6-2.3) mg/dL AST 14 L (17-59) U/L ALT 13 L (21-72) U/L Total Protein 4.7 L (6.3-8.2) g/dL Albumin 2.3 L (3.5-5.0) g/dL Microbiology - Last 24 Hours (Table) 06/07/18 10:50 Gram Stain - Preliminary Bronchial Washings - Left Bronchial Washings Culture - Preliminary 06/06/18 19:15 Blood Culture - Preliminary Blood No Growth after 24 hours 06/06/18 23:59 Gram Stain - Preliminary Sputum Sputum Culture - Preliminary - Imaging and Cardiology Chest x-ray: report reviewed, image reviewed Assessment and Plan Plan: Assessment Acute on chronic Crestor he failure with hypoxia Metabolic acidosis Acute renal failure GFR 7 History of cardiomyopathy with left ventricular dysfunction 45% EF History of COPD Diabetes type 2 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
[2018-06-08 11:57] LABS: Glucose,Whole Blood 162 mg/dL (75-99)
[2018-06-08] MEDS ORDERED: CISATRACURIUM 2 MG/ML 5 ML VIAL IV ONE (12:01)
[2018-06-08] MEDS ORDERED: fentaNYL (PF) 50 MCG/ML 2 ML AMP ONE (12:01)
[2018-06-08] MEDS ORDERED: MIDAZOLAM 2 MG/2 ML VIAL ONE (12:01)
--- NOTE | 2018-06-08 12:15 | P.PN ---
Subjective Patient is seen in follow-up for acute kidney injury. Patient's baseline creatinine is near 1 and was elevated at 6.99 on admission. It was 6.26 today. He remains intubated. Acidosis has improved. He is maintained on bicarb drip. Currently on 15 mics of Levophed. Urine output has been 10-30 mL an hour. Potassium level is normal. Vital signs are stable. Currently on vasopressors. General: The patient appeared well nourished and normally developed. HEENT: Head exam is unremarkable. Neck is without jugular venous distension. Intubated. LUNGS: Breath sounds decreased. HEART: Rate and Rhythm are regular. First and second heart sounds normal. No murmurs, rubs or gallops. ABDOMEN: Bowel sounds present. Soft. EXTREMITITES: No clubbing, cyanosis, or edema. Objective - Vital Signs Vital signs: Vital Signs Temp 98.4 F 06/08/18 08:00 Pulse 100 06/08/18 10:00 Resp 22 06/08/18 10:00 BP 108/74 06/08/18 08:15 Pulse Ox 98 06/08/18 10:00 Intake & Output 06/07/18 06/08/18 06/08/18 18:59 06:59 18:59 Intake Total 4627.425 2498.234 1271.965 Output Total 52 124 92 Balance 4575.425 2374.234 1179.965 Weight 106.3 kg 106.3 kg Intake: IV 4120 2020 1140 0.9 120 120 40 Amio bolus 100 Bicarb 1800 1800 600 Piperacillin-Tazobactam 3 100 100 .375 gm In Sodium Chloride 0.9% 100 ml @ 25 mls/hr IVPB Q12H [facility] Rx# :[id number] Sodium Chloride 0.9% 1, 2000 000 ml @ 999 mls/hr IV . Q1H1M [facility] Rx#:[id number] Vancomycin 1,500 mg In 250 Sodium Chloride 0.9% 250 ml @ 125 mls/hr IVPB ONCE [facility] Rx#:[id number] Vancomycin 1,500 mg In 250 Sodium Chloride 0.9% 250 ml @ 125 mls/hr IVPB ONCE [facility] Rx#:[id number] Intake, IV Titration 507.425 478.234 131.965 Amount Amiodarone 300 mg In 250 Dextrose 5% in Water 250 ml @ 0.5 MG/MIN 25 mls/hr IV .Q10H [facility] Rx#: [id number] Norepinephrine 8 mg In 287.766 228.234 131.965 Sodium Chloride 0.9% 250 ml @ 0.05 MCG/KG/MIN 8.03 mls/hr IV .Q24H [facility] Rx#: [id number] Propofol 1,000 mg In 219.659 Empty Bag 1 bag @ Titrate IV .Q0M [facility] Rx#: [id number] Output: Urine 52 124 92 Other: Voiding Method Indwelling Catheter Indwelling Catheter Indwelling Catheter ABP, PAP, CO, CI - Last Documented Arterial Blood Pressure 116/58 - Labs CBC & Chem 7: 06/08/18 05:00 06/08/18 05:00 Labs: Abnormal Lab Results - Last 24 Hours (Table) 06/07/18 06/07/18 06/07/18 Range/Units 09:48 12:26 13:24 WBC (3.8-10.6) k/uL RBC (4.30-5.90) m/uL Hgb (13.0-17.5) gm/dL Hct (39.0-53.0) % RDW (11.5-15.5) % Neutrophils # (1.3-7.7) k/uL Monocytes # (0-1.0) k/uL ABG pH 7.16 L* 7.15 L* (7.35-7.45) ABG HCO3 15 L (21-25) mmol/L ABG Total CO2 16 L (19-24) mmol/L ABG O2 Saturation (94-97) % Sodium (137-145) mmol/L Carbon Dioxide (22-30) mmol/L BUN (9-20) mg/dL Creatinine (0.66-1.25) mg/dL Glucose (74-99) mg/dL POC Glucose (mg/dL) 249 H (75-99) mg/dL Calcium (8.4-10.2) mg/dL Phosphorus (2.5-4.5) mg/dL Magnesium (1.6-2.3) mg/dL AST (17-59) U/L ALT (21-72) U/L Total Protein (6.3-8.2) g/dL Albumin (3.5-5.0) g/dL 06/07/18 06/07/18 06/07/18 Range/Units 17:25 17:41 20:08 WBC (3.8-10.6) k/uL RBC (4.30-5.90) m/uL Hgb (13.0-17.5) gm/dL Hct (39.0-53.0) % RDW (11.5-15.5) % Neutrophils # (1.3-7.7) k/uL Monocytes # (0-1.0) k/uL ABG pH (7.35-7.45) ABG HCO3 (21-25) mmol/L ABG Total CO2 (19-24) mmol/L ABG O2 Saturation (94-97) % Sodium 136 L (137-145) mmol/L Carbon Dioxide 16 L (22-30) mmol/L BUN 66 H (9-20) mg/dL Creatinine 6.37 H (0.66-1.25) mg/dL Glucose 234 H (74-99) mg/dL POC Glucose (mg/dL) 243 H 238 H (75-99) mg/dL Calcium 7.1 L (8.4-10.2) mg/dL Phosphorus (2.5-4.5) mg/dL Magnesium (1.6-2.3) mg/dL AST (17-59) U/L ALT (21-72) U/L Total Protein (6.3-8.2) g/dL Albumin (3.5-5.0) g/dL 06/08/18 06/08/18 06/08/18 Range/Units 00:33 04:59 05:00 WBC 14.4 H (3.8-10.6) k/uL RBC 3.56 L (4.30-5.90) m/uL Hgb 10.1 L (13.0-17.5) gm/dL Hct 30.4 L (39.0-53.0) % RDW 16.6 H (11.5-15.5) % Neutrophils # 11.5 H (1.3-7.7) k/uL Monocytes # 1.2 H (0-1.0) k/uL ABG pH (7.35-7.45) ABG HCO3 (21-25) mmol/L ABG Total CO2 (19-24) mmol/L ABG O2 Saturation (94-97) % Sodium (137-145) mmol/L Carbon Dioxide (22-30) mmol/L BUN (9-20) mg/dL Creatinine (0.66-1.25) mg/dL Glucose (74-99) mg/dL POC Glucose (mg/dL) 226 H 144 H (75-99) mg/dL Calcium (8.4-10.2) mg/dL Phosphorus (2.5-4.5) mg/dL Magnesium (1.6-2.3) mg/dL AST (17-59) U/L ALT (21-72) U/L Total Protein (6.3-8.2) g/dL Albumin (3.5-5.0) g/dL 06/08/18 06/08/18 06/08/18 Range/Units 05:00 05:17 08:20 WBC (3.8-10.6) k/uL RBC (4.30-5.90) m/uL Hgb (13.0-17.5) gm/dL Hct (39.0-53.0) % RDW (11.5-15.5) % Neutrophils # (1.3-7.7) k/uL Monocytes # (0-1.0) k/uL ABG pH (7.35-7.45) ABG HCO3 (21-25) mmol/L ABG Total CO2 (19-24) mmol/L ABG O2 Saturation 98.0 H (94-97) % Sodium 135 L (137-145) mmol/L Carbon Dioxide 19 L (22-30) mmol/L BUN 67 H (9-20) mg/dL Creatinine 6.26 H (0.66-1.25) mg/dL Glucose 140 H (74-99) mg/dL POC Glucose (mg/dL) 147 H (75-99) mg/dL Calcium 7.1 L (8.4-10.2) mg/dL Phosphorus 5.5 H (2.5-4.5) mg/dL Magnesium 1.4 L (1.6-2.3) mg/dL AST 14 L (17-59) U/L ALT 13 L (21-72) U/L Total Protein 4.7 L (6.3-8.2) g/dL Albumin 2.3 L (3.5-5.0) g/dL 06/08/18 Range/Units 11:44 WBC (3.8-10.6) k/uL RBC (4.30-5.90) m/uL Hgb (13.0-17.5) gm/dL Hct (39.0-53.0) % RDW (11.5-15.5) % Neutrophils # (1.3-7.7) k/uL Monocytes # (0-1.0) k/uL ABG pH (7.35-7.45) ABG HCO3 (21-25) mmol/L ABG Total CO2 (19-24) mmol/L ABG O2 Saturation (94-97) % Sodium (137-145) mmol/L Carbon Dioxide (22-30) mmol/L BUN (9-20) mg/dL Creatinine (0.66-1.25) mg/dL Glucose (74-99) mg/dL POC Glucose (mg/dL) 162 H (75-99) mg/dL Calcium (8.4-10.2) mg/dL Phosphorus (2.5-4.5) mg/dL Magnesium (1.6-2.3) mg/dL AST (17-59) U/L ALT (21-72) U/L Total Protein (6.3-8.2) g/dL Albumin (3.5-5.0) g/dL Microbiology - Last 24 Hours (Table) 06/07/18 10:50 Gram Stain - Preliminary Bronchial Washings - Left Bronchial Washings Culture - Preliminary 06/06/18 19:15 Blood Culture - Preliminary Blood No Growth after 24 hours 06/06/18 23:59 Gram Stain - Preliminary Sputum Sputum Culture - Preliminary Assessment and Plan Plan: Assessment: 1. Oliguric acute kidney injury secondary to ATN secondary to hypotension. Creatinine 6.99 on admission and is 6.26 today. No evidence of hydronephrosis noted on renal ultrasound. Baseline creatinine near 1. 2. Metabolic acidosis secondary to acute kidney injury and lactic acidosis. Patient was also on metformin outpatient which can cause lactic acidosis especially in the setting of impaired renal function. Better. 3. Hyperkalemia secondary to acute kidney injury and metabolic acidosis. Resolved. 4. Diabetes mellitus. 5. Acute mixed hypercapnic and hypoxic respiratory failure. Currently intubated. 6. 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 Status post bronchoscopy with biopsy on June 07. 7. Hyperphosphatemia secondary to acute kidney injury. Better. 8. Hypotension maintained on Levophed. ?Hypovolemic versus septic shock. Cortisol level normal. 9. Hypomagnesemia currently being replaced. Plan: Patient to receive another liter of normal saline bolus. Bicarbonate drip has been switched over to normal saline. Continue to monitor renal function and urine output. Avoid nephrotoxins. Monitor vancomycin levels. Dose to be adjusted for renal function. Follow-up cultures. Lasix 80 mg IV once today. Continue to assess on daily basis for need for renal replacement therapy. No urgent need at this time.
[2018-06-08] MEDS ORDERED: IV FLUID CONTINUATION 1,000 ML IV ONE (12:31)
[2018-06-08] MEDS ORDERED: FUROSEMIDE 10 MG/ML 10 ML VIAL IV STA (12:35)
[2018-06-08] MEDS: MAGNESIUM SULFATE-D5W PMX 1 GM in DEXTROSE/WATER 1 100ML.BAG IVPB SCH ×2 (14:28→17:03)
[2018-06-08] MEDS: PROPOFOL 1,000 MG in EMPTY BAG 1 BAG IV SCH ×2 (14:54→19:06)
--- NOTE | 2018-06-08 14:54 | FL ---
EXAMINATION TYPE: FL bronchoscopy DATE OF EXAM: 06/08/2018 COMPARISON: NONE HISTORY: Bronchoscopy Fluoroscopy support supplied to the referring clinician. See dictated report from pulmonary, 5 minut es 50 seconds fluoroscopy time, 2 intraoperative C-arm images document the procedure
--- NOTE | 2018-06-08 15:15 | XR ---
EXAMINATION TYPE: XR chest 1V confirm line [facility] DATE OF EXAM: 06/08/2018 COMPARISON: Prior chest x-ray same dated earlier time HISTORY: Intubated TECHNIQUE: Single frontal view of the chest is obtained. FINDINGS: Endotracheal tube and gastric tube overlying appropriate positions. Patient is rotated. In terval improved visualization of the right hemidiaphragm. Opacification left hemithorax persists. Def ibrillator is unchanged. IMPRESSION: Some improvement in aeration at the right lung base.
[2018-06-08] MEDS: AMIODARONE 200 MG TAB PO SCH ×2 (15:42→21:03)
[2018-06-08 16:27] LABS: Glucose,Whole Blood 159 mg/dL (75-99)
--- NOTE | 2018-06-08 17:24 | P.PN ---
Subjective Progress Note Date: 06/08/18 73-year-old male patient with known history of COPD, left lower lobe mass, CHF with an ejection fraction of 40-45%, chronic atrial fibrillation, previous AICD placement, previous history of hospitalizations secondary to sepsis, in addition to history of diabetes mellitus and hypertension, comes into the hospital because of diminished appetite, generalized weakness, vomiting and diarrhea over the past few days. Upon arrival the patient also was complaining of shortness of breath. He was a poor historian. He was seen in the burst department. He was started in IV fluids and subsequently he became unresponsive and went into respiratory failure. The patient was intubated and placed on mechanical ventilator in the emergency department. Note that his blood work was completely abnormal. He initially was found to be in acute kidney injury and the patient's potassium level was at 5.7 with a BUN of 71 and a creatinine of 6.99. The patient's chest x-ray shows complete opacification of the left lung. Based on that, a CAT scan of the chest was done that showed a complex left-sided pleural effusion circumferential around the left lung. At the same time the left lung parenchyma was underinflated and was hence consistent with underlying mass in addition to atelectasis. The only inflated area of the lung was in the left apex. There was evidence of lymphadenopathy within the mediastinum including subcarinal and paratracheal and superior mediastinal area. The left mainstem bronchus was completely occluded. Right mainstem bronchus was open. Trachea was slightly shifted to the right due to mass effect. As such, a neoplastic process was considered. On today's evaluation, the patient is in the intensive care unit intubated on a mechanical ventilator. The patient is an assist-control mode rate of 22 with a tidal volume of 450 FiO2 of 70% with a PEEP of 5. The morning blood gases showed a pH of 7.16 with a pCO2 of 37 and pO2 120. The patient is sedated with propofol and the patient is calm and comfortable 40 mics of propofol infusion. He is in atrial fibrillation the rate is somewhere between 100 and 120. The patient is on Prevacid and the patient is currently on levo fed and 0.1 g per KG per minute for hemodynamic support. Antibiotic coverage was started and the patient is currently on a combination of Zosyn and vancomycin. Lactic acid level of the time of admission was 3.2 and is currently down to 1.9. In the [facility] the patient was given a total of 47 IV fluids and currently the patient on a maintenance fluid of the saline today to 100 mL an hour. Based on all this, I contacted the family. I had a lengthy discussion with the daughter the bedside. Her name is Kristin and she seems to be very much involved in the patient's care. I discussed with her the findings. Following that I suggested that we proceed with a bronchoscopy. Bronchoscopy was done and the ICU and I found the left mainstem bronchus being circumferentially involved with endobronchial tumor causing 90% narrowing of the lumen dimension. There is endobronchial tumor reaching all the way up to the left mainstem orifice, very closely approaching the main aditya. Distally, the tumor is extending in the left mainstem bronchus and going circumferentially and extending to the s econdary aditya between the left upper lobe and left lower lobe. I was able to identify the left upper lobe and left lower lobe bronchi, however, there was endobronchial tumor going circumferentially in that area involving the aditya. I would say there was considerable amount of narrowing in the left upper and left lower lobe bronchi causing approximately more daily 60-70% narrowing in the lumen diameter. In the bronchial biopsies were obtained. Bronchoscope was removed. On 06/08/2018, patient is being seen for a follow-up. The patient remains intubated on a mechanical ventilator. The patient sedated with Diprivan. In terms of the pulmonary status, the chest x-ray from today shows complete opacification of the left lung. ET tube is in a good location. The patient remains on mechanical ventilator on assist control mode and the patient had a FiO2 of 60% with a PEEP of 5 and a tidal volume of 450 and the blood gases from today showed a pH of 7.4 with a pCO2 of 36 and pO2 of 91. No significant secretions from his orotracheal tube. Endobronchial biopsy that was obtained yesterday was still pending. The plan is to consider repeat bronchoscopy and possibly attempting an endobronchial stent and left mainstem bronchus with a later stage. Hemodynamically, the patient is still being resuscitated IV fluids. Urine output has improved somewhat. The neck fluid balance over the past 24 hours is currently +6.9 L. The patient's was on a bicarb drip and his serum bicarb is up to 19 and the patient's pH is up to 7.4. For that reason, a switch this patient for a bicarb drip and normal saline infusion state of 150 mL an hour. The patient is producing some urine output. Creatinine is still elevated at 6.2 with a BUN of 67. The ultrasound of the kidneys shows no evidence of any hydronephrosis. The patient is afebrile. The patient on broad- spectrum antibiotics utilizing accommodation of Zosyn and vancomycin. Her cycles of 14.4. Serum cortisols at 30. The patient remains on pressors and norepinephrine infusion is currently running at 0.1 g per KG per minute. The patient remains in atrial fibrillation. Heart rate is under better control and the patient was loaded with amiodarone. Earlier this morning, the heart rate has slowed down considerably is below 148 reason the patient was switched to oral amiodarone 200 mg by mouth 3 times a day. He is on no anti-coagulation for the time being. As a follow-up meeting with the daughter and they are considering taking this patient for another bronchoscopy and consideration for endobronchial stent insertion. Objective - Vital Signs Vital signs: Vital Signs Temp 98.3 F 06/08/18 12:00 Pulse 97 06/08/18 15:00 Resp 22 06/08/18 15:00 BP 132/95 06/08/18 14:00 Pulse Ox 95 06/08/18 15:00 Intake & Output 06/07/18 06/08/18 06/08/18 18:59 06:59 18:59 Intake Total 4627.425 2516.023 3532.405 Output Total 52 124 202 Balance 4575.425 2392.023 3330.405 Weight 106.3 kg 106.3 kg Intake: IV 4120 2020 3390 0.9 120 120 90 Amio bolus 100 Bicarb 1800 1800 750 Piperacillin-Tazobactam 3 100 100 100 .375 gm In Sodium Chloride 0.9% 100 ml @ 25 mls/hr IVPB Q12H JUDY Rx# :[id number] Sodium Chloride 0.9% 1, 1450 000 ml @ 150 mls/hr IV . Q6H40M JUDY Rx#:[id number] Sodium Chloride 0.9% 1, 2000 000 ml @ 999 mls/hr IV . Q1H1M ONE Rx#:[id number] Vancomycin 1,500 mg In 250 Sodium Chloride 0.9% 250 ml @ 125 mls/hr IVPB ONCE ONE Rx#:[id number] Vancomycin 1,500 mg In 250 Sodium Chloride 0.9% 250 ml @ 125 mls/hr IVPB ONCE ONE Rx#:[id number] Intake, IV Titration 507.425 496.023 142.405 Amount Amiodarone 300 mg In 250 Dextrose 5% in Water 250 ml @ 0.5 MG/MIN 25 mls/hr IV .Q10H JUDY Rx#: [id number] Norepinephrine 8 mg In 287.766 228.234 142.405 Sodium Chloride 0.9% 250 ml @ 0.05 MCG/KG/MIN 8.03 mls/hr IV .Q24H JUDY Rx#: [id number] Propofol 1,000 mg In 219.659 17.789 Empty Bag 1 bag @ Titrate IV .Q0M JUDY Rx#: [id number] Output: Urine 52 124 202 Other: Voiding Method Indwelling Catheter Indwelling Catheter Indwelling Catheter ABP, PAP, CO, CI - Last Documented Arterial Blood Pressure 112/64 - Exam Gen. appearance the patient is sedated, comfortable, not in acute respiratory distress and synchronous with the mechanical ventilator. Head exam was generally normal. There was no scleral icterus or corneal arcus. Mucous membranes were moist. Neck was supple and without jugular venous distension, thyromegaly, or carotid bruits. Carotids were easily palpable bilaterally. There was no adenopathy. Lungs sounds are markedly diminished on the left compared to the right. The breast on the right are within normal limits. Cardiac exam revealed the PMI to be normally situated and sized. The rhythm was regular and no extrasystoles were noted during several minutes of auscultation. The first and second heart sounds were normal and physiologic splitting of the second heart sound was noted. There were no murmurs, rubs, clicks, or gallops. Abdominal exam revealed normal bowel sounds. The abdomen was soft, non-tender, and without masses, organomegaly, or appreciable enlargement of the abdominal aorta. Examination of the extremities revealed easily palpable radial, femoral and pedal pulses. There was no cyanosis, clubbing or edema. Examination of the skin revealed no evidence of significant rashes, suspicious appearing nevi or other concerning lesions. Neurologic the patient is sedated and is calm and comfortable. - Labs CBC & Chem 7: 06/08/18 05:00 06/08/18 05:00 Labs: Abnormal Lab Results - Last 24 Hours (Table) 06/07/18 06/07/18 06/07/18 Range/Units 09:48 12:26 17:25 WBC (3.8-10.6) k/uL RBC (4.30-5.90) m/uL Hgb (13.0-17.5) gm/dL Hct (39.0-53.0) % RDW (11.5-15.5) % Neutrophils # (1.3-7.7) k/uL Monocytes # (0-1.0) k/uL ABG pH 7.16 L* 7.15 L* (7.35-7.45) ABG O2 Saturation (94-97) % Sodium (137-145) mmol/L Carbon Dioxide (22-30) mmol/L BUN (9-20) mg/dL Creatinine (0.66-1.25) mg/dL Glucose (74-99) mg/dL POC Glucose (mg/dL) 243 H (75-99) mg/dL Calcium (8.4-10.2) mg/dL Phosphorus (2.5-4.5) mg/dL Magnesium (1.6-2.3) mg/dL AST (17-59) U/L ALT (21-72) U/L Total Protein (6.3-8.2) g/dL Albumin (3.5-5.0) g/dL 06/07/18 06/07/18 06/08/18 Range/Units 17:41 20:08 00:33 WBC (3.8-10.6) k/uL RBC (4.30-5.90) m/uL Hgb (13.0-17.5) gm/dL Hct (39.0-53.0) % RDW (11.5-15.5) % Neutrophils # (1.3-7.7) k/uL Monocytes # (0-1.0) k/uL ABG pH (7.35-7.45) ABG O2 Saturation (94-97) % Sodium 136 L (137-145) mmol/L Carbon Dioxide 16 L (22-30) mmol/L BUN 66 H (9-20) mg/dL Creatinine 6.37 H (0.66-1.25) mg/dL Glucose 234 H (74-99) mg/dL POC Glucose (mg/dL) 238 H 226 H (75-99) mg/dL Calcium 7.1 L (8.4-10.2) mg/dL Phosphorus (2.5-4.5) mg/dL Magnesium (1.6-2.3) mg/dL AST (17-59) U/L ALT (21-72) U/L Total Protein (6.3-8.2) g/dL Albumin (3.5-5.0) g/dL 06/08/18 06/08/18 06/08/18 Range/Units 04:59 05:00 05:00 WBC 14.4 H (3.8-10.6) k/uL RBC 3.56 L (4.30-5.90) m/uL Hgb 10.1 L (13.0-17.5) gm/dL Hct 30.4 L (39.0-53.0) % RDW 16.6 H (11.5-15.5) % Neutrophils # 11.5 H (1.3-7.7) k/uL Monocytes # 1.2 H (0-1.0) k/uL ABG pH (7.35-7.45) ABG O2 Saturation (94-97) % Sodium 135 L (137-145) mmol/L Carbon Dioxide 19 L (22-30) mmol/L BUN 67 H (9-20) mg/dL Creatinine 6.26 H (0.66-1.25) mg/dL Glucose 140 H (74-99) mg/dL POC Glucose (mg/dL) 144 H (75-99) mg/dL Calcium 7.1 L (8.4-10.2) mg/dL Phosphorus 5.5 H (2.5-4.5) mg/dL Magnesium 1.4 L (1.6-2.3) mg/dL AST 14 L (17-59) U/L ALT 13 L (21-72) U/L Total Protein 4.7 L (6.3-8.2) g/dL Albumin 2.3 L (3.5-5.0) g/dL 06/08/18 06/08/18 06/08/18 Range/Units 05:17 08:20 11:44 WBC (3.8-10.6) k/uL RBC (4.30-5.90) m/uL Hgb (13.0-17.5) gm/dL Hct (39.0-53.0) % RDW (11.5-15.5) % Neutrophils # (1.3-7.7) k/uL Monocytes # (0-1.0) k/uL ABG pH (7.35-7.45) ABG O2 Saturation 98.0 H (94-97) % Sodium (137-145) mmol/L Carbon Dioxide (22-30) mmol/L BUN (9-20) mg/dL Creatinine (0.66-1.25) mg/dL Glucose (74-99) mg/dL POC Glucose (mg/dL) 147 H 162 H (75-99) mg/dL Calcium (8.4-10.2) mg/dL Phosphorus (2.5-4.5) mg/dL Magnesium (1.6-2.3) mg/dL AST (17-59) U/L ALT (21-72) U/L Total Protein (6.3-8.2) g/dL Albumin (3.5-5.0) g/dL 06/08/18 Range/Units 16:16 WBC (3.8-10.6) k/uL RBC (4.30-5.90) m/uL Hgb (13.0-17.5) gm/dL Hct (39.0-53.0) % RDW (11.5-15.5) % Neutrophils # (1.3-7.7) k/uL Monocytes # (0-1.0) k/uL ABG pH (7.35-7.45) ABG O2 Saturation (94-97) % Sodium (137-145) mmol/L Carbon Dioxide (22-30) mmol/L BUN (9-20) mg/dL Creatinine (0.66-1.25) mg/dL Glucose (74-99) mg/dL POC Glucose (mg/dL) 159 H (75-99) mg/dL Calcium (8.4-10.2) mg/dL Phosphorus (2.5-4.5) mg/dL Magnesium (1.6-2.3) mg/dL AST (17-59) U/L ALT (21-72) U/L Total Protein (6.3-8.2) g/dL Albumin (3.5-5.0) g/dL Microbiology - Last 24 Hours (Table) 06/07/18 10:50 Gram Stain - Preliminary Bronchial Washings - Left Bronchial Washings Culture - Preliminary 06/06/18 19:15 Blood Culture - Preliminary Blood No Growth after 24 hours 06/06/18 23:59 Gram Stain - Preliminary Sputum Sputum Culture - Preliminary Assessment and Plan Plan: 1 acute hypoxic respiratory failure with complete/near complete collapse of the left lung secondary to 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 Endobronchial biopsies were obtained and there is a very high suspicion of an underlying lung cancer. The patient is still awaiting the results of the endobronchial biopsy. High suspicion for malignancy. Repeat bronchoscopy will be considered today for constellation of an endobronchial stent insertion. I have spoken to the daughter on multiple occasions and then the chances of achieving an adequate expansion of the left lung is extremely low knowing that the tumors or the infiltrating the left upper lobe and left lower lobe bronchi along with the secondary aditya the left upper and left lower lobe. 2 acute respiratory failure requiring intubation mechanical ventilation. 3 suspected left lung pneumonia, which could be potentially postobstructive in nature 4 shock, currently on normal saline today to have 150 mL an hour the patient on broad-spectrum antibiotics and the patient is also on pressors and no repinephrine infusion is running at 0.1 g per KG pigmented. 5 chronic atrial fibrillation, completed amiodarone bolus and currently will be switched to maintenance. 6 CHF with an ejection fraction of 40-45% 7 COPD 8 acute kidney injury some limited improvement in the urine output in the creatinine since yesterday 9 acute leukocytosis secondary to above 10 metabolic acidosis a combination of anion and non-anion gap metabolic acidosis 11 diabetes mellitus 12 hypertension 13 gout 14 recent hospitalization for a enterococcal septicemia 15 left lower lobe mass identified initially on a CAT scan of the chest was done in September 2017 Plan This patient's condition is extremely critical. The patient carries a very high mortality based on evidence of shock and multisystem organ failure. In addition to the patient has a large tumor infiltrating the left mainstem bronchus, secondary aditya the to the left upper and left lower lobe with significant tumor infiltration causing near complete collapse of the left mainstem bronchus in addition to significant narrowing of the left upper and left lower lobe bronchus. We'll continue fluid resuscitation. The patient will be switched to normal saline infusion. Continue Zosyn and vancomycin. Keep the patient states with propofol. Discontinue the amiodarone drip and switch this patient oral amiodarone. Not evaluation for now. We will take this patient to the endoscopy suite for another evaluation of left mainstem bronchus for constellation of an endobronchial stent insertion. Case was discussed with the family. Is a critically care evaluation and the solution was done and more than 30 minutes. This time was needed excluding time to do any procedures. Time with Patient: Greater than 30
--- NOTE | 2018-06-08 17:37 | P.PCN ---
Date of Procedure: 06/08/18 Preoperative Diagnosis: Left lung mass, significant narrowing with near-complete occlusion of the left mainstem bronchus due to endobronchial tumor and extrinsic compression in addition to tumor infiltrating the secondary aditya and the left upper and left lower lobe bronchi causing significant narrowing of the airways with drop the lumen of these bronchi to 80% of its normal caliber. Postoperative Diagnosis: 1 large blood clots occupying left mainstem bronchus causing complete occlusion of the left mainstem in addition to clots occluding the left lower lobe bronchus. Therapeutic airway suctioning was done and removal of blood clots was achieved is still having some degree of patency to the left mainstem bronchus that the airway itself is quite narrowed as mentioned with more than 80% narrowing in its mid and its distal portion. 2 attempted endobronchial stent insertion, unable to deploy in the left mainstem due to stent migration. Anesthesia: GETA Surgeon: Duane Briggs Estimated Blood Loss (ml): 0 Pathology: other Condition: critical Disposition: ICU Operative Findings: This patient was brought into the endoscopy room. The patient was already intubated on a mechanical ventilator and the patient was sedated with propofol. A dose of paralytic with Nimbex was also administered by [employer]. Af flexible bronchoscope was inserted through the ET tube and was advanced into the lower trachea. The tip of the ET tube was seen around 2 cm above the aditya. Note that the arteries of the left mainstem bronchus was covered by a large blood clot. I irrigated the blood clot with saline and I tried to agitated with an endobronchial forceps. Following that, the bronchoscope was u sed to manually dislodge the clot and ultimately was able to remove the clot from the left mainstem bronchus and suctioned out in 1 piece. Following that the airways inspection was completed. The main aditya and the right mainstem bronchus and right upper lobe and the right lower lobe and the right middle lobe were all patent and within normal limits. Similar to yesterday's findings, an endobronchial mass was identified occupying the proximal left mainstem bronchus and the tumor was growing circumferentially throughout the airway causing significant amount of narrowing of the left mainstem bronchus causing major airway compromise. I would send the left mainstem bronchus was completely occluded and the mid and distal portion. Endobronchial tumor was further seen occupying the secondary aditya between the left upper lobe and left lower lobe bronchus. The orifice of the left lower lobe bronchus was completely occluded with an endobronchial clots and similar technique was utilized to remove the clots. After removing the airways were further inspected and the left upper and left lower lobe bronchi were significantly compromised and on today's evaluation the airways were probably down by around 80% of his normal caliber. At this point, using a fluoroscopy, measurements were obtained in the left mainstem bronchus and reference points were obtained and these reference points were the proximal left mainstem bronchus and the distal left mainstem bronchus just at the level of the aditya the to left upper and left lower lobes. Paper clip were used subcutaneously to guide the position of the flexible bronchoscope under fluoroscopic guidance. Following that, a guidewire was passed successfully in the left lower lobe bronchus and the guidewire was clearly visualized on fluoroscopy. The bronchoscope was removed and a 14 x 40 mm metallic Ultraflex stent was introduced into the left lower lobe bronchus. This stent was deployed and following that the introducer catheter was gently removed. An airway inspection that was done following that revealed that the patient's endobronchial stent has dislodged into the proximal trachea and the proximal portion was also extending to the main trachea. The same procedure was repeated using a 12 x 40 millimeters stent, and the same problem was encountered. In both instances, endobronchial stent was removed successfully without compromising the patient's airway or oxygenation or ventilation. I support the airways significantly narrowed and the narrowing was quite critical not allowing adequate expansion of the endobronchial stent and thus leading into dislodgment while following that introducing catheter. At this point in time, the procedure was aborted and the bronchoscope was removed and the patient was transferred back to the ICU in stable condition. The condition was explained to the daughter at length. Based on my opinion, there was severely compromised and the patient is not a candidate for any endobronchial stent insertion special ed the distal airways I have an infiltrated with tumor.
[2018-06-08 20:37] LABS: Glucose,Whole Blood 154 mg/dL (75-99)
[2018-06-09] MEDS: PIPERACILLIN-TAZOBACTAM 3.375 GM in SODIUM CHLORIDE 0.9% 100 ML IVPB SCH ×2 (00:25→12:36)
[2018-06-09] MEDS: HEPARIN SODIUM,PORCINE 5,000 UNIT/ML 1 ML VIAL SQ SCH ×3 (00:25→17:36)
[2018-06-09] MEDS: INSULIN ASPART (NovoLOG) 100 UNIT/ML VIAL SQ SCH ×6 (00:25→21:14)
[2018-06-09] MEDS: SODIUM CHLORIDE 0.9% 1,000 ML IV SCH ×4 (00:26→21:15)
[2018-06-09 00:34] LABS: Glucose,Whole Blood 112 mg/dL (75-99)
[2018-06-09 04:31] LABS: Glucose,Whole Blood 97 mg/dL (75-99)
[2018-06-09 04:31] LABS: ABG Base Excess -3.6 mmol/L; ABG HCO3 21 mmol/L (21-25); ABG Oxygen Saturation 96.6 % (94-97); ABG PCO2 32 mmHg (35-45); ABG PH 7.42 (7.35-7.45); ABG PO2 80 mmHg (83-108); ABG TCO2 22 mmol/L (19-24)
[2018-06-09 04:46] LABS: Anisocytosis Slight; Basophils # (A) 0.1 k/uL (0-0.2); Basophils % (A) 0 %; Eosinophils # (A) 0.3 k/uL (0-0.7); Eosinophils % (A) 2 %; HCT 31.5 % (39.0-53.0); HGB 10.2 gm/dL (13.0-17.5); Lymphocytes # (A) 1.6 k/uL (1.0-4.8); Lymphocytes % (A) 10 %; MCH 28.1 pg (25.0-35.0); MCHC 32.2 g/dL (31.0-37.0); MCV 87.3 fL (80.0-100.0); Mean Platelet Volume 8.3; Monocytes % (A) 6 %; Neutrophils # (A) 12.9 k/uL (1.3-7.7); Neutrophils % (A) 80 %; Platelet Count 259 k/uL (150-450); Poikilocytosis Slight; RBC 3.61 m/uL (4.30-5.90); RDW 16.3 % (11.5-15.5); WBC 16.1 k/uL (3.8-10.6)
[2018-06-09 04:59] LABS: Calcium 7.2 mg/dL (8.4-10.2); Potassium 3.6 mmol/L (3.5-5.1)
[2018-06-09 05:04] LABS: Vancomycin,Random 18.8 ug/mL
--- NOTE | 2018-06-09 08:07 | XR ---
EXAMINATION TYPE: XR chest 1V DATE OF EXAM: 06/09/2018 COMPARISON: Prior chest x-ray 06/08/2018 HISTORY: Intubated TECHNIQUE: Single frontal view of the chest is obtained. FINDINGS: There is no significant interval change. Endotracheal tube, gastric tube are overlying jermain ropriate positions, distal tip of the gastric tube not included on the exam. Generator is in left pec juan alberto region, there are leads in the right atrium and ventricle. No evident pneumothorax. Left hemith orax is opacified. Heart is obscured. Some minimal patchy density present at the right lung base. Pro minence of the paratracheal soft tissues indicative of adenopathy. IMPRESSION: Stable findings.
[2018-06-09] MEDS ORDERED: VANCOMYCIN 1,500 MG in SODIUM CHLORIDE 0.9% 250 ML IVPB ONE (09:00)
[2018-06-09 09:41] LABS: Glucose,Whole Blood 165 mg/dL (75-99)
[2018-06-09] MEDS: AMIODARONE 200 MG TAB PO SCH ×3 (09:42→21:18)
[2018-06-09] MEDS: PANTOPRAZOLE 40 MG/10 ML VIAL IV SCH (09:42)
[2018-06-09] MEDS: CHLORHEXIDINE GLUCONATE 15 ML CUP MUCOUS MEM SCH ×2 (09:42→21:17)
[2018-06-09 11:41] VITALS: BMI 40.2
[2018-06-09] MEDS: PROPOFOL 1,000 MG in EMPTY BAG 1 BAG IV SCH ×2 (12:36→17:36)
[2018-06-09 12:42] LABS: Glucose,Whole Blood 144 mg/dL (75-99)
[2018-06-09] MEDS: NOREPINEPHRINE 8 MG in SODIUM CHLORIDE 0.9% 250 ML IV SCH (14:57)
--- NOTE | 2018-06-09 16:58 | P.PN ---
Subjective Progress Note Date: 06/09/18 73-year-old male patient with known history of COPD, left lower lobe mass, CHF with an ejection fraction of 40-45%, chronic atrial fibrillation, previous AICD placement, previous history of hospitalizations secondary to sepsis, in addition to history of diabetes mellitus and hypertension, comes into the hospital because of diminished appetite, generalized weakness, vomiting and diarrhea over the past few days. Upon arrival the patient also was complaining of shortness of breath. He was a poor historian. He was seen in the burst department. He was started in IV fluids and subsequently he became unresponsive and went into respiratory failure. The patient was intubated and placed on mechanical ventilator in the emergency department. Note that his blood work was completely abnormal. He initially was found to be in acute kidney injury and the patient's potassium level was at 5.7 with a BUN of 71 and a creatinine of 6.99. The patient's chest x-ray shows complete opacification of the left lung. Based on that, a CAT scan of the chest was done that showed a complex left-sided pleural effusion circumferential around the left lung. At the same time the left lung parenchyma was underinflated and was hence consistent with underlying mass in addition to atelectasis. The only inflated area of the lung was in the left apex. There was evidence of lymphadenopathy within the mediastinum including subcarinal and paratracheal and superior mediastinal area. The left mainstem bronchus was completely occluded. Right mainstem bronchus was open. Trachea was slightly shifted to the right due to mass effect. As such, a neoplastic process was considered. On today's evaluation, the patient is in the intensive care unit intubated on a mechanical ventilator. The patient is an assist-control mode rate of 22 with a tidal volume of 450 FiO2 of 70% with a PEEP of 5. The morning blood gases showed a pH of 7.16 with a pCO2 of 37 and pO2 120. The patient is sedated with propofol and the patient is calm and comfortable 40 mics of propofol infusion. He is in atrial fibrillation the rate is somewhere between 100 and 120. The patient is on Prevacid and the patient is currently on levo fed and 0.1 g per KG per minute for hemodynamic support. Antibiotic coverage was started and the patient is currently on a combination of Zosyn and vancomycin. Lactic acid level of the time of admission was 3.2 and is currently down to 1.9. In the [facility] the patient was given a total of 47 IV fluids and currently the patient on a maintenance fluid of the saline today to 100 mL an hour. Based on all this, I contacted the family. I had a lengthy discussion with the daughter the bedside. Her name is Kristin and she seems to be very much involved in the patient's care. I discussed with her the findings. Following that I suggested that we proceed with a bronchoscopy. Bronchoscopy was done and the ICU and I found the left mainstem bronchus being circumferentially involved with endobronchial tumor causing 90% narrowing of the lumen dimension. There is endobronchial tumor reaching all the way up to the left mainstem orifice, very closely approaching the main aditya. Distally, the tumor is extending in the left mainstem bronchus and going circumferentially and extending to the s econdary aditya between the left upper lobe and left lower lobe. I was able to identify the left upper lobe and left lower lobe bronchi, however, there was endobronchial tumor going circumferentially in that area involving the aditya. I would say there was considerable amount of narrowing in the left upper and left lower lobe bronchi causing approximately more daily 60-70% narrowing in the lumen diameter. In the bronchial biopsies were obtained. Bronchoscope was removed. On 06/08/2018, patient is being seen for a follow-up. The patient remains intubated on a mechanical ventilator. The patient sedated with Diprivan. In terms of the pulmonary status, the chest x-ray from today shows complete opacification of the left lung. ET tube is in a good location. The patient remains on mechanical ventilator on assist control mode and the patient had a FiO2 of 60% with a PEEP of 5 and a tidal volume of 450 and the blood gases from today showed a pH of 7.4 with a pCO2 of 36 and pO2 of 91. No significant secretions from his orotracheal tube. Endobronchial biopsy that was obtained yesterday was still pending. The plan is to consider repeat bronchoscopy and possibly attempting an endobronchial stent and left mainstem bronchus with a later stage. Hemodynamically, the patient is still being resuscitated IV fluids. Urine output has improved somewhat. The neck fluid balance over the past 24 hours is currently +6.9 L. The patient's was on a bicarb drip and his serum bicarb is up to 19 and the patient's pH is up to 7.4. For that reason, a switch this patient for a bicarb drip and normal saline infusion state of 150 mL an hour. The patient is producing some urine output. Creatinine is still elevated at 6.2 with a BUN of 67. The ultrasound of the kidneys shows no evidence of any hydronephrosis. The patient is afebrile. The patient on broad- spectrum antibiotics utilizing accommodation of Zosyn and vancomycin. Her cycles of 14.4. Serum cortisols at 30. The patient remains on pressors and norepinephrine infusion is currently running at 0.1 g per KG per minute. The patient remains in atrial fibrillation. Heart rate is under better control and the patient was loaded with amiodarone. Earlier this morning, the heart rate has slowed down considerably is below 148 reason the patient was switched to oral amiodarone 200 mg by mouth 3 times a day. He is on no anti-coagulation for the time being. As a follow-up meeting with the daughter and they are considering taking this patient for another bronchoscopy and consideration for endobronchial stent insertion. On today's evaluation of 06/09/2018 I'm seeing this patient for a follow-up. The patient remains intubated on a mechanical ventilator. In terms of vent support, the patient remains essentially the same vent setting with a tidal volume of 450 with an FiO2 of 50% and a PEEP of 5 and the rate of 22. Morning blood gas showed a pH of 7.42 with a pCO2 of 32 and pO2 of 80 and a chest x-ray showing complete opacification of the left lung. ET tube is in a good location. Patient is was sedated and is calm and comfortable. Hemodynamically the patient is on IV fluids and IV fluids is running through a femoral triple-lumen catheter and the patient is receiving normal saline. 150 mL an hour. The patient is on levo fed which is currently down to 8 g per minute. The patient is producing urine output in the order of 40 mL an hour. His underlying rhythm is atrial fibrillation with a controlled rate as the patient is currently on oral amiodarone 200 mg 3 times a day. The patient is afebrile. The patient is on broad-spectrum antibiotics. Cultures from the lavage and the creatinine staph aureus and the patient remains on a combination of Zosyn and vancomycin. Renal function continues to be an. In the creatinine also improved but remains quite elevated with a level of 5.48 with a mean of 63. Rest of the electrodes are all within normal limits. Meanwhile, the patient is grimacing to painful stimulation. Pupils are equal and reactive to light. He is well sedated for no w. Blood cultures been negative. Pathology and the left lower lobe endobronchial biopsies confirmed the diagnosis of small cell lung cancer. Objective - Vital Signs Vital signs: Vital Signs Temp 98.2 F 06/09/18 12:00 Pulse 105 H 06/09/18 15:00 Resp 22 06/09/18 15:00 BP 103/76 06/09/18 15:00 Pulse Ox 96 06/09/18 15:00 Intake & Output 06/08/18 06/09/18 06/09/18 18:59 06:59 18:59 Intake Total 4147.804 2074.232 1872.061 Output Total 412 755 430 Balance 3735.804 0015.912 2355.061 Weight 106.3 kg 113.1 kg 113.1 kg Intake: IV 3840 1900 1600 0.9 90 Bicarb 750 Piperacillin-Tazobactam 3 100 100 100 .375 gm In Sodium Chloride 0.9% 100 ml @ 25 mls/hr IVPB Q12H [facility] Rx# :[id number] Sodium Chloride 0.9% 1, 1900 1800 1250 000 ml @ 150 mls/hr IV . Q6H40M [facility] Rx#:[id number] Vancomycin 1,500 mg In 250 Sodium Chloride 0.9% 250 ml @ 125 mls/hr IVPB ONCE ONE Rx#:[id number] Vancomycin 1,500 mg In 250 Sodium Chloride 0.9% 250 ml @ 125 mls/hr IVPB ONCE ONE Rx#:[id number] vancomycin 250 Intake, IV Titration 307.804 174.232 232.061 Amount Norepinephrine 8 mg In 307.804 11.484 232.061 Sodium Chloride 0.9% 250 ml @ 0.05 MCG/KG/MIN 8.03 mls/hr IV .Q24H [facility] Rx#: [id number] Propofol 1,000 mg In 162.748 Empty Bag 1 bag @ Titrate IV .Q0M [facility] Rx#: [id number] Tube Feeding 10 Other 30 Output: Urine 412 755 430 Other: Voiding Method Indwelling Catheter Indwelling Catheter ABP, PAP, CO, CI - Last Documented Arterial Blood Pressure 138/71 - Exam Gen. appearance the patient is sedated, comfortable, not in acute respiratory distress and synchronous with the mechanical ventilator. Head exam was generally normal. There was no scleral icterus or corneal arcus. Mucous membranes were moist. Neck was supple and without jugular venous distension, thyromegaly, or carotid bruits. Carotids were easily palpable bilaterally. There was no adenopathy. Lungs sounds are markedly diminished on the left compared to the right. The breast on the right are within normal limits. Cardiac exam revealed the PMI to be normally situated and sized. The rhythm was regular and no extrasystoles were noted during several minutes of auscultation. The first and second heart sounds were normal and physiologic splitting of the second heart sound was noted. There were no murmurs, rubs, clicks, or gallops. Abdominal exam revealed normal bowel sounds. The abdomen was soft, non-tender, and without masses, organomegaly, or appreciable enlargement of the abdominal aorta. Examination of the extremities revealed easily palpable radial, femoral and pe karine pulses. There was no cyanosis, clubbing or edema. Examination of the skin revealed no evidence of significant rashes, suspicious appearing nevi or other concerning lesions. Neurologic the patient is sedated and is calm and comfortable. - Labs CBC & Chem 7: 06/09/18 04:20 06/09/18 04:20 Labs: Abnormal Lab Results - Last 24 Hours (Table) 06/08/18 06/09/18 06/09/18 Range/Units 20:25 00:23 04:20 WBC 16.1 H (3.8-10.6) k/uL RBC 3.61 L (4.30-5.90) m/uL Hgb 10.2 L (13.0-17.5) gm/dL Hct 31.5 L (39.0-53.0) % RDW 16.3 H (11.5-15.5) % Neutrophils # 12.9 H (1.3-7.7) k/uL ABG pCO2 (35-45) mmHg ABG pO2 (83-108) mmHg Sodium (137-145) mmol/L Carbon Dioxide (22-30) mmol/L BUN (9-20) mg/dL Creatinine (0.66-1.25) mg/dL Glucose (74-99) mg/dL POC Glucose (mg/dL) 154 H 112 H (75-99) mg/dL Calcium (8.4-10.2) mg/dL 06/09/18 06/09/18 06/09/18 Range/Units 04:20 04:25 09:29 WBC (3.8-10.6) k/uL RBC (4.30-5.90) m/uL Hgb (13.0-17.5) gm/dL Hct (39.0-53.0) % RDW (11.5-15.5) % Neutrophils # (1.3-7.7) k/uL ABG pCO2 32 L (35-45) mmHg ABG pO2 80 L (83-108) mmHg Sodium 135 L (137-145) mmol/L Carbon Dioxide 20 L (22-30) mmol/L BUN 63 H (9-20) mg/dL Creatinine 5.48 H (0.66-1.25) mg/dL Glucose 125 H (74-99) mg/dL POC Glucose (mg/dL) 165 H (75-99) mg/dL Calcium 7.2 L (8.4-10.2) mg/dL 06/09/18 Range/Units 12:30 WBC (3.8-10.6) k/uL RBC (4.30-5.90) m/uL Hgb (13.0-17.5) gm/dL Hct (39.0-53.0) % RDW (11.5-15.5) % Neutrophils # (1.3-7.7) k/uL ABG pCO2 (35-45) mmHg ABG pO2 (83-108) mmHg Sodium (137-145) mmol/L Carbon Dioxide (22-30) mmol/L BUN (9-20) mg/dL Creatinine (0.66-1.25) mg/dL Glucose (74-99) mg/dL POC Glucose (mg/dL) 144 H (75-99) mg/dL Calcium (8.4-10.2) mg/dL Microbiology - Last 24 Hours (Table) 06/07/18 10:50 Gram Stain - Preliminary Bronchial Washings - Left Bronchial Washings Culture - Preliminary Presumptive Staph aureus 06/06/18 23:59 Gram Stain - Preliminary Sputum Sputum Culture - Preliminary Presumptive Staph aureus Marie albicans 06/06/18 19:15 Blood Culture - Preliminary Blood No Growth after 48 hours Assessment and Plan Plan: 1 acute hypoxic respiratory failure with complete/near complete collapse of the left lung secondary to 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 Endobronchial biopsies were obtained and there is a very high s uspicion of an underlying lung cancer. The pathology is consistent with small cell lung cancer 2 acute respiratory failure requiring intubation mechanical ventilation. The right lung is clean and left lung is completely opacified on today's chest x-ray 3 suspected left lung pneumonia, secondary to staph aureus monitor the patient remains and accommodation of Zosyn and vancomycin 4 shock, likely septic in nature currently on normal saline today to have 150 mL an hour the patient on broad-spectrum antibiotics and the patient is also on pressors and norepinephrine infusion is running at 0.1 g per KG pigmented. 5 chronic atrial fibrillation, completed amiodarone bolus and currently will be switched to maintenance. 6 CHF with an ejection fraction of 40-45% 7 COPD 8 acute kidney injury , nonoliguric 9 acute leukocytosis secondary to above 10 metabolic acidosis a combination of anion and non-anion gap metabolic acidosis 11 diabetes mellitus 12 hypertension 13 gout 14 recent hospitalization for a enterococcal septicemia 15 left lower lobe mass identified initially on a CAT scan of the chest was done in September 2017 Plan I had a lengthy discussion with the patient's daughter and aggressive the family at the bedside. I put a much given the diagnosis of lung cancer. They are aware that the left lung is nonsalvageable at this point. It is very unlikely and will be achieving any left lung expansion this patient knowing that she was quite extensive and have an infiltrate in the left mainstem bronchus and left upper and left lower lobe bronchus. In addition the patient is in septic shock and the patient is still pressor dependent. The patient is receiving accomm odation Zosyn and vancomycin. The patient remains on pressors. Staph aureus was cultured from the lungs. Final cultures and sensitivities are still pending for now. Meanwhile, the patient was started on tube feeds. The patient is being supported with fluids and pressors. Keep sedation for now. Prognosis extremely poor. The final decision regional economic liaison status and comfort care measures will be done after having more family arriving from [facility]. We'll continue to support the patient here in the ICU make further recommendations based on his progress. The patient carries a very high mortality based above- mentioned findings. There is a critically care evaluation that was on a more than 30 minutes Time with Patient: Greater than 30
[2018-06-09 17:44] LABS: Glucose,Whole Blood 140 mg/dL (75-99)
--- NOTE | 2018-06-09 20:31 | P.PN ---
Subjective marketing and public relations manager hospitalist covering for , over the weekend this is a 73 yo F with pmh of congestive heart failure, cardiomyopathy , COPD, HTN , DM diabetic neuropathy , atrial fibrillation , CVA/TIA, multiple pneumonia, CKD, who presents with generalized weakness and diarrhea and vomiting , she got into resp distress in the emergency room and she got intubated and placed on mechanical ventilation . pt remains in the icu in critical case, pt is currently in septic shock and she is on pressers and broad spectrum abx, she is followed closely by the pulmonary critical care team Objective - Vital Signs Vital signs: Vital Signs Temp 98.1 F 06/09/18 16:00 Pulse 92 06/09/18 19:00 Resp 22 06/09/18 19:00 BP 111/63 06/09/18 19:00 Pulse Ox 96 06/09/18 19:00 Intake & Output 06/09/18 06/09/18 06/10/18 06:59 18:59 06:59 Intake Total 2074.232 2583.830 150 Output Total 755 525 35 Balance 4829.057 0574.830 115 Weight 113.1 kg 113.1 kg Intake: IV 1900 2150 150 Piperacillin-Tazobactam 3 100 100 .375 gm In Sodium Chloride 0.9% 100 ml @ 25 mls/hr IVPB Q12H [facility] Rx# :[id number] Sodium Chloride 0.9% 1, 1800 1800 150 000 ml @ 150 mls/hr IV . Q6H40M [facility] Rx#:[id number] vancomycin 250 Intake, IV Titration 174.232 363.830 Amount Norepinephrine 8 mg In 11.484 289.130 Sodium Chloride 0.9% 250 ml @ 0.05 MCG/KG/MIN 8.03 mls/hr IV .Q24H [facility] Rx#: [id number] Propofol 1,000 mg In 162.748 74.7 Empty Bag 1 bag @ Titrate IV .Q0M [facility] Rx#: [id number] Tube Feeding 40 Other 30 Output: Urine 755 525 35 Other: Voiding Method Indwelling Catheter Indwelling Catheter ABP, PAP, CO, CI - Last Documented Arterial Blood Pressure 130/67 - Exam GENERAL: The patient is sedated and intubated HEENT: Pupils are round and equally reacting to light. EOMI. No scleral icterus. No conjunctival pallor. Normocephalic, atraumatic. No pharyngeal erythema. No thyromegaly. CARDIOVASCULAR: S1 and S2 present. No murmurs, rubs, or gallops. PULMONARY: Chest is clear to auscultation, no wheezing or crackles. ABDOMEN: Soft, nontender, nondistended, normoactive bowel sounds. No palpable organomegaly. MUSCULOSKELETAL: No joint swelling or deformity. EXTREMITIES: No cyanosis, clubbing, or pedal edema. NEUROLOGICAL: Gross neurological examination did not reveal any focal deficits. SKIN: No rashes. - Labs CBC & Chem 7: 06/09/18 04:20 06/09/18 04:20 Labs: Abnormal Lab Results - Last 24 Hours (Table) 06/08/18 06/09/18 06/09/18 Range/Units 20:25 00:23 04:20 WBC 16.1 H (3.8-10.6) k/uL RBC 3.61 L (4.30-5.90) m/uL Hgb 10.2 L (13.0-17.5) gm/dL Hct 31.5 L (39.0-53.0) % RDW 16.3 H (11.5-15.5) % Neutrophils # 12.9 H (1.3-7.7) k/uL ABG pCO2 (35-45) mmHg ABG pO2 (83-108) mmHg Sodium (137-145) mmol/L Carbon Dioxide (22-30) mmol/L BUN (9-20) mg/dL Creatinine (0.66-1.25) mg/dL Glucose (74-99) mg/dL POC Glucose (mg/dL) 154 H 112 H (75-99) mg/dL Calcium (8.4-10.2) mg/dL 06/09/18 06/09/18 06/09/18 Range/Units 04:20 04:25 09:29 WBC (3.8-10.6) k/uL RBC (4.30-5.90) m/uL Hgb (13.0-17.5) gm/dL Hct (39.0-53.0) % RDW (11.5-15.5) % Neutrophils # (1.3-7.7) k/uL ABG pCO2 32 L (35-45) mmHg ABG pO2 80 L (83-108) mmHg Sodium 135 L (137-145) mmol/L Carbon Dioxide 20 L (22-30) mmol/L BUN 63 H (9-20) mg/dL Creatinine 5.48 H (0.66-1.25) mg/dL Glucose 125 H (74-99) mg/dL POC Glucose (mg/dL) 165 H (75-99) mg/dL Calcium 7.2 L (8.4-10.2) mg/dL 06/09/18 06/09/18 Range/Units 12:30 17:32 WBC (3.8-10.6) k/uL RBC (4.30-5.90) m/uL Hgb (13.0-17.5) gm/dL Hct (39.0-53.0) % RDW (11.5-15.5) % Neutrophils # (1.3-7.7) k/uL ABG pCO2 (35-45) mmHg ABG pO2 (83-108) mmHg Sodium (137-145) mmol/L Carbon Dioxide (22-30) mmol/L BUN (9-20) mg/dL Creatinine (0.66-1.25) mg/dL Glucose (74-99) mg/dL POC Glucose (mg/dL) 144 H 140 H (75-99) mg/dL Calcium (8.4-10.2) mg/dL Microbiology - Last 24 Hours (Table) 06/07/18 10:50 Gram Stain - Preliminary Bronchial Washings - Left Bronchial Washings Culture - Preliminary Presumptive Staph aureus 06/06/18 23:59 Gram Stain - Preliminary Sputum Sputum Culture - Preliminary Presumptive Staph aureus Marie albicans 06/06/18 19:15 Blood Culture - Preliminary Blood No Growth after 48 hours Assessment and Plan Assessment: acute hypoxic resp failure with intubation and mechanical ventilation secondary to tumor obstructing the left main bronchus small cell lung cancer, biopsy proven post obstructive pneumonia on vancomycin and zosyn septic shock on pressers secondary to pna h/o CHF atrial fibrillation DM HTN CVA/TIA Plan: this is a 73 yo F who presents with septic shock , resp failure needing intubation , lung cancer. pt remains in the icu , she is followed closely by the pulmonary critical care team she is on broad spectrum antibiotic, continue with fluids, vent management and pressers as per icu team . Continue with the same treatment , continue with symptomatic treatment , resume home medication , monitor lytes and vitals, . GI and DVT prophylaxis , further recommendation based upon pt clinical course and progress DVT prophylaxis heparin GI prophylaxis ppi Prognosis is guarded
--- NOTE | 2018-06-09 20:36 | PN ---
PROGRESS NOTE The patient is seen for followup for acute kidney injury, mainly ATN, currently nonoliguric. Urine output has picked up. The patient remains on the vent. FiO2 is at 50%. Urine output about 50 to 70 mL an hour. Levophed is at about 14 mics. The patient is maintained on IV fluids at 150 mL an hour. He is maintained on sedation. PHYSICAL EXAMINATION: VITAL SIGNS: This morning, blood pressure was 105/60, heart rate about 100 per minute. He is afebrile. CARDIOVASCULAR: Examination of the heart S1, S2. LUNGS: Examination of the lungs bilateral breath sounds are heard. ABDOMEN: Soft. EXTREMITIES: Examination of lower extremities shows no significant edema. VESSEL SLAGMAN exam cannot be performed. LAB: Show hemoglobin 10.2, sodium 135, potassium 3.6, BUN 63, serum creatinine 5.48, calcium 7.2, magnesium 1.7. ASSESSMENT: 1. Acute kidney injury, acute tubular necrosis, nonoliguric, with some improvement in renal function. Serum creatinine is slightly lower than yesterday, and patient has good urine output. We will continue to follow and continue to avoid nephrotoxic agents. The patient is maintained on vancomycin. His level was at 18. Continue to monitor vancomycin levels closely. No other nephrotoxic agents on board at this time. 2. Metabolic acidosis secondary to renal failure and lactic acidosis. The patient had been on metformin, which is now on hold. 3. Hyperkalemia associated with acute kidney injury, metabolic acidosis, now resolved. 4. Left lung mass with a left main bronchus obstruction status post bronchoscopy with is highly suggestive of malignancy. 5. Hypomagnesemia, status post replacement. 6. Cardiomyopathy EF 40-45 percent. 7. Left lung pneumonia secondary to Staph aureus, maintained on Vanco and Zosyn. 8. Shock, appears to be septic shock with lactic acidosis. PLAN: May continue with the vancomycin. Continue IV fluids. Hopefully we can continue to avoid renal replacement therapy. Serum creatinine is improving. Repeat labs in a.m. and avoid any other nephrotoxic agents. MMODL / IJN: [id number] /
[2018-06-09 21:10] LABS: Glucose,Whole Blood 154 mg/dL (75-99)
[2018-06-10] MEDS: INSULIN ASPART (NovoLOG) 100 UNIT/ML VIAL SQ SCH ×5 (00:03→16:59)
[2018-06-10] MEDS: HEPARIN SODIUM,PORCINE 5,000 UNIT/ML 1 ML VIAL SQ SCH ×3 (00:03→16:59)
[2018-06-10] MEDS: PIPERACILLIN-TAZOBACTAM 3.375 GM in SODIUM CHLORIDE 0.9% 100 ML IVPB SCH ×2 (00:03→12:05)
[2018-06-10 00:10] LABS: Glucose,Whole Blood 151 mg/dL (75-99)
[2018-06-10 04:27] LABS: Anisocytosis Slight; Basophils % (A) 0 %; Eosinophils # (A) 0.2 k/uL (0-0.7); Eosinophils % (A) 1 %; HCT 30.9 % (39.0-53.0); Hypochromasia Slight; Lymphocytes # (A) 1.6 k/uL (1.0-4.8); Lymphocytes % (A) 10 %; MCHC 32.2 g/dL (31.0-37.0); Monocytes # (A) 0.8 k/uL (0-1.0); Monocytes % (A) 5 %; Neutrophils # (A) 12.6 k/uL (1.3-7.7); Neutrophils % (A) 81 %; Platelet Count 228 k/uL (150-450); Poikilocytosis Slight; RBC 3.55 m/uL (4.30-5.90); RDW 16.5 % (11.5-15.5); WBC 15.6 k/uL (3.8-10.6)
[2018-06-10] MEDS: SODIUM CHLORIDE 0.9% 1,000 ML IV SCH ×2 (04:29→10:20)
[2018-06-10 04:37] LABS: Albumin 2.2 g/dL (3.5-5.0); Calcium 7.3 mg/dL (8.4-10.2); Magnesium 1.6 mg/dL (1.6-2.3); Phosphorus 5.9 mg/dL (2.5-4.5); Potassium 3.7 mmol/L (3.5-5.1); Total Bilirubin 0.8 mg/dL (0.2-1.3); Total Protein 4.5 g/dL (6.3-8.2)
[2018-06-10 04:38] LABS: Glucose,Whole Blood 167 mg/dL (75-99)
[2018-06-10 05:28] LABS: ABG Base Excess -6.7 mmol/L; ABG HCO3 19 mmol/L (21-25); ABG Oxygen Saturation 98.2 % (94-97); ABG PCO2 32 mmHg (35-45); ABG PH 7.37 (7.35-7.45); ABG PO2 107 mmHg (83-108); ABG TCO2 20 mmol/L (19-24)
--- NOTE | 2018-06-10 06:19 | XR ---
EXAMINATION TYPE: XR chest 1V portable DATE OF EXAM: 06/10/2018 HISTORY: Tube placement. REFERENCE: Previous study dated 06/09/2018. FINDINGS: There is a bipolar pacemaker place on the left. The patient is NG tube and ET tube remain i n place, unchanged in appearance. There is complete opacification of the left chest. There is worsening airspace disease the right lung base. I cannot exclude a small right effusion. Heart size is obscured. IMPRESSION: 1. COMPLETE OPACIFICATION OF THE LEFT LUNG. 2. WORSENING AIRSPACE DISEASE, RIGHT LUNG BASE. 3. I CANNOT EXCLUDE A RIGHT-SIDED EFFUSION.
[2018-06-10] MEDS: PROPOFOL 1,000 MG in EMPTY BAG 1 BAG IV SCH ×2 (06:28→08:56)
[2018-06-10 08:40] LABS: Glucose,Whole Blood 179 mg/dL (75-99)
[2018-06-10] MEDS: AMIODARONE 200 MG TAB PO SCH ×2 (08:55→16:59)
[2018-06-10] MEDS: CHLORHEXIDINE GLUCONATE 15 ML CUP MUCOUS MEM SCH (08:55)
[2018-06-10] MEDS: PANTOPRAZOLE 40 MG/10 ML VIAL IV SCH (08:55)
[2018-06-10] MEDS ORDERED: FUROSEMIDE 10 MG/ML 10 ML VIAL IV SCH (10:00)
--- NOTE | 2018-06-10 10:09 | P.PN ---
Subjective Progress Note Date: 06/10/18 Seen and examined for the follow-up of acute kidney injury. Currently on ventilator 40% FiO2 and 5 of PEEP. Still on levo fed 8 mics. Objective - Vital Signs Vital signs: Vital Signs Temp 98.9 F 06/10/18 04:01 Pulse 92 06/10/18 07:00 Resp 22 06/10/18 07:00 BP 111/63 06/09/18 19:00 Pulse Ox 97 06/10/18 07:00 Intake & Output 06/09/18 06/10/18 06/10/18 18:59 06:59 18:59 Intake Total 2583.830 2619.625 257.852 Output Total 525 420 30 Balance 2058.830 2199.625 227.852 Weight 113.1 kg 115.7 kg Intake: IV 2150 1900 150 Piperacillin-Tazobactam 3 100 100 .375 gm In Sodium Chloride 0.9% 100 ml @ 25 mls/hr IVPB Q12H [facility] Rx# :[id number] Sodium Chloride 0.9% 1, 1800 1800 150 000 ml @ 150 mls/hr IV . Q6H40M [facility] Rx#:[id number] vancomycin 250 Intake, IV Titration 363.830 288.625 36.852 Amount Norepinephrine 8 mg In 289.130 188.625 Sodium Chloride 0.9% 250 ml @ 0.05 MCG/KG/MIN 8.03 mls/hr IV .Q24H [facility] Rx#: [id number] Propofol 1,000 mg In 74.7 100 36.852 Empty Bag 1 bag @ Titrate IV .Q0M [facility] Rx#: [id number] Tube Feeding 40 341 41 Other 30 90 30 Output: Urine 525 420 30 Other: Voiding Method Indwelling Catheter Indwelling Catheter ABP, PAP, CO, CI - Last Documented Arterial Blood Pressure 94/52 - Exam Sedated on a ventilator Oral intubation S1-S2 heard Decreased breath sounds on the left side, bronchial breathing Scrotal edema and lower extremity edema Beyer catheter - Labs CBC & Chem 7: 06/10/18 04:05 06/10/18 04:05 Labs: Abnormal Lab Results - Last 24 Hours (Table) 06/09/18 06/09/18 06/09/18 Range/Units 12:30 17:32 20:58 WBC (3.8-10.6) k/uL RBC (4.30-5.90) m/uL Hgb (13.0-17.5) gm/dL Hct (39.0-53.0) % RDW (11.5-15.5) % Neutrophils # (1.3-7.7) k/uL ABG pCO2 (35-45) mmHg ABG HCO3 (21-25) mmol/L ABG O2 Saturation (94-97) % Sodium (137-145) mmol/L Carbon Dioxide (22-30) mmol/L BUN (9-20) mg/dL Creatinine (0.66-1.25) mg/dL Glucose (74-99) mg/dL POC Glucose (mg/dL) 144 H 140 H 154 H (75-99) mg/dL Calcium (8.4-10.2) mg/dL Phosphorus (2.5-4.5) mg/dL AST (17-59) U/L ALT (21-72) U/L Total Protein (6.3-8.2) g/dL Albumin (3.5-5.0) g/dL 06/09/18 06/10/18 06/10/18 Range/Units 23:59 04:05 04:05 WBC 15.6 H (3.8-10.6) k/uL RBC 3.55 L (4.30-5.90) m/uL Hgb 10.0 L (13.0-17.5) gm/dL Hct 30.9 L (39.0-53.0) % RDW 16.5 H (11.5-15.5) % Neutrophils # 12.6 H (1.3-7.7) k/uL ABG pCO2 (35-45) mmHg ABG HCO3 (21-25) mmol/L ABG O2 Saturation (94-97) % Sodium 136 L (137-145) mmol/L Carbon Dioxide 18 L (22-30) mmol/L BUN 61 H (9-20) mg/dL Creatinine 4.86 H (0.66-1.25) mg/dL Glucose 154 H (74-99) mg/dL POC Glucose (mg/dL) 151 H (75-99) mg/dL Calcium 7.3 L (8.4-10.2) mg/dL Phosphorus 5.9 H (2.5-4.5) mg/dL AST 15 L (17-59) U/L ALT 17 L (21-72) U/L Total Protein 4.5 L (6.3-8.2) g/dL Albumin 2.2 L (3.5-5.0) g/dL 06/10/18 06/10/18 06/10/18 Range/Units 04:13 05:20 08:28 WBC (3.8-10.6) k/uL RBC (4.30-5.90) m/uL Hgb (13.0-17.5) gm/dL Hct (39.0-53.0) % RDW (11.5-15.5) % Neutrophils # (1.3-7.7) k/uL ABG pCO2 32 L (35-45) mmHg ABG HCO3 19 L (21-25) mmol/L ABG O2 Saturation 98.2 H (94-97) % Sodium (137-145) mmol/L Carbon Dioxide (22-30) mmol/L BUN (9-20) mg/dL Creatinine (0.66-1.25) mg/dL Glucose (74-99) mg/dL POC Glucose (mg/dL) 167 H 179 H (75-99) mg/dL Calcium (8.4-10.2) mg/dL Phosphorus (2.5-4.5) mg/dL AST (17-59) U/L ALT (21-72) U/L Total Protein (6.3-8.2) g/dL Albumin (3.5-5.0) g/dL Microbiology - Last 24 Hours (Table) 06/07/18 10:50 Gram Stain - Final Bronchial Washings - Left Bronchial Washings Culture - Final Staph aureus Marie albicans 06/06/18 23:59 Gram Stain - Final Sputum Sputum Culture - Final Staphylococcus aureus Marie albicans 06/06/18 19:15 Blood Culture - Preliminary Blood No Growth after 72 hours Assessment and Plan Assessment: #1 nonoliguric acute kidney injury secondary to hemodynamic ATN. Baseline creatinine 0.6-0.8 MG per DL in September 2017. Creatinine improving since admission. #2 septic shock on Levophed. #3 left lung collapse with endobronchial lesion with small cell lung cancer. #4 ventilator-dependent respiratory failure #5 Anion gap Metabolic acidosis #6 volume overload with edema #7 hyperphosphatemia secondary to acute kidney injury. Plan: #1 creatinine improving. Stop IV fluids as he is getting volume overload. #2 add Lasix 60 mg IV twice a day. #3 supportive care. #4 avoid nephrotoxic agents and hypotensive episodes
[2018-06-10 11:59] LABS: Glucose,Whole Blood 209 mg/dL (75-99)
--- NOTE | 2018-06-10 14:59 | P.PN ---
Subjective Progress Note Date: 06/10/18 73-year-old male patient with known history of COPD, left lower lobe mass, CHF with an ejection fraction of 40-45%, chronic atrial fibrillation, previous AICD placement, previous history of hospitalizations secondary to sepsis, in addition to history of diabetes mellitus and hypertension, comes into the hospital because of diminished appetite, generalized weakness, vomiting and diarrhea over the past few days. Upon arrival the patient also was complaining of shortness of breath. He was a poor historian. He was seen in the burst department. He was started in IV fluids and subsequently he became unresponsive and went into respiratory failure. The patient was intubated and placed on mechanical ventilator in the emergency department. Note that his blood work was completely abnormal. He initially was found to be in acute kidney injury and the patient's potassium level was at 5.7 with a BUN of 71 and a creatinine of 6.99. The patient's chest x-ray shows complete opacification of the left lung. Based on that, a CAT scan of the chest was done that showed a complex left-sided pleural effusion circumferential around the left lung. At the same time the left lung parenchyma was underinflated and was hence consistent with underlying mass in addition to atelectasis. The only inflated area of the lung was in the left apex. There was evidence of lymphadenopathy within the mediastinum including subcarinal and paratracheal and superior mediastinal area. The left mainstem bronchus was completely occluded. Right mainstem bronchus was open. Trachea was slightly shifted to the right due to mass effect. As such, a neoplastic process was considered. On today's evaluation, the patient is in the intensive care unit intubated on a mechanical ventilator. The patient is an assist-control mode rate of 22 with a tidal volume of 450 FiO2 of 70% with a PEEP of 5. The morning blood gases showed a pH of 7.16 with a pCO2 of 37 and pO2 120. The patient is sedated with propofol and the patient is calm and comfortable 40 mics of propofol infusion. He is in atrial fibrillation the rate is somewhere between 100 and 120. The patient is on Prevacid and the patient is currently on levo fed and 0.1 g per KG per minute for hemodynamic support. Antibiotic coverage was started and the patient is currently on a combination of Zosyn and vancomycin. Lactic acid level of the time of admission was 3.2 and is currently down to 1.9. In the [facility] the patient was given a total of 47 IV fluids and currently the patient on a maintenance fluid of the saline today to 100 mL an hour. Based on all this, I contacted the family. I had a lengthy discussion with the daughter the bedside. Her name is Kristin and she seems to be very much involved in the patient's care. I discussed with her the findings. Following that I suggested that we proceed with a bronchoscopy. Bronchoscopy was done and the ICU and I found the left mainstem bronchus being circumferentially involved with endobronchial tumor causing 90% narrowing of the lumen dimension. There is endobronchial tumor reaching all the way up to the left mainstem orifice, very closely approaching the main aditya. Distally, the tumor is extending in the left mainstem bronchus and going circumferentially and extending to the s econdary aditya between the left upper lobe and left lower lobe. I was able to identify the left upper lobe and left lower lobe bronchi, however, there was endobronchial tumor going circumferentially in that area involving the aditya. I would say there was considerable amount of narrowing in the left upper and left lower lobe bronchi causing approximately more daily 60-70% narrowing in the lumen diameter. In the bronchial biopsies were obtained. Bronchoscope was removed. On 06/08/2018, patient is being seen for a follow-up. The patient remains intubated on a mechanical ventilator. The patient sedated with Diprivan. In terms of the pulmonary status, the chest x-ray from today shows complete opacification of the left lung. ET tube is in a good location. The patient remains on mechanical ventilator on assist control mode and the patient had a FiO2 of 60% with a PEEP of 5 and a tidal volume of 450 and the blood gases from today showed a pH of 7.4 with a pCO2 of 36 and pO2 of 91. No significant secretions from his orotracheal tube. Endobronchial biopsy that was obtained yesterday was still pending. The plan is to consider repeat bronchoscopy and possibly attempting an endobronchial stent and left mainstem bronchus with a later stage. Hemodynamically, the patient is still being resuscitated IV fluids. Urine output has improved somewhat. The neck fluid balance over the past 24 hours is currently +6.9 L. The patient's was on a bicarb drip and his serum bicarb is up to 19 and the patient's pH is up to 7.4. For that reason, a switch this patient for a bicarb drip and normal saline infusion state of 150 mL an hour. The patient is producing some urine output. Creatinine is still elevated at 6.2 with a BUN of 67. The ultrasound of the kidneys shows no evidence of any hydronephrosis. The patient is afebrile. The patient on broad- spectrum antibiotics utilizing accommodation of Zosyn and vancomycin. Her cycles of 14.4. Serum cortisols at 30. The patient remains on pressors and norepinephrine infusion is currently running at 0.1 g per KG per minute. The patient remains in atrial fibrillation. Heart rate is under better control and the patient was loaded with amiodarone. Earlier this morning, the heart rate has slowed down considerably is below 148 reason the patient was switched to oral amiodarone 200 mg by mouth 3 times a day. He is on no anti-coagulation for the time being. As a follow-up meeting with the daughter and they are considering taking this patient for another bronchoscopy and consideration for endobronchial stent insertion. On today's evaluation of 06/09/2018 I'm seeing this patient for a follow-up. The patient remains intubated on a mechanical ventilator. In terms of vent support, the patient remains essentially the same vent setting with a tidal volume of 450 with an FiO2 of 50% and a PEEP of 5 and the rate of 22. Morning blood gas showed a pH of 7.42 with a pCO2 of 32 and pO2 of 80 and a chest x-ray showing complete opacification of the left lung. ET tube is in a good location. Patient is was sedated and is calm and comfortable. Hemodynamically the patient is on IV fluids and IV fluids is running through a femoral triple-lumen catheter and the patient is receiving normal saline. 150 mL an hour. The patient is on levo fed which is currently down to 8 g per minute. The patient is producing urine output in the order of 40 mL an hour. His underlying rhythm is atrial fibrillation with a controlled rate as the patient is currently on oral amiodarone 200 mg 3 times a day. The patient is afebrile. The patient is on broad-spectrum antibiotics. Cultures from the lavage and the creatinine staph aureus and the patient remains on a combination of Zosyn and vancomycin. Renal function continues to be an. In the creatinine also improved but remains quite elevated with a level of 5.48 with a mean of 63. Rest of the electrodes are all within normal limits. Meanwhile, the patient is grimacing to painful stimulation. Pupils are equal and reactive to light. He is well sedated for no w. Blood cultures been negative. Pathology and the left lower lobe endobronchial biopsies confirmed the diagnosis of small cell lung cancer. On 06/10/2018 the patient is essentially the same condition. He is sedated. He remains on a mechanical ventilator. Vent settings are essentially unchanged. His blood gases from today shows a pH of 7.37 with a pCO2 of 32 and pO2 of 107. Meanwhile, the chest x-ray shows complete widening out of the left lung along with some early infiltration of the right lung base. ET tube is in a good location. Hemodynamically, the patient was receiving bicarb infusion that was discontinued by nephrology as the patient was getting intensive edema in his lower extremities. The patient was producing around 30-40 mL of urine output on hourly basis. Renal function continues to slowly improve and the patient's creatinine is down to 4.86. He has been found to have staph aureus in his sputum on 2 separate occasions and the patient has MRSA currently on accom modation of Zosyn and vancomycin. CULTURES been negative. The patient remains on pressors and norepinephrine infusion is running at 0.1 g per KG per minute. He is afebrile. He is started on tube feeds. I met the family yesterday at length and explained to them the poor prognosis. This type of condition. His diagnosis is consistent with lung cancer. Objective - Vital Signs Vital signs: Vital Signs Temp 97.9 F 06/10/18 12:00 Pulse 105 H 06/10/18 13:00 Resp 28 H 06/10/18 13:00 BP 92/75 06/10/18 12:45 Pulse Ox 93 L 06/10/18 13:00 Intake & Output 06/09/18 06/10/18 06/10/18 18:59 06:59 18:59 Intake Total 2583.830 2619.625 1139.852 Output Total 525 420 250 Balance 2058.830 2199.625 889.852 Weight 113.1 kg 115.7 kg Intake: IV 2150 1900 580 Piperacillin-Tazobactam 3 100 100 50 .375 gm In Sodium Chloride 0.9% 100 ml @ 25 mls/hr IVPB Q12H [facility] Rx# :[id number] Sodium Chloride 0.9% 1, 1800 1800 530 000 ml @ 150 mls/hr IV . Q6H40M [facility] Rx#:[id number] vancomycin 250 Intake, IV Titration 363.830 288.625 141.852 Amount Norepinephrine 8 mg In 289.130 188.625 Sodium Chloride 0.9% 250 ml @ 0.05 MCG/KG/MIN 8.03 mls/hr IV .Q24H [facility] Rx#: [id number] Piperacillin-Tazobactam 3 25 .375 gm In Sodium Chloride 0.9% 100 ml @ 25 mls/hr IVPB Q12H [facility] Rx# :[id number] Propofol 1,000 mg In 74.7 100 36.852 Empty Bag 1 bag @ Titrate IV .Q0M [facility]Y Rx#: [id number] Sodium Chloride 0.9% 1, 80 000 ml @ 150 mls/hr IV . Q6H40M [facility] Rx#:[id number] Tube Feeding 40 341 328 Other 30 90 90 Output: Urine 525 420 250 Uretheral (Beyer) 25 Other: Voiding Method Indwelling Catheter Indwelling Catheter ABP, PAP, CO, CI - Last Documented Arterial Blood Pressure 125/58 - Exam Gen. appearance the patient is sedated, comfortable, not in acute respiratory distress and synchronous with the mechanical ventilator. Head exam was generally normal. There was no scleral icterus or corneal arcus. Mucous membranes were moist. Neck was supple and without jugular venous distension, thyromegaly, or carotid bruits. Carotids were easily palpable bilaterally. There was no adenopathy. Lungs sounds are markedly diminished on the left compared to the right. The br east on the right are within normal limits. Cardiac exam revealed the PMI to be normally situated and sized. The rhythm was regular and no extrasystoles were noted during several minutes of auscultation. The first and second heart sounds were normal and physiologic splitting of the second heart sound was noted. There were no murmurs, rubs, clicks, or gallops. Abdominal exam revealed normal bowel sounds. The abdomen was soft, non-tender, and without masses, organomegaly, or appreciable enlargement of the abdominal aorta. Examination of the extremities revealed easily palpable radial, femoral and pedal pulses. There was no cyanosis, clubbing has extensive edema in lower extremities bilaterally Examination of the skin revealed no evidence of significant rashes, suspicious appearing nevi or other concerning lesions. Neurologic the patient is sedated and is calm and comfortable. - Labs CBC & Chem 7: 06/10/18 04:05 06/10/18 04:05 Labs: Abnormal Lab Results - Last 24 Hours (Table) 06/09/18 06/09/18 06/09/18 Range/Units 17:32 20:58 23:59 WBC (3.8-10.6) k/uL RBC (4.30-5.90) m/uL Hgb (13.0-17.5) gm/dL Hct (39.0-53.0) % RDW (11.5-15.5) % Neutrophils # (1.3-7.7) k/uL ABG pCO2 (35-45) mmHg ABG HCO3 (21-25) mmol/L ABG O2 Saturation (94-97) % Sodium (137-145) mmol/L Carbon Dioxide (22-30) mmol/L BUN (9-20) mg/dL Creatinine (0.66-1.25) mg/dL Glucose (74-99) mg/dL POC Glucose (mg/dL) 140 H 154 H 151 H (75-99) mg/dL Calcium (8.4-10.2) mg/dL Phosphorus (2.5-4.5) mg/dL AST (17-59) U/L ALT (21-72) U/L Total Protein (6.3-8.2) g/dL Albumin (3.5-5.0) g/dL 06/10/18 06/10/18 06/10/18 Range/Units 04:05 04:05 04:13 WBC 15.6 H (3.8-10.6) k/uL RBC 3.55 L (4.30-5.90) m/uL Hgb 10.0 L (13.0-17.5) gm/dL Hct 30.9 L (39.0-53.0) % RDW 16.5 H (11.5-15.5) % Neutrophils # 12.6 H (1.3-7.7) k/uL ABG pCO2 (35-45) mmHg ABG HCO3 (21-25) mmol/L ABG O2 Saturation (94-97) % Sodium 136 L (137-145) mmol/L Carbon Dioxide 18 L (22-30) mmol/L BUN 61 H (9-20) mg/dL Creatinine 4.86 H (0.66-1.25) mg/dL Glucose 154 H (74-99) mg/dL POC Glucose (mg/dL) 167 H (75-99) mg/dL Calcium 7.3 L (8.4-10.2) mg/dL Phosphorus 5.9 H (2.5-4.5) mg/dL AST 15 L (17-59) U/L ALT 17 L (21-72) U/L Total Protein 4.5 L (6.3-8.2) g/dL Albumin 2.2 L (3.5-5.0) g/dL 06/10/18 06/10/18 06/10/18 Range/Units 05:20 08:28 11:46 WBC (3.8-10.6) k/uL RBC (4.30-5.90) m/uL Hgb (13.0-17.5) gm/dL Hct (39.0-53.0) % RDW (11.5-15.5) % Neutrophils # (1.3-7.7) k/uL ABG pCO2 32 L (35-45) mmHg ABG HCO3 19 L (21-25) mmol/L ABG O2 Saturation 98.2 H (94-97) % Sodium (137-145) mmol/L Carbon Dioxide (22-30) mmol/L BUN (9-20) mg/dL Creatinine (0.66-1.25) mg/dL Glucose (74-99) mg/dL POC Glucose (mg/dL) 179 H 209 H (75-99) mg/dL Calcium (8.4-10.2) mg/dL Phosphorus (2.5-4.5) mg/dL AST (17-59) U/L ALT (21-72) U/L Total Protein (6.3-8.2) g/dL Albumin (3.5-5.0) g/dL Microbiology - Last 24 Hours (Table) 06/07/18 10:50 Gram Stain - Final Bronchial Washings - Left Bronchial Washings Culture - Final Staph aureus Marie albicans 06/06/18 23:59 Gram Stain - Final Sputum Sputum Culture - Final Staphylococcus aureus Marie albicans 06/06/18 19:15 Blood Culture - Preliminary Blood No Growth after 72 hours Assessment and Plan Plan: 1 acute hypoxic respiratory failure with complete/near complete collapse of the left lung secondary to 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 Endobronchial biopsies were obtained and there is a very high suspicion of an underlying lung cancer. The pathology is consistent with small cell lung cancer. The patient remains intubated on a mechanical ventilator. Chest x-ray shows complete opacification of the left lung. 2 acute respiratory failure requiring intubation mechanical ventilation. The right lung is clean and left lung is completely opacified on today's chest x- ray, his condition is related to lung cancer do not expect any improvement in his condition from the pulmonary standpoint based on the extensive tumor infiltration of the left mainstem and the various bronchi in the left side. 3 MRSA left lung pneumonia, secondary to staph aureus monitor the patient remains and accommodation of Zosyn and vancomycin 4 shock, likely septic in nature currently on normal saline today to have 150 mL an hour the patient on broad-spectrum antibiotics and the patient is also on pressors and norepinephrine infusion is running at 0.1 g per KG pigmented. 5 chronic atrial fibrillation, completed amiodarone bolus and currently will be switched to maintenance. 6 CHF with an ejection fraction of 40-45% 7 COPD 8 acute kidney injury , nonoliguric, some mild improvement in creatinine which is down to 4.8 9 acute leukocytosis secondary to above 10 metabolic acidosis a combination of anion and non-anion gap metabolic acidosis 11 diabetes mellitus 12 hypertension 13 gout 14 recent hospitalization for a enterococcal septicemia 15 left lower lobe mass identified initially on a CAT scan of the chest was done in September 2017 Plan She is pretty much the same as yesterday. Still pressor dependent. Minimal improvement in renal function. Still on antibiotics. Still on vent support. Continues feeding for nutritional support. My recommendation is comfort care measures and this will be again discussed with the family. I understand that more family relatives arriving for decision making. All this was discussed with the daughter the bedside and informed the of the poor prognosis the patient carries based on the above-mentioned comorbidities.
[2018-06-10] MEDS ORDERED: GLYCOPYRROLATE 0.2 MG/ML 2 ML VIAL IVP PRN (15:48)
[2018-06-10] MEDS ORDERED: MORPHINE SULFATE (100 MG/2 ML) 100 MG in SODIUM CHLORIDE 0.9% 100 ML IV SCH (16:00)
[2018-06-10] MEDS ORDERED: SCOPOLAMINE 1.5MG/72HR PATCH TRANSDERM SCH (16:00)
[2018-06-10 20:12] VITALS: BP 123/74; PULSE 0; RESP 0; TEMP 98
--- NOTE | 2018-06-11 10:59 | P.DS ---
Providers Date of admission: 06/07/18 01:40 Attending physician: Ishmael Levi Consults: 06/07/18 01:02 Consult Physician Routine Consulting Provider: Duane Briggs Consult Reason/Comments: Critical Care Do you want consulting provider notified?: Already Contacted Consult Physician Routine Consulting Provider: Clara Su Consult Reason/Comments: Acute Renal Failure Do you want consulting provider notified?: Yes 06/07/18 01:14 Consult Physician Routine Consulting Provider: Jony Dhillon Consult Reason/Comments: Left lung mass Do you want consulting provider notified?: Yes Primary care physician: Ishmael Levi Hospital Course: Diagnoses: acute hypoxic resp failure with intubation and mechanical ventilation secondary to tumor obstructing the left main bronchus small cell lung cancer, biopsy proven post obstructive pneumonia septic shock on pressers secondary to pna h/o CHF atrial fibrillation DM HTN CVA/TIA Hospital course: this is a 73 yo F with pmh of congestive heart failure, cardiomyopathy , COPD, HTN , DM diabetic neuropathy , atrial fibrillation , CVA/TIA, multiple pneumonia, CKD, who presents with generalized weakness and diarrhea and vomiting , she got into resp distress in the emergency room and she got intubated and placed on mechanical ventilation . Patient remains in the ICU in critical case, he was in septic shock and he was needing about of pressors as we ll as broad-spectrum antibiotic. Patient is being followed closely by pulmonary/critical care team. His prognosis was poor. Eventually family decided comfort care for the patient's. Patient on 06/10/2018 Patient Condition at Discharge: Critical Plan - Discharge Summary Discharge Rx Participant: No New Discharge Prescriptions: No Action Simvastatin [Zocor] 40 mg PO HS metFORMIN HCL 1,000 mg PO BID Menthol [Biofreeze] 1 applic TOPICAL DAILY PRN PRN Reason: Pain Melatonin 5 mg PO HS Acetaminophen Tab [Tylenol] 650 mg PO Q6H PRN PRN Reason: Mild Pain Or Fever > 100.5 Apixaban [Eliquis] 5 mg PO BID Famotidine [Pepcid] 20 mg PO DAILY@0700 tab traMADol HCL [Ultram] 50 mg PO Q8HR PRN #12 tablet PRN Reason: Moderate Pain Torsemide [Demadex] 20 mg PO DAILY Amoxic-Pot Clav 875-125Mg [Augmentin 875-125] 1 tab PO Q12HR Albuterol Inhaler [Ventolin Hfa Inhaler] 2 puff INHALATION RT-Q6H PRN PRN Reason: Shortness Of Breath Colchicine [Colcrys] 0.6 mg PO DAILY PRN PRN Reason: GOUT FLARE UP Carvedilol [Coreg] 6.25 mg PO BID Discharge Medication List Simvastatin [Zocor] 40 mg PO HS 08/07/17 [History] Menthol [Biofreeze] 1 applic TOPICAL DAILY PRN 08/25/17 [History] metFORMIN HCL 1,000 mg PO BID 08/25/17 [History] Acetaminophen Tab [Tylenol] 650 mg PO Q6H PRN 09/19/17 [History] Apixaban [Eliquis] 5 mg PO BID 09/19/17 [History] Melatonin 5 mg PO HS 09/19/17 [History] Famotidine [Pepcid] 20 mg PO DAILY@0700 tab 09/23/17 [Rx] traMADol HCL [Ultram] 50 mg PO Q8HR PRN #12 tablet 09/23/17 [Rx] Albuterol Inhaler [Ventolin Hfa Inhaler] 2 puff INHALATION RT-Q6H PRN 06/06/18 [History] Amoxic-Pot Clav 875-125Mg [Augmentin 875-125] 1 tab PO Q12HR 06/06/18 [History] Carvedilol [Coreg] 6.25 mg PO BID 06/06/18 [History] Colchicine [Colcrys] 0.6 mg PO DAILY PRN 06/06/18 [History] Torsemide [Demadex] 20 mg PO DAILY 06/06/18 [History] Follow up Appointment(s)/Referral(s): Ishmael Levi MD [Primary Care Provider] - 1-2 days Discharge Disposition: - Preliminary Cause of Preliminary Cause of : lung cancer and pneumonia
--- NOTE | 2018-06-13 19:02 | CDI ---
Documentation Clarification Form Date: 06/13/2018 6:42:12 PM From: Leila Whitman RN, CCDS Email: [email or web address] Admit Date: 06/07/2018 1:40:00 AM Patient Name: Blake Cote Visit Number: [id number] Discharge Date: 06/10/2018 6:15:00 PM ATTENTION: The Clinical Documentation Specialists (CDI) and [facility] Coding Staff appreciate your assistance in clarifying documentation. Please respond to the clarification below the line at the bottom and electronically sign. The CDI & [facility] Coding staff will review the response and follow-up if needed. Please note: Queries are made part of the Legal Health Record. If you have any questions, please contact the author of this message via ITS. Dr. Ishmael Levi H&P documentation states, Patient with heart failure and pacemaker with left ventricular function of 45%. Also has cardiomyopathy and is in chronic persistent atrial fibrillation. History/Risk Factors: CHF, cardiomyopathy, atrial fibrillation, diabetes, HTN and renal disease Clinical Indicators: SOB, right sided chest pain, vomiting and diarrhea, respiratory distress requiring intubation and ventilation, sepsis with septic shock VS/Pulse OX: pox 78%, RR varied up as high as 36 BNP: 7,230 Echocardiogram Results: past EF 45% Chest X Ray: left saige-thorax white out Treatment: IV Lasix, Amiodarone IV and po, I&O, pressors In your professional opinion, can you please clarify the acuity and type of CHF if known? Systolic Heart Failure: Acute Chronic Acute on Chronic Diastolic Heart Failure: Acute Chronic Acute on Chronic Systolic & Diastolic Heart Failure: Acute Chronic Acute on Chronic Heart Failure Unable to Determine Other, please specify MTDD
--- NOTE | 2018-06-15 12:03 | P.PN ---
Progress Note - Text addendum CHF as reported by Dr Ornelas criminology professor systolic dysfunction EF 45% chronic with cardiomyopathy
== END 2018-06-10 18:15 | disposition expired | DRG 853 ==
LOC: EC 18:50 → 2SICU 06-07 01:40
PROVIDERS: ADMIT Family Medicine; ATTEND Family Medicine
PROC: 04HK33Z Insertion of Infusion Device into Right Femoral Artery, Percutaneous Approach (ICD-10-PCS; principal; 2018-06-07 09:50)
PROC: 0BH18EZ Insertion of Endotracheal Airway into Trachea, Via Natural or Artificial Opening Endoscopic (ICD-10-PCS; principal; 2018-06-07 09:50)
PROC: 5A1945Z Respiratory Ventilation, 24-96 Consecutive Hours (ICD-10-PCS; principal; 2018-06-07 09:50)
PROC: 4A133B1 Monitoring of Arterial Pressure, Peripheral, Percutaneous Approach (ICD-10-PCS; 2018-06-07 09:50)
PROC: 4A133J1 Monitoring of Arterial Pulse, Peripheral, Percutaneous Approach (ICD-10-PCS; 2018-06-07 09:50)
PROC: 0BB78ZX Excision of Left Main Bronchus, Via Natural or Artificial Opening Endoscopic, Diagnostic (ICD-10-PCS; 2018-06-07 09:50)
PROC: 04HY32Z Insertion of Monitoring Device into Lower Artery, Percutaneous Approach (ICD-10-PCS; 2018-06-07 09:50)
PROC: 0B9J8ZZ Drainage of Left Lower Lung Lobe, Via Natural or Artificial Opening Endoscopic (ICD-10-PCS; 2018-06-08)
PROC: 0B978ZZ Drainage of Left Main Bronchus, Via Natural or Artificial Opening Endoscopic (ICD-10-PCS; 2018-06-08)
DX: A41.02 Sepsis due to Methicillin resistant Staphylococcus aureus (principal); R65.21 Severe sepsis with septic shock; J15.211 Pneumonia due to Methicillin susceptible Staphylococcus aureus; J96.21 Acute and chronic respiratory failure with hypoxia; J96.22 Acute and chronic respiratory failure with hypercapnia; N17.0 Acute kidney failure with tubular necrosis; N18.6 End stage renal disease; I26.99 Other pulmonary embolism without acute cor pulmonale; E87.2 Acidosis; I13.2 Hypertensive heart and chronic kidney disease with heart failure and with stage 5 chronic kidney disease, or end stage renal disease; I42.9 Cardiomyopathy, unspecified; I48.1 Persistent atrial fibrillation; C34.32 Malignant neoplasm of lower lobe, left bronchus or lung; J44.0 Chronic obstructive pulmonary disease with (acute) lower respiratory infection; J98.11 Atelectasis; I50.22 Chronic systolic (congestive) heart failure; E11.22 Type 2 diabetes mellitus with diabetic chronic kidney disease; E11.40 Type 2 diabetes mellitus with diabetic neuropathy, unspecified; E83.39 Other disorders of phosphorus metabolism; E83.42 Hypomagnesemia; E86.0 Dehydration; E87.5 Hyperkalemia; Z66 Do not resuscitate; Z51.5 Encounter for palliative care; I48.2 Chronic atrial fibrillation; K21.9 Gastro-esophageal reflux disease without esophagitis; Z53.9 Procedure and treatment not carried out, unspecified reason; Z79.01 Long term (current) use of anticoagulants; Z79.84 Long term (current) use of oral hypoglycemic drugs; Z79.899 Other long term (current) drug therapy; Z86.73 Personal history of transient ischemic attack (TIA), and cerebral infarction without residual deficits; Z87.891 Personal history of nicotine dependence; Z95.810 Presence of automatic (implantable) cardiac defibrillator
CPT/HCPCS: 31500; 31641; 36415; 36556; 36600; 71045; 71046; 71250; 76604; 76770; 80048; 80053; 80202; 81001; 82272; 82533; 82805; 83605; 83735; 83880; 84100; 84484; 85025; 85610; 85730; 87040; 87070; 87077; 87186; 87205; 88108; 88305; 88341; 88342; 89050; 93005; 94002; 94003; 96365; 96366; 96368; 96375; 99291